=== PATIENT | male | born 1935 | race Caucasian/White ===

== ENCOUNTER 2016-07-14 23:55 | Inpatient (IN) | payer OTHER ==
[2016-07-15 00:14] VITALS: BMI 32.6
[2016-07-15] MEDS ORDERED: ALBUTEROL SO4 2.5/IPRATROPIUM 0.5 INH SOL 3 ML VIAL.NEB. NEB STA ×2 (00:47→00:48)
[2016-07-15] MEDS ORDERED: MAGNESIUM SULF 50% (8.12 MEQ/2 ML-1 GM VIAL) IVPB ONE (00:49)
--- NOTE | 2016-07-15 00:49 | PDOC ---
History of Present Illness - General History Source: Patient Exam Limitations: No Limitations - History of Present Illness Initial Comments: 07/15/16 00:57 The patient is a 80 year old male with significant past medical history of A- fib (on coumadin), hypertension, hyperlipidemia, and pneumonia (couple months ago) who presents to the ED with 2 days of productive cough and wheezing. Patient reports he developed a productive cough with occasional yellow sputum and wheezing 2 days ago. He follows up with Dr. Romano and was recently started on an inhaler, Breo, for the wheezing he has had periodically since he was diagnosed with pneumonia. He states no improvement with the inhaler. Patient also has complaints of slightly dyspnea on exertion. The patient denies fever, chills, diaphoresis, chest pain, and palpitations. The patient denies abdominal pain, nausea, vomiting, and diarrhea. Allergies: NKDA Social History: No alcohol, tobacco, or drug use reported. 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 Zuhair Romano <Jennifer Alba - Last Filed: 07/15/16 01:44> - General History Source: Patient <RachidJonah stewart - Last Filed: 07/15/16 02:02> - General Chief Complaint: Respiratory Stated Complaint: COUGH Time Seen by Provider: 07/15/16 00:47 Past History <Jennifer Alba - Last Filed: 07/15/16 01:44> - Past Medical History Anemia: No Asthma: No Cancer: No Cardiac Disorders: Yes (A FIB) CVA: No COPD: No CHF: No Dementia: No Diabetes: No GI Disorders: Yes (GASTRIC ULCER) Disorders: Yes (ENLARGED PROSTATE) HTN: Yes Hypercholesterolemia: Yes Liver Disease: No Seizures: No Thyroid Disease: No - Surgical History Appendectomy: No Cardiac Surgery: Yes ("NEW VALVE" STENTS) Cholecystectomy: No Orthopedic Surgery: No - Immunization History Immunization Up to Date: Yes - Psycho/Social/Smoking Cessation Hx Anxiety: No Suicidal Ideation: No Smoking History: Never smoked Have you smoked in the past 12 months: No Information on smoking cessation initiated: No Hx Alcohol Use: No Drug/Substance Use Hx: No Substance Use Type: None Hx Substance Use Treatment: No <Jonah Mcgregor - Last Filed: 07/15/16 02:02> - Past Medical History Allergies/Adverse Reactions: Allergies Allergy/AdvReac Type Severity Reaction Status Date / Time No Known Allergies Allergy Verified 07/15/16 00:14 Home Medications: Ambulatory Orders Allopurinol [Zyloprim -] 300 mg PO DAILY 08/22/14 Aspirin [Aspirin EC] 81 mg PO DAILY 08/22/14 Atorvastatin Ca [Lipitor] 40 mg PO HS 08/22/14 Cholecalciferol (Vitamin D3) [Vitamin D3] 2,000 unit PO DAILY 08/22/14 Losartan Potassium 100 mg PO DAILY 08/22/14 Metoprolol Tartrate [Lopressor] 100 mg PO BID 08/22/14 [place]-3 Acid Ethyl Esters [Lovaza -] 4 mg PO DAILY 08/22/14 Ranitidine [Zantac -] 150 mg PO BID 08/22/14 Warfarin Sodium [Coumadin] 1 mg PO DAILY 08/22/14 Warfarin Sodium [Coumadin] 2 mg PO DAILY 08/22/14 Amlodipine Besylate [Norvasc -] 5 mg PO DAILY 09/07/14 Ranolazine [Ranexa -] 500 mg PO BID 09/18/15 Furosemide [Lasix -] 20 mg PO DAILY 07/15/16 Tamsulosin HCl [Flomax] 0.4 mg PO HS 07/15/16 Review of Systems - Review of Systems Able to Perform ROS?: Yes Comments:: 07/15/16 00:58 CONSTITUTIONAL: Absent: fever, chills, diaphoresis, generalized weakness, malaise, loss of appetite HEENT: Absent: rhinorrhea, nasal congestion, throat pain, throat swelling, difficulty swallowing, mouth swelling, ear pain, eye pain, visual Changes CARDIOVASCULAR: Absent: chest pain, syncope, palpitations, irregular heart rate, lightheadedness , peripheral edema RESPIRATORY: +cough, shortness of breath, dyspnea with exertion Absent: orthopnea, wheezing, stridor, hemoptysis GASTROINTESTINAL: Absent: abdominal pain, abdominal distension, nausea, vomiting, diarrhea, constipation, melena, hematochezia GENITOURINARY: Absent: dysuria, frequency, urgency, hesitancy, hematuria, flank pain, genital pain MUSCULOSKELETAL: Absent: myalgia, arthralgia, joint swelling SKIN: Absent: rash, itching, pallor NEUROLOGIC: Absent: headache, focal weakness or paresthesias, dizziness, unsteady gait, seizure, mental status changes, bladder or bowel incontinence PSYCHIATRIC: Absent: anxiety, depression, suicidal or homicidal ideation, hallucinations. <Jennifer Alba - Last Filed: 07/15/16 01:44> *Physical Exam - Vital Signs Last Vital Signs Temp Pulse Resp BP Pulse Ox 98.3 F 56 L 18 113/76 98 07/15/16 00:40 07/15/16 00:12 07/15/16 00:12 07/15/16 00:12 07/15/16 00:12 - Physical Exam Comments: 07/15/16 00:58 GENERAL: Well developed, well nourished. Awake and alert. No acute distress. HEENT: Normocephalic, atraumatic. PERRLA, EOMI. No conjunctival pallor. Sclera are non- icteric. Moist mucous membranes. Oropharynx is clear. NECK: Supple. Full ROM. No JVD. Carotid pulses 2+ and symmetric, without bruits. No thyromegaly. No lymphadenopathy. CARDIOVASCULAR: Regular rate and rhythm. No murmurs, rubs, or gallops. Distal pulses are 2+ and symmetric. PULMONARY: No evidence of respiratory distress. Diffuse wheezing bilaterally. ABDOMINAL: Soft. Non-tender. Non-distended. No rebound or guarding. No organomegaly. Normoactive bowel sounds. MUSCULOSKELETAL Normal range of motion at all joints. No bony deformities or tenderness. No CVA tenderness. EXTREMITIES: No cyanosis. No clubbing. No edema. No calf tenderness. SKIN: Warm and dry. Normal capillary refill. No rashes. No jaundice. NEUROLOGICAL: Alert, awake, appropriate. Cranial nerves 2-12 intact. Moving all extremities. No focal neurological deficits. PSYCHIATRIC: Cooperative. Good eye contact. Appropriate mood and affect. <Jennifer Alba - Last Filed: 07/15/16 01:44> - Vital Signs Last Vital Signs Temp Pulse Resp BP Pulse Ox 98.3 F 56 L 18 113/76 98 07/15/16 00:40 07/15/16 00:12 07/15/16 00:12 07/15/16 00:12 07/15/16 00:12 <Jonah Mcgregor - Last Filed: 07/15/16 02:02> ED Treatment Course - LABORATORY CBC & Chemistry Diagram: 07/15/16 01:05 07/15/16 01:05 - RADIOLOGY Radiograph Interpretation: 07/15/16 01:44 EXAM: X-ray chest Reviewed by Imaging occupational medicine physician: FINDINGS: Mild cardiomegaly status post sternotomy and aortic valve replacement. Hyperinflation of the lung parenchyma. Mild basilar atelectasis. There are no pleural effusions. There is no pneumothorax. IMPRESSION: Mild cardiomegaly status post sternotomy and aortic valve replacement. Hyperinflation of the lung parenchyma. Mild basilar atelectasis. <Jennifer Alba - Last Filed: 07/15/16 01:44> - LABORATORY CBC & Chemistry Diagram: 07/15/16 01:05 07/15/16 01:05 <Jonah Mcgregor - Last Filed: 07/15/16 02:02> Medical Decision Making - Medical Decision Making 07/15/16 02:01 Dr. Mcgregor: The scribe's documentation has been prepared under my direction and personally reviewed by me in its entirery. I confirm that the note above accurately reflects all work, treatment, procedures, and medical decision making performed by me. patient still actively wheezing, dyspneic on exertion, Positive influenza a by culture. Will admit. <Jonah Mcgregor - Last Filed: 07/15/16 02:02> *DC/Admit/Observation/Transfer - Attestations Scribe Attestion: 07/15/16 00:58 Documentation prepared by Jennifer Alba, acting as family practice medical doctor for Jonah Mcgregor MD <Jennifer Alba - Last Filed: 07/15/16 01:44> - Discharge Dispostion Admit: Yes <Jonah Mcgregor - Last Filed: 07/15/16 02:02> Diagnosis at time of Disposition: Bronchospasm, Influenza A - Referrals Referrals: Zuhair Romano MD [Primary Care Provider] -
[2016-07-15] MEDS ORDERED: MAGNESIUM SULF 50% (8.12 MEQ/2 ML-1 GM VIAL) ONE (01:01)
[2016-07-15] MEDS ORDERED: ALBUTEROL SO4 2.5/IPRATROPIUM 0.5 INH SOL 3 ML VIAL.NEB. NEB ONE ×2 (01:06→01:22)
[2016-07-15 01:32] LABS: EOSINOPHIL 4.5 % (0-4.5); MCH 29.7 pg (25.7-33.7); MCHC 32.6 g/dl (32.0-35.9); MEAN PLT VOLUME 8.2 fl (7.5-11.1); NEUTROPHILS 64.9 % (42.8-82.8); PLATELET COUNT 182 K/MM3 (134-434); RDW 14.7 % (11.9-15.9); WHITE BLOOD COUNT 6.1 K/mm3 (4.0-10.0)
[2016-07-15 01:58] LABS: ALBUMIN 3.5 g/dl (3.4-5.0); CALCIUM 8.9 mg/dL (8.5-10.1); CREATININE 1.7 mg/dL (0.7-1.3)
[2016-07-15 01:59] LABS: BILIRUBIN,TOTAL 0.4 mg/dL (0.2-1.0); TOT PROT 6.6 g/dl (6.4-8.2)
[2016-07-15] MEDS ORDERED: OSELTAMIVIR PHOSPHATE 75 MG CAPSULE PO ONE (02:00)
[2016-07-15] MEDS ORDERED: OSELTAMIVIR PHOSPHATE 75 MG CAPSULE ONE (02:07)
--- NOTE | 2016-07-15 02:11 | PN ---
<Quinn Gonzales - Last Filed: 07/15/16 02:11> Teaching Attending Note Name of Resident: Cary Ramirez ATTENDING PHYSICIAN STATEMENT I saw and evaluated the patient. I reviewed the resident's note and discussed the case with the resident. I agree with the resident's findings and plan as documented. SUBJECTIVE: OBJECTIVE: ASSESSMENT AND PLAN: <DebbiJonah sierra - Last Filed: 07/15/16 02:56> Teaching Attending Note Name of Resident: Cary Ramirez ATTENDING PHYSICIAN STATEMENT I saw and evaluated the patient. I reviewed the resident's note and discussed the case with the resident. I agree with the resident's findings and plan as documented. SUBJECTIVE: 80 year old male, past medical history significant for AFIB on coumadin, HTN, HLD and pneumonia, who presented with productive cough, yellow sputum and wheezing. He notes that he received the flu shot this year. OBJECTIVE: GENERAL: Awake, alert, and fully oriented, in no acute distress HEENT: Atraumatic. PERRLA, EOMI. Moist mucosa. No JVD LUNGS: +Diffused expiratory wheezing. No distress, speaks full sentences. HEART: Regular rate and rhythm, normal S1 and S2, no murmurs, rubs or gallops, peripheral pulses normal and equal bilaterally. ABDOMEN: Soft, nontender, normoactive bowel sounds. No guarding, no rebound. No masses EXTREMITIES: Normal inspection, Normal range of motion, no edema. No clubbing or cyanosis. NEUROLOGICAL: Cranial nerves II through XII grossly intact. Normal speech, no focal sensorimotor deficits SKIN: Warm, Dry, normal turgor, no rashes or lesions noted. CBCD WBC 6.1 K/mm3 (4.0-10.0) 07/15/16 01:05 RBC 3.64 M/mm3 (4.00-5.60) L 07/15/16 01:05 Hgb 10.8 GM/dL (11.7-16.9) L D 07/15/16 01:05 Hct 33.2 % (35.4-49) L 07/15/16 01:05 MCV 91.0 fl (80-96) 07/15/16 01:05 MCHC 32.6 g/dl (32.0-35.9) 07/15/16 01:05 RDW 14.7 % (11.9-15.9) 07/15/16 01:05 Plt Count 182 K/MM3 (134-434) 07/15/16 01:05 MPV 8.2 fl (7.5-11.1) D 07/15/16 01:05 CMP Sodium 143 mmol/L (136-145) 07/15/16 01:05 Potassium 4.3 mmol/L (3.5-5.1) 07/15/16 01:05 Chloride 105 mmol/L (98-107) 07/15/16 01:05 Carbon Dioxide 29 mmol/L (21-32) 07/15/16 01:05 Anion Gap 9 (8-16) 07/15/16 01:05 BUN 32 mg/dL (7-18) H 07/15/16 01:05 Creatinine 1.7 mg/dL (0.7-1.3) H D 07/15/16 01:05 Creat Clearance w eGFR 38.78 (>60) 07/15/16 01:05 Calcium 8.9 mg/dL (8.5-10.1) 07/15/16 01:05 Total Bilirubin 0.4 mg/dL (0.2-1.0) D 07/15/16 01:05 AST 13 U/L (15-37) L D 07/15/16 01:05 ALT 12 U/L (12-78) D 07/15/16 01:05 Alkaline Phosphatase 67 U/L (45-117) 07/15/16 01:05 Total Protein 6.6 g/dl (6.4-8.2) 07/15/16 01:05 Albumin 3.5 g/dl (3.4-5.0) 07/15/16 01:05 ASSESSMENT AND PLAN: 80 year old male, with past medical history of who presents with cough and wheezing, found to be positive for the flu 1. Influenza, -Continue with tamiflu -Sputum culture -Nebulizer PRN, wheezing 2. Acute renal failure -Gentle IVF 3. Interstitial anemia - Monitor studies, outpatient 4. DVT prophylaxes - Heparin 5000 Q8, moderate risk Admit to med surg Documentation prepared by Jonah Sultana, acting as medical manager for Quinn Gonzales D.O.
--- NOTE | 2016-07-15 02:16 | HP ---
CHIEF COMPLAINT: " i have wheezing" PCP: Dr Romano HISTORY OF PRESENT ILLNESS: This is a very pleasant 80 yo M with PMH of a recent hospitalization for PNA, a- fib on coum, HTN, HLD, BPH and past Gastric ulcer, who presents due to increased wheezing and cough productive of yellow sputum for 2 days. He also reports associated rhinorrhea and throat "tickle". 2 mo ago, while on vacation in [facility], he developed sob and wheezing. He was hospitalized for 3 days with PNA and treated with steroids and abx. His wheezing since improved but did not completely disappear. His PCP started him on Breo nebs, which have not been helping. Patient felt almost back to baseline until 2 days ago, when current symptoms started. he denies sob, h/a, f/c, chest pain, orthopnea, palpitations, abd pain, diarrhea or constipation. He denies personal or family history of asthma or copd, smoking or smoke exposure. He has had a flu shot but not PNA shot. ER course was notable for: (1)cxr (2)labs (3)tamiflu, albuterol nebs Recent Travel: [facility] 2 mo ago PAST MEDICAL HISTORY: as above PAST SURGICAL HISTORY: heart valve replacement 2 yrs ago Social History: lives at home Smoking: denies Alcohol: 2 drinks/mo Drugs: denies Family History: none Allergies No Known Allergies Allergy (Verified 07/15/16 00:14) HOME MEDICATIONS: Medication Instructions Recorded Allopurinol [Zyloprim -] 300 mg PO DAILY 08/22/14 Aspirin [Aspirin EC] 81 mg PO DAILY 08/22/14 Atorvastatin Ca [Lipitor] 40 mg PO HS 08/22/14 Cholecalciferol (Vitamin D3) 2,000 unit PO DAILY 08/22/14 [Vitamin D3] Losartan Potassium 100 mg PO DAILY 08/22/14 Metoprolol Tartrate [Lopressor] 100 mg PO BID 08/22/14 [place]-3 Acid Ethyl Esters [Lovaza 4 mg PO DAILY 08/22/14 -] Ranitidine [Zantac -] 150 mg PO BID 08/22/14 Warfarin Sodium [Coumadin] 1 mg PO DAILY 08/22/14 Warfarin Sodium [Coumadin] 2 mg PO DAILY 08/22/14 Amlodipine Besylate [Norvasc -] 5 mg PO DAILY 09/07/14 Ranolazine [Ranexa -] 500 mg PO BID 09/18/15 Furosemide [Lasix -] 20 mg PO DAILY 07/15/16 Tamsulosin HCl [Flomax] 0.4 mg PO HS 07/15/16 REVIEW OF SYSTEMS CONSTITUTIONAL: Absent: fever, chills, malaise, loss of appetite HEENT: Absent: throat pain, difficulty swallowing, ear pain CARDIOVASCULAR: Absent: chest pain, syncope, palpitations, lightheadedness, peripheral edema RESPIRATORY: Absent: shortness of breath, orthopnea, hemoptysis GASTROINTESTINAL: Absent: abdominal pain, abdominal distension, nausea, vomiting, diarrhea, constipation, melena, hematochezia GENITOURINARY: Absent: dysuria MUSCULOSKELETAL: Absent: myalgia, arthralgia SKIN: Absent: rash HEMATOLOGIC/IMMUNOLOGIC: Absent: frequent infections ENDOCRINE: Absent: uheat intolerance, cold intolerance NEUROLOGIC: Absent: headache, focal weakness or paresthesias, seizure PSYCHIATRIC: Absent: anxiety, depression PHYSICAL EXAMINATION Vital Signs - 24 hr 07/15/16 07/15/16 00:12 00:40 Temperature 98.3 F Pulse Rate 56 L Respiratory 18 Rate Blood Pressure 113/76 O2 Sat by Pulse 98 Oximetry (%) GENERAL: Awake, alert, and fully oriented, in no acute distress. HEAD: Normal with no signs of trauma. EYES: Pupils equal, round and reactive to light, extraocular movements intact, sclera anicteric, conjunctiva clear. EARS, NOSE, THROAT: Moist mucous membranes. NECK: supple without JVD LUNGS: diffuse expiratory wheezes HEART: Regular rate and rhythm, normal S1 and S2 ABDOMEN: Soft, nontender, not distended, normoactive bowel sounds MUSCULOSKELETAL: No CVA tenderness. UPPER EXTREMITIES: 2+ pulses, warm, well-perfused. No cyanosis.No peripheral edema. LOWER EXTREMITIES: 2+ pulses, warm, well-perfused. No calf tenderness. No peripheral edema. NEUROLOGICAL: Cranial nerves II-XII grossly intact. Normal speech. PSYCHIATRIC: Cooperative. Good eye contact SKIN: Warm, dry Laboratory Results - last 24 hr 07/15/16 01:05 WBC 6.1 RBC 3.64 L Hgb 10.8 L D Hct 33.2 L MCV 91.0 MCHC 32.6 RDW 14.7 Plt Count 182 MPV 8.2 D Neutrophils % 64.9 Lymphocytes % 16.7 Monocytes % 12.9 H Eosinophils % 4.5 Basophils % 1.0 Laboratory Tests 07/15/16 01:05 Sodium 143 Potassium 4.3 Chloride 105 Carbon Dioxide 29 Anion Gap 9 BUN 32 H Creatinine 1.7 H D Creat Clearance w eGFR 38.78 Random Glucose 79 D Calcium 8.9 Total Bilirubin 0.4 D AST 13 L D ALT 12 D Alkaline Phosphatase 67 Total Protein 6.6 Albumin 3.5 ASSESSMENT/PLAN: This is a very pleasant 80 yo M with PMH of a recent hospitalization for PNA, a- fib on coum, HTN, HLD, BPH and past Gastric ulcer, who presents due to increased wheezing and cough productive of yellow sputum for 2 days. He also reports associated rhinorrhea and throat "tickle". @ mo ago, while on vacation in [facility], he developed sob and wheezing. He was hospitalized for 3 days with PNA and treated with steroids and abx. His wheezing since improved but did not completely disappear. His PCP started him on Breo nebs, whihc have not been helping. Patient felt almost back to baseline until 2 days ago, when current symptoms started. he denies sob, h/a, f/c, chest pain, orthopnea, palpitations, abd pain, diarrhea or constipation. He deneis personal or family history of asthma or copd, smoking or smoke exposure. He has had a flu shot but not PNA shot. 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 + -wheezing possible rxn airway inflamation/asthma in setting of recent PNA, aggravated by influenza -continue tamiflu -IV hydration -sputum culture -albuterol nebs -incentive spirometry [place] -BUN/creat 32/1.7 -possiblu due to dehydration -IV hydration -trend creat A fib -hold coum until INR result HTN -continuemetoprolol, amlodipine, asa 81 HLD -continue atorvastatin BPH -continue flomax HX GI ulcer -continue zantac FEN NS@75 lytes stable DVT GI PPX: SCD, diet NA controlled diet Dispo: admit to med lisa Problem List - Problem (1) Bronchospasm Code(s): J98.01 - ACUTE BRONCHOSPASM (2) Influenza A Code(s): J10.1 - FLU DUE TO OTH IDENT INFLUENZA VIRUS W OTH RESP MANIFEST (3) HTN (hypertension) Code(s): I10 - ESSENTIAL (PRIMARY) HYPERTENSION (4) HLD (hyperlipidemia) Code(s): E78.5 - HYPERLIPIDEMIA, UNSPECIFIED (5) A-fib Code(s): I48.91 - UNSPECIFIED ATRIAL FIBRILLATION (6) BPH (benign prostatic hyperplasia) Code(s): N40.0 - BENIGN PROSTATIC HYPERPLASIA WITHOUT LOWER URINRY TRACT SYMP Visit type - Emergency Visit Emergency Visit: Yes Care time: The patient presented to the Emergency Department on the above date and was hospitalized for further evaluation of their emergent condition. - New Patient This patient is new to me today: Yes Date on this admission: 07/15/16 - Critical Care Critical Care patient: No
[2016-07-15] MEDS ORDERED: SODIUM CHLORIDE 1,000 ML IV SCH ×2 (03:00→16:46)
[2016-07-15 03:39] LABS: INR 5.27 (0.82-1.09)
[2016-07-15 06:20] LABS: MCH 29.5 pg (25.7-33.7); MCHC 32.5 g/dl (32.0-35.9); MEAN CELL VOLUME 90.8 fl (80-96); MEAN PLT VOLUME 7.6 fl (7.5-11.1); PLATELET COUNT 170 K/MM3 (134-434); RDW 14.6 % (11.9-15.9); WHITE BLOOD COUNT 6.5 K/mm3 (4.0-10.0)
[2016-07-15 07:11] LABS: CALCIUM 8.6 mg/dL (8.5-10.1); CREATININE 1.6 mg/dL (0.7-1.3); MAGNESIUM 1.8 mg/dL (1.8-2.4); PHOSPHOROUS 2.9 mg/dL (2.5-4.9)
[2016-07-15] MEDS: ALBUTEROL SO4 0.083% IH SOL 2.5 MG/3 ML VIAL.NEB. NEB PRN ×4 (08:30→23:47)
[2016-07-15] MEDS ORDERED: ALBUTEROL SO4 0.083% IH SOL 2.5 MG/3 ML VIAL.NEB. NEB ONE ×2 (08:30→08:32)
[2016-07-15] MEDS ORDERED: OMEGA-3 ACID ETHYL ESTERS (FATTY-ACIDS) 1 GM CAPSULE (FP) PO SCH (10:00)
[2016-07-15] MEDS ORDERED: ASPIRIN COATED 81 MG TABLET.EC PO SCH (10:00)
[2016-07-15] MEDS ORDERED: PT OWN MED DRAWER 7, Y5N ONE ×3 (10:23→20:56)
[2016-07-15] MEDS: ALLOPURINOL 100 MG TABLET (FP) PO SCH (10:37)
[2016-07-15] MEDS: METOPROLOL TARTRATE 50 MG TABLET (FP) PO SCH ×2 (10:37→21:01)
[2016-07-15] MEDS: RANITIDINE HCL 150 MG TABLET (FP) PO SCH ×2 (10:37→21:01)
[2016-07-15] MEDS: RANOLAZINE E.R. 500 MG TABLET (FP) PO SCH ×2 (10:37→21:01)
[2016-07-15] MEDS: CHOLECALCIFEROL (VITAMIN D3) 1,000 UNIT TABLET (FP) PO SCH (10:37)
[2016-07-15] MEDS: amLODIPine BESYLATE 5 MG TABLET (FP) PO SCH (10:38)
--- NOTE | 2016-07-15 10:50 | EKG ---
Test Reason : Blood Pressure : / mmHG Vent. Rate : 064 BPM Atrial Rate : 064 BPM P-R Int : 190 ms QRS Dur : 104 ms QT Int : 422 ms P-R-T Axes : 064 002 046 degrees QTc Int : 435 ms NORMAL SINUS RHYTHM WITH SINUS ARRHYTHMIA LOW VOLTAGE QRS CANNOT RULE OUT ANTERIOR INFARCT , AGE UNDETERMINED ABNORMAL ECG WHEN COMPARED WITH ECG OF 21-JAN-2016 13:04, NO SIGNIFICANT CHANGE WAS FOUND Confirmed by TONYA RODRIGES MD ([id number]) on 07/15/2016 10:50:50 AM Referred By: Confirmed By:TONYA RODRIGES MD
[2016-07-15] MEDS ORDERED: OSELTAMIVIR PHOSPHATE 75 MG CAPSULE PO SCH (11:30)
--- NOTE | 2016-07-15 11:34 | PN ---
Progress Note (short form) - Note Progress Note: PULMONARY CONSULTATION DICTATED 07/15/16 IMP ASTHMATIC BRONCHITIS INFLUENZA A RECENT PNEUMONIA ACUTE KIDNEY INJURY S/P AVR SUPRA-THERAPEUTIC INR HTN HLD PLAN INHALED BRONCHODILATORS IV STEROIDS NASAL O2 TAMIFLU CHEST CT MONITOR INR COUMADIN PER INR MONITOR RENAL FUNCTION MONITOR PEAK FLOW DR ALLEN Problem List - Problems (1) Bronchospasm Code(s): J98.01 - ACUTE BRONCHOSPASM (2) HLD (hyperlipidemia) Code(s): E78.5 - HYPERLIPIDEMIA, UNSPECIFIED (3) HTN (hypertension) Code(s): I10 - ESSENTIAL (PRIMARY) HYPERTENSION (4) Influenza A Code(s): J10.1 - FLU DUE TO OTH IDENT INFLUENZA VIRUS W OTH RESP MANIFEST (5) Supratherapeutic INR Code(s): R79.1 - ABNORMAL COAGULATION PROFILE (6) Asthmatic bronchitis Code(s): J45.909 - UNSPECIFIED ASTHMA, UNCOMPLICATED (7) Aortic valve replaced Code(s): Z95.2 - PRESENCE OF PROSTHETIC HEART VALVE (8) Acute kidney injury Code(s): N17.9 - ACUTE KIDNEY FAILURE, UNSPECIFIED
--- NOTE | 2016-07-15 11:48 | CONSULT ---
Consult Consult Specialty:: Cardiology Referred by:: Zuhair Romano MD Reason for Consultation:: s/p valve replacement - History of Present Illness Chief Complaint: Wheezing History of Present Illness: This is a very pleasant 80 yo M with h/o CAD s/p multivessel PCI (stent), diastolic dysfunction, s/p bioAVR, PAF->SR post cryMaze pn coumadin per INR, HTN/HCVD, hyperlipidemia, CKD recent hospitalization for PNA, BPH and past Gastric ulcer, last saw Dr. Jones 07/01/2016, presented for increased wheezing and cough productive of yellow sputum, associated rhinorrhea with post- nasal drip. 2 mo ago, while on vacation in [facility], he developed sob and wheezing. He was hospitalized for 3 days with PNA and treated with steroids and abx. His wheezing since improved but did not completely resolve His PCP started him on Breo nebs, which have not been helping. Patient felt almost back to baseline until 2 days ago, when current symptoms started. He denies sob, chest pain, orthopnea, palpitations, near or true syncope, fevers or chills. Influenza A positive. - History Source History Provided By: Patient Limitations to Obtaining History: No Limitations - Past Medical History Cardio/Vascular: Yes: AFIB, Aortic Stenosis, CHF, HTN, Hyperlipdemia - Past Surgical History Past Surgical History: Yes: Valve Replacement - Alcohol/Substance Use Hx Alcohol Use: No - Smoking History Smoking history: Never smoked Have you smoked in the past 12 months: No Home Medications - Allergies Allergies/Adverse Reactions: Allergies Allergy/AdvReac Type Severity Reaction Status Date / Time No Known Allergies Allergy Verified 07/15/16 00:14 - Home Medications Home Medications: Ambulatory Orders Allopurinol [Zyloprim -] 300 mg PO DAILY 08/22/14 Aspirin [Aspirin EC] 81 mg PO DAILY 08/22/14 Atorvastatin Ca [Lipitor] 40 mg PO HS 08/22/14 Cholecalciferol (Vitamin D3) [Vitamin D3] 2,000 unit PO DAILY 08/22/14 Losartan Potassium 100 mg PO DAILY 08/22/14 Metoprolol Tartrate [Lopressor] 100 mg PO BID 08/22/14 [place]-3 Acid Ethyl Esters [Lovaza -] 4 mg PO DAILY 08/22/14 Ranitidine [Zantac -] 150 mg PO BID 08/22/14 Warfarin Sodium [Coumadin] 1 mg PO DAILY 08/22/14 Warfarin Sodium [Coumadin] 2 mg PO DAILY 08/22/14 Amlodipine Besylate [Norvasc -] 5 mg PO DAILY 09/07/14 Ranolazine [Ranexa -] 500 mg PO BID 09/18/15 Furosemide [Lasix -] 20 mg PO DAILY 07/15/16 Tamsulosin HCl [Flomax] 0.4 mg PO HS 07/15/16 Review of Systems - Review of Systems Respiratory: reports: Wheezing Vital Signs: Vital Signs Temperature 97.9 F 07/15/16 10:00 Pulse Rate 70 07/15/16 10:00 Respiratory Rate 18 07/15/16 10:00 Blood Pressure 122/66 07/15/16 10:00 O2 Sat by Pulse Oximetry (%) 97 07/15/16 10:00 Constitutional: Yes: No Distress, Calm Neck: Yes: Supple Respiratory: Yes: Regular, Diminished, On Nasal O2, Wheezes Gastrointestinal: Yes: Normal Bowel Sounds, Soft, Abdomen, Obese Cardiovascular: Yes: Regular Rate and Rhythm JVD: No Carotid Bruit: No Heart Sounds: Yes: S1, S2 Murmur: Yes: Systolic Murmur, Grade 1 Edema: No - Other Data Labs, Other Data: CBC, BMP 07/15/16 06:04 07/15/16 06:04 INR, PTT INR 5.27 (0.82-1.09) H* D 07/15/16 03:10 NSR @ 64 PRWP Imaging - Results Chest X-ray: Report Reviewed (NAD) Problem List - Problems (1) A-fib Code(s): I48.91 - UNSPECIFIED ATRIAL FIBRILLATION Qualifiers: Atrial fibrillation type: paroxysmal Qualified Code(s): I48.0 - Paroxysmal atrial fibrillation (2) Acute kidney injury Code(s): N17.9 - ACUTE KIDNEY FAILURE, UNSPECIFIED (3) Aortic valve replaced Code(s): Z95.2 - PRESENCE OF PROSTHETIC HEART VALVE (4) Asthmatic bronchitis Code(s): J45.909 - UNSPECIFIED ASTHMA, UNCOMPLICATED Qualifiers: Asthma severity: moderate persistent (5) Bronchospasm Code(s): J98.01 - ACUTE BRONCHOSPASM (6) HLD (hyperlipidemia) Code(s): E78.5 - HYPERLIPIDEMIA, UNSPECIFIED Qualifiers: Hyperlipidemia type: pure hypercholesterolemia Qualified Code(s): E78.0 - Pure hypercholesterolemia (7) HTN (hypertension) Code(s): I10 - ESSENTIAL (PRIMARY) HYPERTENSION Qualifiers: Hypertension type: essential hypertension Qualified Code(s): I10 - Essential (primary) hypertension (8) Influenza A Code(s): J10.1 - FLU DUE TO OTH IDENT INFLUENZA VIRUS W OTH RESP MANIFEST (9) Supratherapeutic INR Code(s): R79.1 - ABNORMAL COAGULATION PROFILE (10) Diastolic dysfunction without heart failure Code(s): I51.9 - HEART DISEASE, UNSPECIFIED Assessment/Plan 05/03/2016 Echo: cLVH with normal LV size and fxn, LAE 4.6 cm, bioprosthetic AVR , mild MR, TR, RVSP 55-60 mmHg 06/24/2016 [place] MPI: No ischemia, LVEF 73% 1. Asthmatic bronchitis, recent PNA 2. CAD s/p multivessel PCI (stent), angina pectoris 3. Aortic stenosis s/p AVR (bioprosthesis) 4. PAF in sinus rhythm [id number] with supratherapeutic INR 5. HTN/HCVD 6. Hyperlipidemia 7. Acute on CKD PLAN: 1. Continue present CV medications including Lopressor 100 bid, Norvasc 5 qd, Lipitor 40 qhs, Ranexa 500 bid, Lovaza 2 gm bid, hold Coumadin per INR, d/c ASA as CAD is stable on coumadin, holding Lasix and losartan awaiting renal fxn stabilization 2. BD, IV steroids, O2 as needed, Tamiflu, f/u chest CT, bedside spirometry 3. GI prophylaxis 4. Thank you for consultative opportunity
--- NOTE | 2016-07-15 11:53 | CONS ---
DATE OF CONSULTATION: 07/15/2016 PULMONARY CONSULTATION REFERRING PHYSICIAN: HISTORY OF PRESENT ILLNESS: The patient is an 80-year-old white male with a past medical history of atrial fibrillation on Coumadin status post aortic valve replacement, hypertension, hyperlipidemia, history of pneumonia a few months ago while in [facility], was hospitalized for [address] [facility] and complained of 2-day history of productive cough, wheezing. Today reports patient was recently hospitalized while in [facility] while he was on vacation for 3 days; at the time, he was told he had pneumonia. He returned home, and recently he was diagnosed with increasing shortness of breath, cough, and wheezing. He was recently started on Breo, Ellipta for the wheezing, which did not offer significant improvement. Over the past couple of days, he started noticing increasing shortness of breath and wheezing, at which time he was sent to the emergency room. In the ER, he was noted to have positive influenza A. He was admitted to the floor, he was started on inhaled bronchodilators. He is a nonsmoker. There is no history of occupational exposure to chemicals or fumes. Born in [place], moved to the [place] many years ago. Denies hemoptysis. Denies any chest pains or palpitations. PAST MEDICAL HISTORY: Again, includes atrial fibrillation status post AVR, hypertension, hyperlipidemia, history of pneumonia. REVIEW OF SYSTEMS: Positive cough. Positive shortness of breath. Positive wheezing. No chest pain. No palpitations. No diarrhea. MEDICATION: Prior to admission include Zyloprim, aspirin, Lipitor, vitamin D3, losartan, Lopressor, Lovaza, Coumadin, Norvasc, Ranexa, Lasix, and Flomax. PHYSICAL EXAMINATION: General: The patient is a well-developed, well-nourished male awake, alert, in no acute distress. Vital signs: He is currently afebrile. Blood pressure is 122/66, respiratory rate 18, O2 saturation 97% on room air. HEENT: Head is normocephalic, atraumatic. Neck: Supple. Heart: Irregular. Normal S1, S2. Chest: Diffuse bilateral expiratory and inspiratory wheezes. Abdomen: Soft. Bowel sounds positive. Extremities: No cyanosis, edema. LABORATORY: WBC 6.5, hemoglobin 10.6, hematocrit 32.5, platelet count 170,000. INR is 5.27. BUN 30, creatinine 1.6. Chest x-ray shows no acute infiltrates and/or effusions. EKG normal sinus rhythm. IMPRESSION: 1. Cough, bronchospasm, most likely secondary to acute asthmatic bronchitis. 2. Acute influenza A. 3. Recent pneumonia. 4. Status post aortic valve replacement . 5. Coagulopathy. 6. Hypertension. 7. Hyperlipidemia. PLAN: IV steroids, inhaled bronchodilators, Tamiflu, supplemental O2 p.r.n., sputum for C&S, obtain CT scan of the chest, also cardiology evaluation. Monitor Coumadin as per INR, will hold at this time, monitor INR and restart Coumadin once INR therapeutic corrected. Monitor peak flow BANDAR ALLEN M.D. [id number]
[2016-07-15] MEDS: methylPREDNISolone NA SUCC 40 MG/1 ML VIAL IVPB SCH ×3 (12:11→21:02)
[2016-07-15] MEDS: TIOTROPIUM BROMIDE 18 MCG/INH (DEVICE W/ 30 CAPSULES) IH SCH (12:34)
[2016-07-15] MEDS: OSELTAMIVIR PHOSPHATE 30 MG CAPSULE PO SCH ×2 (12:34→21:01)
[2016-07-15 13:39] LABS: URINE CREATININE 80.2 mg/dL
--- NOTE | 2016-07-15 16:28 | HOSP ---
Physical Examination Vital Signs: Vital Signs Temperature 97.6 F 07/15/16 15:12 Pulse Rate 76 07/15/16 15:12 Respiratory Rate 18 07/15/16 10:00 Blood Pressure 122/66 07/15/16 10:00 O2 Sat by Pulse Oximetry (%) 97 07/15/16 10:00 Labs: CBC, BMP 07/15/16 06:04 07/15/16 06:04 Hospitalist Encounter Assessment: Subjective: PT seen and examined. He denies chest pain, orthopnea. He does have a cough and says he will be fine Objective: Current Medications Generic Name Dose Route Start Last Admin Trade Name Freq PRN Reason Stop Dose Admin Albuterol Sulfate 1 amp 07/15/16 03:00 07/15/16 13:09 Ventolin 0.083% Nebulizer Soln - NEB 1 amp Q4H PRN Administration Allopurinol 200 mg 07/15/16 10:00 07/15/16 10:37 Zyloprim - PO 200 mg DAILY DONALD Administration Amlodipine Besylate 5 mg 07/15/16 10:00 07/15/16 10:38 Norvasc - PO 5 mg DAILY DONALD Administration Atorvastatin Calcium 40 mg 07/15/16 22:00 Lipitor - PO HS DONALD Budesonide/Formoterol Fumarate 2 puff 07/15/16 12:00 Symbicort 160/4.5mcg - IH BID DONALD Cholecalciferol 2,000 unit 07/15/16 10:00 07/15/16 10:37 Vitamin D3 - PO 2,000 unit DAILY DONALD Administration Sodium Chloride 1,000 mls @ 75 mls/hr 07/15/16 03:00 07/15/16 03:36 Normal Saline - IV 75 mls/hr ASDIR DONALD Administration Methylprednisolone Sodium Succinate 40 mg 07/15/16 11:30 07/15/16 15:22 Solu-Medrol - IVPB 40 mg Q6H-IV DONALD Administration Metoprolol Tartrate 100 mg 07/15/16 10:00 07/15/16 10:37 Lopressor - PO 100 mg BID DONALD Administration [id number] Ethyl Esters 2 gm 07/15/16 22:00 Lovaza - PO BID DONALD Oseltamivir Phosphate 30 mg 07/15/16 12:00 07/15/16 12:34 Tamiflu - PO 30 mg BID DONALD Administration Ranitidine HCl 150 mg 07/15/16 10:00 07/15/16 10:37 Zantac - PO 150 mg BID DONALD Administration Ranolazine 500 mg 07/15/16 10:00 07/15/16 10:37 Ranexa - PO 500 mg BID DONALD Administration Tamsulosin HCl 0.4 mg 07/15/16 22:00 Flomax - PO HS DONALD Tiotropium [place] 1 puff 07/15/16 12:00 07/15/16 12:34 Spiriva - IH 1 puff DAILY DONALD Administration PE Neuro: alert, awake, cn 2-12intact Pulm: diffuse wheezing throughout lung hickman, + cough CV: s1 s2 rrr soft murmur Abd: protubrent abd, LLQ appreciable mass- soft, +bs, non tender Ext: no edema, warm Assessment: 80 year old male with pmhx of CAD s/p multivessel PCI (stent), diastolic dysfunction, s/p bioAVR, PAF->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 Plan: 1. Influenza A - Tamiflu 30mg BID (renally dosed, Cr cl 49) 2. Asthma bronchitis/Wheezing - CT chest shows mild mediastinal lymphadenopathy, R thyroidmegaly - Will obtain thyroid US - TSH level - Medrol 40mg q6hr - Cont Symbicort/ Spirivia - Pulm following 3. ARF, ? CKD - Unclear most recent baseline - FENa: 1.35% - Cr not improving with fluids - Renal US shows unremarkable kidneys, however b/l cysts noted - Renal consult 4. Retroperitoneal lymphadenopathy as seen on CT - CTAP w/ contrast recommended, however pt w/ elevated cr - Elevated monocytes, however pt + influenza - Will d/w Renal 5. CAD s/p stents - s/p AV repair w/ bioprosthetic valve - Cont Ranexa - Hold Coumadin - Monitor INR, supra therapeutic at this time - Cards following 6. HTN/Diastolic dysfunction - Cont Norvasc 5mg daily - Cont Metoprolol 100 BID 7. Diastolic dysfunction - As above 8. BPH - Cont flomax 9. Gout - Cont Allopurinol, if cr worsens will stop
[2016-07-15] MEDS: BUDESONIDE/FORMETEROL FUMARATE 160/4.5 mcg INHALER IH SCH ×2 (16:37→21:02)
--- NOTE | 2016-07-15 18:47 | CONSULT ---
Consult Consult Specialty:: Nephrology Reason for Consultation:: CHINO - History of Present Illness Chief Complaint: cough and wheezing History of Present Illness: Pt is an 80 year old male with history of HTN, a-fib, CAD, CKD, hyperlipidemia and a-fib who presents to the ER with cough and wheezing. He says that the cough is productive of yellow phlegm. He also complains of wheezing. He was recently treated for PNA. He was found to have elevated creatinine and I was called to evaluate him. He says that he was told that he had mild renal disease when he was in the hospital last time. He denies dysuria or hematuria. He denies nsaid use. He was also diagnosed with the flu and is on tamiflu. - History Source History Provided By: Patient, Medical Record - Past Medical History Cardio/Vascular: Yes: AFIB, Aortic Stenosis, CHF, HTN, Hyperlipdemia Renal/: Yes: Renal Inusuff - Past Surgical History Past Surgical History: Yes: Valve Replacement - Alcohol/Substance Use Hx Alcohol Use: No - Smoking History Smoking history: Never smoked Have you smoked in the past 12 months: No Home Medications - Allergies Allergies/Adverse Reactions: Allergies Allergy/AdvReac Type Severity Reaction Status Date / Time No Known Allergies Allergy Verified 07/15/16 00:14 - Home Medications Home Medications: Ambulatory Orders Allopurinol [Zyloprim -] 300 mg PO DAILY 08/22/14 Aspirin [Aspirin EC] 81 mg PO DAILY 08/22/14 Atorvastatin Ca [Lipitor] 40 mg PO HS 08/22/14 Cholecalciferol (Vitamin D3) [Vitamin D3] 2,000 unit PO DAILY 08/22/14 Losartan Potassium 100 mg PO DAILY 08/22/14 Metoprolol Tartrate [Lopressor] 100 mg PO BID 08/22/14 [place]-3 Acid Ethyl Esters [Lovaza -] 4 mg PO DAILY 08/22/14 Ranitidine [Zantac -] 150 mg PO BID 08/22/14 Warfarin Sodium [Coumadin] 1 mg PO DAILY 08/22/14 Warfarin Sodium [Coumadin] 2 mg PO DAILY 08/22/14 Amlodipine Besylate [Norvasc -] 5 mg PO DAILY 09/07/14 Ranolazine [Ranexa -] 500 mg PO BID 09/18/15 Furosemide [Lasix -] 20 mg PO DAILY 07/15/16 Tamsulosin HCl [Flomax] 0.4 mg PO HS 07/15/16 Family Disease History - Family Disease History Family History: Denies Review of Systems - Review of Systems Constitutional: reports: Chills, Malaise Eyes: reports: No Symptoms HENT: reports: No Symptoms Neck: reports: No Symptoms Cardiovascular: reports: Shortness of Breath Respiratory: reports: Cough, SOB on Exertion, Wheezing Gastrointestinal: reports: No Symptoms Genitourinary: reports: No Symptoms Musculoskeletal: reports: No Symptoms Integumentary: reports: No Symptoms Neurological: reports: No Symptoms Endocrine: reports: No Symptoms Hematology/Lymphatic: reports: No Symptoms Physical Exam Vital Signs: Vital Signs Temperature 97.6 F 07/15/16 15:12 Pulse Rate 76 07/15/16 15:12 Respiratory Rate 18 07/15/16 10:00 Blood Pressure 122/66 07/15/16 10:00 O2 Sat by Pulse Oximetry (%) 96 07/15/16 16:14 Constitutional: Yes: Calm Eyes: Yes: Conjunctiva Clear HENT: Yes: Atraumatic Neck: Yes: Supple Cardiovascular: Yes: S1, S2 Respiratory: Yes: Wheezes Gastrointestinal: Yes: Soft Renal/: Yes: WNL Musculoskeletal: Yes: WNL Edema: No Neurological: Yes: Oriented Psychiatric: Yes: Oriented Labs: CBC, BMP 07/15/16 06:04 07/15/16 06:04 Laboratory Tests 11/09/13 08/22/14 02/07/15 12:20 15:23 10:15 WBC Hgb INR Sodium Potassium Chloride Carbon Dioxide Anion Gap BUN Creatinine 1.2 1.2 1.3 07/15/16 07/15/16 07/15/16 01:05 01:05 03:10 WBC Hgb 10.8 L D INR 5.27 H* D Sodium Potassium Chloride Carbon Dioxide Anion Gap BUN 32 H Creatinine 1.7 H D 07/15/16 07/15/16 06:04 06:04 WBC 6.5 Hgb 10.6 L INR Sodium 142 Potassium 4.1 Chloride 105 Carbon Dioxide 28 Anion Gap 9 BUN 30 H Creatinine 1.6 H Imaging - Results Cat Scan: Report Reviewed Ultrasound: Report Reviewed Problem List - Problems (1) A-fib Code(s): I48.91 - UNSPECIFIED ATRIAL FIBRILLATION Qualifiers: Atrial fibrillation type: paroxysmal Qualified Code(s): I48.0 - Paroxysmal atrial fibrillation (2) Asthmatic bronchitis Code(s): J45.909 - UNSPECIFIED ASTHMA, UNCOMPLICATED Qualifiers: Asthma severity: moderate persistent (3) BPH (benign prostatic hyperplasia) Code(s): N40.0 - BENIGN PROSTATIC HYPERPLASIA WITHOUT LOWER URINRY TRACT SYMP (4) HLD (hyperlipidemia) Code(s): E78.5 - HYPERLIPIDEMIA, UNSPECIFIED Qualifiers: Hyperlipidemia type: pure hypercholesterolemia Qualified Code(s): E78.0 - Pure hypercholesterolemia (5) HTN (hypertension) Code(s): I10 - ESSENTIAL (PRIMARY) HYPERTENSION Qualifiers: Hypertension type: essential hypertension Qualified Code(s): I10 - Essential (primary) hypertension (6) Influenza A Code(s): J10.1 - FLU DUE TO OTH IDENT INFLUENZA VIRUS W OTH RESP MANIFEST (7) Supratherapeutic INR Code(s): R79.1 - ABNORMAL COAGULATION PROFILE (8) CKD (chronic kidney disease) Code(s): N18.9 - CHRONIC KIDNEY DISEASE, UNSPECIFIED Assessment/Plan Current Medications Generic Name Dose Route Start Last Admin Trade Name Freq PRN Reason Stop Dose Admin Albuterol Sulfate 1 amp 07/15/16 03:00 07/15/16 18:11 Ventolin 0.083% Nebulizer Soln - NEB 1 amp Q4H PRN Administration Allopurinol 200 mg 07/15/16 10:00 07/15/16 10:37 Zyloprim - PO 200 mg DAILY DONALD Administration Amlodipine Besylate 5 mg 07/15/16 10:00 07/15/16 10:38 Norvasc - PO 5 mg DAILY DONALD Administration Atorvastatin Calcium 40 mg 07/15/16 22:00 Lipitor - PO HS [facility] Budesonide/Formoterol Fumarate 2 puff 07/15/16 12:00 07/15/16 16:37 Symbicort 160/4.5mcg - IH Not Given BID [facility] Cholecalciferol 2,000 unit 07/15/16 10:00 07/15/16 10:37 Vitamin D3 - PO 2,000 unit DAILY DONALD Administration Sodium Chloride 1,000 mls @ 62 mls/hr 07/15/16 16:46 Normal Saline - IV ASDIR [facility] Methylprednisolone Sodium Succinate 40 mg 07/15/16 11:30 07/15/16 15:22 Solu-Medrol - IVPB 40 mg Q6H-IV DONALD Administration Metoprolol Tartrate 100 mg 07/15/16 10:00 07/15/16 10:37 Lopressor - PO 100 mg BID DONALD Administration [id number]-[id number] Ethyl Esters 2 gm 07/15/16 22:00 Lovaza - PO BID DONALD Oseltamivir Phosphate 30 mg 07/15/16 12:00 07/15/16 12:34 Tamiflu - PO 30 mg BID DONALD Administration Ranitidine HCl 150 mg 07/15/16 10:00 07/15/16 10:37 Zantac - PO 150 mg BID DONALD Administration Ranolazine 500 mg 07/15/16 10:00 07/15/16 10:37 Ranexa - PO 500 mg BID DONALD Administration Tamsulosin HCl 0.4 mg 07/15/16 22:00 Flomax - PO HS DONALD Tiotropium [place] 1 puff 07/15/16 12:00 07/15/16 12:34 Spiriva - IH 1 puff DAILY DONALD Administration Impression 1. CKD vs CHINO in pt with elevated creatinine 2. Influenza 3. CAD 4. hyperlipidemia 5. copd 6. lymphadenopathy 7. HTN 8. Gout 9. elevated INR Plan - check ua - renal ultrasound reviewed - likely CKD with an acute component - FENa is 1.35 which speaks against prerenal disease - elevated INR can contribute to elevated creatinine - gentle hydration until his PO intake is stable - cont oxygen and nebs - will comment more on kidney disease after I review the UA - would recommend waiting until renal function stabilizes before repeating ct scan with contrast as there is no urgency to do it today - will follow pt Thank you for this consultation Dr Calixto
[2016-07-15] MEDS: SODIUM CHLORIDE 0.45% 1,000 ML IV SCH (19:51)
[2016-07-15] MEDS: TAMSULOSIN HCL 0.4 MG CAP.ER.24H (FP) PO SCH (21:01)
[2016-07-15] MEDS: ATORVASTATIN CA 40 MG TABLET (FP) PO SCH (21:01)
[2016-07-15] MEDS: OMEGA-3 ACID ETHYL ESTERS (FATTY-ACIDS) 1 GM CAPSULE (FP) PO SCH (21:02)
[2016-07-15 21:33] LABS: URINE APPEARANCE CLEAR; URINE BILIRUBIN NEGATIVE (NEGATIVE); URINE BLOOD NEGATIVE (NEGATIVE); URINE COLOR YELLOW; URINE GLUCOSE (UA) 1+ (NEGATIVE); URINE KETONE NEGATIVE (NEGATIVE); URINE LEUK ESTERASE NEGATIVE (NEGATIVE); URINE NITRITE NEGATIVE (NEGATIVE); URINE PROTEIN NEGATIVE (NEGATIVE); URINE UROBILINOGEN NEGATIVE E.U./dl (0.2-1.0)
[2016-07-15] MEDS ORDERED: OSELTAMIVIR PHOSPHATE 30 MG CAPSULE PO SCH (22:00)
[2016-07-16] MEDS: methylPREDNISolone NA SUCC 40 MG/1 ML VIAL IVPB SCH ×4 (02:40→21:14)
[2016-07-16] MEDS: ALBUTEROL SO4 0.083% IH SOL 2.5 MG/3 ML VIAL.NEB. NEB PRN ×2 (07:16→20:07)
[2016-07-16 07:48] LABS: BASOPHIL 0.1 % (0-2.0); MCH 30.6 pg (25.7-33.7); MCHC 33.7 g/dl (32.0-35.9); MEAN CELL VOLUME 90.9 fl (80-96); MEAN PLT VOLUME 8.1 fl (7.5-11.1); NEUTROPHILS 84.6 % (42.8-82.8); PLATELET COUNT 172 K/MM3 (134-434); RDW 14.9 % (11.9-15.9); WHITE BLOOD COUNT 6.5 K/mm3 (4.0-10.0)
[2016-07-16 08:01] LABS: PROTHROMBIN TIME (PATIENT) 47.5 SEC (9.98-11.88)
[2016-07-16 08:19] LABS: INR 4.19 (0.82-1.09)
[2016-07-16 08:41] LABS: ALBUMIN 3.5 g/dl (3.4-5.0); BILIRUBIN,TOTAL 0.4 mg/dL (0.2-1.0); CALCIUM 8.5 mg/dL (8.5-10.1); CREATININE 1.5 mg/dL (0.7-1.3); TOT PROT 6.9 g/dl (6.4-8.2)
[2016-07-16 08:50] LABS: THYROID STIMULATING HORMONE 1.09 uIU/ml (0.358-3.74)
[2016-07-16] MEDS ORDERED: PT OWN MED DRAWER 7, Y5N ONE ×2 (09:39→21:04)
[2016-07-16] MEDS: BUDESONIDE/FORMETEROL FUMARATE 160/4.5 mcg INHALER IH SCH ×2 (09:44→21:13)
[2016-07-16] MEDS: TIOTROPIUM BROMIDE 18 MCG/INH (DEVICE W/ 30 CAPSULES) IH SCH (09:44)
[2016-07-16] MEDS: OSELTAMIVIR PHOSPHATE 30 MG CAPSULE PO SCH ×2 (09:45→21:13)
[2016-07-16] MEDS: CHOLECALCIFEROL (VITAMIN D3) 1,000 UNIT TABLET (FP) PO SCH (09:45)
[2016-07-16] MEDS: RANOLAZINE E.R. 500 MG TABLET (FP) PO SCH ×2 (09:45→21:14)
[2016-07-16] MEDS: METOPROLOL TARTRATE 50 MG TABLET (FP) PO SCH ×2 (09:45→21:14)
[2016-07-16] MEDS: OMEGA-3 ACID ETHYL ESTERS (FATTY-ACIDS) 1 GM CAPSULE (FP) PO SCH ×2 (09:45→21:13)
[2016-07-16] MEDS: amLODIPine BESYLATE 5 MG TABLET (FP) PO SCH (09:45)
[2016-07-16] MEDS: RANITIDINE HCL 150 MG TABLET (FP) PO SCH ×2 (09:46→21:14)
[2016-07-16] MEDS: ALLOPURINOL 100 MG TABLET (FP) PO SCH (09:46)
--- NOTE | 2016-07-16 11:22 | PN ---
Progress Note (short form) - Note Progress Note: Feels a little better today. Still with a congested cough. No CP. Intake & Output 07/13/16 07/14/16 07/15/16 07/16/16 23:59 23:59 23:59 23:59 Intake Total 2449 1000 Output Total 400 Balance 2049 1000 Weight 215 lb Last Vital Signs Temp Pulse Resp BP Pulse Ox 97.8 F 79 20 130/76 96 07/16/16 08:00 07/16/16 08:00 07/16/16 08:00 07/16/16 08:00 07/16/16 08:00 Active Medications Albuterol Sulfate (Ventolin 0.083% Nebulizer Soln -) 1 amp NEB Q4H PRN Last Admin: 07/16/16 07:16 Dose: 1 amp Allopurinol (Zyloprim -) 200 mg PO DAILY [facility] Last Admin: 07/16/16 09:46 Dose: 200 mg Amlodipine Besylate (Norvasc -) 5 mg PO DAILY [facility] Last Admin: 07/16/16 09:45 Dose: 5 mg Atorvastatin Calcium (Lipitor -) 40 mg PO HS [facility] Last Admin: 07/15/16 21:01 Dose: 40 mg Budesonide/Formoterol Fumarate (Symbicort 160/4.5mcg -) 2 puff IH BID [facility] Last Admin: 07/16/16 09:44 Dose: 2 puff Cholecalciferol (Vitamin D3 -) 2,000 unit PO DAILY [facility] Last Admin: 07/16/16 09:45 Dose: 2,000 unit Sodium Chloride (1/2 Normal Saline) 1,000 mls @ 42 mls/hr IV ASDIR [facility] Last Admin: 07/15/16 19:51 Dose: 42 mls/hr Methylprednisolone Sodium Succinate (Solu-Medrol -) 40 mg IVPB Q6H-IV [facility] Last Admin: 07/16/16 09:44 Dose: 40 mg Metoprolol Tartrate (Lopressor -) 100 mg PO BID [facility] Last Admin: 07/16/16 09:45 Dose: 100 mg Sllck-9-Esuj Ethyl Esters (Lovaza -) 2 gm PO BID [facility] Last Admin: 07/16/16 09:45 Dose: 2 gm Oseltamivir Phosphate (Tamiflu -) 30 mg PO BID [facility] Last Admin: 07/16/16 09:45 Dose: 30 mg Ranitidine HCl (Zantac -) 150 mg PO BID [facility] Last Admin: 07/16/16 09:46 Dose: 150 mg Ranolazine (Ranexa -) 500 mg PO BID [facility] Last Admin: 07/16/16 09:45 Dose: 500 mg Tamsulosin HCl (Flomax -) 0.4 mg PO HS [facility] Last Admin: 07/15/16 21:01 Dose: 0.4 mg Tiotropium [place] (Spiriva -) 1 puff IH DAILY [facility] Last Admin: 07/16/16 09:44 Dose: 1 puff Constitutional: Yes: NAD Eyes: Yes: Conjunctiva Clear HENT: Yes: Atraumatic Neck: Yes: Supple Cardiovascular: Yes: S1, S2 Respiratory: Yes: Scattered expiratory wheezes Gastrointestinal: Yes: Soft Renal/: Yes: WNL Musculoskeletal: Yes: WNL Edema: No Neurological: Yes: Oriented Psychiatric: Yes: Oriented Labs: Laboratory Results - last 24 hr 07/15/16 07/15/16 07/15/16 12:40 12:40 20:45 WBC RBC Hgb Hct MCV MCHC RDW Plt Count MPV Neutrophils % Lymphocytes % Monocytes % Eosinophils % Basophils % INR Sodium Potassium Chloride Carbon Dioxide Anion Gap BUN Creatinine Creat Clearance w eGFR Random Glucose Calcium Total Bilirubin AST ALT Alkaline Phosphatase Total Protein Albumin TSH Urine Color Yellow Urine Appearance Clear Urine pH 5.0 Ur Specific [place] 1.015 Urine Protein Negative Urine Glucose (UA) 1+ H Urine Ketones Negative Urine Blood Negative Urine Nitrite Negative Urine Bilirubin Negative Urine Urobilinogen Negative Ur Leukocyte Esterase Negative U Random Total Protein Ur Random Sodium 96 Ur Random Potassium 18.8 Ur Random Chloride 96 Urine Creatinine Cancelled 80.2 Protein/Creatinin Ratio 07/15/16 07/16/16 07/16/16 20:45 06:35 06:35 WBC RBC Hgb Hct MCV MCHC RDW Plt Count MPV Neutrophils % Lymphocytes % Monocytes % Eosinophils % Basophils % INR 4.19 H* Sodium 138 Potassium 4.2 Chloride 106 Carbon Dioxide 22 D Anion Gap 10 BUN 34 H Creatinine 1.5 H Creat Clearance w eGFR 44.81 Random Glucose 152 H D Calcium 8.5 Total Bilirubin 0.4 AST 13 L ALT 16 D Alkaline Phosphatase 72 Total Protein 6.9 Albumin 3.5 TSH 1.09 Urine Color Urine Appearance Urine pH Ur Specific [place] Urine Protein Urine Glucose (UA) Urine Ketones Urine Blood Urine Nitrite Urine Bilirubin Urine Urobilinogen Ur Leukocyte Esterase U Random Total Protein 19 H Ur Random Sodium Ur Random Potassium Ur Random Chloride Urine Creatinine 105.0 Protein/Creatinin Ratio 5.53 07/16/16 06:35 WBC 6.5 RBC 3.55 L Hgb 10.9 L Hct 32.3 L MCV 90.9 MCHC 33.7 RDW 14.9 Plt Count 172 MPV 8.1 Neutrophils % 84.6 H D Lymphocytes % 13.3 D Monocytes % 2.0 L D Eosinophils % 0.0 D Basophils % 0.1 INR Sodium Potassium Chloride Carbon Dioxide Anion Gap BUN Creatinine Creat Clearance w eGFR Random Glucose Calcium Total Bilirubin AST ALT Alkaline Phosphatase Total Protein Albumin TSH Urine Color Urine Appearance Urine pH Ur Specific [place] Urine Protein Urine Glucose (UA) Urine Ketones Urine Blood Urine Nitrite Urine Bilirubin Urine Urobilinogen Ur Leukocyte Esterase U Random Total Protein Ur Random Sodium Ur Random Potassium Ur Random Chloride Urine Creatinine Protein/Creatinin Ratio Problem List - Problems (1) A-fib Code(s): I48.91 - UNSPECIFIED ATRIAL FIBRILLATION Qualifiers: Atrial fibrillation type: paroxysmal Qualified Code(s): I48.0 - Paroxysmal atrial fibrillation (2) Asthmatic bronchitis Code(s): J45.909 - UNSPECIFIED ASTHMA, UNCOMPLICATED Qualifiers: Asthma severity: moderate persistent (3) BPH (benign prostatic hyperplasia) Code(s): N40.0 - BENIGN PROSTATIC HYPERPLASIA WITHOUT LOWER URINRY TRACT SYMP (4) HLD (hyperlipidemia) Code(s): E78.5 - HYPERLIPIDEMIA, UNSPECIFIED Qualifiers: Hyperlipidemia type: pure hypercholesterolemia Qualified Code(s): E78.0 - Pure hypercholesterolemia (5) HTN (hypertension) Code(s): I10 - ESSENTIAL (PRIMARY) HYPERTENSION Qualifiers: Hypertension type: essential hypertension Qualified Code(s): I10 - Essential (primary) hypertension (6) Influenza A Code(s): J10.1 - FLU DUE TO OTH IDENT INFLUENZA VIRUS W OTH RESP MANIFEST (7) Supratherapeutic INR Code(s): R79.1 - ABNORMAL COAGULATION PROFILE (8) CKD (chronic kidney disease) Code(s): N18.9 - CHRONIC KIDNEY DISEASE, UNSPECIFIED Assessment/Plan CHINO on CKD Retroperitoneal lymphadenopathy -> etiology to be determined Non-specific mediastinal lymphadenopathy PLAN: Will need repeat Abdominal imaging as an outpatient once creatinine stablizes/ improves O2 as needed Medrol Symbicort Spiriva BD [place] Tamiflu Dr Veras
[2016-07-16] MEDS: ALBUTEROL SO4 0.083% IH SOL 2.5 MG/3 ML VIAL.NEB. NEB SCH ×2 (13:15→21:30)
--- NOTE | 2016-07-16 16:23 | PN ---
Progress Note, Physician History of Present Illness: Cough and wheeze improving. - Current Medication List Current Medications: Active Medications Albuterol Sulfate (Ventolin 0.083% Nebulizer Soln -) 1 amp NEB Q4H PRN Last Admin: 07/16/16 07:16 Dose: 1 amp Albuterol Sulfate (Ventolin 0.083% Nebulizer Soln -) 1 amp NEB TID [facility] Last Admin: 07/16/16 13:15 Dose: 1 amp Allopurinol (Zyloprim -) 200 mg PO DAILY [facility] Last Admin: 07/16/16 09:46 Dose: 200 mg Amlodipine Besylate (Norvasc -) 5 mg PO DAILY [facility] Last Admin: 07/16/16 09:45 Dose: 5 mg Atorvastatin Calcium (Lipitor -) 40 mg PO HS [facility] Last Admin: 07/15/16 21:01 Dose: 40 mg Budesonide/Formoterol Fumarate (Symbicort 160/4.5mcg -) 2 puff IH BID [facility] Last Admin: 07/16/16 09:44 Dose: 2 puff Cholecalciferol (Vitamin D3 -) 2,000 unit PO DAILY [facility] Last Admin: 07/16/16 09:45 Dose: 2,000 unit Sodium Chloride (1/2 Normal Saline) 1,000 mls @ 42 mls/hr IV ASDIR [facility] Last Admin: 07/15/16 19:51 Dose: 42 mls/hr Methylprednisolone Sodium Succinate (Solu-Medrol -) 40 mg IVPB Q6H-IV [facility] Last Admin: 07/16/16 16:20 Dose: 40 mg Metoprolol Tartrate (Lopressor -) 100 mg PO BID [facility] Last Admin: 07/16/16 09:45 Dose: 100 mg [id number]-[id number] Ethyl Esters (Lovaza -) 2 gm PO BID [facility] Last Admin: 07/16/16 09:45 Dose: 2 gm Oseltamivir Phosphate (Tamiflu -) 30 mg PO BID [facility] Last Admin: 07/16/16 09:45 Dose: 30 mg Ranitidine HCl (Zantac -) 150 mg PO BID [facility] Last Admin: 07/16/16 09:46 Dose: 150 mg Ranolazine (Ranexa -) 500 mg PO BID [facility] Last Admin: 07/16/16 09:45 Dose: 500 mg Tamsulosin HCl (Flomax -) 0.4 mg PO HS [facility] Last Admin: 07/15/16 21:01 Dose: 0.4 mg Tiotropium [place] (Spiriva -) 1 puff IH DAILY [facility] Last Admin: 07/16/16 09:44 Dose: 1 puff - Objective Vital Signs: Vital Signs Temperature 97.2 F L 07/16/16 13:44 Pulse Rate 67 07/16/16 13:44 Respiratory Rate 20 07/16/16 08:00 Blood Pressure 135/96 07/16/16 13:44 O2 Sat by Pulse Oximetry (%) 96 07/16/16 08:00 Constitutional: Yes: No Distress, Calm Neck: Yes: Supple Cardiovascular: Yes: Regular Rate and Rhythm Respiratory: Yes: Regular, Diminished Gastrointestinal: Yes: Normal Bowel Sounds, Soft Edema: No Labs: CBC, BMP 07/16/16 06:35 07/16/16 06:35 INR, PTT INR 4.19 (0.82-1.09) H* 07/16/16 06:35 Problem List - Problems (1) A-fib Code(s): I48.91 - UNSPECIFIED ATRIAL FIBRILLATION Qualifiers: Atrial fibrillation type: paroxysmal Qualified Code(s): I48.0 - Paroxysmal atrial fibrillation (2) Acute kidney injury Code(s): N17.9 - ACUTE KIDNEY FAILURE, UNSPECIFIED (3) Aortic valve replaced Code(s): Z95.2 - PRESENCE OF PROSTHETIC HEART VALVE (4) Asthmatic bronchitis Code(s): J45.909 - UNSPECIFIED ASTHMA, UNCOMPLICATED Qualifiers: Asthma severity: moderate persistent (5) Bronchospasm Code(s): J98.01 - ACUTE BRONCHOSPASM (6) HLD (hyperlipidemia) Code(s): E78.5 - HYPERLIPIDEMIA, UNSPECIFIED Qualifiers: Hyperlipidemia type: pure hypercholesterolemia Qualified Code(s): E78.0 - Pure hypercholesterolemia (7) HTN (hypertension) Code(s): I10 - ESSENTIAL (PRIMARY) HYPERTENSION Qualifiers: Hypertension type: essential hypertension Qualified Code(s): I10 - Essential (primary) hypertension (8) Influenza A Code(s): J10.1 - FLU DUE TO OTH IDENT INFLUENZA VIRUS W OTH RESP MANIFEST (9) Supratherapeutic INR Code(s): R79.1 - ABNORMAL COAGULATION PROFILE (10) Diastolic dysfunction without heart failure Code(s): I51.9 - HEART DISEASE, UNSPECIFIED Assessment/Plan 05/03/2016 Echo: cLVH with normal LV size and fxn, LAE 4.6 cm, bioprosthetic AVR , mild MR, TR, RVSP 55-60 mmHg 06/24/2016 [place] MPI: No ischemia, LVEF 73% 1. Asthmatic bronchitis, recent PNA 2. CAD s/p multivessel PCI (stent), angina pectoris 3. Aortic stenosis s/p AVR (bioprosthesis) 4. PAF in sinus rhythm [id number]=2 with supratherapeutic INR 5. HTN/HCVD 6. Hyperlipidemia 7. 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 Continue Lopressor 100 bid, Norvasc 5 qd, Lipitor 40 qhs, Ranexa 500 bid, Lovaza 2 gm bid, hold Coumadin per INR, d/c ASA as CAD is stable on coumadin, holding Lasix and losartan awaiting renal fxn stabilization 2. BD, steroid taper, O2 as needed, Tamiflu, bedside spirometry 3. GI prophylaxis, contrast abd& pelvic CT once renal fxn stable, FNA of thyroid mass
--- NOTE | 2016-07-16 17:09 | PN ---
Progress Note, Physician History of Present Illness: Pt seen and examined at bedside. He is awake and alert. He feels better today. - Current Medication List Current Medications: Active Medications Albuterol Sulfate (Ventolin 0.083% Nebulizer Soln -) 1 amp NEB Q4H PRN Last Admin: 07/16/16 07:16 Dose: 1 amp Albuterol Sulfate (Ventolin 0.083% Nebulizer Soln -) 1 amp NEB TID [facility] Last Admin: 07/16/16 13:15 Dose: 1 amp Allopurinol (Zyloprim -) 200 mg PO DAILY [facility] Last Admin: 07/16/16 09:46 Dose: 200 mg Amlodipine Besylate (Norvasc -) 5 mg PO DAILY [facility] Last Admin: 07/16/16 09:45 Dose: 5 mg Atorvastatin Calcium (Lipitor -) 40 mg PO HS [facility] Last Admin: 07/15/16 21:01 Dose: 40 mg Budesonide/Formoterol Fumarate (Symbicort 160/4.5mcg -) 2 puff IH BID [facility] Last Admin: 07/16/16 09:44 Dose: 2 puff Cholecalciferol (Vitamin D3 -) 2,000 unit PO DAILY [facility] Last Admin: 07/16/16 09:45 Dose: 2,000 unit Sodium Chloride (1/2 Normal Saline) 1,000 mls @ 42 mls/hr IV ASDIR [facility] Last Admin: 07/15/16 19:51 Dose: 42 mls/hr Methylprednisolone Sodium Succinate (Solu-Medrol -) 40 mg IVPB Q6H-IV [facility] Last Admin: 07/16/16 16:20 Dose: 40 mg Metoprolol Tartrate (Lopressor -) 100 mg PO BID [facility] Last Admin: 07/16/16 09:45 Dose: 100 mg Wwrda-1-Znbb Ethyl Esters (Lovaza -) 2 gm PO BID [facility] Last Admin: 07/16/16 09:45 Dose: 2 gm Oseltamivir Phosphate (Tamiflu -) 30 mg PO BID [facility] Last Admin: 07/16/16 09:45 Dose: 30 mg Ranitidine HCl (Zantac -) 150 mg PO BID [facility] Last Admin: 07/16/16 09:46 Dose: 150 mg Ranolazine (Ranexa -) 500 mg PO BID [facility] Last Admin: 07/16/16 09:45 Dose: 500 mg Tamsulosin HCl (Flomax -) 0.4 mg PO HS [facility] Last Admin: 07/15/16 21:01 Dose: 0.4 mg Tiotropium [place] (Spiriva -) 1 puff IH DAILY [facility] Last Admin: 07/16/16 09:44 Dose: 1 puff - Objective Vital Signs: Vital Signs Temperature 97.2 F L 07/16/16 13:44 Pulse Rate 67 07/16/16 13:44 Respiratory Rate 20 07/16/16 08:00 Blood Pressure 135/96 07/16/16 13:44 O2 Sat by Pulse Oximetry (%) 96 07/16/16 08:00 Constitutional: Yes: Calm Eyes: Yes: Conjunctiva Clear HENT: Yes: Atraumatic Cardiovascular: Yes: S1, S2 Respiratory: Yes: On Nasal O2 Gastrointestinal: Yes: Soft, Abdomen, Obese Genitourinary: Yes: WNL Musculoskeletal: Yes: WNL Edema: No Neurological: Yes: Oriented Psychiatric: Yes: Oriented Labs: CBC, BMP 07/16/16 06:35 07/16/16 06:35 INR, PTT INR 4.19 (0.82-1.09) H* 07/16/16 06:35 Problem List - Problems (1) A-fib Code(s): I48.91 - UNSPECIFIED ATRIAL FIBRILLATION Qualifiers: Atrial fibrillation type: paroxysmal Qualified Code(s): I48.0 - Paroxysmal atrial fibrillation (2) Asthmatic bronchitis Code(s): J45.909 - UNSPECIFIED ASTHMA, UNCOMPLICATED Qualifiers: Asthma severity: moderate persistent (3) BPH (benign prostatic hyperplasia) Code(s): N40.0 - BENIGN PROSTATIC HYPERPLASIA WITHOUT LOWER URINRY TRACT SYMP (4) HLD (hyperlipidemia) Code(s): E78.5 - HYPERLIPIDEMIA, UNSPECIFIED Qualifiers: Hyperlipidemia type: pure hypercholesterolemia Qualified Code(s): E78.0 - Pure hypercholesterolemia (5) HTN (hypertension) Code(s): I10 - ESSENTIAL (PRIMARY) HYPERTENSION Qualifiers: Hypertension type: essential hypertension Qualified Code(s): I10 - Essential (primary) hypertension (6) Influenza A Code(s): J10.1 - FLU DUE TO OTH IDENT INFLUENZA VIRUS W OTH RESP MANIFEST (7) Supratherapeutic INR Code(s): R79.1 - ABNORMAL COAGULATION PROFILE (8) CKD (chronic kidney disease) Code(s): N18.9 - CHRONIC KIDNEY DISEASE, UNSPECIFIED Assessment/Plan Current Medications Generic Name Dose Route Start Last Admin Trade Name Freq PRN Reason Stop Dose Admin Albuterol Sulfate 1 amp 07/15/16 03:00 07/16/16 07:16 Ventolin 0.083% Nebulizer Soln - NEB 1 amp Q4H PRN Administration Albuterol Sulfate 1 amp 07/16/16 14:00 07/16/16 13:15 Ventolin 0.083% Nebulizer Soln - NEB 1 amp TID DONALD Administration Allopurinol 200 mg 07/15/16 10:00 07/16/16 09:46 Zyloprim - PO 200 mg DAILY [facility] Administration Amlodipine Besylate 5 mg 07/15/16 10:00 07/16/16 09:45 Norvasc - PO 5 mg DAILY [facility] Administration Atorvastatin Calcium 40 mg 07/15/16 22:00 07/15/16 21:01 Lipitor - PO 40 mg HS DONALD Administration Budesonide/Formoterol Fumarate 2 puff 07/15/16 12:00 07/16/16 09:44 Symbicort 160/4.5mcg - IH 2 puff BID DONALD Administration Cholecalciferol 2,000 unit 07/15/16 10:00 07/16/16 09:45 Vitamin D3 - PO 2,000 unit DAILY [facility] Administration Sodium Chloride 1,000 mls @ 42 mls/hr 07/15/16 19:45 07/15/16 19:51 1/2 Normal Saline IV 42 mls/hr ASDIR [facility]ALD Administration Methylprednisolone Sodium Succinate 40 mg 07/15/16 11:30 07/16/16 16:20 Solu-Medrol - IVPB 40 mg Q6H-IV [facility]ALD Administration Metoprolol Tartrate 100 mg 07/15/16 10:00 07/16/16 09:45 Lopressor - PO 100 mg BID DONALD Administration [id number] Ethyl Esters 2 gm 07/15/16 22:00 07/16/16 09:45 Lovaza - PO 2 gm BID DONALD Administration Oseltamivir Phosphate 30 mg 07/15/16 12:00 07/16/16 09:45 Tamiflu - PO 30 mg BID [facility]ALD Administration Ranitidine HCl 150 mg 07/15/16 10:00 07/16/16 09:46 Zantac - PO 150 mg BID [facility]ALD Administration Ranolazine 500 mg 07/15/16 10:00 07/16/16 09:45 Ranexa - PO 500 mg BID [facility] Administration Tamsulosin HCl 0.4 mg 07/15/16 22:00 07/15/16 21:01 Flomax - PO 0.4 mg HS DONALD Administration Tiotropium [place] 1 puff 07/15/16 12:00 07/16/16 09:44 Spiriva - IH 1 puff DAILY [facility] Administration Laboratory Tests 07/15/16 07/15/16 20:45 20:45 Urine Color Yellow Urine Appearance Clear Urine pH 5.0 Ur Specific [place] 1.015 Urine Protein Negative Urine Glucose (UA) 1+ H Urine Ketones Negative Urine Blood Negative Urine Nitrite Negative Urine Bilirubin Negative Urine Urobilinogen Negative Ur Leukocyte Esterase Negative Protein/Creatinin Ratio 5.53 Impression 1. CKD vs CHINO in pt with elevated creatinine 2. Influenza 3. CAD 4. hyperlipidemia 5. copd 6. lymphadenopathy 7. HTN 8. Gout 9. 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 I called and informed Dr Arceo that the pt is in the hospital. - creatinine is improving - will need further workup and pt will follow with Dr Levine office - would recommend waiting until renal function stabilizes before repeating ct scan with contrast as there is no urgency to do it today - will follow pt Thank you for this consultation Dr Calixto
--- NOTE | 2016-07-16 17:51 | PN ---
Physical Exam: SUBJECTIVE: Patient seen and examined. He states he is feeling better, he would like to go home. OBJECTIVE: Vital Signs Period Temp Pulse Resp BP Sys/Kirk Pulse Ox Last 24 Hr 97.2 F-98.1 F 67-85 20-20 116-135/59-96 96-96 PE Neuro: alert, awake, cn 2-12intact HEENT: R thyroid mass non tender Pulm: diffuse wheezing throughout lung hickman- improved CV: s1 s2 rrr +soft murmur Abd: protubrent abd, LLQ appreciable mass- soft, +bs, non tender Ext: no edema, warm Laboratory Results - last 24 hr 07/15/16 07/15/16 07/16/16 20:45 20:45 06:35 WBC RBC Hgb Hct MCV MCHC RDW Plt Count MPV Neutrophils % Lymphocytes % Monocytes % Eosinophils % Basophils % INR 4.19 H* Sodium Potassium Chloride Carbon Dioxide Anion Gap BUN Creatinine Creat Clearance w eGFR Random Glucose Calcium Total Bilirubin AST ALT Alkaline Phosphatase Total Protein Albumin TSH Urine Color Yellow Urine Appearance Clear Urine pH 5.0 Ur Specific [place] 1.015 Urine Protein Negative Urine Glucose (UA) 1+ H Urine Ketones Negative Urine Blood Negative Urine Nitrite Negative Urine Bilirubin Negative Urine Urobilinogen Negative Ur Leukocyte Esterase Negative U Random Total Protein 19 H Urine Creatinine 105.0 Protein/Creatinin Ratio 5.53 07/16/16 07/16/16 06:35 06:35 WBC 6.5 RBC 3.55 L Hgb 10.9 L Hct 32.3 L MCV 90.9 MCHC 33.7 RDW 14.9 Plt Count 172 MPV 8.1 Neutrophils % 84.6 H D Lymphocytes % 13.3 D Monocytes % 2.0 L D Eosinophils % 0.0 D Basophils % 0.1 INR Sodium 138 Potassium 4.2 Chloride 106 Carbon Dioxide 22 D Anion Gap 10 BUN 34 H Creatinine 1.5 H Creat Clearance w eGFR 44.81 Random Glucose 152 H D Calcium 8.5 Total Bilirubin 0.4 AST 13 L ALT 16 D Alkaline Phosphatase 72 Total Protein 6.9 Albumin 3.5 TSH 1.09 Urine Color Urine Appearance Urine pH Ur Specific [place] Urine Protein Urine Glucose (UA) Urine Ketones Urine Blood Urine Nitrite Urine Bilirubin Urine Urobilinogen Ur Leukocyte Esterase U Random Total Protein Urine Creatinine Protein/Creatinin Ratio Active Medications Generic Name Dose Route Start Last Admin Trade Name Freq PRN Reason Stop Dose Admin Albuterol Sulfate 1 amp 07/15/16 03:00 07/16/16 07:16 Ventolin 0.083% Nebulizer Soln - NEB 1 amp Q4H PRN Administration Albuterol Sulfate 1 amp 07/16/16 14:00 07/16/16 13:15 Ventolin 0.083% Nebulizer Soln - NEB 1 amp TID DONALD Administration Allopurinol 200 mg 07/15/16 10:00 07/16/16 09:46 Zyloprim - PO 200 mg DAILY [facility] Administration Amlodipine Besylate 5 mg 07/15/16 10:00 07/16/16 09:45 Norvasc - PO 5 mg DAILY [facility] Administration Atorvastatin Calcium 40 mg 07/15/16 22:00 07/15/16 21:01 Lipitor - PO 40 mg HS [facility]ALD Administration Budesonide/Formoterol Fumarate 2 puff 07/15/16 12:00 07/16/16 09:44 Symbicort 160/4.5mcg - IH 2 puff BID [facility] Administration Cholecalciferol 2,000 unit 07/15/16 10:00 07/16/16 09:45 Vitamin D3 - PO 2,000 unit DAILY [facility] Administration Sodium Chloride 1,000 mls @ 42 mls/hr 07/15/16 19:45 07/15/16 19:51 1/2 Normal Saline IV 42 mls/hr ASDIR [facility] Administration Methylprednisolone Sodium Succinate 40 mg 07/16/16 22:00 Solu-Medrol - IVPB BID DONALD Metoprolol Tartrate 100 mg 07/15/16 10:00 07/16/16 09:45 Lopressor - PO 100 mg BID [facility]AL[facility] Administration Jhopo-3-Krbe Ethyl Esters 2 gm 07/15/16 22:00 07/16/16 09:45 Lovaza - PO 2 gm BID [facility]AL[facility] Administration Oseltamivir Phosphate 30 mg 07/15/16 12:00 07/16/16 09:45 Tamiflu - PO 30 mg BID [facility] Administration Ranitidine HCl 150 mg 07/15/16 10:00 07/16/16 09:46 Zantac - PO 150 mg BID [facility] Administration Ranolazine 500 mg 07/15/16 10:00 07/16/16 09:45 Ranexa - PO 500 mg BID [facility] Administration Tamsulosin HCl 0.4 mg 07/15/16 22:00 07/15/16 21:01 Flomax - PO 0.4 mg HS DONALD Administration Tiotropium [place] 1 puff 07/15/16 12:00 07/16/16 09:44 Spiriva - IH 1 puff DAILY [facility] Administration Imaging: - CT chest shows mild mediastinal lymphadenopathy, R thyroidmegaly Assessment: 80 year old male with pmhx of CAD s/p multivessel PCI (stent), diastolic dysfunction, s/p bioAVR, PAF->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 Plan: 1. Influenza A - Tamiflu 30mg BID (renally dosed, Cr cl 49) 2. Asthma bronchitis/Wheezing - Non specific medialstinal lymphadenopathy per pulm - Will taper medrol to BID - Cont Symbicort/ Spirivia - Pulm following 3. Complet R thyroid mass - FNA recommended - TSH level wnl - Endocrine consulted 3. CKD - Cr is marginally improving - P/C ratio elevated - Spep/upep/kappa lambda chains ordered - Dr. Arceo aware of admission, will f/u w/ pt in office 4. Retroperitoneal lymphadenopathy - CTAP w/ contrast to be done as outpt, await renal recovery - Monocytes w/ significant down trend 5. CAD s/p stents - s/p AV repair w/ bioprosthetic valve - Cont Ranexa - Hold Coumadin - Monitor INR, remains supra therapeutic - Cards following 6. HTN/Diastolic dysfunction - Cont Norvasc 5mg daily - Cont Metoprolol 100 BID 7. Diastolic dysfunction - As above 8. BPH - Cont Flomax 9. Gout - Cont Allopurinol, if cr worsens will stop Visit type - Emergency Visit Emergency Visit: Yes ED Registration Date: 07/15/16 Care time: The patient presented to the Emergency Department on the above date and was hospitalized for further evaluation of their emergent condition. - New Patient This patient is new to me today: Yes Date on this admission: 07/16/16 - Critical Care Critical Care patient: No - Discharge Referral Referred to [facility] Med P.C.: No
[2016-07-16] MEDS: TAMSULOSIN HCL 0.4 MG CAP.ER.24H (FP) PO SCH (21:14)
[2016-07-16] MEDS: SODIUM CHLORIDE 0.45% 1,000 ML IV SCH (21:14)
[2016-07-16] MEDS: ATORVASTATIN CA 40 MG TABLET (FP) PO SCH (21:14)
[2016-07-16 21:36] LABS: CALCIUM 8.6 mg/dL (8.5-10.1); CREATININE 1.7 mg/dL (0.7-1.3)
[2016-07-17] MEDS: ALBUTEROL SO4 0.083% IH SOL 2.5 MG/3 ML VIAL.NEB. NEB SCH ×3 (07:03→21:30)
--- NOTE | 2016-07-17 09:25 | CONSULT ---
Consult Consult Specialty:: Endocrinology Referred by:: Kylie Doe Reason for Consultation:: Thyroid Nodule - History of Present Illness Chief Complaint: Cough, Wheezing History of Present Illness: This is a 80 year old male with significant past medical history of A-fib (on coumadin), hypertension, hyperlipidemia, and pneumonia (couple months ago) who presented to the ED with 2 days of productive cough and wheezing. Pt diagnosed as Asthmatic Bronchitis and Influenza and treated accordinglY CT chest showed Rt thyroid enlargement and mediastinal and retroperotineal lymphadenopathy. Sonogram of thyroid showed Rt thyroid nodule. Pt referred for evaluation of nodule. Pt currently feels good. Denies any complaints and is eager to go home. - History Source History Provided By: Patient, Medical Record - Past Medical History Cardio/Vascular: Yes: AFIB, Aortic Stenosis, CHF, HTN, Hyperlipdemia Renal/: Yes: Renal Inusuff - Past Surgical History Past Surgical History: Yes: Valve Replacement - Alcohol/Substance Use Hx Alcohol Use: No - Smoking History Smoking history: Never smoked Have you smoked in the past 12 months: No Home Medications - Allergies Allergies/Adverse Reactions: Allergies Allergy/AdvReac Type Severity Reaction Status Date / Time No Known Allergies Allergy Verified 07/15/16 00:14 - Home Medications Home Medications: Ambulatory Orders Allopurinol [Zyloprim -] 300 mg PO DAILY 08/22/14 Aspirin [Aspirin EC] 81 mg PO DAILY 08/22/14 Atorvastatin Ca [Lipitor] 40 mg PO HS 08/22/14 Cholecalciferol (Vitamin D3) [Vitamin D3] 2,000 unit PO DAILY 08/22/14 Losartan Potassium 100 mg PO DAILY 08/22/14 Metoprolol Tartrate [Lopressor] 100 mg PO BID 08/22/14 [place]-3 Acid Ethyl Esters [Lovaza -] 4 mg PO DAILY 08/22/14 Ranitidine [Zantac -] 150 mg PO BID 08/22/14 Warfarin Sodium [Coumadin] 1 mg PO DAILY 08/22/14 Warfarin Sodium [Coumadin] 2 mg PO DAILY 08/22/14 Amlodipine Besylate [Norvasc -] 5 mg PO DAILY 09/07/14 Ranolazine [Ranexa -] 500 mg PO BID 09/18/15 Furosemide [Lasix -] 20 mg PO DAILY 07/15/16 Tamsulosin HCl [Flomax] 0.4 mg PO HS 07/15/16 Review of Systems - Review of Systems Constitutional: reports: No Symptoms Eyes: reports: No Symptoms HENT: reports: No Symptoms Neck: reports: No Symptoms Cardiovascular: reports: No Symptoms Respiratory: reports: No Symptoms Gastrointestinal: reports: No Symptoms Genitourinary: reports: No Symptoms Breasts: reports: No Symptoms Reported Musculoskeletal: reports: No Symptoms Neurological: reports: No Symptoms Endocrine: reports: No Symptoms Hematology/Lymphatic: reports: No Symptoms Physical Exam Vital Signs: Vital Signs Temperature 97.3 F L 07/17/16 06:00 Pulse Rate 59 L 07/17/16 06:00 Respiratory Rate 20 07/17/16 06:00 Blood Pressure 112/63 07/17/16 06:00 O2 Sat by Pulse Oximetry (%) 98 07/16/16 21:00 Constitutional: Yes: No Distress, Calm Eyes: Yes: Conjunctiva Clear, EOM Intact HENT: Yes: Atraumatic, Normocephalic Neck: Yes: Supple, Trachea Midline Respiratory: Yes: Regular, CTA Bilaterally Gastrointestinal: Yes: Normal Bowel Sounds, Soft Breast(s): Yes: WNL Edema: No Neurological: Yes: Alert, Oriented Labs: CBC, BMP 07/16/16 06:35 07/16/16 20:30 Imaging - Results Chest X-ray: Report Reviewed Cat Scan: Report Reviewed Ultrasound: Report Reviewed Assessment/Plan AP: Thyroid Nodule: Discussed risk of malignancy 5 to 10 percent. Discussed need for FNA. Pt wants to think about it. Pt to follow up in office in the next few weeks. TSH 1.09 Will need to hold coumadin to do FNA Asthmatic Bronchitis HTN S/P AVR Recent Pneumonia Influenza A
[2016-07-17] MEDS: RANITIDINE HCL 150 MG TABLET (FP) PO SCH ×2 (10:34→23:23)
[2016-07-17] MEDS: ALLOPURINOL 100 MG TABLET (FP) PO SCH (10:34)
[2016-07-17] MEDS: BUDESONIDE/FORMETEROL FUMARATE 160/4.5 mcg INHALER IH SCH ×2 (10:35→23:22)
[2016-07-17] MEDS: OSELTAMIVIR PHOSPHATE 30 MG CAPSULE PO SCH ×2 (10:35→23:23)
[2016-07-17] MEDS: METOPROLOL TARTRATE 50 MG TABLET (FP) PO SCH ×2 (10:35→23:21)
[2016-07-17] MEDS: OMEGA-3 ACID ETHYL ESTERS (FATTY-ACIDS) 1 GM CAPSULE (FP) PO SCH ×2 (10:35→23:20)
[2016-07-17] MEDS: TIOTROPIUM BROMIDE 18 MCG/INH (DEVICE W/ 30 CAPSULES) IH SCH (10:35)
[2016-07-17] MEDS: RANOLAZINE E.R. 500 MG TABLET (FP) PO SCH ×2 (10:36→23:22)
[2016-07-17] MEDS: methylPREDNISolone NA SUCC 40 MG/1 ML VIAL IVPB SCH ×2 (10:36→17:39)
[2016-07-17] MEDS: CHOLECALCIFEROL (VITAMIN D3) 1,000 UNIT TABLET (FP) PO SCH (10:36)
[2016-07-17] MEDS: amLODIPine BESYLATE 5 MG TABLET (FP) PO SCH (10:36)
--- NOTE | 2016-07-17 11:12 | PN ---
Progress Note (short form) - Note Progress Note: Renal Follow up for CKD Pt seen and examined at the bedside No acute complaints feels much better wants to go home Vital Signs Temperature 97.3 F L 07/17/16 06:00 Pulse Rate 59 L 07/17/16 06:00 Respiratory Rate 20 07/17/16 06:00 Blood Pressure 112/63 07/17/16 06:00 O2 Sat by Pulse Oximetry (%) 98 07/16/16 21:00 Intake & Output 07/14/16 07/15/16 07/16/16 07/17/16 23:59 23:59 23:59 23:59 Intake Total 2449 3120 800 Output Total 400 Balance 2049 3120 800 Weight 215 lb 231 lb 2 oz Gen: NAD, awake and alert CVS: RRR, No M/R Lungs: CTA, no rales or wheeze Abd: soft, Obese, NT/ND Ext: Trace edema, clubbing or cyanosis CBC, BMP 07/16/16 06:35 07/16/16 20:30 Current Medications Albuterol Sulfate (Ventolin 0.083% Nebulizer Soln -) 1 amp NEB Q4H PRN Last Admin: 07/16/16 20:07 Dose: 1 amp Albuterol Sulfate (Ventolin 0.083% Nebulizer Soln -) 1 amp NEB TID DONALD Last Admin: 07/17/16 07:03 Dose: 1 amp Allopurinol (Zyloprim -) 200 mg PO DAILY [facility] Last Admin: 07/17/16 10:34 Dose: 200 mg Amlodipine Besylate (Norvasc -) 5 mg PO DAILY [facility]AL[facility] Last Admin: 07/17/16 10:36 Dose: 5 mg Atorvastatin Calcium (Lipitor -) 40 mg PO HS [facility] Last Admin: 07/16/16 21:14 Dose: 40 mg Budesonide/Formoterol Fumarate (Symbicort 160/4.5mcg -) 2 puff IH BID [facility] Last Admin: 07/17/16 10:35 Dose: 2 puff Cholecalciferol (Vitamin D3 -) 2,000 unit PO DAILY [facility] Last Admin: 07/17/16 10:36 Dose: 2,000 unit Sodium Chloride (1/2 Normal Saline) 1,000 mls @ 42 mls/hr IV ASDIR [facility] Last Admin: 07/16/16 21:14 Dose: 42 mls/hr Methylprednisolone Sodium Succinate (Solu-Medrol -) 40 mg IVPB BID [facility] Last Admin: 07/17/16 10:36 Dose: 40 mg Metoprolol Tartrate (Lopressor -) 100 mg PO BID [facility] Last Admin: 07/17/16 10:35 Dose: 100 mg Xbqqn-1-Kuhj Ethyl Esters (Lovaza -) 2 gm PO BID [facility] Last Admin: 07/17/16 10:35 Dose: 2 gm Oseltamivir Phosphate (Tamiflu -) 30 mg PO BID [facility] Last Admin: 07/17/16 10:35 Dose: 30 mg Ranitidine HCl (Zantac -) 150 mg PO BID [facility] Last Admin: 07/17/16 10:34 Dose: 150 mg Ranolazine (Ranexa -) 500 mg PO BID [facility] Last Admin: 07/17/16 10:36 Dose: 500 mg Tamsulosin HCl (Flomax -) 0.4 mg PO HS [facility] Last Admin: 07/16/16 21:14 Dose: 0.4 mg Tiotropium [place] (Spiriva -) 1 puff IH DAILY [facility] Last Admin: 07/17/16 10:35 Dose: 1 puff A/P 80 year old Gentleman with PMhx of Afib on A/C, Hypertension, HLD, CKD Stage 3 ( baseline Cr 1.5) presented with sob and found to Influenza #CKD with ? nephrotic range proteinuria Renal function near baseline and pt is evolemic at the present time Automated Urine Protein to Cr ration was 5 however when manually calculated it was 0.2 SPEP/UPEP sent -> will follow up as outpatient Dose all meds for Cr Cl ~40 avoid NSAIDS, Fleets, IV contrast If pt will need CT -> will need to have IV hydration prior to decrease risk of contrast nephrotpahty Thank you Will follow as outpatient. Hemant Arceo DO
[2016-07-17 11:43] LABS: PROTHROMBIN TIME (PATIENT) 45.5 SEC (9.98-11.88)
[2016-07-17 11:49] LABS: CALCIUM 8.7 mg/dL (8.5-10.1); CREATININE 1.6 mg/dL (0.7-1.3)
[2016-07-17 12:05] LABS: INR 4.02 (0.82-1.09)
--- NOTE | 2016-07-17 14:46 | PN ---
Progress Note, Physician History of Present Illness: PULMONARY ALERT,STILL CONGESTED,+COUGH,+WHEEZING - Current Medication List Current Medications: Active Medications Albuterol Sulfate (Ventolin 0.083% Nebulizer Soln -) 1 amp NEB Q4H PRN Last Admin: 07/16/16 20:07 Dose: 1 amp Albuterol Sulfate (Ventolin 0.083% Nebulizer Soln -) 1 amp NEB TID [facility] Last Admin: 07/17/16 07:03 Dose: 1 amp Allopurinol (Zyloprim -) 200 mg PO DAILY [facility] Last Admin: 07/17/16 10:34 Dose: 200 mg Amlodipine Besylate (Norvasc -) 5 mg PO DAILY [facility] Last Admin: 07/17/16 10:36 Dose: 5 mg Atorvastatin Calcium (Lipitor -) 40 mg PO HS [facility] Last Admin: 07/16/16 21:14 Dose: 40 mg Budesonide/Formoterol Fumarate (Symbicort 160/4.5mcg -) 2 puff IH BID [facility] Last Admin: 07/17/16 10:35 Dose: 2 puff Cholecalciferol (Vitamin D3 -) 2,000 unit PO DAILY [facility] Last Admin: 07/17/16 10:36 Dose: 2,000 unit Sodium Chloride (1/2 Normal Saline) 1,000 mls @ 42 mls/hr IV ASDIR [facility] Last Admin: 07/16/16 21:14 Dose: 42 mls/hr Methylprednisolone Sodium Succinate (Solu-Medrol -) 40 mg IVPB BID [facility] Last Admin: 07/17/16 10:36 Dose: 40 mg Metoprolol Tartrate (Lopressor -) 100 mg PO BID [facility] Last Admin: 07/17/16 10:35 Dose: 100 mg Nyelf-2-Wgyq Ethyl Esters (Lovaza -) 2 gm PO BID [facility] Last Admin: 07/17/16 10:35 Dose: 2 gm Oseltamivir Phosphate (Tamiflu -) 30 mg PO BID [facility] Last Admin: 07/17/16 10:35 Dose: 30 mg Ranitidine HCl (Zantac -) 150 mg PO BID [facility] Last Admin: 07/17/16 10:34 Dose: 150 mg Ranolazine (Ranexa -) 500 mg PO BID [facility] Last Admin: 07/17/16 10:36 Dose: 500 mg Tamsulosin HCl (Flomax -) 0.4 mg PO HS [facility] Last Admin: 07/16/16 21:14 Dose: 0.4 mg Tiotropium [place] (Spiriva -) 1 puff IH DAILY [facility] Last Admin: 07/17/16 10:35 Dose: 1 puff - Objective Vital Signs: Vital Signs Temperature 97.3 F L 07/17/16 14:25 Pulse Rate 65 07/17/16 14:25 Respiratory Rate 20 07/17/16 08:00 Blood Pressure 110/57 07/17/16 14:25 O2 Sat by Pulse Oximetry (%) 96 07/17/16 08:00 Constitutional: Yes: Well Nourished, Calm Eyes: Yes: WNL HENT: Yes: WNL Neck: Yes: WNL Cardiovascular: Yes: Regular Rate and Rhythm, S1, S2 Respiratory: Yes: Wheezes (ADITYA WHEEZES) Gastrointestinal: Yes: Normal Bowel Sounds, Soft Extremities: Yes: WNL Edema: Yes Labs: CBC, BMP 07/16/16 06:35 07/17/16 11:10 INR, PTT INR 4.02 (0.82-1.09) H* 07/17/16 11:10 Problem List - Problems (1) Bronchospasm Code(s): J98.01 - ACUTE BRONCHOSPASM (2) HLD (hyperlipidemia) Code(s): E78.5 - HYPERLIPIDEMIA, UNSPECIFIED Qualifiers: Hyperlipidemia type: pure hypercholesterolemia Qualified Code(s): E78.0 - Pure hypercholesterolemia (3) HTN (hypertension) Code(s): I10 - ESSENTIAL (PRIMARY) HYPERTENSION Qualifiers: Hypertension type: essential hypertension Qualified Code(s): I10 - Essential (primary) hypertension (4) Influenza A Code(s): J10.1 - FLU DUE TO OTH IDENT INFLUENZA VIRUS W OTH RESP MANIFEST (5) Supratherapeutic INR Code(s): R79.1 - ABNORMAL COAGULATION PROFILE (6) Asthmatic bronchitis Code(s): J45.909 - UNSPECIFIED ASTHMA, UNCOMPLICATED Qualifiers: Asthma severity: moderate persistent (7) Aortic valve replaced Code(s): Z95.2 - PRESENCE OF PROSTHETIC HEART VALVE (8) Acute kidney injury Code(s): N17.9 - ACUTE KIDNEY FAILURE, UNSPECIFIED Assessment/Plan IMP ASTHMATIC BRONCHITIS INFLUENZA A RECENT PNEUMONIA R THYROID MASS MEDIASTINAL AND RETROPERITONEAL ADENOPATHY ACUTE KIDNEY INJURY S/P AVR SUPRA-THERAPEUTIC INR HTN HLD PLAN INHALED BRONCHODILATORS CONTINUE IV STEROIDS NASAL O2 TAMIFLU ADB AND PELVIC CT FNA THYROID MASS OUT PATIENT MONITOR INR COUMADIN PER INR MONITOR RENAL FUNCTION MONITOR PEAK FLOW DR ALLEN Problem List - Problems (1) Bronchospasm Code(s): J98.01 - ACUTE BRONCHOSPASM (2) HLD (hyperlipidemia) Code(s): E78.5 - HYPERLIPIDEMIA, UNSPECIFIED (3) HTN (hypertension) Code(s): I10 - ESSENTIAL (PRIMARY) HYPERTENSION (4) Influenza A Code(s): J10.1 - FLU DUE TO OTH IDENT INFLUENZA VIRUS W OTH RESP MANIFEST (5) Supratherapeutic INR Code(s): R79.1 - ABNORMAL COAGULATION PROFILE (6) Asthmatic bronchitis Code(s): J45.909 - UNSPECIFIED ASTHMA, UNCOMPLICATED (7) Aortic valve replaced Code(s): Z95.2 - PRESENCE OF PROSTHETIC HEART VALVE (8) Acute kidney injury Code(s): N17.9 - ACUTE KIDNEY FAILURE, UNSPECIFIED
--- NOTE | 2016-07-17 17:31 | PN ---
Physical Exam: SUBJECTIVE: Patient seen and examined. He still feels chest tightness he can hear his wheezing. He c/o lower ext swelling. OBJECTIVE: Vital Signs Period Temp Pulse Resp BP Sys/Kirk Pulse Ox Last 24 Hr 97.2 F-98.1 F 59-92 20-20 110-152/57-85 96-98 PE Neuro: alert, awake, cn 2-12intact HEENT: R thyroid mass non tender Pulm: wheezing improved- + cough CV: s1 s2 rrr Abd: s nt nd + bs Ext: +1 b/l le edema, warm Laboratory Results - last 24 hr 07/16/16 07/16/16 07/17/16 20:30 20:30 11:10 INR 4.02 H* Sodium 136 Potassium 4.5 Chloride 102 Carbon Dioxide 24 Anion Gap 10 BUN 52 H D Creatinine 1.7 H Random Glucose 267 H D Hemoglobin A1c % 5.6 D Calcium 8.6 07/17/16 11:10 INR Sodium 132 L Potassium 4.3 Chloride 102 Carbon Dioxide 26 Anion Gap 4 L BUN 53 H Creatinine 1.6 H Random Glucose 156 H D Hemoglobin A1c % Calcium 8.7 Active Medications Generic Name Dose Route Start Last Admin Trade Name Freq PRN Reason Stop Dose Admin Albuterol Sulfate 1 amp 07/15/16 03:00 07/16/16 20:07 Ventolin 0.083% Nebulizer Soln - NEB 1 amp Q4H PRN Administration Albuterol Sulfate 1 amp 07/16/16 14:00 07/17/16 14:00 Ventolin 0.083% Nebulizer Soln - NEB 1 amp TID DONALD Administration Allopurinol 200 mg 07/15/16 10:00 07/17/16 10:34 Zyloprim - PO 200 mg DAILY [facility]AL[facility] Administration Amlodipine Besylate 5 mg 07/15/16 10:00 07/17/16 10:36 Norvasc - PO 5 mg DAILY [facility] Administration Atorvastatin Calcium 40 mg 07/15/16 22:00 07/16/16 21:14 Lipitor - PO 40 mg HS DONALD Administration Budesonide/Formoterol Fumarate 2 puff 07/15/16 12:00 07/17/16 10:35 Symbicort 160/4.5mcg - IH 2 puff BID DONALD Administration Cholecalciferol 2,000 unit 07/15/16 10:00 07/17/16 10:36 Vitamin D3 - PO 2,000 unit DAILY [facility] Administration Guaifenesin/Codeine Phosphate 5 ml 07/17/16 14:54 Robitussin Ac - PO TID PRN COUGH Sodium Chloride 1,000 mls @ 42 mls/hr 07/15/16 19:45 07/16/16 21:14 1/2 Normal Saline IV 42 mls/hr ASDIR DONALD Administration Methylprednisolone Sodium Succinate 40 mg 07/17/16 18:00 Solu-Medrol - IVPB Q8H-IV [facility]ALD Metoprolol Tartrate 100 mg 07/15/16 10:00 07/17/16 10:35 Lopressor - PO 100 mg BID [facility]AL[facility] Administration Konkk-8-Kntd Ethyl Esters 2 gm 07/15/16 22:00 07/17/16 10:35 Lovaza - PO 2 gm BID [facility] Administration Oseltamivir Phosphate 30 mg 07/15/16 12:00 07/17/16 10:35 Tamiflu - PO 30 mg BID [facility] Administration Ranitidine HCl 150 mg 07/15/16 10:00 07/17/16 10:34 Zantac - PO 150 mg BID [facility] Administration Ranolazine 500 mg 07/15/16 10:00 07/17/16 10:36 Ranexa - PO 500 mg BID [facility]AL[facility] Administration Tamsulosin HCl 0.4 mg 07/15/16 22:00 07/16/16 21:14 Flomax - PO 0.4 mg HS DONALD Administration Tiotropium [place] 1 puff 07/15/16 12:00 07/17/16 10:35 Spiriva - IH 1 puff DAILY [facility]ALD Administration Imaging: - CT chest shows mild mediastinal lymphadenopathy, R thyroidmegaly Assessment: 80 year old male with pmhx of CAD s/p multivessel PCI (stent), diastolic dysfunction, s/p bioAVR, PAF->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 Plan: 1. Influenza A - Tamiflu 30mg BID (renally dose, day 3) 2. Asthma bronchitis/Wheezing - Non specific medialstinal lymphadenopathy per pulm - Increase medrol 40mg q8 - Cont Symbicort/ Spirivia - Pulm following 3. Retroperitoneal lymphadenopathy, ? myeloma - CTAP without contrast ordered 4. 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 CKD - Cr near baseline - Spep/upep/kappa lambda chains pending - Pt to follow up in office, d/w renal 6. CAD s/p stents - s/p AV repair w/ bioprosthetic valve - Cont Ranexa - Hold Coumadin - Monitor INR, remains supra therapeutic - Cards following 7. HTN/Diastolic dysfunction - Cont Norvasc 5mg daily - Cont Metoprolol 100 BID 8. Diastolic dysfunction - As above 9. BPH - Cont Flomax 10. Gout - Cont Allopurinol Visit type - Emergency Visit Emergency Visit: Yes ED Registration Date: 07/15/16 Care time: The patient presented to the Emergency Department on the above date and was hospitalized for further evaluation of their emergent condition. - New Patient This patient is new to me today: No - Critical Care Critical Care patient: No
--- NOTE | 2016-07-17 17:52 | PN ---
Progress Note (short form) - Note Progress Note: Consult dictated Patient seen at request of Dr. Zhang to evaluate extensive retroperitoneal lympadenopathy. Has mildly increased mediastinal lymphadenopathy , but recently with pneumonia and asthmatic bronchitis. On Chest CT evaluation, extensive retroperitoneal lymphadenopathy. No obvious peripheral nodes to assess. Elevated creatinine such that contrast unable to be administered. Abnormal right lobe of thyroid , which will need biopsy Will need tissue diagnosis of RPN. . Ideally if creatinine corrects, contrast will be possible to facilitate. Will need to stop a/c prior to procedure and likely bridge with lovenox.
[2016-07-17] MEDS: guaiFENesin/CODEINE 5 ML UNIT-DOSE CUPS PO PRN ×2 (18:14→23:27)
[2016-07-17] MEDS: TAMSULOSIN HCL 0.4 MG CAP.ER.24H (FP) PO SCH (23:22)
[2016-07-17] MEDS: ATORVASTATIN CA 40 MG TABLET (FP) PO SCH (23:22)
[2016-07-18] MEDS: SODIUM CHLORIDE 0.45% 1,000 ML IV SCH
[2016-07-18] MEDS: methylPREDNISolone NA SUCC 40 MG/1 ML VIAL IVPB SCH ×3 (02:18→21:19)
[2016-07-18] MEDS: ALBUTEROL SO4 0.083% IH SOL 2.5 MG/3 ML VIAL.NEB. NEB PRN (03:06)
[2016-07-18] MEDS: guaiFENesin/CODEINE 5 ML UNIT-DOSE CUPS PO PRN ×2 (06:02→21:19)
[2016-07-18] MEDS: ALBUTEROL SO4 0.083% IH SOL 2.5 MG/3 ML VIAL.NEB. NEB SCH ×3 (07:05→22:30)
[2016-07-18 09:28] LABS: INR 3.43 (0.82-1.09); PROTHROMBIN TIME (PATIENT) 38.7 SEC (9.98-11.88)
[2016-07-18] MEDS ORDERED: PT OWN MED DRAWER 7, Y5N ONE (09:29)
[2016-07-18] MEDS: METOPROLOL TARTRATE 50 MG TABLET (FP) PO SCH ×2 (09:32→21:16)
[2016-07-18] MEDS: ALLOPURINOL 100 MG TABLET (FP) PO SCH (09:33)
[2016-07-18] MEDS: RANITIDINE HCL 150 MG TABLET (FP) PO SCH ×2 (09:33→21:16)
[2016-07-18] MEDS: amLODIPine BESYLATE 5 MG TABLET (FP) PO SCH (09:33)
[2016-07-18] MEDS: OMEGA-3 ACID ETHYL ESTERS (FATTY-ACIDS) 1 GM CAPSULE (FP) PO SCH ×2 (09:33→21:18)
[2016-07-18] MEDS: RANOLAZINE E.R. 500 MG TABLET (FP) PO SCH ×2 (09:33→21:18)
[2016-07-18] MEDS: CHOLECALCIFEROL (VITAMIN D3) 1,000 UNIT TABLET (FP) PO SCH (09:33)
[2016-07-18] MEDS: BUDESONIDE/FORMETEROL FUMARATE 160/4.5 mcg INHALER IH SCH ×2 (09:34→21:19)
[2016-07-18] MEDS: OSELTAMIVIR PHOSPHATE 30 MG CAPSULE PO SCH ×2 (09:34→21:15)
[2016-07-18] MEDS: TIOTROPIUM BROMIDE 18 MCG/INH (DEVICE W/ 30 CAPSULES) IH SCH (09:34)
[2016-07-18 09:35] LABS: CALCIUM 8.4 mg/dL (8.5-10.1); CREATININE 1.3 mg/dL (0.7-1.3)
--- NOTE | 2016-07-18 11:00 | PN ---
Physical Exam: SUBJECTIVE: Patient seen and examined. Pt has no acute complaints, informed him of CTAP results, he understands he has no questions. OBJECTIVE: Vital Signs Period Temp Pulse Resp BP Sys/Kirk Pulse Ox Last 24 Hr 97.3 F-98.1 F 65-92 20-21 110-152/57-91 PE Neuro: alert, awake, cn 2-12intact HEENT: R thyroid mass non tender Pulm: clear to auscultation, scattered wheezing CV: s1 s2 rrr Abd: s nt nd + bs Ext: +2 edema L>R, warm Laboratory Results - last 24 hr 07/17/16 07/17/16 07/18/16 11:10 11:10 08:30 INR 4.02 H* 3.43 H Sodium 132 L Potassium 4.3 Chloride 102 Carbon Dioxide 26 Anion Gap 4 L BUN 53 H Creatinine 1.6 H Random Glucose 156 H D Calcium 8.7 07/18/16 08:30 INR Sodium 137 Potassium 4.9 Chloride 103 Carbon Dioxide 25 Anion Gap 9 BUN 48 H Creatinine 1.3 Random Glucose 230 H D Calcium 8.4 L Active Medications Generic Name Dose Route Start Last Admin Trade Name Freq PRN Reason Stop Dose Admin Albuterol Sulfate 1 amp 07/15/16 03:00 07/18/16 03:06 Ventolin 0.083% Nebulizer Soln - NEB 1 amp Q4H PRN Administration Albuterol Sulfate 1 amp 07/16/16 14:00 07/18/16 07:05 Ventolin 0.083% Nebulizer Soln - NEB 1 amp TID DONALD Administration Allopurinol 200 mg 07/15/16 10:00 07/18/16 09:33 Zyloprim - PO 200 mg DAILY DONALD Administration Amlodipine Besylate 5 mg 07/15/16 10:00 07/18/16 09:33 Norvasc - PO 5 mg DAILY DONALD Administration Atorvastatin Calcium 40 mg 07/15/16 22:00 07/17/16 23:22 Lipitor - PO 40 mg HS DONALD Administration Budesonide/Formoterol Fumarate 2 puff 07/15/16 12:00 07/18/16 09:34 Symbicort 160/4.5mcg - IH 2 puff BID DONALD Administration Cholecalciferol 2,000 unit 07/15/16 10:00 07/18/16 09:33 Vitamin D3 - PO 2,000 unit DAILY [facility]ALD Administration Guaifenesin/Codeine Phosphate 5 ml 07/17/16 14:54 07/18/16 06:02 Robitussin Ac - PO 5 ml TID PRN Administration COUGH Sodium Chloride 1,000 mls @ 42 mls/hr 07/15/16 19:45 07/18/16 00:00 1/2 Normal Saline IV 42 mls/hr ASDIR DONALD Administration Insulin Aspart 1 vial 07/18/16 11:00 Novolog Vial Sliding Scale - SQ ACHS DONALD Protocol Methylprednisolone Sodium Succinate 40 mg 07/17/16 18:00 07/18/16 09:35 Solu-Medrol - IVPB 40 mg Q8H-IV [facility]ALD Administration Metoprolol Tartrate 100 mg 07/15/16 10:00 07/18/16 09:32 Lopressor - PO 100 mg BID [facility] Administration Bczel-0-Wnax Ethyl Esters 2 gm 07/15/16 22:00 07/18/16 09:33 Lovaza - PO 2 gm BID [facility] Administration Oseltamivir Phosphate 30 mg 07/15/16 12:00 07/18/16 09:34 Tamiflu - PO 30 mg BID [facility] Administration Ranitidine HCl 150 mg 07/15/16 10:00 07/18/16 09:33 Zantac - PO 150 mg BID DONALD Administration Ranolazine 500 mg 07/15/16 10:00 07/18/16 09:33 Ranexa - PO 500 mg BID DONALD Administration Tamsulosin HCl 0.4 mg 07/15/16 22:00 07/17/16 23:22 Flomax - PO 0.4 mg HS DONALD Administration Tiotropium [place] 1 puff 07/15/16 12:00 07/18/16 09:34 Spiriva - IH 1 puff DAILY [facility]ALD Administration Imaging: - CT chest shows mild mediastinal lymphadenopathy, R thyroidmegaly Assessment: 80 year old male with pmhx of CAD s/p multivessel PCI (stent), AFIB , diastolic dysfunction, s/p bioAVR, PAF->SR post cryoMaze, HTN, HLD, CKD, BPH, gastric ulcer, admitted with increased wheezing and SOB. Plan: 1. Influenza A - Tamiflu 30mg BID (day 4) 2. Asthma bronchitis/Wheezing - Taper Medrol 40mg BID with ISS - Cont Symbicort/Spirivia - Pulm following 3. Retroperitoneal lymphadenopathy, - CTAP non contrast 07/17: pelvis extensive retroperitoneal adenopathy, stranding of mesentery - For biopsy next week per INR - D/w Dr. Whipple 4. CAD s/p stents/ - s/p AV repair w/ bioprosthetic valve - Cont Ranexa 5. AFIB, rate controlled - Once INR therapeutic, will not restart coumadin, start heparin gtt in anticipation for biopsy - Monitor INR, remains supratherapeutic 5. Complete R thyroid mass - Will go for thyroid biopsy next week with RP in IR 6. CKD - Cr near baseline - Spep/upep/kappa lambda chains pending 7. HTN/Diastolic dysfunction - Cont Norvasc 5mg daily - Cont Metoprolol 100 BID 8. Diastolic dysfunction - As above 9. BPH - Cont Flomax 10. Gout - Cont Allopurinol Visit type - Emergency Visit Emergency Visit: Yes ED Registration Date: 07/15/16 Care time: The patient presented to the Emergency Department on the above date and was hospitalized for further evaluation of their emergent condition. - New Patient This patient is new to me today: No - Critical Care Critical Care patient: No
[2016-07-18] MEDS: INSULIN SLIDING SCALE (NOVOLOG) 1 VIAL SQ SCH ×3 (11:36→21:06)
--- NOTE | 2016-07-18 12:35 | PN ---
Progress Note, Physician History of Present Illness: pulmonary alert,feeling better ,less dyspnea improving,less wheezes. ct scan adb + pelvis extensive retroperitoneal adenopathy,strandind of mesentery - Current Medication List Current Medications: Active Medications Albuterol Sulfate (Ventolin 0.083% Nebulizer Soln -) 1 amp NEB Q4H PRN Last Admin: 07/18/16 03:06 Dose: 1 amp Albuterol Sulfate (Ventolin 0.083% Nebulizer Soln -) 1 amp NEB TID [facility] Last Admin: 07/18/16 07:05 Dose: 1 amp Allopurinol (Zyloprim -) 200 mg PO DAILY [facility] Last Admin: 07/18/16 09:33 Dose: 200 mg Amlodipine Besylate (Norvasc -) 5 mg PO DAILY [facility] Last Admin: 07/18/16 09:33 Dose: 5 mg Atorvastatin Calcium (Lipitor -) 40 mg PO HS [facility] Last Admin: 07/17/16 23:22 Dose: 40 mg Budesonide/Formoterol Fumarate (Symbicort 160/4.5mcg -) 2 puff IH BID [facility] Last Admin: 07/18/16 09:34 Dose: 2 puff Cholecalciferol (Vitamin D3 -) 2,000 unit PO DAILY [facility] Last Admin: 07/18/16 09:33 Dose: 2,000 unit Guaifenesin/Codeine Phosphate (Robitussin Ac -) 5 ml PO TID PRN PRN Reason: COUGH Last Admin: 07/18/16 06:02 Dose: 5 ml Sodium Chloride (1/2 Normal Saline) 1,000 mls @ 42 mls/hr IV ASDIR [facility] Last Admin: 07/18/16 00:00 Dose: 42 mls/hr Insulin Aspart (Novolog Vial Sliding Scale -) 1 vial SQ ACHS DONALD PRN Reason: Protocol Last Admin: 07/18/16 11:36 Dose: Not Given Methylprednisolone Sodium Succinate (Solu-Medrol -) 40 mg IVPB Q8H-IV [facility] Last Admin: 07/18/16 09:35 Dose: 40 mg Metoprolol Tartrate (Lopressor -) 100 mg PO BID [facility] Last Admin: 07/18/16 09:32 Dose: 100 mg Yjwvm-1-Wdda Ethyl Esters (Lovaza -) 2 gm PO BID [facility] Last Admin: 07/18/16 09:33 Dose: 2 gm Oseltamivir Phosphate (Tamiflu -) 30 mg PO BID [facility] Last Admin: 07/18/16 09:34 Dose: 30 mg Ranitidine HCl (Zantac -) 150 mg PO BID [facility] Last Admin: 07/18/16 09:33 Dose: 150 mg Ranolazine (Ranexa -) 500 mg PO BID [facility] Last Admin: 07/18/16 09:33 Dose: 500 mg Tamsulosin HCl (Flomax -) 0.4 mg PO HS [facility] Last Admin: 07/17/16 23:22 Dose: 0.4 mg Tiotropium [place] (Spiriva -) 1 puff IH DAILY [facility] Last Admin: 07/18/16 09:34 Dose: 1 puff - Objective Vital Signs: Vital Signs Temperature 97.5 F L 07/18/16 09:00 Pulse Rate 69 07/18/16 12:15 Respiratory Rate 20 07/18/16 09:00 Blood Pressure 120/75 07/18/16 09:00 O2 Sat by Pulse Oximetry (%) 95 07/18/16 12:15 Constitutional: Yes: Well Nourished, Calm Eyes: Yes: WNL HENT: Yes: WNL Neck: Yes: Supple Cardiovascular: Yes: Regular Rate and Rhythm, S1, S2 Respiratory: Yes: Wheezes (less wheezes konstantin) Gastrointestinal: Yes: Normal Bowel Sounds, Soft Extremities: Yes: WNL Edema: No Labs: CBC, BMP 07/16/16 06:35 07/18/16 08:30 INR, PTT INR 3.43 (0.82-1.09) H 07/18/16 08:30 - ....Imaging Cat Scan: Report Reviewed Problem List - Problems (1) Bronchospasm Code(s): J98.01 - ACUTE BRONCHOSPASM (2) HLD (hyperlipidemia) Code(s): E78.5 - HYPERLIPIDEMIA, UNSPECIFIED Qualifiers: Qualified Code(s): E78.0 - Pure hypercholesterolemia (3) HTN (hypertension) Code(s): I10 - ESSENTIAL (PRIMARY) HYPERTENSION Qualifiers: Qualified Code(s): I10 - Essential (primary) hypertension (4) Influenza A Code(s): J10.1 - FLU DUE TO OTH IDENT INFLUENZA VIRUS W OTH RESP MANIFEST (5) Supratherapeutic INR Code(s): R79.1 - ABNORMAL COAGULATION PROFILE (6) Asthmatic bronchitis Code(s): J45.909 - UNSPECIFIED ASTHMA, UNCOMPLICATED (7) Aortic valve replaced Code(s): Z95.2 - PRESENCE OF PROSTHETIC HEART VALVE (8) Acute kidney injury Code(s): N17.9 - ACUTE KIDNEY FAILURE, UNSPECIFIED Assessment/Plan IMP ASTHMATIC BRONCHITIS INFLUENZA A RECENT PNEUMONIA R THYROID MASS MEDIASTINAL AND RETROPERITONEAL ADENOPATHY ACUTE KIDNEY INJURY S/P AVR SUPRA-THERAPEUTIC INR HTN HLD PLAN INHALED BRONCHODILATORS STEROIDS TAPER NASAL O2 TAMIFLU ADB AND PELVIC CT FNA THYROID MASS RETROPERITONEAL NODE BX AND FNB THYROID MASS WHEN INR NORMAL HOLD COUMADIN BRIDGE HEPARIN MONITOR RENAL FUNCTION MONITOR PEAK FLOW DR ALLEN Problem List - Problems (1) Bronchospasm Code(s): J98.01 - ACUTE BRONCHOSPASM (2) HLD (hyperlipidemia) Code(s): E78.5 - HYPERLIPIDEMIA, UNSPECIFIED (3) HTN (hypertension) Code(s): I10 - ESSENTIAL (PRIMARY) HYPERTENSION (4) Influenza A Code(s): J10.1 - FLU DUE TO OTH IDENT INFLUENZA VIRUS W OTH RESP MANIFEST (5) Supratherapeutic INR Code(s): R79.1 - ABNORMAL COAGULATION PROFILE (6) Asthmatic bronchitis Code(s): J45.909 - UNSPECIFIED ASTHMA, UNCOMPLICATED (7) Aortic valve replaced Code(s): Z95.2 - PRESENCE OF PROSTHETIC HEART VALVE (8) Acute kidney injury Code(s): N17.9 - ACUTE KIDNEY FAILURE, UNSPECIFIED
--- NOTE | 2016-07-18 13:49 | PN ---
Progress Note, Physician Chief Complaint: Patient well known to me: With h/o CKD, Coronary artery disease, Congestive Heart failure, Valvular Heart disease, Bioprosthetic Aortic valve, DJD. Admitted with Acute Respiratory Infection and shortness of breaths. Renal functions were acutely worsened, which has improved since admission. In the interim, the finding of retroperitoneal lymphadenopathy and a thyroid nodule needs further w/u. PT/INR still supratherapeutic. - Current Medication List Current Medications: Active Medications Albuterol Sulfate (Ventolin 0.083% Nebulizer Soln -) 1 amp NEB Q4H PRN Last Admin: 07/18/16 03:06 Dose: 1 amp Albuterol Sulfate (Ventolin 0.083% Nebulizer Soln -) 1 amp NEB TID [facility] Last Admin: 07/18/16 07:05 Dose: 1 amp Allopurinol (Zyloprim -) 200 mg PO DAILY [facility] Last Admin: 07/18/16 09:33 Dose: 200 mg Amlodipine Besylate (Norvasc -) 5 mg PO DAILY [facility] Last Admin: 07/18/16 09:33 Dose: 5 mg Atorvastatin Calcium (Lipitor -) 40 mg PO HS [facility] Last Admin: 07/17/16 23:22 Dose: 40 mg Budesonide/Formoterol Fumarate (Symbicort 160/4.5mcg -) 2 puff IH BID [facility] Last Admin: 07/18/16 09:34 Dose: 2 puff Cholecalciferol (Vitamin D3 -) 2,000 unit PO DAILY [facility] Last Admin: 07/18/16 09:33 Dose: 2,000 unit Guaifenesin/Codeine Phosphate (Robitussin Ac -) 5 ml PO TID PRN PRN Reason: COUGH Last Admin: 07/18/16 06:02 Dose: 5 ml Sodium Chloride (1/2 Normal Saline) 1,000 mls @ 42 mls/hr IV ASDIR [facility] Last Admin: 07/18/16 00:00 Dose: 42 mls/hr Insulin Aspart (Novolog Vial Sliding Scale -) 1 vial SQ ACHS DONALD PRN Reason: Protocol Last Admin: 07/18/16 11:36 Dose: Not Given Methylprednisolone Sodium Succinate (Solu-Medrol -) 40 mg IVPB BID [facility] Metoprolol Tartrate (Lopressor -) 100 mg PO BID [facility] Last Admin: 07/18/16 09:32 Dose: 100 mg Gsegi-9-Xfgr Ethyl Esters (Lovaza -) 2 gm PO BID [facility] Last Admin: 07/18/16 09:33 Dose: 2 gm Oseltamivir Phosphate (Tamiflu -) 30 mg PO BID [facility] Last Admin: 07/18/16 09:34 Dose: 30 mg Ranitidine HCl (Zantac -) 150 mg PO BID [facility] Last Admin: 07/18/16 09:33 Dose: 150 mg Ranolazine (Ranexa -) 500 mg PO BID [facility] Last Admin: 07/18/16 09:33 Dose: 500 mg Tamsulosin HCl (Flomax -) 0.4 mg PO HS [facility] Last Admin: 07/17/16 23:22 Dose: 0.4 mg Tiotropium [place] (Spiriva -) 1 puff IH DAILY [facility] Last Admin: 07/18/16 09:34 Dose: 1 puff - Objective Vital Signs: Vital Signs Temperature 97.5 F L 07/18/16 09:00 Pulse Rate 69 07/18/16 12:15 Respiratory Rate 20 07/18/16 09:00 Blood Pressure 120/75 07/18/16 09:00 O2 Sat by Pulse Oximetry (%) 95 07/18/16 12:15 Constitutional: Yes: Well Nourished, Anxious, Mild Distress Eyes: Yes: Conjunctiva Clear HENT: Yes: WNL, Atraumatic, Normocephalic Neck: Yes: WNL, Supple, Trachea Midline Cardiovascular: Yes: Pulse Irregular, S1, S2 Respiratory: Yes: Regular, Cough, Poor Air Entry, Rhonchi, Wheezes Gastrointestinal: Yes: WNL, Normal Bowel Sounds Genitourinary: Yes: WNL Musculoskeletal: Yes: Joint Stiffness, Muscle Pain Edema: Yes Edema: LLE: 2+, RLE: 2+ Neurological: Yes: Alert, Oriented ...Motor Strength: WNL Labs: CBC, BMP 07/16/16 06:35 07/18/16 08:30 INR, PTT INR 3.43 (0.82-1.09) H 07/18/16 08:30 Problem List - Problems (1) A-fib Code(s): I48.91 - UNSPECIFIED ATRIAL FIBRILLATION Qualifiers: Atrial fibrillation type: paroxysmal Qualified Code(s): I48.0 - Paroxysmal atrial fibrillation (2) Acute kidney injury Code(s): N17.9 - ACUTE KIDNEY FAILURE, UNSPECIFIED (3) Aortic valve replaced Code(s): Z95.2 - PRESENCE OF PROSTHETIC HEART VALVE (4) Asthmatic bronchitis Code(s): J45.909 - UNSPECIFIED ASTHMA, UNCOMPLICATED Qualifiers: Asthma severity: moderate persistent (5) BPH (benign prostatic hyperplasia) Code(s): N40.0 - BENIGN PROSTATIC HYPERPLASIA WITHOUT LOWER URINRY TRACT SYMP (6) CKD (chronic kidney disease) Code(s): N18.9 - CHRONIC KIDNEY DISEASE, UNSPECIFIED (7) HTN (hypertension) Code(s): I10 - ESSENTIAL (PRIMARY) HYPERTENSION Qualifiers: Hypertension type: essential hypertension Qualified Code(s): I10 - Essential (primary) hypertension (8) Supratherapeutic INR Code(s): R79.1 - ABNORMAL COAGULATION PROFILE Assessment/Plan The patient's renal functions are stable. almost near his baseline. will monitor with you. The PT/INR remains elevated, though decreasing. For Neck and retroperitoneal biopsy after normalozation of the coagulation factors. Labs as ordered. Gracie Montalvo MD
--- NOTE | 2016-07-18 14:32 | PN ---
Progress Note (short form) - Note Progress Note: Patient seen and examined No chest pains or SOB Last Vital Signs Temp Pulse Resp BP Pulse Ox 97.5 F L 69 20 120/75 95 07/18/16 09:00 07/18/16 12:15 07/18/16 09:00 07/18/16 09:00 07/18/16 12:15 HEENT: DEMAR, EOM Intact Oropharynx: No thrush, No mucositis Nodes: Without adenopathy Cor: RSR, No murmurs, No gallops,sternotomy scar Lungs: Clear to P&A Abd: Soft, Normal bowel sounds, No organomegaly Ext:1+ LE edema Skin: No rashes, Integument intact CBC, BMP 07/16/16 06:35 07/18/16 08:30 Current Medications Generic Name Dose Route Start Last Admin Trade Name Freq PRN Reason Stop Dose Admin Albuterol Sulfate 1 amp 07/15/16 03:00 07/18/16 03:06 Ventolin 0.083% Nebulizer Soln - NEB 1 amp Q4H PRN Administration Albuterol Sulfate 1 amp 07/16/16 14:00 07/18/16 07:05 Ventolin 0.083% Nebulizer Soln - NEB 1 amp TID DONALD Administration Allopurinol 200 mg 07/15/16 10:00 07/18/16 09:33 Zyloprim - PO 200 mg DAILY DONALD Administration Amlodipine Besylate 5 mg 07/15/16 10:00 07/18/16 09:33 Norvasc - PO 5 mg DAILY DONALD Administration Atorvastatin Calcium 40 mg 07/15/16 22:00 07/17/16 23:22 Lipitor - PO 40 mg HS DONALD Administration Budesonide/Formoterol Fumarate 2 puff 07/15/16 12:00 07/18/16 09:34 Symbicort 160/4.5mcg - IH 2 puff BID DONALD Administration Cholecalciferol 2,000 unit 07/15/16 10:00 07/18/16 09:33 Vitamin D3 - PO 2,000 unit DAILY DONALD Administration Guaifenesin/Codeine Phosphate 5 ml 07/17/16 14:54 07/18/16 06:02 Robitussin Ac - PO 5 ml TID PRN Administration COUGH Insulin Aspart 1 vial 07/18/16 11:00 07/18/16 11:36 Novolog Vial Sliding Scale - SQ Not Given ACHS [facility] Protocol Methylprednisolone Sodium Succinate 40 mg 07/18/16 22:00 Solu-Medrol - IVPB BID [facility] Metoprolol Tartrate 100 mg 07/15/16 10:00 07/18/16 09:32 Lopressor - PO 100 mg BID DONALD Administration [id number]-9-[id number] Ethyl Esters 2 gm 07/15/16 22:00 07/18/16 09:33 Lovaza - PO 2 gm BID DONALD Administration Oseltamivir Phosphate 30 mg 07/15/16 12:00 07/18/16 09:34 Tamiflu - PO 30 mg BID DONALD Administration Ranitidine HCl 150 mg 07/15/16 10:00 07/18/16 09:33 Zantac - PO 150 mg BID DONALD Administration Ranolazine 500 mg 07/15/16 10:00 07/18/16 09:33 Ranexa - PO 500 mg BID DONALD Administration Tamsulosin HCl 0.4 mg 07/15/16 22:00 07/17/16 23:22 Flomax - PO 0.4 mg HS DONALD Administration Tiotropium [place] 1 puff 07/15/16 12:00 07/18/16 09:34 Spiriva - IH 1 puff DAILY DONALD Administration Impression: Bronchitis PAF Anemia Thyroid Nodule RPN adenopathy a/c Supratherapeutic INR Plan: For thyroid and RPN biopsy when a/c allows When INR <2 bridge with heparin.
--- NOTE | 2016-07-18 15:12 | PN ---
Progress Note (short form) - Note Progress Note: Chief Complaint: Events noted, notes reviewed, denies any chest pain or dyspnea , denies any wheezing History of Present Illness: Seen and examined on . Events noted, notes reviewed, denies any chest pain or dyspnea, denies any wheezing Echocardiography dated 05/03/2016 revealed concentric LVH with normal LV size and function, LA dilatation at 4.6 cm, Bio-prosthetic AVR, mild MR and TR with RVSP 55-60 mmHg Lexiscan MPI study dated 06/24/2016 revealed no ischemia with normal function and LV-EF 73% - Current Medication List Current Medications Albuterol Sulfate (Ventolin 0.083% Nebulizer Soln -) 1 amp NEB Q4H PRN Last Admin: 07/18/16 03:06 Dose: 1 amp Albuterol Sulfate (Ventolin 0.083% Nebulizer Soln -) 1 amp NEB TID [facility] Last Admin: 07/18/16 07:05 Dose: 1 amp Allopurinol (Zyloprim -) 200 mg PO DAILY [facility] Last Admin: 07/18/16 09:33 Dose: 200 mg Amlodipine Besylate (Norvasc -) 5 mg PO DAILY [facility] Last Admin: 07/18/16 09:33 Dose: 5 mg Atorvastatin Calcium (Lipitor -) 40 mg PO HS [facility] Last Admin: 07/17/16 23:22 Dose: 40 mg Budesonide/Formoterol Fumarate (Symbicort 160/4.5mcg -) 2 puff IH BID [facility] Last Admin: 07/18/16 09:34 Dose: 2 puff Cholecalciferol (Vitamin D3 -) 2,000 unit PO DAILY [facility] Last Admin: 07/18/16 09:33 Dose: 2,000 unit Furosemide (Lasix -) 40 mg PO DAILY [facility] Guaifenesin/Codeine Phosphate (Robitussin Ac -) 5 ml PO TID PRN PRN Reason: COUGH Last Admin: 07/18/16 06:02 Dose: 5 ml Insulin Aspart (Novolog Vial Sliding Scale -) 1 vial SQ ACHS [facility] PRN Reason: Protocol Last Admin: 07/18/16 11:36 Dose: Not Given Methylprednisolone Sodium Succinate (Solu-Medrol -) 40 mg IVPB BID [facility] Metoprolol Tartrate (Lopressor -) 100 mg PO BID [facility] Last Admin: 07/18/16 09:32 Dose: 100 mg Gzfoe-7-Bity Ethyl Esters (Lovaza -) 2 gm PO BID [facility] Last Admin: 07/18/16 09:33 Dose: 2 gm Oseltamivir Phosphate (Tamiflu -) 30 mg PO BID [facility] Last Admin: 07/18/16 09:34 Dose: 30 mg Ranitidine HCl (Zantac -) 150 mg PO BID [facility] Last Admin: 07/18/16 09:33 Dose: 150 mg Ranolazine (Ranexa -) 500 mg PO BID [facility] Last Admin: 07/18/16 09:33 Dose: 500 mg Tamsulosin HCl (Flomax -) 0.4 mg PO HS [facility] Last Admin: 07/17/16 23:22 Dose: 0.4 mg Tiotropium [place] (Spiriva -) 1 puff IH DAILY [facility] Last Admin: 07/18/16 09:34 Dose: 1 puff - Objective Vital Signs: Last Vital Signs Temp Pulse Resp BP Pulse Ox 97.5 F L 69 20 120/75 95 07/18/16 09:00 07/18/16 12:15 07/18/16 09:00 07/18/16 09:00 07/18/16 12:15 Constitutional: No Distress, Calm Neck: Supple Negative JVD No Bruit Cardiovascular: S1 S2 Regular Rate and Rhythm Grade 2/6 GUIDO Respiratory: Clear to A&P Bilaterally Gastrointestinal: Soft Benign Normal Bowel Sounds Ext: Trace to 1+ Edema Labs: CBC, BMP 07/16/16 06:35 07/18/16 08:30 INR, PTT INR 3.43 (0.82-1.09) H 07/18/16 08:30 Assessment/Plan ASSESSMENT: 1. Asthmatic bronchitis, resolving 2. CAD post multi-vessel PCI (stent), angina pectoris 3. Diastolic LV dysfunction with chronic class I NYHA classification LV failure , compensated 4. Aortic stenosis post AVR (Bio-prosthesis) 5. PAF currently sinus rhythm [id number] score of 4 with supra-therapeutic INR 6. HTN/HCVD 7. Hyperlipidemia 8. Acute on CKD 9. Right thyroid gland mass, for biopsy 10. Retro-peritoneal lymph adenopathy, for biopsy PLAN: 1. Continue Lopressor and if wheezing/asthmatic bronchitis exacerbation recurs may switch to Bystolic 2. Continue Norvasc 3. Continue Ranexa 4. Continue Lipitor and Lovaza 5. Hold Coumadin and to initiate Heparin as a bridge once INR is equal or < 2.0 pending biopsies for the above noted pathologies 6. Continue Lasix with caution 7. Continue to hold Losartan pending further renal function recovery 8. Bronchodilators and steroids as per the primary team 9. There are no absolute contraindications in proceeding with planned biopsies considering that there is no evidence of ACS and/or decompensated LV failure and /or malignant sustained arrhythmias Savi Jones
[2016-07-18] MEDS: FUROSEMIDE 40 MG TABLET (FP) PO SCH (15:32)
[2016-07-18 16:01] LABS: MCH 29.4 pg (25.7-33.7); MEAN PLT VOLUME 8.8 fl (7.5-11.1); NEUTROPHILS 89.9 % (42.8-82.8); PLATELET COUNT 183 K/MM3 (134-434); RDW 14.7 % (11.9-15.9); WHITE BLOOD COUNT 12.2 K/mm3 (4.0-10.0)
[2016-07-18] MEDS: ATORVASTATIN CA 40 MG TABLET (FP) PO SCH (21:18)
[2016-07-18] MEDS: TAMSULOSIN HCL 0.4 MG CAP.ER.24H (FP) PO SCH (21:18)
[2016-07-19] MEDS: INSULIN SLIDING SCALE (NOVOLOG) 1 VIAL SQ SCH ×4 (06:02→21:22)
[2016-07-19] MEDS: guaiFENesin/CODEINE 5 ML UNIT-DOSE CUPS PO PRN ×2 (06:03→21:19)
[2016-07-19] MEDS: ALBUTEROL SO4 0.083% IH SOL 2.5 MG/3 ML VIAL.NEB. NEB SCH ×3 (06:30→21:47)
[2016-07-19 08:28] LABS: INR 3.02 (0.82-1.09)
[2016-07-19 08:29] LABS: ALBUMIN 3.5 g/dl (3.4-5.0); BILIRUBIN,TOTAL 0.5 mg/dL (0.2-1.0); CALCIUM 8.9 mg/dL (8.5-10.1); CREATININE 1.4 mg/dL (0.7-1.3); TOT PROT 6.7 g/dl (6.4-8.2)
[2016-07-19] MEDS: FUROSEMIDE 40 MG TABLET (FP) PO SCH (09:05)
[2016-07-19] MEDS: CHOLECALCIFEROL (VITAMIN D3) 1,000 UNIT TABLET (FP) PO SCH (09:05)
[2016-07-19] MEDS: RANOLAZINE E.R. 500 MG TABLET (FP) PO SCH ×2 (09:05→21:11)
[2016-07-19] MEDS: methylPREDNISolone NA SUCC 40 MG/1 ML VIAL IVPB SCH ×2 (09:05→21:12)
[2016-07-19] MEDS: ALLOPURINOL 100 MG TABLET (FP) PO SCH (09:06)
[2016-07-19] MEDS: amLODIPine BESYLATE 5 MG TABLET (FP) PO SCH (09:06)
[2016-07-19] MEDS: METOPROLOL TARTRATE 50 MG TABLET (FP) PO SCH ×2 (09:06→21:11)
[2016-07-19] MEDS: RANITIDINE HCL 150 MG TABLET (FP) PO SCH ×2 (09:06→21:11)
[2016-07-19] MEDS: OMEGA-3 ACID ETHYL ESTERS (FATTY-ACIDS) 1 GM CAPSULE (FP) PO SCH ×2 (09:06→21:11)
[2016-07-19] MEDS: OSELTAMIVIR PHOSPHATE 30 MG CAPSULE PO SCH ×2 (09:19→21:11)
[2016-07-19] MEDS: BUDESONIDE/FORMETEROL FUMARATE 160/4.5 mcg INHALER IH SCH ×2 (09:25→21:12)
[2016-07-19] MEDS: TIOTROPIUM BROMIDE 18 MCG/INH (DEVICE W/ 30 CAPSULES) IH SCH (09:25)
[2016-07-19] MEDS ORDERED: PT OWN MED DRAWER 7, Y5N ONE ×2 (10:41→20:59)
--- NOTE | 2016-07-19 11:20 | PN ---
Progress Note (short form) - Note Progress Note: Chief Complaint: Events noted, notes reviewed, denies any chest pain or dyspnea , denies any further wheezing, reports improvement in peripheral edema History of Present Illness: Seen and examined on . Events noted, notes reviewed, denies any chest pain or dyspnea, denies any further wheezing, reports improvement in peripheral edema Plan to proceed with Right thyroid gland mass and retro-peritoneal lymph adenopathy biopsies once INR is appropriate for the procedure Echocardiography dated 05/03/2016 revealed concentric LVH with normal LV size and function, LA dilatation at 4.6 cm, Bio-prosthetic AVR, mild MR and TR with RVSP 55-60 mmHg Lexiscan MPI study dated 06/24/2016 revealed no ischemia with normal function and LV-EF 73% - Current Medication List Current Medications Albuterol Sulfate (Ventolin 0.083% Nebulizer Soln -) 1 amp NEB Q4H PRN Last Admin: 07/18/16 03:06 Dose: 1 amp Albuterol Sulfate (Ventolin 0.083% Nebulizer Soln -) 1 amp NEB TID DONALD Last Admin: 07/19/16 06:30 Dose: 1 amp Allopurinol (Zyloprim -) 200 mg PO DAILY DONALD Last Admin: 07/19/16 09:06 Dose: 200 mg Amlodipine Besylate (Norvasc -) 5 mg PO DAILY [facility] Last Admin: 07/19/16 09:06 Dose: 5 mg Atorvastatin Calcium (Lipitor -) 40 mg PO HS DONALD Last Admin: 07/18/16 21:18 Dose: 40 mg Budesonide/Formoterol Fumarate (Symbicort 160/4.5mcg -) 2 puff IH BID DONALD Last Admin: 07/19/16 09:25 Dose: 2 puff Cholecalciferol (Vitamin D3 -) 2,000 unit PO DAILY DONALD Last Admin: 07/19/16 09:05 Dose: 2,000 unit Furosemide (Lasix -) 40 mg PO DAILY DONALD Last Admin: 07/19/16 09:05 Dose: 40 mg Guaifenesin/Codeine Phosphate (Robitussin Ac -) 5 ml PO TID PRN PRN Reason: COUGH Last Admin: 07/19/16 06:03 Dose: 5 ml Insulin Aspart (Novolog Vial Sliding Scale -) 1 vial SQ ACHS DONALD PRN Reason: Protocol Last Admin: 07/19/16 06:02 Dose: Not Given Methylprednisolone Sodium Succinate (Solu-Medrol -) 40 mg IVPB BID [facility] Last Admin: 07/19/16 09:05 Dose: 40 mg Metoprolol Tartrate (Lopressor -) 100 mg PO BID [facility] Last Admin: 07/19/16 09:06 Dose: 100 mg Ctixb-8-[id number] Ethyl Esters (Lovaza -) 2 gm PO BID [facility] Last Admin: 07/19/16 09:06 Dose: 2 gm Oseltamivir Phosphate (Tamiflu -) 30 mg PO BID [facility] Last Admin: 07/19/16 09:19 Dose: 30 mg Ranitidine HCl (Zantac -) 150 mg PO BID [facility] Last Admin: 07/19/16 09:06 Dose: 150 mg Ranolazine (Ranexa -) 500 mg PO BID [facility] Last Admin: 07/19/16 09:05 Dose: 500 mg Tamsulosin HCl (Flomax -) 0.4 mg PO HS [facility] Last Admin: 07/18/16 21:18 Dose: 0.4 mg Tiotropium [place] (Spiriva -) 1 puff IH DAILY [facility] Last Admin: 07/19/16 09:25 Dose: 1 puff - Objective Vital Signs: Last Vital Signs Temp Pulse Resp BP Pulse Ox 98 F 70 20 120/62 97 07/19/16 05:22 07/19/16 05:22 07/19/16 05:22 07/19/16 05:22 07/18/16 21:00 Constitutional: No Distress, Calm Neck: Supple Negative JVD No Bruit Cardiovascular: S1 S2 Regular Rate and Rhythm Grade 2/6 GUIDO Respiratory: Clear to A&P Bilaterally Gastrointestinal: Soft Benign Normal Bowel Sounds Ext: Trace Edema Labs: CBC, BMP 07/18/16 15:00 07/19/16 07:00 INR, PTT INR 3.02 (0.82-1.09) H 07/19/16 07:00 Assessment/Plan ASSESSMENT: 1. Asthmatic bronchitis, resolving 2. CAD post multi-vessel PCI (stent), angina pectoris 3. Diastolic LV dysfunction with chronic class I NYHA classification LV failure , compensated 4. Aortic stenosis post AVR (Bio-prosthesis) 5. PAF currently sinus rhythm [id number] score of 4 with supra-therapeutic INR 6. HTN/HCVD 7. Hyperlipidemia 8. Acute on CKD 9. Right thyroid gland mass, for biopsy 10. Retro-peritoneal lymph adenopathy, for biopsy PLAN: 1. Continue Lopressor and if wheezing/asthmatic bronchitis exacerbation recurs may switch to Bystolic 2. Continue Norvasc 3. Continue Ranexa 4. Continue Lipitor and Lovaza 5. Hold Coumadin and to initiate Heparin as a bridge once INR is equal or < 2.0 pending biopsies for the above noted pathologies 6. Continue Lasix with caution 7. Continue to hold Losartan pending further renal function recovery 8. Bronchodilators and steroids as per the primary team 9. As outlined in yesterdays note there are no absolute contraindications in proceeding with planned biopsies considering that there is no evidence of ACS and/or decompensated LV failure and/or malignant sustained arrhythmias Savi Jones
--- NOTE | 2016-07-19 13:21 | PN ---
[id number]. OBJECTIVE: Vital Signs Period Temp Pulse Resp BP Sys/Kirk Pulse Ox Last 24 Hr 97.6 F-98 F 58-73 20-20 120-132/62-74 97-98 PE Neuro: alert, awake, cn 2-12 intact HEENT: R thyroid mass non tender Pulm: CTAB, CV: s1 s2 rrr Abd: s nt nd + bs Ext: +2 RLE edema, LLE +1 CBCD WBC 12.2 K/mm3 (4.0-10.0) H D 07/18/16 15:00 RBC 3.74 M/mm3 (4.00-5.60) L 07/18/16 15:00 Hgb 11.0 GM/dL (11.7-16.9) L 07/18/16 15:00 Hct 34.4 % (35.4-49) L 07/18/16 15:00 MCV 92.0 fl (80-96) 07/18/16 15:00 MCHC 32.0 g/dl (32.0-35.9) 07/18/16 15:00 RDW 14.7 % (11.9-15.9) 07/18/16 15:00 Plt Count 183 K/MM3 (134-434) 07/18/16 15:00 MPV 8.8 fl (7.5-11.1) 07/18/16 15:00 CMP Sodium 139 mmol/L (136-145) 07/19/16 07:00 Potassium 4.4 mmol/L (3.5-5.1) 07/19/16 07:00 Chloride 104 mmol/L (98-107) 07/19/16 07:00 Carbon Dioxide 25 mmol/L (21-32) 07/19/16 07:00 Anion Gap 10 (8-16) 07/19/16 07:00 BUN 54 mg/dL (7-18) H 07/19/16 07:00 Creatinine 1.4 mg/dL (0.7-1.3) H 07/19/16 07:00 Creat Clearance w eGFR 48.52 (>60) 07/19/16 07:00 Calcium 8.9 mg/dL (8.5-10.1) 07/19/16 07:00 Total Bilirubin 0.5 mg/dL (0.2-1.0) D 07/19/16 07:00 AST 10 U/L (15-37) L D 07/19/16 07:00 ALT 18 U/L (12-78) 07/19/16 07:00 Alkaline Phosphatase 59 U/L (45-117) 07/19/16 07:00 Total Protein 6.7 g/dl (6.4-8.2) 07/19/16 07:00 Albumin 3.5 g/dl (3.4-5.0) 07/19/16 07:00 07/16/16 07/19/16 20:30 09:32 IgG Pending IgA Pending IgM Pending EVY M-Pawel Pending Free [place] LC, Quant 21.41 H Free Lambda LC, Quant 8.27 Free [place]/Lambda Ratio 2.59 H Active Medications Generic Name Dose Route Start Last Admin Trade Name Freq PRN Reason Stop Dose Admin Albuterol Sulfate 1 amp 07/15/16 03:00 07/18/16 03:06 Ventolin 0.083% Nebulizer Soln - NEB 1 amp Q4H PRN Administration Albuterol Sulfate 1 amp 07/16/16 14:00 07/19/16 06:30 Ventolin 0.083% Nebulizer Soln - NEB 1 amp TID DONALD Administration Allopurinol 200 mg 07/15/16 10:00 07/19/16 09:06 Zyloprim - PO 200 mg DAILY DONALD Administration Amlodipine Besylate 5 mg 07/15/16 10:00 07/19/16 09:06 Norvasc - PO 5 mg DAILY DONALD Administration Atorvastatin Calcium 40 mg 07/15/16 22:00 07/18/16 21:18 Lipitor - PO 40 mg HS DONALD Administration Budesonide/Formoterol Fumarate 2 puff 07/15/16 12:00 07/19/16 09:25 Symbicort 160/4.5mcg - IH 2 puff BID DONALD Administration Cholecalciferol 2,000 unit 07/15/16 10:00 07/19/16 09:05 Vitamin D3 - PO 2,000 unit DAILY DONALD Administration Furosemide 40 mg 07/18/16 14:45 07/19/16 09:05 Lasix - PO 40 mg DAILY DONALD Administration Guaifenesin/Codeine Phosphate 5 ml 07/17/16 14:54 07/19/16 06:03 Robitussin Ac - PO 5 ml TID PRN Administration COUGH Insulin Aspart 1 vial 07/18/16 11:00 07/19/16 11:17 Novolog Vial Sliding Scale - SQ Not Given ACHS [facility] Protocol Methylprednisolone Sodium Succinate 40 mg 07/18/16 22:00 07/19/16 09:05 Solu-Medrol - IVPB 40 mg BID DONALD Administration Metoprolol Tartrate 100 mg 07/15/16 10:00 07/19/16 09:06 Lopressor - PO 100 mg BID DONALD Administration Zgzql-1-Beos Ethyl Esters 2 gm 07/15/16 22:00 07/19/16 09:06 Lovaza - PO 2 gm BID DONALD Administration Oseltamivir Phosphate 30 mg 07/15/16 12:00 07/19/16 09:19 Tamiflu - PO 30 mg BID DONALD Administration Ranitidine HCl 150 mg 07/15/16 10:00 07/19/16 09:06 Zantac - PO 150 mg BID DONALD Administration Ranolazine 500 mg 07/15/16 10:00 07/19/16 09:05 Ranexa - PO 500 mg BID DONALD Administration Tamsulosin HCl 0.4 mg 07/15/16 22:00 07/18/16 21:18 Flomax - PO 0.4 mg HS DONALD Administration Tiotropium [place] 1 puff 07/15/16 12:00 07/19/16 09:25 Spiriva - IH 1 puff DAILY DONALD Administration Imaging: - CT chest shows mild mediastinal lymphadenopathy, R thyroidmegaly - CTAP non contrast 07/17: pelvis extensive retroperitoneal adenopathy, stranding of mesenter Assessment: 80 year old male with pmhx of CAD s/p multivessel PCI (stent), AFIB , diastolic dysfunction, s/p bioAVR, PAF->SR post cryoMaze, HTN, HLD, CKD, BPH, gastric ulcer, admitted with increased wheezing and SOB. Plan: 1. Retroperitoneal lymphadenopathy, possible lymphoma vs CLL - Plan for thyroid and RPN biopsy next week when INR 1.5 - [place] elevated, kappa lambda ration elevated, M spike pending - Will obtain quantitative immunoglobulins - Oncology assistance appreciated 2. AFIB, rate controlled - Hold Coumadin - When INR <2 start on heparin gtt - Resume coumadin bridge per cardiology following above bx - Daily INR 3. Asthma bronchitis/Wheezing - Taper Medrol 40mg BID with ISS - Cont Symbicort/Spirivia - If persistent wheezing, cardiology to switch to bystolic 4. Complete R thyroid mass - Biopsy to follow, see above 5. CKD - Resume diuretics - Hold ARB - Cr at baseline 6. Influenza A - Final dose tamiflu tonight; completed total 5 days 7. CAD s/p stents - s/p AV repair w/ bioprosthetic valve - Ranexa 500mg BID 8. HTN/Diastolic dysfunction - Restart lasix 40mg daily, - Cont Norvasc 5mg daily - Cont Metoprolol 100 BID 9. Diastolic dysfunction - As above 10. BPH - Cont Flomax 11. Gout - Cont Allopurinol Visit type - Emergency Visit Emergency Visit: Yes ED Registration Date: 07/15/16 Care time: The patient presented to the Emergency Department on the above date and was hospitalized for further evaluation of their emergent condition. - New Patient This patient is new to me today: No - Critical Care Critical Care patient: No
--- NOTE | 2016-07-19 14:01 | PN ---
Progress Note, Physician History of Present Illness: pulmonary alert,feeling better,less congested - Current Medication List Current Medications: Active Medications Albuterol Sulfate (Ventolin 0.083% Nebulizer Soln -) 1 amp NEB Q4H PRN Last Admin: 07/18/16 03:06 Dose: 1 amp Albuterol Sulfate (Ventolin 0.083% Nebulizer Soln -) 1 amp NEB TID [facility] Last Admin: 07/19/16 06:30 Dose: 1 amp Allopurinol (Zyloprim -) 200 mg PO DAILY [facility] Last Admin: 07/19/16 09:06 Dose: 200 mg Amlodipine Besylate (Norvasc -) 5 mg PO DAILY [facility] Last Admin: 07/19/16 09:06 Dose: 5 mg Atorvastatin Calcium (Lipitor -) 40 mg PO HS [facility] Last Admin: 07/18/16 21:18 Dose: 40 mg Budesonide/Formoterol Fumarate (Symbicort 160/4.5mcg -) 2 puff IH BID [facility] Last Admin: 07/19/16 09:25 Dose: 2 puff Cholecalciferol (Vitamin D3 -) 2,000 unit PO DAILY [facility] Last Admin: 07/19/16 09:05 Dose: 2,000 unit Furosemide (Lasix -) 40 mg PO DAILY [facility] Last Admin: 07/19/16 09:05 Dose: 40 mg Guaifenesin/Codeine Phosphate (Robitussin Ac -) 5 ml PO TID PRN PRN Reason: COUGH Last Admin: 07/19/16 06:03 Dose: 5 ml Insulin Aspart (Novolog Vial Sliding Scale -) 1 vial SQ ACHS [facility] PRN Reason: Protocol Last Admin: 07/19/16 11:17 Dose: Not Given Methylprednisolone Sodium Succinate (Solu-Medrol -) 40 mg IVPB BID [facility] Last Admin: 07/19/16 09:05 Dose: 40 mg Metoprolol Tartrate (Lopressor -) 100 mg PO BID [facility] Last Admin: 07/19/16 09:06 Dose: 100 mg Jmxls-6-Iqkc Ethyl Esters (Lovaza -) 2 gm PO BID [facility] Last Admin: 07/19/16 09:06 Dose: 2 gm Oseltamivir Phosphate (Tamiflu -) 30 mg PO BID [facility] Stop: 07/19/16 23:59 Last Admin: 07/19/16 09:19 Dose: 30 mg Ranitidine HCl (Zantac -) 150 mg PO BID [facility] Last Admin: 07/19/16 09:06 Dose: 150 mg Ranolazine (Ranexa -) 500 mg PO BID [facility] Last Admin: 07/19/16 09:05 Dose: 500 mg Tamsulosin HCl (Flomax -) 0.4 mg PO HS [facility] Last Admin: 07/18/16 21:18 Dose: 0.4 mg Tiotropium [place] (Spiriva -) 1 puff IH DAILY [facility] Last Admin: 07/19/16 09:25 Dose: 1 puff - Objective Vital Signs: Vital Signs Temperature 97.7 F 07/19/16 09:00 Pulse Rate 73 07/19/16 09:00 Respiratory Rate 20 07/19/16 09:00 Blood Pressure 121/69 07/19/16 09:00 O2 Sat by Pulse Oximetry (%) 98 07/19/16 09:00 Constitutional: Yes: Well Nourished, Calm Eyes: Yes: WNL HENT: Yes: WNL Neck: Yes: WNL Cardiovascular: Yes: Pulse Irregular, S1, S2 Respiratory: Yes: Wheezes (less wheezes konstantin) Gastrointestinal: Yes: Normal Bowel Sounds, Soft Extremities: Yes: WNL Edema: Yes Labs: CBC, BMP 07/18/16 15:00 07/19/16 07:00 INR, PTT INR 3.02 (0.82-1.09) H 07/19/16 07:00 Problem List - Problems (1) Bronchospasm Code(s): J98.01 - ACUTE BRONCHOSPASM (2) HLD (hyperlipidemia) Code(s): E78.5 - HYPERLIPIDEMIA, UNSPECIFIED Qualifiers: Hyperlipidemia type: pure hypercholesterolemia Qualified Code(s): E78.0 - Pure hypercholesterolemia (3) HTN (hypertension) Code(s): I10 - ESSENTIAL (PRIMARY) HYPERTENSION Qualifiers: Hypertension type: essential hypertension Qualified Code(s): I10 - Essential (primary) hypertension (4) Influenza A Code(s): J10.1 - FLU DUE TO OTH IDENT INFLUENZA VIRUS W OTH RESP MANIFEST (5) Supratherapeutic INR Code(s): R79.1 - ABNORMAL COAGULATION PROFILE (6) Asthmatic bronchitis Code(s): J45.909 - UNSPECIFIED ASTHMA, UNCOMPLICATED Qualifiers: Asthma severity: moderate persistent (7) Aortic valve replaced Code(s): Z95.2 - PRESENCE OF PROSTHETIC HEART VALVE (8) Acute kidney injury Code(s): N17.9 - ACUTE KIDNEY FAILURE, UNSPECIFIED Assessment/Plan IMP ASTHMATIC BRONCHITIS INFLUENZA A RECENT PNEUMONIA R THYROID MASS MEDIASTINAL AND RETROPERITONEAL ADENOPATHY ACUTE KIDNEY INJURY S/P AVR SUPRA-THERAPEUTIC INR HTN HLD PLAN INHALED BRONCHODILATORS STEROID TAPER NASAL O2 TAMIFLU ADB AND PELVIC CT FNA THYROID MASS RETROPERITONEAL NODE BX AND FNB THYROID MASS WHEN INR NORMAL HOLD COUMADIN BRIDGE HEPARIN MONITOR RENAL FUNCTION MONITOR PEAK FLOW DR ALLEN Problem List - Problems (1) Bronchospasm Code(s): J98.01 - ACUTE BRONCHOSPASM (2) HLD (hyperlipidemia) Code(s): E78.5 - HYPERLIPIDEMIA, UNSPECIFIED (3) HTN (hypertension) Code(s): I10 - ESSENTIAL (PRIMARY) HYPERTENSION (4) Influenza A Code(s): J10.1 - FLU DUE TO OTH IDENT INFLUENZA VIRUS W OTH RESP MANIFEST (5) Supratherapeutic INR Code(s): R79.1 - ABNORMAL COAGULATION PROFILE (6) Asthmatic bronchitis Code(s): J45.909 - UNSPECIFIED ASTHMA, UNCOMPLICATED (7) Aortic valve replaced Code(s): Z95.2 - PRESENCE OF PROSTHETIC HEART VALVE (8) Acute kidney injury Code(s): N17.9 - ACUTE KIDNEY FAILURE, UNSPECIFIED
--- NOTE | 2016-07-19 14:11 | PN ---
Progress Note, Physician Chief Complaint: Patient well known to me: With h/o CKD, Coronary artery disease, Congestive Heart failure, Valvular Heart disease, Bioprosthetic Aortic valve, DJD. Admitted with Acute Respiratory Infection and shortness of breaths. Renal functions were acutely worsened, which has improved since admission. In the interim, the finding of retroperitoneal lymphadenopathy and a thyroid nodule needs further w/u. PT/INR still supratherapeutic. - Current Medication List Current Medications: Active Medications Albuterol Sulfate (Ventolin 0.083% Nebulizer Soln -) 1 amp NEB Q4H PRN Last Admin: 07/18/16 03:06 Dose: 1 amp Albuterol Sulfate (Ventolin 0.083% Nebulizer Soln -) 1 amp NEB TID [facility] Last Admin: 07/19/16 06:30 Dose: 1 amp Allopurinol (Zyloprim -) 200 mg PO DAILY [facility] Last Admin: 07/19/16 09:06 Dose: 200 mg Amlodipine Besylate (Norvasc -) 5 mg PO DAILY [facility] Last Admin: 07/19/16 09:06 Dose: 5 mg Atorvastatin Calcium (Lipitor -) 40 mg PO HS [facility] Last Admin: 07/18/16 21:18 Dose: 40 mg Budesonide/Formoterol Fumarate (Symbicort 160/4.5mcg -) 2 puff IH BID [facility] Last Admin: 07/19/16 09:25 Dose: 2 puff Cholecalciferol (Vitamin D3 -) 2,000 unit PO DAILY [facility] Last Admin: 07/19/16 09:05 Dose: 2,000 unit Furosemide (Lasix -) 40 mg PO DAILY [facility] Last Admin: 07/19/16 09:05 Dose: 40 mg Guaifenesin/Codeine Phosphate (Robitussin Ac -) 5 ml PO TID PRN PRN Reason: COUGH Last Admin: 07/19/16 06:03 Dose: 5 ml Insulin Aspart (Novolog Vial Sliding Scale -) 1 vial SQ ACHS [facility] PRN Reason: Protocol Last Admin: 07/19/16 11:17 Dose: Not Given Methylprednisolone Sodium Succinate (Solu-Medrol -) 40 mg IVPB BID [facility] Last Admin: 07/19/16 09:05 Dose: 40 mg Metoprolol Tartrate (Lopressor -) 100 mg PO BID [facility] Last Admin: 07/19/16 09:06 Dose: 100 mg Jeccn-5-Ajqe Ethyl Esters (Lovaza -) 2 gm PO BID [facility] Last Admin: 07/19/16 09:06 Dose: 2 gm Oseltamivir Phosphate (Tamiflu -) 30 mg PO BID [facility] Stop: 07/19/16 23:59 Last Admin: 07/19/16 09:19 Dose: 30 mg Ranitidine HCl (Zantac -) 150 mg PO BID [facility] Last Admin: 07/19/16 09:06 Dose: 150 mg Ranolazine (Ranexa -) 500 mg PO BID [facility] Last Admin: 07/19/16 09:05 Dose: 500 mg Tamsulosin HCl (Flomax -) 0.4 mg PO HS [facility] Last Admin: 07/18/16 21:18 Dose: 0.4 mg Tiotropium [place] (Spiriva -) 1 puff IH DAILY [facility] Last Admin: 07/19/16 09:25 Dose: 1 puff - Objective Vital Signs: Vital Signs Temperature 97.7 F 07/19/16 09:00 Pulse Rate 73 07/19/16 09:00 Respiratory Rate 20 07/19/16 09:00 Blood Pressure 121/69 07/19/16 09:00 O2 Sat by Pulse Oximetry (%) 98 07/19/16 09:00 Constitutional: Yes: Well Nourished, No Distress, Calm Eyes: Yes: WNL, Conjunctiva Clear HENT: Yes: WNL, Atraumatic, Normocephalic Neck: Yes: WNL, Supple, Trachea Midline Cardiovascular: Yes: WNL, S1, S2 Respiratory: Yes: WNL, CTA Bilaterally Gastrointestinal: Yes: Normal Bowel Sounds, Abdomen, Obese Edema: No Neurological: Yes: WNL, Alert, Oriented Labs: CBC, BMP 07/18/16 15:00 07/19/16 07:00 INR, PTT INR 3.02 (0.82-1.09) H 07/19/16 07:00 Problem List - Problems (1) A-fib Code(s): I48.91 - UNSPECIFIED ATRIAL FIBRILLATION Qualifiers: Atrial fibrillation type: paroxysmal Qualified Code(s): I48.0 - Paroxysmal atrial fibrillation (2) Acute kidney injury Code(s): N17.9 - ACUTE KIDNEY FAILURE, UNSPECIFIED (3) Aortic valve replaced Code(s): Z95.2 - PRESENCE OF PROSTHETIC HEART VALVE (4) Asthmatic bronchitis Code(s): J45.909 - UNSPECIFIED ASTHMA, UNCOMPLICATED Qualifiers: Asthma severity: moderate persistent (5) BPH (benign prostatic hyperplasia) Code(s): N40.0 - BENIGN PROSTATIC HYPERPLASIA WITHOUT LOWER URINRY TRACT SYMP (6) CKD (chronic kidney disease) Code(s): N18.9 - CHRONIC KIDNEY DISEASE, UNSPECIFIED (7) HTN (hypertension) Code(s): I10 - ESSENTIAL (PRIMARY) HYPERTENSION Qualifiers: Hypertension type: essential hypertension Qualified Code(s): I10 - Essential (primary) hypertension (8) Supratherapeutic INR Code(s): R79.1 - ABNORMAL COAGULATION PROFILE Assessment/Plan The patient's renal functions are stable. almost near his baseline. will monitor with you. The PT/INR remains elevated, though decreasing. For Neck and retroperitoneal biopsy after normalozation of the coagulation factors. Labs as ordered. Gracie Montalvo MD
[2016-07-19] MEDS: TAMSULOSIN HCL 0.4 MG CAP.ER.24H (FP) PO SCH (21:12)
[2016-07-19] MEDS: ATORVASTATIN CA 40 MG TABLET (FP) PO SCH (21:12)
[2016-07-20] MEDS: ALBUTEROL SO4 0.083% IH SOL 2.5 MG/3 ML VIAL.NEB. NEB SCH ×3 (06:25→22:50)
[2016-07-20] MEDS: INSULIN SLIDING SCALE (NOVOLOG) 1 VIAL SQ SCH ×4 (06:31→21:55)
[2016-07-20 08:02] LABS: MCH 30.8 pg (25.7-33.7); MCHC 33.9 g/dl (32.0-35.9); MEAN CELL VOLUME 90.9 fl (80-96); MEAN PLT VOLUME 7.8 fl (7.5-11.1); NEUTROPHILS 87.3 % (42.8-82.8); PLATELET COUNT 184 K/MM3 (134-434); RDW 14.7 % (11.9-15.9); WHITE BLOOD COUNT 9.6 K/mm3 (4.0-10.0)
[2016-07-20 08:20] LABS: CREATININE 1.4 mg/dL (0.7-1.3)
[2016-07-20 08:37] LABS: INR 2.38 (0.82-1.09); PROTHROMBIN TIME (PATIENT) 26.7 SEC (9.98-11.88)
[2016-07-20] MEDS: CHOLECALCIFEROL (VITAMIN D3) 1,000 UNIT TABLET (FP) PO SCH (09:36)
[2016-07-20] MEDS: RANITIDINE HCL 150 MG TABLET (FP) PO SCH ×2 (09:36→21:55)
[2016-07-20] MEDS: amLODIPine BESYLATE 5 MG TABLET (FP) PO SCH (09:36)
[2016-07-20] MEDS: RANOLAZINE E.R. 500 MG TABLET (FP) PO SCH ×2 (09:36→21:55)
[2016-07-20] MEDS: methylPREDNISolone NA SUCC 40 MG/1 ML VIAL IVPB SCH ×2 (09:36→21:55)
[2016-07-20] MEDS: METOPROLOL TARTRATE 50 MG TABLET (FP) PO SCH ×2 (09:36→21:54)
[2016-07-20] MEDS: FUROSEMIDE 40 MG TABLET (FP) PO SCH (09:36)
[2016-07-20] MEDS: BUDESONIDE/FORMETEROL FUMARATE 160/4.5 mcg INHALER IH SCH ×2 (09:37→21:56)
[2016-07-20] MEDS: OMEGA-3 ACID ETHYL ESTERS (FATTY-ACIDS) 1 GM CAPSULE (FP) PO SCH ×2 (09:37→21:55)
[2016-07-20] MEDS: ALLOPURINOL 100 MG TABLET (FP) PO SCH (09:37)
[2016-07-20] MEDS: TIOTROPIUM BROMIDE 18 MCG/INH (DEVICE W/ 30 CAPSULES) IH SCH (09:38)
[2016-07-20] MEDS ORDERED: INSULIN (NOVOLOG) ASPART 100 UNITS/ML 10ML VIAL ONE ×2 (11:39→16:45)
--- NOTE | 2016-07-20 12:36 | PN ---
Progress Note, Physician History of Present Illness: Cough and wheeze resolved. Not dyspneic. - Current Medication List Current Medications: Active Medications Albuterol Sulfate (Ventolin 0.083% Nebulizer Soln -) 1 amp NEB TID [facility] Last Admin: 07/20/16 06:25 Dose: 1 amp Allopurinol (Zyloprim -) 200 mg PO DAILY [facility] Last Admin: 07/20/16 09:37 Dose: 200 mg Amlodipine Besylate (Norvasc -) 5 mg PO DAILY [facility] Last Admin: 07/20/16 09:36 Dose: 5 mg Atorvastatin Calcium (Lipitor -) 40 mg PO HS [facility] Last Admin: 07/19/16 21:12 Dose: 40 mg Budesonide/Formoterol Fumarate (Symbicort 160/4.5mcg -) 2 puff IH BID [facility] Last Admin: 07/20/16 09:37 Dose: 2 puff Cholecalciferol (Vitamin D3 -) 2,000 unit PO DAILY [facility] Last Admin: 07/20/16 09:36 Dose: 2,000 unit Furosemide (Lasix -) 40 mg PO DAILY [facility] Last Admin: 07/20/16 09:36 Dose: 40 mg Guaifenesin/Codeine Phosphate (Robitussin Ac -) 5 ml PO TID PRN PRN Reason: COUGH Last Admin: 07/19/16 21:19 Dose: 5 ml Insulin Aspart (Novolog Vial Sliding Scale -) 1 vial SQ ACHS [facility] PRN Reason: Protocol Last Admin: 07/20/16 11:45 Dose: 4 units Methylprednisolone Sodium Succinate (Solu-Medrol -) 40 mg IVPB BID [facility] Last Admin: 07/20/16 09:36 Dose: 40 mg Metoprolol Tartrate (Lopressor -) 100 mg PO BID [facility] Last Admin: 07/20/16 09:36 Dose: 100 mg Ajvhe-4-Oukx Ethyl Esters (Lovaza -) 2 gm PO BID [facility] Last Admin: 07/20/16 09:37 Dose: 2 gm Ranitidine HCl (Zantac -) 150 mg PO BID [facility] Last Admin: 07/20/16 09:36 Dose: 150 mg Ranolazine (Ranexa -) 500 mg PO BID [facility] Last Admin: 07/20/16 09:36 Dose: 500 mg Tamsulosin HCl (Flomax -) 0.4 mg PO HS [facility] Last Admin: 07/19/16 21:12 Dose: 0.4 mg Tiotropium [place] (Spiriva -) 1 puff IH DAILY [facility] Last Admin: 07/20/16 09:38 Dose: 1 puff - Objective Vital Signs: Vital Signs Temperature 98.2 F 07/20/16 09:00 Pulse Rate 72 07/20/16 09:00 Respiratory Rate 20 07/20/16 09:00 Blood Pressure 134/74 07/20/16 09:00 O2 Sat by Pulse Oximetry (%) 98 07/19/16 19:56 Constitutional: Yes: No Distress, Calm Neck: Yes: Supple Cardiovascular: Yes: Regular Rate and Rhythm Respiratory: Yes: Regular, CTA Bilaterally Gastrointestinal: Yes: Normal Bowel Sounds, Soft, Abdomen, Obese Edema: Yes Edema: LLE: Trace, RLE: Trace Labs: CBC, BMP 07/20/16 06:00 07/20/16 06:00 INR, PTT INR 2.38 (0.82-1.09) H 07/20/16 06:00 Problem List - Problems (1) A-fib Code(s): I48.91 - UNSPECIFIED ATRIAL FIBRILLATION Qualifiers: Atrial fibrillation type: paroxysmal Qualified Code(s): I48.0 - Paroxysmal atrial fibrillation (2) Acute kidney injury Code(s): N17.9 - ACUTE KIDNEY FAILURE, UNSPECIFIED (3) Aortic valve replaced Code(s): Z95.2 - PRESENCE OF PROSTHETIC HEART VALVE (4) Asthmatic bronchitis Code(s): J45.909 - UNSPECIFIED ASTHMA, UNCOMPLICATED Qualifiers: Asthma severity: moderate persistent (5) Bronchospasm Code(s): J98.01 - ACUTE BRONCHOSPASM (6) HLD (hyperlipidemia) Code(s): E78.5 - HYPERLIPIDEMIA, UNSPECIFIED Qualifiers: Hyperlipidemia type: pure hypercholesterolemia Qualified Code(s): E78.0 - Pure hypercholesterolemia (7) HTN (hypertension) Code(s): I10 - ESSENTIAL (PRIMARY) HYPERTENSION Qualifiers: Hypertension type: essential hypertension Qualified Code(s): I10 - Essential (primary) hypertension (8) Influenza A Code(s): J10.1 - FLU DUE TO OTH IDENT INFLUENZA VIRUS W OTH RESP MANIFEST (9) Diastolic dysfunction without heart failure Code(s): I51.9 - HEART DISEASE, UNSPECIFIED (10) Retroperitoneal lymphadenopathy Code(s): R59.0 - LOCALIZED ENLARGED LYMPH NODES (11) Thyroid mass Code(s): E07.9 - DISORDER OF THYROID, UNSPECIFIED Assessment/Plan 1. Asthmatic bronchitis, resolving 2. CAD post multi-vessel PCI (stent), angina pectoris 3. Diastolic LV dysfunction with chronic class I NYHA classification LV failure , compensated 4. Aortic stenosis post AVR (Bio-prosthesis) 5. PAF currently sinus rhythm [id number] score of 4 with therapeutic INR 6. HTN/HCVD 7. Hyperlipidemia 8. Acute on CKD resolving 9. Right thyroid gland mass, for biopsy 10. Retro-peritoneal lymph adenopathy, for biopsy PLAN: 1. Continue Lopressor 100 bid and if wheezing/asthmatic bronchitis exacerbation recurs may switch to Bystolic 2. Continue Norvasc 5 qd 3. Continue Ranexa 500 bid 4. Continue Lipitor 40 qhs and Lovaza 2 bid 5. Hold Coumadin and to initiate Heparin as a bridge once INR is equal or < 2.0 pending biopsies for the above noted pathologies 6. Continue Lasix 40 qd with caution 7. Continue to hold Losartan pending further renal function recovery 8. Bronchodilators and IV steroids as per the primary team 9. There are no absolute contraindications in proceeding with planned biopsies considering that there is no evidence of ACS and/or decompensated LV failure and /or malignant sustained arrhythmias
[2016-07-20 14:11] LABS: IGG IMMUNOGLOBULIN 960 mg/dL (700-1600); IGM IMMUNOGLOBULIN 50 mg/dL (15-143)
--- NOTE | 2016-07-20 14:15 | PN ---
Physical Exam: SUBJECTIVE: Patient seen and examined. Patient was sitting in the chair in no acute distress and tolerating room air. He denies any chest pain or discomfort. He states he feels better. Denies any pain. OBJECTIVE: Vital Signs Period Temp Pulse Resp BP Sys/Kirk Pulse Ox Last 24 Hr 97.6 F-98.2 F 57-88 17-20 119-142/45-74 98 GENERAL: The patient is awake, alert, and fully oriented, in no acute distress. HEAD: Normal with no signs of trauma. EYES: sclera anicteric, conjunctiva clear. No ptosis. ENT: Ears normal, nares patent, oropharynx clear without exudates, moist mucous membranes. NECK: Trachea midline, full range of motion, supple. LUNGS: no wheezing, lungs diminished but clear, tolerating room air HEART: Regular rate and rhythm ABDOMEN: Soft, nontender, nondistended, normoactive bowel sounds, no guarding EXTREMITIES: bilateral lower extremities with non pitting edema NEUROLOGICAL: Normal speech, gait not observed. PSYCH: Normal mood, normal affect. SKIN: Warm, dry, normal turgor, no rashes or lesions noted Laboratory Results - last 24 hr 07/18/16 07/18/16 07/18/16 18:14 18:15 20:57 WBC RBC Hgb Hct MCV MCHC RDW Plt Count MPV Neutrophils % Lymphocytes % Monocytes % Eosinophils % Basophils % INR Sodium Potassium Chloride Carbon Dioxide Anion Gap BUN Creatinine POC Glucometer 204 185 247 Random Glucose Calcium IgG IgA IgM 07/18/16 07/19/16 07/19/16 21:00 09:32 21:22 WBC RBC Hgb Hct MCV MCHC RDW Plt Count MPV Neutrophils % Lymphocytes % Monocytes % Eosinophils % Basophils % INR Sodium Potassium Chloride Carbon Dioxide Anion Gap BUN Creatinine POC Glucometer 247 219 Random Glucose Calcium IgG 960 IgA 42 L IgM 50 07/20/16 07/20/16 07/20/16 06:00 06:00 06:00 WBC 9.6 RBC 3.86 L Hgb 11.9 Hct 35.1 L MCV 90.9 MCHC 33.9 RDW 14.7 Plt Count 184 MPV 7.8 D Neutrophils % 87.3 H Lymphocytes % 9.2 D Monocytes % 3.5 L Eosinophils % 0.0 Basophils % 0.0 INR 2.38 H Sodium 139 Potassium 4.2 Chloride 102 Carbon Dioxide 28 Anion Gap 9 BUN 58 H Creatinine 1.4 H POC Glucometer Random Glucose 148 H Calcium 9.0 IgG IgA IgM 07/20/16 07/20/16 06:30 11:33 WBC RBC Hgb Hct MCV MCHC RDW Plt Count MPV Neutrophils % Lymphocytes % Monocytes % Eosinophils % Basophils % INR Sodium Potassium Chloride Carbon Dioxide Anion Gap BUN Creatinine POC Glucometer 163 204 Random Glucose Calcium IgG IgA IgM Active Medications Generic Name Dose Route Start Last Admin Trade Name Freq PRN Reason Stop Dose Admin Albuterol Sulfate 1 amp 07/16/16 14:00 07/20/16 06:25 Ventolin 0.083% Nebulizer Soln - NEB 1 amp TID [facility] Administration Allopurinol 200 mg 07/15/16 10:00 07/20/16 09:37 Zyloprim - PO 200 mg DAILY [facility] Administration Amlodipine Besylate 5 mg 07/15/16 10:00 07/20/16 09:36 Norvasc - PO 5 mg DAILY [facility] Administration Atorvastatin Calcium 40 mg 07/15/16 22:00 07/19/16 21:12 Lipitor - PO 40 mg HS [facility] Administration Budesonide/Formoterol Fumarate 2 puff 07/15/16 12:00 07/20/16 09:37 Symbicort 160/4.5mcg - IH 2 puff BID [facility] Administration Cholecalciferol 2,000 unit 07/15/16 10:00 07/20/16 09:36 Vitamin D3 - PO 2,000 unit DAILY [facility] Administration Furosemide 40 mg 07/18/16 14:45 07/20/16 09:36 Lasix - PO 40 mg DAILY [facility] Administration Guaifenesin/Codeine Phosphate 5 ml 07/17/16 14:54 07/19/16 21:19 Robitussin Ac - PO 5 ml TID PRN Administration COUGH Insulin Aspart 1 vial 07/18/16 11:00 07/20/16 11:45 Novolog Vial Sliding Scale - SQ 4 units ACHS [facility] Administration Protocol Methylprednisolone Sodium Succinate 40 mg 07/18/16 22:00 07/20/16 09:36 Solu-Medrol - IVPB 40 mg BID [facility] Administration Metoprolol Tartrate 100 mg 07/15/16 10:00 07/20/16 09:36 Lopressor - PO 100 mg BID [facility] Administration Sluvj-0-Pfve Ethyl Esters 2 gm 07/15/16 22:00 07/20/16 09:37 Lovaza - PO 2 gm BID [facility] Administration Ranitidine HCl 150 mg 07/15/16 10:00 07/20/16 09:36 Zantac - PO 150 mg BID [facility] Administration Ranolazine 500 mg 07/15/16 10:00 07/20/16 09:36 Ranexa - PO 500 mg BID [facility] Administration Tamsulosin HCl 0.4 mg 07/15/16 22:00 07/19/16 21:12 Flomax - PO 0.4 mg HS [facility] Administration Tiotropium [place] 1 puff 07/15/16 12:00 07/20/16 09:38 Spiriva - IH 1 puff DAILY [facility] Administration ASSESSMENT/PLAN: Mr. Morrison is an 80 year old male with a significant past medial history of Pneumonia, atrial fibrillation (on Coumadin), hypertension, hyperlipidemia, BPH and gastric ulcer disease. He presented to the ED on 07/15/2016 with increased wheezing and a productive cough with yellow sputum. He denies smoking. Today he denies any shortness of breath, headaches, chest pain, abdominal discomfort or pain, diarrhea or constipation. Cardiology: Atrial Fibrillation - chronic Assessment/Plan: Atrial fibrillation controlled on Lopressor 100mg BID. Anticoagulated on Coumadin 4.5mg daily which is currently on hold secondary to supratherapeutic INRs. Continue to hold coumadin and bridge to heparin once INR is equal to or <2.0 Monitor INRs daily CAD - chronic Assessment/Plan: AV repair with bioprosthetic valves, on Ranexa 500mg PO BID On Lovaza BID Hypertension - chronic Assessment/Plan: Hypertension controlled on Lopressor 100mg BID, Norvasc 5mg daily Continue to monitor BPs Diastolic Dysfunction - chronic On Lasix 40mg daily Continue to monitor BUN/Creatinine Pulmonary: Asthma - acute exacerbation on a chronic condition Assessment/Plan: On Medrol 40mg BID, will taper as tolerated Also on Symbicort and Spirivia, Allbuterol TID scheduled Monitor respiratory status Influenza - resolved Assessment/Plan: Off precautions, finished full course of Tamiflu Off precautions Hematology/Oncology: Mild Mediastinal Lymphadenopathy with Right Thyroidmegaly seen on CT - acute Assessment/Plan: Plan for further workup with biopsy of the thyroid when INR is 1.5 Oncology following, awaiting hematological workup that is currently pending : Chronic Kidney disease Assessment/Plan: Elevated BUN/Creatinine Monitor trend F.E.N. Fluids: Tolerating PO intake Electrolytes: within normal limits, monitor Nutrition: Diabetic diet Encouraged pt to ambulate more Prophylaxis: GI: Zantac BID DVT: Hold Coumadin, SCDs (bilateral legs) when in bed Disposition: Requires inpatient hospitalization. Full Code. Visit type - Emergency Visit Emergency Visit: Yes ED Registration Date: 07/15/16 Care time: The patient presented to the Emergency Department on the above date and was hospitalized for further evaluation of their emergent condition. - New Patient This patient is new to me today: Yes Date on this admission: 07/21/16 - Critical Care Critical Care patient: No - Discharge Referral Referred to [facility] Med [facility] No
--- NOTE | 2016-07-20 15:13 | PN ---
Progress Note, Physician History of Present Illness: pulmonary alert,less cough,less congestion - Current Medication List Current Medications: Active Medications Albuterol Sulfate (Ventolin 0.083% Nebulizer Soln -) 1 amp NEB TID [facility] Last Admin: 07/20/16 06:25 Dose: 1 amp Allopurinol (Zyloprim -) 200 mg PO DAILY [facility] Last Admin: 07/20/16 09:37 Dose: 200 mg Amlodipine Besylate (Norvasc -) 5 mg PO DAILY [facility] Last Admin: 07/20/16 09:36 Dose: 5 mg Atorvastatin Calcium (Lipitor -) 40 mg PO HS [facility] Last Admin: 07/19/16 21:12 Dose: 40 mg Budesonide/Formoterol Fumarate (Symbicort 160/4.5mcg -) 2 puff IH BID [facility] Last Admin: 07/20/16 09:37 Dose: 2 puff Cholecalciferol (Vitamin D3 -) 2,000 unit PO DAILY [facility] Last Admin: 07/20/16 09:36 Dose: 2,000 unit Furosemide (Lasix -) 40 mg PO DAILY [facility] Last Admin: 07/20/16 09:36 Dose: 40 mg Insulin Aspart (Novolog Vial Sliding Scale -) 1 vial SQ ACHS [facility] PRN Reason: Protocol Last Admin: 07/20/16 11:45 Dose: 4 units Methylprednisolone Sodium Succinate (Solu-Medrol -) 40 mg IVPB BID [facility] Last Admin: 07/20/16 09:36 Dose: 40 mg Metoprolol Tartrate (Lopressor -) 100 mg PO BID [facility] Last Admin: 07/20/16 09:36 Dose: 100 mg Cpzcy-9-Odic Ethyl Esters (Lovaza -) 2 gm PO BID [facility] Last Admin: 07/20/16 09:37 Dose: 2 gm Ranitidine HCl (Zantac -) 150 mg PO BID [facility] Last Admin: 07/20/16 09:36 Dose: 150 mg Ranolazine (Ranexa -) 500 mg PO BID [facility] Last Admin: 07/20/16 09:36 Dose: 500 mg Tamsulosin HCl (Flomax -) 0.4 mg PO HS [facility] Last Admin: 07/19/16 21:12 Dose: 0.4 mg Tiotropium [place] (Spiriva -) 1 puff IH DAILY [facility] Last Admin: 07/20/16 09:38 Dose: 1 puff - Objective Vital Signs: Vital Signs Temperature 98.0 F 07/20/16 13:40 Pulse Rate 57 L 07/20/16 13:40 Respiratory Rate 17 07/20/16 13:40 Blood Pressure 132/45 07/20/16 13:40 O2 Sat by Pulse Oximetry (%) 98 07/19/16 19:56 Constitutional: Yes: Well Nourished, Calm Eyes: Yes: WNL HENT: Yes: WNL Neck: Yes: WNL Cardiovascular: Yes: Pulse Irregular, S1, S2 Respiratory: Yes: Wheezes (few scattered konstantin wheezes) Gastrointestinal: Yes: Normal Bowel Sounds, Soft Extremities: Yes: WNL Edema: Yes (ankle edema) Labs: CBC, BMP 07/20/16 06:00 07/20/16 06:00 INR, PTT INR 2.38 (0.82-1.09) H 07/20/16 06:00 Problem List - Problems (1) Bronchospasm Code(s): J98.01 - ACUTE BRONCHOSPASM (2) HLD (hyperlipidemia) Code(s): E78.5 - HYPERLIPIDEMIA, UNSPECIFIED Qualifiers: Hyperlipidemia type: pure hypercholesterolemia Qualified Code(s): E78.0 - Pure hypercholesterolemia (3) HTN (hypertension) Code(s): I10 - ESSENTIAL (PRIMARY) HYPERTENSION Qualifiers: Hypertension type: essential hypertension Qualified Code(s): I10 - Essential (primary) hypertension (4) Influenza A Code(s): J10.1 - FLU DUE TO OTH IDENT INFLUENZA VIRUS W OTH RESP MANIFEST (5) Supratherapeutic INR Code(s): R79.1 - ABNORMAL COAGULATION PROFILE (6) Asthmatic bronchitis Code(s): J45.909 - UNSPECIFIED ASTHMA, UNCOMPLICATED Qualifiers: Asthma severity: moderate persistent (7) Aortic valve replaced Code(s): Z95.2 - PRESENCE OF PROSTHETIC HEART VALVE (8) Acute kidney injury Code(s): N17.9 - ACUTE KIDNEY FAILURE, UNSPECIFIED Assessment/Plan IMP ASTHMATIC BRONCHITIS INFLUENZA A RECENT PNEUMONIA R THYROID MASS MEDIASTINAL AND RETROPERITONEAL ADENOPATHY ACUTE KIDNEY INJURY S/P AVR SUPRA-THERAPEUTIC INR HTN HLD PLAN INHALED BRONCHODILATORS CONTINUE STEROID TAPER NASAL O2 FNA THYROID MASS RETROPERITONEAL NODE BX AND FNB THYROID MASS WHEN INR NORMAL HOLD COUMADIN BRIDGE HEPARIN MONITOR RENAL FUNCTION MONITOR PEAK FLOW DR ALLEN Problem List - Problems (1) Bronchospasm Code(s): J98.01 - ACUTE BRONCHOSPASM (2) HLD (hyperlipidemia) Code(s): E78.5 - HYPERLIPIDEMIA, UNSPECIFIED (3) HTN (hypertension) Code(s): I10 - ESSENTIAL (PRIMARY) HYPERTENSION (4) Influenza A Code(s): J10.1 - FLU DUE TO OTH IDENT INFLUENZA VIRUS W OTH RESP MANIFEST (5) Supratherapeutic INR Code(s): R79.1 - ABNORMAL COAGULATION PROFILE (6) Asthmatic bronchitis Code(s): J45.909 - UNSPECIFIED ASTHMA, UNCOMPLICATED (7) Aortic valve replaced Code(s): Z95.2 - PRESENCE OF PROSTHETIC HEART VALVE (8) Acute kidney injury Code(s): N17.9 - ACUTE KIDNEY FAILURE, UNSPECIFIED
--- NOTE | 2016-07-20 16:20 | PN ---
Progress Note (short form) - Note Progress Note: Patient seen and examined No chest pains or SOB Last Vital Signs Temp Pulse Resp BP Pulse Ox 98.0 F 57 L 17 132/45 98 07/20/16 13:40 07/20/16 13:40 07/20/16 13:40 07/20/16 13:40 07/19/16 19:56 Oropharynx: No thrush, No mucositis Nodes: Without adenopathy Cor: RSR, No murmurs, No gallops,sternotomy scar Lungs: Clear to P&A Abd: Soft, Normal bowel sounds, No organomegaly Ext:1+ LE edema Skin: No rashes, Integument intact Abnormal Lab Results 07/19/16 07/20/16 07/20/16 09:32 06:00 06:00 RBC 3.86 L Hct 35.1 L Neutrophils % 87.3 H Monocytes % 3.5 L INR BUN 58 H Creatinine 1.4 H Random Glucose 148 H IgA 42 L 07/20/16 06:00 RBC Hct Neutrophils % Monocytes % INR 2.38 H BUN Creatinine Random Glucose IgA Current Medications Albuterol Sulfate (Ventolin 0.083% Nebulizer Soln -) 1 amp NEB TID [facility] Last Admin: 07/20/16 14:30 Dose: 1 amp Allopurinol (Zyloprim -) 200 mg PO DAILY [facility] Last Admin: 07/20/16 09:37 Dose: 200 mg Amlodipine Besylate (Norvasc -) 5 mg PO DAILY [facility] Last Admin: 07/20/16 09:36 Dose: 5 mg Atorvastatin Calcium (Lipitor -) 40 mg PO HS [facility] Last Admin: 07/19/16 21:12 Dose: 40 mg Budesonide/Formoterol Fumarate (Symbicort 160/4.5mcg -) 2 puff IH BID [facility] Last Admin: 07/20/16 09:37 Dose: 2 puff Cholecalciferol (Vitamin D3 -) 2,000 unit PO DAILY [facility] Last Admin: 07/20/16 09:36 Dose: 2,000 unit Furosemide (Lasix -) 40 mg PO DAILY [facility] Last Admin: 07/20/16 09:36 Dose: 40 mg Insulin Aspart (Novolog Vial Sliding Scale -) 1 vial SQ ACHS [facility] PRN Reason: Protocol Last Admin: 07/20/16 11:45 Dose: 4 units Methylprednisolone Sodium Succinate (Solu-Medrol -) 40 mg IVPB BID [facility] Last Admin: 07/20/16 09:36 Dose: 40 mg Metoprolol Tartrate (Lopressor -) 100 mg PO BID [facility] Last Admin: 07/20/16 09:36 Dose: 100 mg Aywuz-2-Gnfr Ethyl Esters (Lovaza -) 2 gm PO BID [facility] Last Admin: 07/20/16 09:37 Dose: 2 gm Ranitidine HCl (Zantac -) 150 mg PO BID [facility] Last Admin: 07/20/16 09:36 Dose: 150 mg Ranolazine (Ranexa -) 500 mg PO BID [facility] Last Admin: 07/20/16 09:36 Dose: 500 mg Tamsulosin HCl (Flomax -) 0.4 mg PO HS [facility] Last Admin: 07/19/16 21:12 Dose: 0.4 mg Tiotropium [place] (Spiriva -) 1 puff IH DAILY [facility] Last Admin: 07/20/16 09:38 Dose: 1 puff Impression: asthmatic Bronchitis--influenza A PAF CAD s/p AVR--bioparosthesis diastoloic dysfunction Anemia Thyroid Nodule RPN adenopathy--extensive. a/c Supratherapeutic INR Plan: For thyroid and RPN biopsy when a/c allows When INR <2 bridge with heparin. INR 2.38 today check LDH/uric acid/Hep. serologies
--- NOTE | 2016-07-20 17:10 | PN ---
Progress Note (short form) - Note Progress Note: Renal Follow up for CKD Pt seen and examined at the bedside no complaints awaiting biopsy denies any sob, chest pain Vital Signs Temperature 98.0 F 07/20/16 13:40 Pulse Rate 57 L 07/20/16 13:40 Respiratory Rate 17 07/20/16 13:40 Blood Pressure 132/45 07/20/16 13:40 O2 Sat by Pulse Oximetry (%) 98 07/19/16 19:56 Intake & Output 07/17/16 07/18/16 07/19/16 07/20/16 23:59 23:59 23:59 23:59 Intake Total 2820 1250 500 400 Balance 2820 1250 500 400 Weight 231 lb 2 oz 234 lb 6.4 oz 232 lb 229 lb 1 oz Gen: NAD, awake and alert CVS: RRR, No M/R Lungs: CTA, no rales or wheeze Abd: soft, Obese, NT/ND Ext: Trace edema, clubbing or cyanosis CBC, BMP 07/20/16 06:00 07/20/16 06:00 Current Medications Albuterol Sulfate (Ventolin 0.083% Nebulizer Soln -) 1 amp NEB TID [facility] Last Admin: 07/20/16 14:30 Dose: 1 amp Allopurinol (Zyloprim -) 200 mg PO DAILY [facility] Last Admin: 07/20/16 09:37 Dose: 200 mg Amlodipine Besylate (Norvasc -) 5 mg PO DAILY [facility] Last Admin: 07/20/16 09:36 Dose: 5 mg Atorvastatin Calcium (Lipitor -) 40 mg PO HS [facility] Last Admin: 07/19/16 21:12 Dose: 40 mg Budesonide/Formoterol Fumarate (Symbicort 160/4.5mcg -) 2 puff IH BID [facility] Last Admin: 07/20/16 09:37 Dose: 2 puff Cholecalciferol (Vitamin D3 -) 2,000 unit PO DAILY [facility] Last Admin: 07/20/16 09:36 Dose: 2,000 unit Furosemide (Lasix -) 40 mg PO DAILY [facility] Last Admin: 07/20/16 09:36 Dose: 40 mg Insulin Aspart (Novolog Vial Sliding Scale -) 1 vial SQ ACHS [facility] PRN Reason: Protocol Last Admin: 07/20/16 17:01 Dose: Not Given Methylprednisolone Sodium Succinate (Solu-Medrol -) 40 mg IVPB BID [facility] Last Admin: 07/20/16 09:36 Dose: 40 mg Metoprolol Tartrate (Lopressor -) 100 mg PO BID [facility] Last Admin: 07/20/16 09:36 Dose: 100 mg Yotcw-2-Pejk Ethyl Esters (Lovaza -) 2 gm PO BID [facility] Last Admin: 07/20/16 09:37 Dose: 2 gm Ranitidine HCl (Zantac -) 150 mg PO BID [facility] Last Admin: 07/20/16 09:36 Dose: 150 mg Ranolazine (Ranexa -) 500 mg PO BID [facility] Last Admin: 07/20/16 09:36 Dose: 500 mg Tamsulosin HCl (Flomax -) 0.4 mg PO HS [facility] Last Admin: 07/19/16 21:12 Dose: 0.4 mg Tiotropium [place] (Spiriva -) 1 puff IH DAILY [facility] Last Admin: 07/20/16 09:38 Dose: 1 puff A/P 80 year old Gentleman with PMhx of Afib on A/C, Hypertension, HLD, CKD Stage 3 ( baseline Cr 1.5) presented with sob and found to Influenza #CKD with ? nephrotic range proteinuria Renal function stable at baseline SPEP/UPEP pending continue to trend BUN/Cr #RP Lymhadenopathy/Thyroid mass awaiting biopsy when INR < 2 Thank you Will follow as outpatient. Hemant Arceo DO
[2016-07-20] MEDS ORDERED: PT OWN MED DRAWER 7, Y5N ONE (20:50)
[2016-07-20] MEDS: TAMSULOSIN HCL 0.4 MG CAP.ER.24H (FP) PO SCH (21:54)
[2016-07-20] MEDS: ATORVASTATIN CA 40 MG TABLET (FP) PO SCH (21:55)
[2016-07-21 00:14] LABS: A/G RATIO 1.2 (0.7-1.7); ALBUMIN 3.6 g/dL (2.9-4.4); M-SPIKE Comment: g/dL (Not Observed); TOTAL PROTEIN 6.6 g/dL (6.0-8.5)
[2016-07-21] MEDS: INSULIN SLIDING SCALE (NOVOLOG) 1 VIAL SQ SCH ×4 (06:29→21:23)
[2016-07-21] MEDS: ALBUTEROL SO4 0.083% IH SOL 2.5 MG/3 ML VIAL.NEB. NEB SCH ×3 (06:55→22:55)
[2016-07-21 08:22] LABS: MCH 30.7 pg (25.7-33.7); MCHC 33.9 g/dl (32.0-35.9); MEAN CELL VOLUME 90.4 fl (80-96); MEAN PLT VOLUME 8.2 fl (7.5-11.1); NEUTROPHILS 84.2 % (42.8-82.8); PLATELET COUNT 172 K/MM3 (134-434); RDW 14.5 % (11.9-15.9); WHITE BLOOD COUNT 9.4 K/mm3 (4.0-10.0)
[2016-07-21 08:25] LABS: INR 2.01 (0.82-1.09); PROTHROMBIN TIME (PATIENT) 22.4 SEC (9.98-11.88)
[2016-07-21 08:28] LABS: ACTIVATED PTT 25.3 SECONDS (26.9-34.4)
[2016-07-21 08:36] LABS: URIC ACID 4.2 mg/dL (2.6-7.2)
[2016-07-21 08:54] LABS: ALBUMIN 3.2 g/dl (3.4-5.0); BILIRUBIN,TOTAL 0.7 mg/dL (0.2-1.0); CALCIUM 8.7 mg/dL (8.5-10.1); CREATININE 1.4 mg/dL (0.7-1.3); TOT PROT 6.4 g/dl (6.4-8.2)
[2016-07-21] MEDS: methylPREDNISolone NA SUCC 40 MG/1 ML VIAL IVPB SCH (09:10)
[2016-07-21] MEDS: RANOLAZINE E.R. 500 MG TABLET (FP) PO SCH ×2 (09:14→21:22)
[2016-07-21] MEDS: BUDESONIDE/FORMETEROL FUMARATE 160/4.5 mcg INHALER IH SCH ×2 (09:14→21:23)
[2016-07-21] MEDS: TIOTROPIUM BROMIDE 18 MCG/INH (DEVICE W/ 30 CAPSULES) IH SCH (09:14)
[2016-07-21] MEDS: CHOLECALCIFEROL (VITAMIN D3) 1,000 UNIT TABLET (FP) PO SCH (09:14)
[2016-07-21] MEDS: RANITIDINE HCL 150 MG TABLET (FP) PO SCH (09:14)
[2016-07-21] MEDS: amLODIPine BESYLATE 5 MG TABLET (FP) PO SCH (09:14)
[2016-07-21] MEDS ORDERED: HEPARIN NA (PORCINE) 5,000 UNITS/ML 1ML VIAL IVPUSH PRN ×2 (10:00)
[2016-07-21] MEDS ORDERED: methylPREDNISolone NA SUCC 40 MG/1 ML VIAL IVPB SCH (10:05)
[2016-07-21] MEDS: FUROSEMIDE 40 MG TABLET (FP) PO SCH (10:59)
[2016-07-21] MEDS: ALLOPURINOL 100 MG TABLET (FP) PO SCH (10:59)
[2016-07-21] MEDS: OMEGA-3 ACID ETHYL ESTERS (FATTY-ACIDS) 1 GM CAPSULE (FP) PO SCH ×2 (10:59→21:22)
[2016-07-21] MEDS: METOPROLOL TARTRATE 50 MG TABLET (FP) PO SCH ×2 (10:59→21:22)
[2016-07-21] MEDS ORDERED: INSULIN (NOVOLOG) ASPART 100 UNITS/ML 10ML VIAL ONE ×2 (11:28→17:00)
--- NOTE | 2016-07-21 11:29 | PN ---
Progress Note (short form) - Note Progress Note: Renal Follow up for CKD Pt seen and examined at the bedside no acute complaints denies sob or chest pain awaiting biopsy Vital Signs Temperature 98.0 F 07/21/16 06:00 Pulse Rate 60 07/21/16 06:00 Respiratory Rate 20 07/21/16 06:00 Blood Pressure 126/61 07/21/16 06:00 O2 Sat by Pulse Oximetry (%) 98 07/20/16 21:00 Intake & Output 07/18/16 07/19/16 07/20/16 07/21/16 23:59 23:59 23:59 23:59 Intake Total 1250 500 900 250 Balance 1250 500 900 250 Weight 234 lb 6.4 oz 232 lb 229 lb 1 oz 226 lb 8 oz Gen: NAD, awake and alert CVS: RRR, No M/R Lungs: CTA, no rales or wheeze Abd: soft, Obese, NT/ND Ext: Trace edema, clubbing or cyanosis CBC, BMP 07/21/16 06:30 07/21/16 06:30 Current Medications Albuterol Sulfate (Ventolin 0.083% Nebulizer Soln -) 1 amp NEB TID [facility] Last Admin: 07/21/16 06:55 Dose: 1 amp Allopurinol (Zyloprim -) 200 mg PO DAILY [facility] Last Admin: 07/21/16 10:59 Dose: 200 mg Amlodipine Besylate (Norvasc -) 5 mg PO DAILY [facility] Last Admin: 07/21/16 09:14 Dose: 5 mg Atorvastatin Calcium (Lipitor -) 40 mg PO HS [facility] Last Admin: 07/20/16 21:55 Dose: 40 mg Budesonide/Formoterol Fumarate (Symbicort 160/4.5mcg -) 2 puff IH BID [facility] Last Admin: 07/21/16 09:14 Dose: 2 puff Cholecalciferol (Vitamin D3 -) 2,000 unit PO DAILY [facility] Last Admin: 07/21/16 09:14 Dose: 2,000 unit Furosemide (Lasix -) 40 mg PO DAILY [facility] Last Admin: 07/21/16 10:59 Dose: 40 mg Heparin Sodium (Porcine) (Heparin -) 1,000 unit IVPUSH PRN PRN PRN Reason: Heparin Heparin Sodium (Porcine) (Heparin -) 5,000 unit IVPUSH PRN PRN PRN Reason: Heparin Heparin Sodium (Porcine) 25, (000 unit/ Sodium Chloride) 500 mls @ 20 mls/hr IV TITR [facility]; 1,000 UNIT/HR PRN Reason: Protocol Insulin Aspart (Novolog Vial Sliding Scale -) 1 vial SQ ACHS [facility] PRN Reason: Protocol Last Admin: 07/21/16 10:59 Dose: 2 units Methylprednisolone Sodium Succinate (Solu-Medrol -) 20 mg IVPB BID [facility] Metoprolol Tartrate (Lopressor -) 100 mg PO BID [facility] Last Admin: 07/21/16 10:59 Dose: 100 mg Ifwxh-2-Mqly Ethyl Esters (Lovaza -) 2 gm PO BID [facility] Last Admin: 07/21/16 10:59 Dose: 2 gm Ranitidine HCl (Zantac -) 150 mg PO BID [facility] Last Admin: 07/21/16 09:14 Dose: 150 mg Ranolazine (Ranexa -) 500 mg PO BID [facility] Last Admin: 07/21/16 09:14 Dose: 500 mg Tamsulosin HCl (Flomax -) 0.4 mg PO HS [facility] Last Admin: 07/20/16 21:54 Dose: 0.4 mg Tiotropium [place] (Spiriva -) 1 puff IH DAILY [facility] Last Admin: 07/21/16 09:14 Dose: 1 puff A/P 80 year old Gentleman with PMhx of Afib on A/C, Hypertension, HLD, CKD Stage 3 ( baseline Cr 1.5) presented with sob and found to Influenza #CKD with ? nephrotic range proteinuria Renal function stable SPEP showed monoclonal gammopathy UPEP pending will discuss with Oncology repeat urine protein to Cr ratio #RP Lymhadenopathy/Thyroid mass awaiting biopsy when INR < 2 Thank you Hemant Arceo DO
--- NOTE | 2016-07-21 11:46 | PN ---
Progress Note (short form) - Note Progress Note: PULMONARY Denies shortness of breath or chest pain. No fevers or chills. Mild nonproductive cough, no wheezing. Last Vital Signs Temp Pulse Resp BP Pulse Ox 98.0 F 60 20 126/61 98 07/21/16 06:00 07/21/16 06:00 07/21/16 06:00 07/21/16 06:00 07/20/16 21:00 Intake & Output 07/18/16 07/19/16 07/20/16 07/21/16 23:59 23:59 23:59 23:59 Intake Total 1250 500 900 250 Balance 1250 500 900 250 Weight 234 lb 6.4 oz 232 lb 229 lb 1 oz 226 lb 8 oz Gen: NAD in chair Heart: irregular Lung: decreased breath sounds at the bases, no wheezes appreciated Abd: soft, nontender Ext: no edema CBC, BMP 07/21/16 06:30 07/21/16 06:30 Active Medications Albuterol Sulfate (Ventolin 0.083% Nebulizer Soln -) 1 amp NEB TID [facility] Last Admin: 07/21/16 06:55 Dose: 1 amp Allopurinol (Zyloprim -) 200 mg PO DAILY [facility] Last Admin: 07/21/16 10:59 Dose: 200 mg Amlodipine Besylate (Norvasc -) 5 mg PO DAILY [facility] Last Admin: 07/21/16 09:14 Dose: 5 mg Atorvastatin Calcium (Lipitor -) 40 mg PO HS [facility] Last Admin: 07/20/16 21:55 Dose: 40 mg Budesonide/Formoterol Fumarate (Symbicort 160/4.5mcg -) 2 puff IH BID [facility] Last Admin: 07/21/16 09:14 Dose: 2 puff Cholecalciferol (Vitamin D3 -) 2,000 unit PO DAILY [facility] Last Admin: 07/21/16 09:14 Dose: 2,000 unit Furosemide (Lasix -) 40 mg PO DAILY [facility] Last Admin: 07/21/16 10:59 Dose: 40 mg Heparin Sodium (Porcine) (Heparin -) 1,000 unit IVPUSH PRN PRN PRN Reason: Heparin Heparin Sodium (Porcine) (Heparin -) 5,000 unit IVPUSH PRN PRN PRN Reason: Heparin Heparin Sodium (Porcine) 25, (000 unit/ Sodium Chloride) 500 mls @ 20 mls/hr IV TITR [facility]; 1,000 UNIT/HR PRN Reason: Protocol Insulin Aspart (Novolog Vial Sliding Scale -) 1 vial SQ ACHS [facility] PRN Reason: Protocol Last Admin: 07/21/16 10:59 Dose: 2 units Methylprednisolone Sodium Succinate (Solu-Medrol -) 20 mg IVPB BID [facility] Metoprolol Tartrate (Lopressor -) 100 mg PO BID [facility] Last Admin: 07/21/16 10:59 Dose: 100 mg Sbrsd-2-Khlm Ethyl Esters (Lovaza -) 2 gm PO BID [facility] Last Admin: 07/21/16 10:59 Dose: 2 gm Ranitidine HCl (Zantac -) 150 mg PO BID [facility] Last Admin: 07/21/16 09:14 Dose: 150 mg Ranolazine (Ranexa -) 500 mg PO BID [facility] Last Admin: 07/21/16 09:14 Dose: 500 mg Tamsulosin HCl (Flomax -) 0.4 mg PO HS [facility] Last Admin: 07/20/16 21:54 Dose: 0.4 mg Tiotropium [place] (Spiriva -) 1 puff IH DAILY [facility] Last Admin: 07/21/16 09:14 Dose: 1 puff A/P Acute Asthmatic Bronchitis Paroxysmal Atrial Fibrillation Retroperitoneal Lymphadenopathy CAD LV Diastolic Dysfunction s/p bio AVR Acute on Chronic Renal Failure resolving HTN Hyperlipidemia Thryroid Mass - agree with medrol taper - inhaled bronchodilators - rate controlled - start heparin gtt vs LMWH when INR <2 - holding coumadin for biopsy - O2 as needed
--- NOTE | 2016-07-21 11:53 | PN ---
Physical Exam: SUBJECTIVE: Patient seen and examined. He denies any chest pain or shortness of breath. He is tolerating room air. He was ambulating in the hallways, steady gait, denies shortness of breath with ambulation. OBJECTIVE: Vital Signs Period Temp Pulse Resp BP Sys/Kirk Pulse Ox Last 24 Hr 98 F-98.0 F 57-71 17-20 126-145/45-79 98 GENERAL: The patient is awake, alert, and fully oriented, in no acute distress. HEAD: Normal with no signs of trauma. EYES: sclera anicteric, conjunctiva clear. No ptosis. ENT: Ears normal, nares patent, oropharynx clear without exudates, moist mucous membranes. NECK: Trachea midline, full range of motion, supple. LUNGS: no wheezing, lungs clear, tolerating room air, no dyspnea HEART: Regular rate and rhythm ABDOMEN: Soft, nontender, nondistended, normoactive bowel sounds, no guarding EXTREMITIES: bilateral lower extremities with +1 pitting edema NEUROLOGICAL: Normal speech, steady gait PSYCH: Normal mood, normal affect. SKIN: Warm, dry, normal turgor, no rashes or lesions noted Laboratory Results - last 24 hr 07/16/16 07/19/16 07/20/16 20:30 09:32 16:37 WBC RBC Hgb Hct MCV MCHC RDW Plt Count MPV Neutrophils % Lymphocytes % Monocytes % Eosinophils % Basophils % INR PTT (Actin FS) Sodium Potassium Chloride Carbon Dioxide Anion Gap BUN Creatinine Creat Clearance w eGFR POC Glucometer 146 Random Glucose Uric Acid Calcium Total Bilirubin AST ALT Alkaline Phosphatase LD Total Prot Electrophoresis Serum Total Protein 6.6 Total Protein Albumin 3.6 Globulin 3.0 Albumin/Globulin Ratio 1.2 Plfsk-5-Eqbzkupxo 0.3 Lbnan-0-Iibdxxrai 0.8 Beta Globulins 0.9 Gamma Globulins 0.9 IgG 960 IgA 42 L IgM 50 EVY M-Pawel Comment: 07/20/16 07/21/16 07/21/16 21:51 06:15 06:30 WBC 9.4 RBC 3.70 L Hgb 11.3 L Hct 33.4 L MCV 90.4 MCHC 33.9 RDW 14.5 Plt Count 172 MPV 8.2 Neutrophils % 84.2 H Lymphocytes % 10.0 Monocytes % 5.8 Eosinophils % 0.0 Basophils % 0.0 INR PTT (Actin FS) Sodium Potassium Chloride Carbon Dioxide Anion Gap BUN Creatinine Creat Clearance w eGFR POC Glucometer 222 158 Random Glucose Uric Acid Calcium Total Bilirubin AST ALT Alkaline Phosphatase LD Total Prot Electrophoresis Serum Total Protein Total Protein Albumin Globulin Albumin/Globulin Ratio Bnpjs-2-Aomiqojvl Xkrlt-5-Uhtwcvhmm Beta Globulins Gamma Globulins IgG IgA IgM EVY M-Pawel 07/21/16 07/21/16 07/21/16 06:30 06:30 06:30 WBC RBC Hgb Hct MCV MCHC RDW Plt Count MPV Neutrophils % Lymphocytes % Monocytes % Eosinophils % Basophils % INR 2.01 H PTT (Actin FS) 25.3 L D Sodium 139 Cancelled Potassium 4.4 Cancelled Chloride 101 Cancelled Carbon Dioxide 29 Cancelled Anion Gap 9 Cancelled BUN 55 H Cancelled Creatinine 1.4 H Cancelled Creat Clearance w eGFR 48.52 Cancelled POC Glucometer Random Glucose 144 H Cancelled Uric Acid 4.2 Calcium 8.7 Cancelled Total Bilirubin 0.7 D Cancelled AST 9 L Cancelled ALT 19 Cancelled Alkaline Phosphatase 51 Cancelled LD Total 210 Prot Electrophoresis Serum Total Protein Total Protein 6.4 Cancelled Albumin 3.2 L Cancelled Globulin Albumin/Globulin Ratio Josfz-9-Gmlcxkygv Itwlw-6-Gotrroydq Beta Globulins Gamma Globulins IgG IgA IgM EVY M-Pawel 07/21/16 10:57 WBC RBC Hgb Hct MCV MCHC RDW Plt Count MPV Neutrophils % Lymphocytes % Monocytes % Eosinophils % Basophils % INR PTT (Actin FS) Sodium Potassium Chloride Carbon Dioxide Anion Gap BUN Creatinine Creat Clearance w eGFR POC Glucometer 165 Random Glucose Uric Acid Calcium Total Bilirubin AST ALT Alkaline Phosphatase LD Total Prot Electrophoresis Serum Total Protein Total Protein Albumin Globulin Albumin/Globulin Ratio Pxosq-8-Huvuqsily Npggl-8-Agyvjkjnr Beta Globulins Gamma Globulins IgG IgA IgM EVY M-Pawel Active Medications Generic Name Dose Route Start Last Admin Trade Name Freq PRN Reason Stop Dose Admin Albuterol Sulfate 1 amp 07/16/16 14:00 07/21/16 06:55 Ventolin 0.083% Nebulizer Soln - NEB 1 amp TID [facility] Administration Allopurinol 200 mg 07/15/16 10:00 07/21/16 10:59 Zyloprim - PO 200 mg DAILY [facility] Administration Amlodipine Besylate 5 mg 07/15/16 10:00 07/21/16 09:14 Norvasc - PO 5 mg DAILY [facility] Administration Atorvastatin Calcium 40 mg 07/15/16 22:00 07/20/16 21:55 Lipitor - PO 40 mg HS [facility] Administration Budesonide/Formoterol Fumarate 2 puff 07/15/16 12:00 07/21/16 09:14 Symbicort 160/4.5mcg - IH 2 puff BID [facility] Administration Cholecalciferol 2,000 unit 07/15/16 10:00 07/21/16 09:14 Vitamin D3 - PO 2,000 unit DAILY [facility] Administration Furosemide 40 mg 07/18/16 14:45 07/21/16 10:59 Lasix - PO 40 mg DAILY [facility] Administration Heparin Sodium (Porcine) 1,000 unit 07/21/16 10:00 Heparin - IVPUSH PRN PRN Heparin Heparin Sodium (Porcine) 5,000 unit 07/21/16 10:00 Heparin - IVPUSH PRN PRN Heparin Heparin Sodium (Porcine) 25, 500 mls @ 20 mls/hr 07/21/16 10:00 000 unit/ Sodium Chloride IV TITR [facility] Protocol 1,000 UNIT/HR Insulin Aspart 1 vial 07/18/16 11:00 07/21/16 10:59 Novolog Vial Sliding Scale - SQ 2 units ACHS [facility] Administration Protocol Methylprednisolone Sodium Succinate 20 mg 07/21/16 10:05 Solu-Medrol - IVPB BID [facility] Metoprolol Tartrate 100 mg 07/15/16 10:00 07/21/16 10:59 Lopressor - PO 100 mg BID [facility] Administration Cpdfb-1-Ulql Ethyl Esters 2 gm 07/15/16 22:00 07/21/16 10:59 Lovaza - PO 2 gm BID [facility] Administration Ranitidine HCl 150 mg 07/15/16 10:00 07/21/16 09:14 Zantac - PO 150 mg BID [facility] Administration Ranolazine 500 mg 07/15/16 10:00 07/21/16 09:14 Ranexa - PO 500 mg BID [facility] Administration Tamsulosin HCl 0.4 mg 07/15/16 22:00 07/20/16 21:54 Flomax - PO 0.4 mg HS [facility] Administration Tiotropium [place] 1 puff 07/15/16 12:00 07/21/16 09:14 Spiriva - IH 1 puff DAILY [facility] Administration ASSESSMENT/PLAN: Mr. Morrison is an 80 year old male with a significant past medial history of pneumonia, atrial fibrillation (on Coumadin), multi-vessel stents, diastolic dysfunction, AV repair with bioprosthetic valves, hypertension, hyperlipidemia, BPH and gastric ulcer disease. He presented to the ED on 07/15/2016 with increased wheezing and a productive cough with yellow sputum. He denies smoking. Today he denies any shortness of breath, headaches, chest pain, abdominal discomfort or pain, diarrhea or constipation. He is tolerating room air, ambulating up and down the pod without any shortness of breath. Cardiology: Atrial Fibrillation - chronic Assessment/Plan: Atrial fibrillation controlled on Lopressor 100mg BID. Anticoagulated with Coumadin 4.5mg daily which is currently on hold secondary to supra-therapeutic INRs. Heparin drip initiated, INR 2.0, monitor Aptt per Heparin infusion protocol Monitor INRs daily CAD - chronic Assessment/Plan: AV repair with bioprosthetic valves, on Ranexa 500mg PO BID On Lovaza BID Hypertension - chronic Assessment/Plan: Hypertension controlled on Lopressor 100mg BID, Norvasc 5mg daily Continue to monitor BPs Diastolic Dysfunction - chronic On Lasix 40mg daily Continue to monitor BUN/Creatinine Pulmonary: Asthma - acute exacerbation on a chronic condition Assessment/Plan: Lungs are clear to auscultation, steroid tapered to Solumedrol 20mg BID, will taper to 10mg tomorrow then d/c Also on Symbicort and Spirivia, Allbuterol TID scheduled Monitor respiratory status Influenza - resolved Assessment/Plan: Off precautions, finished full course of Tamiflu Hematology/Oncology: As per CT scan: Mild Mediastinal Lymphadenopathy with Right Thyroidmegaly seen on CT - acute Assessment/Plan: Plan for further workup with biopsy of the thyroid and Lymph when INR is 1.5 Oncology following, awaiting hematological workup that is currently pending : Chronic Kidney disease Assessment/Plan: Elevated BUN/Creatinine Monitor trend F.E.N. Fluids: Tolerating PO intake Electrolytes: within normal limits, monitor Nutrition: Diabetic diet Encouraged pt to ambulate more Prophylaxis: GI: Protonix 40mg daily DVT: On Heparin drip Disposition: Requires inpatient hospitalization. Full Code. Visit type - Emergency Visit Emergency Visit: Yes ED Registration Date: 07/15/16 Care time: The patient presented to the Emergency Department on the above date and was hospitalized for further evaluation of their emergent condition. - New Patient This patient is new to me today: No - Critical Care Critical Care patient: No - Discharge Referral Referred to [facility] Med P.C.: No
[2016-07-21] MEDS: HEPARIN - 25,000 UNIT in SODIUM CHLORIDE 495 ML IV SCH ×2 (12:11→18:48)
--- NOTE | 2016-07-21 13:06 | PN ---
Progress Note, Physician Chief Complaint: Not in distress History of Present Illness: Patient was seen and examined. Awake and alert. Chart was reviewed Denies chest pain, SOB or palpitation - Current Medication List Current Medications: Active Medications Albuterol Sulfate (Ventolin 0.083% Nebulizer Soln -) 1 amp NEB TID [facility] Last Admin: 07/21/16 06:55 Dose: 1 amp Allopurinol (Zyloprim -) 200 mg PO DAILY [facility] Last Admin: 07/21/16 10:59 Dose: 200 mg Amlodipine Besylate (Norvasc -) 5 mg PO DAILY [facility] Last Admin: 07/21/16 09:14 Dose: 5 mg Atorvastatin Calcium (Lipitor -) 40 mg PO HS [facility] Last Admin: 07/20/16 21:55 Dose: 40 mg Budesonide/Formoterol Fumarate (Symbicort 160/4.5mcg -) 2 puff IH BID [facility] Last Admin: 07/21/16 09:14 Dose: 2 puff Cholecalciferol (Vitamin D3 -) 2,000 unit PO DAILY [facility] Last Admin: 07/21/16 09:14 Dose: 2,000 unit Furosemide (Lasix -) 40 mg PO DAILY [facility] Last Admin: 07/21/16 10:59 Dose: 40 mg Heparin Sodium (Porcine) (Heparin -) 1,000 unit IVPUSH PRN PRN PRN Reason: Heparin Heparin Sodium (Porcine) (Heparin -) 5,000 unit IVPUSH PRN PRN PRN Reason: Heparin Heparin Sodium (Porcine) 25, (000 unit/ Sodium Chloride) 500 mls @ 20 mls/hr IV TITR DONALD; 1,000 UNIT/HR PRN Reason: Protocol Last Admin: 07/21/16 12:11 Dose: 20 mls/hr Insulin Aspart (Novolog Vial Sliding Scale -) 1 vial SQ ACHS [facility] PRN Reason: Protocol Last Admin: 07/21/16 10:59 Dose: 2 units Methylprednisolone Sodium Succinate (Solu-Medrol -) 10 mg IVPB BID [facility] Stop: 07/23/16 09:00 Metoprolol Tartrate (Lopressor -) 100 mg PO BID [facility] Last Admin: 07/21/16 10:59 Dose: 100 mg Lwvxx-3-Jdxt Ethyl Esters (Lovaza -) 2 gm PO BID [facility] Last Admin: 07/21/16 10:59 Dose: 2 gm Pantoprazole Sodium (Protonix -) 40 mg PO DAILY [facility] Ranolazine (Ranexa -) 500 mg PO BID [facility] Last Admin: 07/21/16 09:14 Dose: 500 mg Tamsulosin HCl (Flomax -) 0.4 mg PO HS [facility] Last Admin: 07/20/16 21:54 Dose: 0.4 mg Tiotropium [place] (Spiriva -) 1 puff IH DAILY [facility] Last Admin: 07/21/16 09:14 Dose: 1 puff - Objective Vital Signs: Vital Signs Temperature 97.7 F 07/21/16 12:53 Pulse Rate 53 L 07/21/16 12:53 Respiratory Rate 17 07/21/16 12:53 Blood Pressure 126/61 07/21/16 06:00 O2 Sat by Pulse Oximetry (%) 98 07/20/16 21:00 Neck: Yes: Supple Cardiovascular: Yes: Regular Rate and Rhythm, S1, S2 Respiratory: Yes: CTA Bilaterally Gastrointestinal: Yes: Normal Bowel Sounds, Soft. No: Tenderness Edema: Yes Edema: LLE: Trace, RLE: Trace Additional Findings/Remarks: - Review of Systems Constitutional: denies: Chills, Fever Cardiovascular: denies: Chest Pain, Shortness of Breath. denies: Palpitations Respiratory: denies: SOB, SOB on Exertion. denies: Cough, Hemoptysis, Orthopnea , PND Gastrointestinal: denies: Abdominal Pain, Constipation, Diarrhea, Melena, Nausea , Rectal Bleeding, Vomiting Genitourinary: denies: Dysuria Neurological: denies: Dizziness, Headache, Seizure, Syncope Labs: CBC, BMP 07/21/16 06:30 07/21/16 06:30 INR, PTT INR 2.01 (0.82-1.09) H 07/21/16 06:30 Problem List - Problems (1) A-fib Code(s): I48.91 - UNSPECIFIED ATRIAL FIBRILLATION Qualifiers: Atrial fibrillation type: paroxysmal Qualified Code(s): I48.0 - Paroxysmal atrial fibrillation (2) Aortic valve replaced Code(s): Z95.2 - PRESENCE OF PROSTHETIC HEART VALVE (3) CKD (chronic kidney disease) Code(s): N18.9 - CHRONIC KIDNEY DISEASE, UNSPECIFIED (4) Diastolic dysfunction without heart failure Code(s): I51.9 - HEART DISEASE, UNSPECIFIED (5) HLD (hyperlipidemia) Code(s): E78.5 - HYPERLIPIDEMIA, UNSPECIFIED Qualifiers: Hyperlipidemia type: pure hypercholesterolemia Qualified Code(s): E78.0 - Pure hypercholesterolemia (6) HTN (hypertension) Code(s): I10 - ESSENTIAL (PRIMARY) HYPERTENSION Qualifiers: Hypertension type: essential hypertension Qualified Code(s): I10 - Essential (primary) hypertension (7) Influenza A Code(s): J10.1 - FLU DUE TO OTH IDENT INFLUENZA VIRUS W OTH RESP MANIFEST (8) Retroperitoneal lymphadenopathy Code(s): R59.0 - LOCALIZED ENLARGED LYMPH NODES (9) Thyroid mass Code(s): E07.9 - DISORDER OF THYROID, UNSPECIFIED Assessment/Plan 1. Asthmatic bronchitis 2. CAD post multi-vessel PCI (stent), angina pectoris 3. Diastolic LV dysfunction with chronic class I NYHA classification LV failure , compensated 4. Aortic stenosis post AVR (Bio-prosthesis) 5. PAF currently sinus rhythm [id number] score of 4 6. HTN/HCVD 7. Hyperlipidemia 8. Acute on CKD resolving 9. Right thyroid gland mass 10. Retro-peritoneal lymph adenopathy PLAN: 1. Continue Lopressor 100 mg BID and if wheezing/asthmatic bronchitis exacerbation occurs may switch to Bystolic 2. Continue Norvasc 5 mg QD 3. Continue Ranexa 500 mg BID 4. Continue Lipitor 40 mg QHS and Lovaza 2 g BID 5. Hold Coumadin and to use Heparin as a bridge 6. Continue Lasix 40 mg QD with caution 7. Continue to hold Losartan pending further renal function recovery 8. Bronchodilators and IV steroids 9. There are no absolute contraindications in proceeding with planned biopsies in view absence of ischemic symptoms, decompensated congestive heart failure or malignant arrhythmias. Patient is waiting for INR to be further reduced before proceeding with biopsy Yuniel Lopez MD
--- NOTE | 2016-07-21 15:25 | CONS ---
DATE OF CONSULTATION: 07/18/2016 REQUESTING PHYSICIAN: Regino Zhang MD HISTORY: This 80-year-old is being seen for evaluation of extensive retroperitoneal lymphadenopathy. The patient is retired. 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 Was exposed to some glues in the 1950s. He is a never smoker, rare social drinker. Past medical history includes that of hypertension, atrial fibrillation, chronic kidney disease, hyperlipidemia, coronary artery disease. Patient recently hospitalized in [place] with pneumonia. Patient entered with shortness of breath, coughing, and wheezing. He also has a history of a mechanical aortic valve for which he is on anticoagulation with Coumadin, which has been supratherapeutic. The patient had CAT scans while in the hospital because of his pulmonary issues and was found to have enlarged nodes as well as extensive retroperitoneal lymphadenopathy on chest CT. A formal abdominal and pelvic CT is pending. The patient also has chronic kidney disease and had an elevated creatinine such that contrast could not be administered. PAST MEDICAL HISTORY: As aforementioned includes aortic stenosis with mechanical valve, hypertension, hyperlipidemia, coronary artery disease, CHF, and atrial fibrillation. In addition, there is a history of renal insufficiency. ALLERGIES: The patient has no known allergies. MEDICATIONS: At home include allopurinol 300, aspirin 81, Lipitor 40, vitamin D3 take 2000, losartan 100, omega-3, Zantac 150 b.i.d., Coumadin, amlodipine 5, Ranexa 500 b.i.d., Lasix 20, and Flomax 0.4. FAMILY HISTORY: Includes a mother who had Parkinson, father who had a stroke. There are 2 brothers who had no significant medical illnesses. REVIEW OF SYSTEMS: No bad headaches, diplopia, epistaxis. Some cough, some sputum, shortness of breath. No chest pain. Some left lower quadrant pain but no nausea, vomiting, diarrhea, constipation, melena. Had a colonoscopy 4-5 years ago. Reportedly nonrevealing. No dysuria or hematuria but decreased flow. Nocturia 3-4 times per night. No significant back pain or bone pain. PHYSICAL EXAMINATION: Vital Signs: BP 110/57, pulse 65, irregular, afebrile, respiratory rate 20. HEENT: DEMAR. EOM intact. Oropharynx unremarkable. Lungs: Relatively clear. Cardiac: Irregular rhythm. Abdomen: Soft. No masses, no organomegaly. There is a sternotomy scar. Genitalia: Testes descended. Uncircumcised male. There is a cyst in the left testicle. Extremities: SCDs. LABORATORY: WBC 6.5, hematocrit 32, MCV 91, platelets 172 with 84 polys, 13 lymphocytes. Coagulation studies: INR 4. Chemistries: Sodium 132, K 4.3, chloride 102, CO2 is 26, BUN 53, creatinine 1.6, glucose 156. 5, OT 13, PT 16, alkaline phosphatase 72, albumin 3.5, protein 6.9. Urinalysis: 1+ glucose. CT scan as aforementioned with thyromegaly including a right thyroid nodule, which needs to be biopsied, enlarged right thyroid. Mild mediastinal lymphadenopathy with a 1.5-cm pretracheal nodule and a 2.2-cm subcarinal node and evaluation of the upper abdomen reveals extensive retroperitoneal lymphadenopathy. IMPRESSION: 1. Multiple comorbid problems. 2. Mediastinal lymphadenopathy but recent pulmonary pneumonia and asthmatic bronchitis. May be reactive. 3. Retroperitoneal lymphadenopathy. Needs formal CT of the abdomen, pelvis. Ultimately biopsied. Currently creatinine too elevated to allow contrast. When biopsy performed, will need to discontinue anticoagulation. MICHELLE HYDE M.D. [id number]
--- NOTE | 2016-07-21 19:22 | PN ---
Progress Note (short form) - Note Progress Note: Patient seen and examined No complaints of chest pain or SOB On Heparin bridge Waiting further decrease in INR to facilitate thyroid and retroperitoneal node biopsy Last Vital Signs Temp Pulse Resp BP Pulse Ox 97.8 F 59 L 20 130/69 98 07/21/16 18:46 07/21/16 18:46 07/21/16 18:46 07/21/16 18:46 07/20/16 21:00 Lungs-clear Cor-RSR Ext-1+ LE edema CBC, BMP 07/21/16 06:30 07/21/16 06:30 Current Medications Generic Name Dose Route Start Last Admin Trade Name Freq PRN Reason Stop Dose Admin Albuterol Sulfate 1 amp 07/16/16 14:00 07/21/16 14:45 Ventolin 0.083% Nebulizer Soln - NEB 1 amp TID DONALD Administration Allopurinol 200 mg 07/15/16 10:00 07/21/16 10:59 Zyloprim - PO 200 mg DAILY DONALD Administration Amlodipine Besylate 5 mg 07/15/16 10:00 07/21/16 09:14 Norvasc - PO 5 mg DAILY DONALD Administration Atorvastatin Calcium 40 mg 07/15/16 22:00 07/20/16 21:55 Lipitor - PO 40 mg HS DONALD Administration Budesonide/Formoterol Fumarate 2 puff 07/15/16 12:00 07/21/16 09:14 Symbicort 160/4.5mcg - IH 2 puff BID DONALD Administration Cholecalciferol 2,000 unit 07/15/16 10:00 07/21/16 09:14 Vitamin D3 - PO 2,000 unit DAILY DONALD Administration Furosemide 40 mg 07/18/16 14:45 07/21/16 10:59 Lasix - PO 40 mg DAILY DONALD Administration Heparin Sodium (Porcine) 1,000 unit 07/21/16 10:00 Heparin - IVPUSH PRN PRN Heparin Heparin Sodium (Porcine) 5,000 unit 07/21/16 10:00 07/21/16 18:46 Heparin - IVPUSH 5,000 unit PRN PRN Administration Heparin Heparin Sodium (Porcine) 25, 500 mls @ 20 mls/hr 07/21/16 10:00 07/21/16 18:48 000 unit/ Sodium Chloride IV 23 mls/hr TITR DONALD Administration Protocol 1,000 UNIT/HR Insulin Aspart 1 vial 07/18/16 11:00 07/21/16 17:18 Novolog Vial Sliding Scale - SQ 2 units ACHS DONALD Administration Protocol Methylprednisolone Sodium Succinate 10 mg 07/22/16 10:00 Solu-Medrol - IVPB 07/23/16 09:00 BID DONALD Metoprolol Tartrate 100 mg 07/15/16 10:00 07/21/16 10:59 Lopressor - PO 100 mg BID DONALD Administration [id number] Ethyl Esters 2 gm 07/15/16 22:00 07/21/16 10:59 Lovaza - PO 2 gm BID DONALD Administration Pantoprazole Sodium 40 mg 07/22/16 10:00 Protonix - PO DAILY DONALD Ranolazine 500 mg 07/15/16 10:00 07/21/16 09:14 Ranexa - PO 500 mg BID DONALD Administration Tamsulosin HCl 0.4 mg 07/15/16 22:00 07/20/16 21:54 Flomax - PO 0.4 mg HS DONALD Administration Tiotropium [place] 1 puff 07/15/16 12:00 07/21/16 09:14 Spiriva - IH 1 puff DAILY DONALD Administration Impression: On heparin bridge in anticipation of thyroid and RPN biopsy . Of interest , patient has 2 "M" spikes and elevated free kappa/free son ratio. The abnormal protein would fit well with a diagnosis of lymphoma.
[2016-07-21] MEDS: TAMSULOSIN HCL 0.4 MG CAP.ER.24H (FP) PO SCH (21:22)
[2016-07-21] MEDS: ATORVASTATIN CA 40 MG TABLET (FP) PO SCH (21:23)
[2016-07-22 00:10] LABS: M-SPIKE, % Not Observed % (Not Observed)
[2016-07-22] MEDS: INSULIN SLIDING SCALE (NOVOLOG) 1 VIAL SQ SCH ×4 (06:09→21:22)
[2016-07-22] MEDS: ALBUTEROL SO4 0.083% IH SOL 2.5 MG/3 ML VIAL.NEB. NEB SCH ×3 (07:00→22:35)
[2016-07-22 07:47] LABS: INR 1.79 (0.82-1.09); PROTHROMBIN TIME (PATIENT) 19.9 SEC (9.98-11.88)
[2016-07-22 08:26] LABS: ALBUMIN 3.1 g/dl (3.4-5.0); BILIRUBIN,TOTAL 0.7 mg/dL (0.2-1.0); CALCIUM 8.8 mg/dL (8.5-10.1); CREATININE 1.4 mg/dL (0.7-1.3); TOT PROT 6.1 g/dl (6.4-8.2)
[2016-07-22] MEDS ORDERED: PT OWN MED DRAWER 7, Y5N ONE (09:26)
[2016-07-22] MEDS: METOPROLOL TARTRATE 50 MG TABLET (FP) PO SCH ×2 (09:46→21:14)
[2016-07-22] MEDS: amLODIPine BESYLATE 5 MG TABLET (FP) PO SCH (09:46)
[2016-07-22] MEDS: OMEGA-3 ACID ETHYL ESTERS (FATTY-ACIDS) 1 GM CAPSULE (FP) PO SCH ×2 (09:47→21:14)
[2016-07-22] MEDS: PANTOPRAZOLE 40 MG TABLET (FP) PO SCH (09:47)
[2016-07-22] MEDS: ALLOPURINOL 100 MG TABLET (FP) PO SCH (09:47)
[2016-07-22] MEDS: TIOTROPIUM BROMIDE 18 MCG/INH (DEVICE W/ 30 CAPSULES) IH SCH (09:47)
[2016-07-22] MEDS: CHOLECALCIFEROL (VITAMIN D3) 1,000 UNIT TABLET (FP) PO SCH (09:47)
[2016-07-22] MEDS: RANOLAZINE E.R. 500 MG TABLET (FP) PO SCH ×2 (09:47→21:14)
[2016-07-22] MEDS: FUROSEMIDE 40 MG TABLET (FP) PO SCH (09:48)
[2016-07-22] MEDS: BUDESONIDE/FORMETEROL FUMARATE 160/4.5 mcg INHALER IH SCH ×2 (09:48→21:18)
[2016-07-22] MEDS: methylPREDNISolone NA SUCC 40 MG/1 ML VIAL IVPB SCH ×2 (09:48→21:16)
--- NOTE | 2016-07-22 11:53 | PN ---
Progress Note, Physician History of Present Illness: Cough and wheeze resolved. Not dyspneic. - Current Medication List Current Medications: Active Medications Albuterol Sulfate (Ventolin 0.083% Nebulizer Soln -) 1 amp NEB TID [facility] Last Admin: 07/22/16 07:00 Dose: 1 amp Allopurinol (Zyloprim -) 200 mg PO DAILY [facility] Last Admin: 07/22/16 09:47 Dose: 200 mg Amlodipine Besylate (Norvasc -) 5 mg PO DAILY [facility] Last Admin: 07/22/16 09:46 Dose: 5 mg Atorvastatin Calcium (Lipitor -) 40 mg PO HS [facility] Last Admin: 07/21/16 21:23 Dose: 40 mg Budesonide/Formoterol Fumarate (Symbicort 160/4.5mcg -) 2 puff IH BID [facility] Last Admin: 07/22/16 09:48 Dose: 2 puff Cholecalciferol (Vitamin D3 -) 2,000 unit PO DAILY [facility] Last Admin: 07/22/16 09:47 Dose: 2,000 unit Furosemide (Lasix -) 40 mg PO DAILY [facility] Last Admin: 07/22/16 09:48 Dose: 40 mg Heparin Sodium (Porcine) (Heparin -) 1,000 unit IVPUSH PRN PRN PRN Reason: Heparin Heparin Sodium (Porcine) (Heparin -) 5,000 unit IVPUSH PRN PRN PRN Reason: Heparin Last Admin: 07/21/16 18:46 Dose: 5,000 unit Heparin Sodium (Porcine) 25, (000 unit/ Sodium Chloride) 500 mls @ 20 mls/hr IV TITR DONALD; 1,000 UNIT/HR PRN Reason: Protocol Last Admin: 07/21/16 18:48 Dose: 23 mls/hr Insulin Aspart (Novolog Vial Sliding Scale -) 1 vial SQ ACHS DONALD PRN Reason: Protocol Last Admin: 07/22/16 11:02 Dose: Not Given Methylprednisolone Sodium Succinate (Solu-Medrol -) 10 mg IVPB BID [facility] Stop: 07/23/16 09:00 Last Admin: 07/22/16 09:48 Dose: 10 mg Metoprolol Tartrate (Lopressor -) 100 mg PO BID [facility] Last Admin: 07/22/16 09:46 Dose: 100 mg Avzww-5-[id number] Ethyl Esters (Lovaza -) 2 gm PO BID [facility] Last Admin: 07/22/16 09:47 Dose: 2 gm Pantoprazole Sodium (Protonix -) 40 mg PO DAILY [facility] Last Admin: 07/22/16 09:47 Dose: 40 mg Ranolazine (Ranexa -) 500 mg PO BID [facility] Last Admin: 07/22/16 09:47 Dose: 500 mg Tamsulosin HCl (Flomax -) 0.4 mg PO HS [facility] Last Admin: 07/21/16 21:22 Dose: 0.4 mg Tiotropium [place] (Spiriva -) 1 puff IH DAILY [facility] Last Admin: 07/22/16 09:47 Dose: 1 puff - Objective Vital Signs: Vital Signs Temperature 98.0 F 07/22/16 09:00 Pulse Rate 59 L 07/22/16 09:00 Respiratory Rate 20 07/22/16 09:00 Blood Pressure 114/67 07/22/16 09:00 O2 Sat by Pulse Oximetry (%) 98 07/22/16 09:00 Constitutional: Yes: No Distress, Calm Neck: Yes: Supple Cardiovascular: Yes: Regular Rate and Rhythm Respiratory: Yes: Regular, Diminished Gastrointestinal: Yes: Normal Bowel Sounds, Soft Edema: No Labs: CBC, BMP 07/21/16 06:30 07/22/16 06:55 INR, PTT INR 1.79 (0.82-1.09) H 07/22/16 06:55 Problem List - Problems (1) A-fib Code(s): I48.91 - UNSPECIFIED ATRIAL FIBRILLATION Qualifiers: Atrial fibrillation type: paroxysmal Qualified Code(s): I48.0 - Paroxysmal atrial fibrillation (2) Acute kidney injury Code(s): N17.9 - ACUTE KIDNEY FAILURE, UNSPECIFIED (3) Aortic valve replaced Code(s): Z95.2 - PRESENCE OF PROSTHETIC HEART VALVE (4) Asthmatic bronchitis Code(s): J45.909 - UNSPECIFIED ASTHMA, UNCOMPLICATED Qualifiers: Asthma severity: moderate persistent (5) Bronchospasm Code(s): J98.01 - ACUTE BRONCHOSPASM (6) HLD (hyperlipidemia) Code(s): E78.5 - HYPERLIPIDEMIA, UNSPECIFIED Qualifiers: Hyperlipidemia type: pure hypercholesterolemia Qualified Code(s): E78.0 - Pure hypercholesterolemia (7) HTN (hypertension) Code(s): I10 - ESSENTIAL (PRIMARY) HYPERTENSION Qualifiers: Hypertension type: essential hypertension Qualified Code(s): I10 - Essential (primary) hypertension (8) Influenza A Code(s): J10.1 - FLU DUE TO OTH IDENT INFLUENZA VIRUS W OTH RESP MANIFEST (9) Diastolic dysfunction without heart failure Code(s): I51.9 - HEART DISEASE, UNSPECIFIED (10) Retroperitoneal lymphadenopathy Code(s): R59.0 - LOCALIZED ENLARGED LYMPH NODES (11) Thyroid mass Code(s): E07.9 - DISORDER OF THYROID, UNSPECIFIED Assessment/Plan 1. Asthmatic bronchitis 2. CAD post multi-vessel PCI (stent), angina pectoris 3. Diastolic LV dysfunction with chronic class I NYHA classification LV failure , compensated 4. Aortic stenosis post AVR (Bio-prosthesis) 5. PAF currently sinus rhythm [id number] score of 4 6. HTN/HCVD 7. Hyperlipidemia 8. Acute on CKD resolving 9. Right thyroid gland mass 10. Retro-peritoneal lymph adenopathy PLAN: 1. Continue Lopressor 100 mg BID and if wheezing/asthmatic bronchitis exacerbation occurs may switch to Bystolic 2. Continue Norvasc 5 mg QD 3. Continue Ranexa 500 mg BID 4. Continue Lipitor 40 mg QHS and Lovaza 2 g BID 5. Hold Coumadin and to use Heparin as a bridge 6. Continue Lasix 40 mg QD with caution 7. Continue to hold Losartan pending further renal function recovery 8. Bronchodilators and IV steroids 9. There are no absolute contraindications in proceeding with planned biopsies in view absence of ischemic symptoms, decompensated congestive heart failure or malignant arrhythmias. Patient is waiting for INR to be further reduced before proceeding with biopsy
[2016-07-22] MEDS: HEPARIN - 25,000 UNIT in SODIUM CHLORIDE 495 ML IV SCH ×2 (12:01→22:25)
--- NOTE | 2016-07-22 12:30 | PN ---
Progress Note, Physician History of Present Illness: pulmonary alert,feeling better,-sob,+cough - Current Medication List Current Medications: Active Medications Albuterol Sulfate (Ventolin 0.083% Nebulizer Soln -) 1 amp NEB TID [facility] Last Admin: 07/22/16 07:00 Dose: 1 amp Allopurinol (Zyloprim -) 200 mg PO DAILY [facility] Last Admin: 07/22/16 09:47 Dose: 200 mg Amlodipine Besylate (Norvasc -) 5 mg PO DAILY [facility] Last Admin: 07/22/16 09:46 Dose: 5 mg Atorvastatin Calcium (Lipitor -) 40 mg PO HS [facility] Last Admin: 07/21/16 21:23 Dose: 40 mg Budesonide/Formoterol Fumarate (Symbicort 160/4.5mcg -) 2 puff IH BID [facility] Last Admin: 07/22/16 09:48 Dose: 2 puff Cholecalciferol (Vitamin D3 -) 2,000 unit PO DAILY [facility] Last Admin: 07/22/16 09:47 Dose: 2,000 unit Furosemide (Lasix -) 40 mg PO DAILY [facility] Last Admin: 07/22/16 09:48 Dose: 40 mg Heparin Sodium (Porcine) (Heparin -) 1,000 unit IVPUSH PRN PRN PRN Reason: Heparin Heparin Sodium (Porcine) (Heparin -) 5,000 unit IVPUSH PRN PRN PRN Reason: Heparin Last Admin: 07/21/16 18:46 Dose: 5,000 unit Heparin Sodium (Porcine) 25, (000 unit/ Sodium Chloride) 500 mls @ 20 mls/hr IV TITR DONALD; 1,000 UNIT/HR PRN Reason: Protocol Last Admin: 07/22/16 12:01 Dose: 21 mls/hr Insulin Aspart (Novolog Vial Sliding Scale -) 1 vial SQ ACHS DONALD PRN Reason: Protocol Last Admin: 07/22/16 11:02 Dose: Not Given Methylprednisolone Sodium Succinate (Solu-Medrol -) 10 mg IVPB BID [facility] Stop: 07/23/16 09:00 Last Admin: 07/22/16 09:48 Dose: 10 mg Metoprolol Tartrate (Lopressor -) 100 mg PO BID [facility] Last Admin: 07/22/16 09:46 Dose: 100 mg [id number]-2-[id number] Ethyl Esters (Lovaza -) 2 gm PO BID [facility] Last Admin: 07/22/16 09:47 Dose: 2 gm Pantoprazole Sodium (Protonix -) 40 mg PO DAILY [facility] Last Admin: 07/22/16 09:47 Dose: 40 mg Ranolazine (Ranexa -) 500 mg PO BID [facility] Last Admin: 07/22/16 09:47 Dose: 500 mg Tamsulosin HCl (Flomax -) 0.4 mg PO HS [facility] Last Admin: 07/21/16 21:22 Dose: 0.4 mg Tiotropium [place] (Spiriva -) 1 puff IH DAILY [facility] Last Admin: 07/22/16 09:47 Dose: 1 puff - Objective Vital Signs: Vital Signs Temperature 98.0 F 07/22/16 09:00 Pulse Rate 59 L 07/22/16 09:00 Respiratory Rate 20 07/22/16 09:00 Blood Pressure 114/67 07/22/16 09:00 O2 Sat by Pulse Oximetry (%) 98 07/22/16 09:00 Constitutional: Yes: Well Nourished, Calm Eyes: Yes: WNL HENT: Yes: WNL Neck: Yes: Supple Cardiovascular: Yes: Pulse Irregular, S1, S2 Respiratory: Yes: CTA Bilaterally Gastrointestinal: Yes: Normal Bowel Sounds, Soft Extremities: Yes: WNL Edema: No Labs: CBC, BMP 07/21/16 06:30 07/22/16 06:55 INR, PTT INR 1.79 (0.82-1.09) H 07/22/16 06:55 Problem List - Problems (1) Bronchospasm Code(s): J98.01 - ACUTE BRONCHOSPASM (2) HLD (hyperlipidemia) Code(s): E78.5 - HYPERLIPIDEMIA, UNSPECIFIED Qualifiers: Qualified Code(s): E78.0 - Pure hypercholesterolemia (3) HTN (hypertension) Code(s): I10 - ESSENTIAL (PRIMARY) HYPERTENSION Qualifiers: Qualified Code(s): I10 - Essential (primary) hypertension (4) Influenza A Code(s): J10.1 - FLU DUE TO OTH IDENT INFLUENZA VIRUS W OTH RESP MANIFEST (5) Supratherapeutic INR Code(s): R79.1 - ABNORMAL COAGULATION PROFILE (6) Asthmatic bronchitis Code(s): J45.909 - UNSPECIFIED ASTHMA, UNCOMPLICATED (7) Aortic valve replaced Code(s): Z95.2 - PRESENCE OF PROSTHETIC HEART VALVE (8) Acute kidney injury Code(s): N17.9 - ACUTE KIDNEY FAILURE, UNSPECIFIED Assessment/Plan IMP ASTHMATIC BRONCHITIS INFLUENZA A RECENT PNEUMONIA R THYROID MASS MEDIASTINAL AND RETROPERITONEAL ADENOPATHY ACUTE KIDNEY INJURY S/P AVR SUPRA-THERAPEUTIC INR HTN HLD PLAN INHALED BRONCHODILATORS CONTINUE STEROID TAPER NASAL O2 RETROPERITONEAL NODE BX AND FNAB THYROID MASS WHEN INR NORMAL HOPEFULLY IN AM HOLD COUMADIN BRIDGE HEPARIN MONITOR RENAL FUNCTION MONITOR PEAK FLOW DR ALLEN Problem List - Problems (1) Bronchospasm Code(s): J98.01 - ACUTE BRONCHOSPASM (2) HLD (hyperlipidemia) Code(s): E78.5 - HYPERLIPIDEMIA, UNSPECIFIED (3) HTN (hypertension) Code(s): I10 - ESSENTIAL (PRIMARY) HYPERTENSION (4) Influenza A Code(s): J10.1 - FLU DUE TO OTH IDENT INFLUENZA VIRUS W OTH RESP MANIFEST (5) Supratherapeutic INR Code(s): R79.1 - ABNORMAL COAGULATION PROFILE (6) Asthmatic bronchitis Code(s): J45.909 - UNSPECIFIED ASTHMA, UNCOMPLICATED (7) Aortic valve replaced Code(s): Z95.2 - PRESENCE OF PROSTHETIC HEART VALVE (8) Acute kidney injury Code(s): N17.9 - ACUTE KIDNEY FAILURE, UNSPECIFIED
--- NOTE | 2016-07-22 12:58 | PN ---
Progress Note (short form) - Note Progress Note: SUBJECTIVE: The patient was seen and examined sitting in the chair, he denies any issues at this time. INR 1.79 Current Medications Generic Name Dose Route Start Last Admin Trade Name Anna Marie PRN Reason Stop Dose Admin Albuterol Sulfate 1 amp 07/16/16 14:00 07/22/16 07:00 Ventolin 0.083% Nebulizer Soln - NEB 1 amp TID DONALD Administration Allopurinol 200 mg 07/15/16 10:00 07/22/16 09:47 Zyloprim - PO 200 mg DAILY DONALD Administration Amlodipine Besylate 5 mg 07/15/16 10:00 07/22/16 09:46 Norvasc - PO 5 mg DAILY DONALD Administration Atorvastatin Calcium 40 mg 07/15/16 22:00 07/21/16 21:23 Lipitor - PO 40 mg HS DONALD Administration Budesonide/Formoterol Fumarate 2 puff 07/15/16 12:00 07/22/16 09:48 Symbicort 160/4.5mcg - IH 2 puff BID DONALD Administration Cholecalciferol 2,000 unit 07/15/16 10:00 07/22/16 09:47 Vitamin D3 - PO 2,000 unit DAILY DONALD Administration Furosemide 40 mg 07/18/16 14:45 07/22/16 09:48 Lasix - PO 40 mg DAILY DONALD Administration Heparin Sodium (Porcine) 1,000 unit 07/21/16 10:00 Heparin - IVPUSH PRN PRN Heparin Heparin Sodium (Porcine) 5,000 unit 07/21/16 10:00 07/21/16 18:46 Heparin - IVPUSH 5,000 unit PRN PRN Administration Heparin Heparin Sodium (Porcine) 25, 500 mls @ 20 mls/hr 07/21/16 10:00 07/22/16 12:01 000 unit/ Sodium Chloride IV 21 mls/hr TITR DONALD Administration Protocol 1,000 UNIT/HR Insulin Aspart 1 vial 07/18/16 11:00 07/22/16 11:02 Novolog Vial Sliding Scale - SQ Not Given ACHS DONALD Protocol Methylprednisolone Sodium Succinate 10 mg 07/22/16 10:00 07/22/16 09:48 Solu-Medrol - IVPB 07/23/16 09:00 10 mg BID DONALD Administration Metoprolol Tartrate 100 mg 07/15/16 10:00 07/22/16 09:46 Lopressor - PO 100 mg BID DONALD Administration Xgygy-7-Wunm Ethyl Esters 2 gm 07/15/16 22:00 07/22/16 09:47 Lovaza - PO 2 gm BID DONALD Administration Pantoprazole Sodium 40 mg 07/22/16 10:00 07/22/16 09:47 Protonix - PO 40 mg DAILY DONALD Administration Ranolazine 500 mg 07/15/16 10:00 07/22/16 09:47 Ranexa - PO 500 mg BID DONALD Administration Tamsulosin HCl 0.4 mg 07/15/16 22:00 07/21/16 21:22 Flomax - PO 0.4 mg HS DONALD Administration Tiotropium [place] 1 puff 07/15/16 12:00 07/22/16 09:47 Spiriva - IH 1 puff DAILY DONALD Administration OBJECTIVE: Vital Signs Period Temp Pulse Resp BP Sys/Kirk Pulse Ox Last 24 Hr 97.7 F-98.0 F 53-63 17-20 111-132/66-73 98-99 Physical Exam: General: NAD, A&Ox3 HEENT: Right thyroid mass, non-tender Lungs: CTA bilaterally Heart: RRR, S1S2 Abd: Soft, non-tender, non-distended. Normoactive bowel sounds Ext: Warm, well-perfused. B/l lower extremity edema Neuro: CN 2-12 intact CBCD WBC 9.4 K/mm3 (4.0-10.0) 07/21/16 06:30 RBC 3.70 M/mm3 (4.00-5.60) L 07/21/16 06:30 Hgb 11.3 GM/dL (11.7-16.9) L 07/21/16 06:30 Hct 33.4 % (35.4-49) L 07/21/16 06:30 MCV 90.4 fl (80-96) 07/21/16 06:30 MCHC 33.9 g/dl (32.0-35.9) 07/21/16 06:30 RDW 14.5 % (11.9-15.9) 07/21/16 06:30 Plt Count 172 K/MM3 (134-434) 07/21/16 06:30 MPV 8.2 fl (7.5-11.1) 07/21/16 06:30 CMP Sodium 138 mmol/L (136-145) 07/22/16 06:55 Potassium 4.1 mmol/L (3.5-5.1) 07/22/16 06:55 Chloride 101 mmol/L (98-107) 07/22/16 06:55 Carbon Dioxide 32 mmol/L (21-32) 07/22/16 06:55 Anion Gap 5 (8-16) L 07/22/16 06:55 BUN 53 mg/dL (7-18) H 07/22/16 06:55 Creatinine 1.4 mg/dL (0.7-1.3) H 07/22/16 06:55 Creat Clearance w eGFR 48.52 (>60) 07/22/16 06:55 Random Glucose 92 mg/dL (74-106) D 07/22/16 06:55 Calcium 8.8 mg/dL (8.5-10.1) 07/22/16 06:55 Total Bilirubin 0.7 mg/dL (0.2-1.0) 07/22/16 06:55 AST 15 U/L (15-37) D 07/22/16 06:55 ALT 24 U/L (12-78) D 07/22/16 06:55 Alkaline Phosphatase 48 U/L (45-117) 07/22/16 06:55 Total Protein 6.1 g/dl (6.4-8.2) L 07/22/16 06:55 Albumin 3.1 g/dl (3.4-5.0) L 07/22/16 06:55 07/16/16 07/19/16 20:30 09:32 IgG Pending IgA Pending IgM Pending Free [place] LC, Quant 21.41 H Free Lambda LC, Quant 8.27 Free [place]/Lambda Ratio 2.59 H Imaging: - CT chest shows mild mediastinal lymphadenopathy, R thyroidmegaly - CTAP non contrast 07/17: pelvis extensive retroperitoneal adenopathy, stranding of mesenter Assessment: This is an 80 year old male with PMHx of CAD s/p multivessel PCI ( stenting), A.fib, diastolic disfunction, s/p bioAVR, PAF->SR post cryoMaze, HTN, HLD, CKD, BPH, gastric ulcer, admitted with increased wheezing and SOB. Plan: 1) Heme/Onc: retroperitoneal lymphadenopathy. Right enlarged thyroid - Possible lymphoma - Awaiting INR <1.5 for biopsy of thyroid and lymph nodes - [place] light chain elevated, kappa/lambda ratio elevated, M spike not observed - Appreciate oncology consult 2) Cardiology: Paroxysmal a.fib - [id number] score of 4 - Continue Heparin gtt - INR 1.79 - Bridge from Heparin gtt to Coumadin after biopsy - Appreciate cardiology consult CAD s/p multi-vessel PCI - Continue Ranexa - Continue Lopressor - Conintue Lipitor Chronic diastolic heart failure - Continue Lasix - Hold ARB given CHINO on CKD 3) : CHINO on CKD - Cr continues to improve - Continue to monitor BPH - Continue Flomax 4) Pulmonary: Asthma bronchitis, wheezing - Resolved - Continue Solu-medrol taper - Continue Spiriva - Continue Symbicort - Albuterol nebs prn 5) F/E/N: - Monitor electrolytes - Sodium controlled diet 6) Prophylaxis: - On Heparin gtt - OOB ambulating 7) Dispo: - Requires continued inpatient care CODE STATUS: FULL CODE Visit type - Emergency Visit Emergency Visit: Yes ED Registration Date: 07/15/16 Care time: The patient presented to the Emergency Department on the above date and was hospitalized for further evaluation of their emergent condition. - New Patient This patient is new to me today: Yes Date on this admission: 07/22/16 - Critical Care Critical Care patient: No
--- NOTE | 2016-07-22 13:27 | PN ---
Progress Note (short form) - Note Progress Note: Renal Follow up for CKD Pt seen and examined at the bedside no acute complaints Vital Signs Temperature 98.0 F 07/22/16 09:00 Pulse Rate 59 L 07/22/16 09:00 Respiratory Rate 20 07/22/16 09:00 Blood Pressure 114/67 07/22/16 09:00 O2 Sat by Pulse Oximetry (%) 98 07/22/16 09:00 Intake & Output 07/19/16 07/20/16 07/21/16 07/22/16 23:59 23:59 23:59 23:59 Intake Total 229 689 4185 464 Balance 377 522 0360 464 Weight 232 lb 229 lb 1 oz 226 lb 8 oz 224 lb 2 oz Gen: NAD, awake and alert CVS: RRR, No M/R Lungs: CTA, no rales or wheeze Abd: soft, Obese, NT/ND Ext: Trace edema, clubbing or cyanosis CBC, BMP 07/21/16 06:30 07/22/16 06:55 Current Medications Albuterol Sulfate (Ventolin 0.083% Nebulizer Soln -) 1 amp NEB TID [facility] Last Admin: 07/22/16 07:00 Dose: 1 amp Allopurinol (Zyloprim -) 200 mg PO DAILY [facility] Last Admin: 07/22/16 09:47 Dose: 200 mg Amlodipine Besylate (Norvasc -) 5 mg PO DAILY [facility] Last Admin: 07/22/16 09:46 Dose: 5 mg Atorvastatin Calcium (Lipitor -) 40 mg PO HS [facility] Last Admin: 07/21/16 21:23 Dose: 40 mg Budesonide/Formoterol Fumarate (Symbicort 160/4.5mcg -) 2 puff IH BID [facility] Last Admin: 07/22/16 09:48 Dose: 2 puff Cholecalciferol (Vitamin D3 -) 2,000 unit PO DAILY [facility] Last Admin: 07/22/16 09:47 Dose: 2,000 unit Furosemide (Lasix -) 40 mg PO DAILY [facility] Last Admin: 07/22/16 09:48 Dose: 40 mg Heparin Sodium (Porcine) (Heparin -) 1,000 unit IVPUSH PRN PRN PRN Reason: Heparin Heparin Sodium (Porcine) (Heparin -) 5,000 unit IVPUSH PRN PRN PRN Reason: Heparin Last Admin: 07/21/16 18:46 Dose: 5,000 unit Heparin Sodium (Porcine) 25, (000 unit/ Sodium Chloride) 500 mls @ 20 mls/hr IV TITR DONALD; 1,000 UNIT/HR PRN Reason: Protocol Last Admin: 07/22/16 12:01 Dose: 21 mls/hr Insulin Aspart (Novolog Vial Sliding Scale -) 1 vial SQ ACHS [facility] PRN Reason: Protocol Last Admin: 07/22/16 11:02 Dose: Not Given Methylprednisolone Sodium Succinate (Solu-Medrol -) 10 mg IVPB BID [facility] Stop: 07/23/16 09:00 Last Admin: 07/22/16 09:48 Dose: 10 mg Metoprolol Tartrate (Lopressor -) 100 mg PO BID [facility] Last Admin: 07/22/16 09:46 Dose: 100 mg Wxzxm-5-Gybj Ethyl Esters (Lovaza -) 2 gm PO BID [facility] Last Admin: 07/22/16 09:47 Dose: 2 gm Pantoprazole Sodium (Protonix -) 40 mg PO DAILY [facility] Last Admin: 07/22/16 09:47 Dose: 40 mg Ranolazine (Ranexa -) 500 mg PO BID [facility] Last Admin: 07/22/16 09:47 Dose: 500 mg Tamsulosin HCl (Flomax -) 0.4 mg PO HS [facility] Last Admin: 07/21/16 21:22 Dose: 0.4 mg Tiotropium [place] (Spiriva -) 1 puff IH DAILY [facility] Last Admin: 07/22/16 09:47 Dose: 1 puff A/P 80 year old Gentleman with PMhx of Afib on A/C, Hypertension, HLD, CKD Stage 3 ( baseline Cr 1.5) presented with sob and found to Influenza #CKD with ? nephrotic range proteinuria Renal function stable SPEP showed 2 m-spikes and [place]da ratio is elevated - suspicious for lymphoma as per oncology #RP Lymhadenopathy/Thyroid mass awaiting biopsy when INR < 2 Hemant Arceo DO
[2016-07-22] MEDS: ATORVASTATIN CA 40 MG TABLET (FP) PO SCH (21:14)
[2016-07-22] MEDS: TAMSULOSIN HCL 0.4 MG CAP.ER.24H (FP) PO SCH (21:14)
[2016-07-23 00:06] LABS: HEP B SURFACE AB Non Reactive (.)
[2016-07-23] MEDS: INSULIN SLIDING SCALE (NOVOLOG) 1 VIAL SQ SCH ×4 (06:33→21:10)
[2016-07-23] MEDS: ALBUTEROL SO4 0.083% IH SOL 2.5 MG/3 ML VIAL.NEB. NEB SCH ×3 (07:31→21:34)
[2016-07-23 08:13] LABS: MCH 30.5 pg (25.7-33.7); MCHC 33.4 g/dl (32.0-35.9); MEAN CELL VOLUME 91.2 fl (80-96); PLATELET COUNT 196 K/MM3 (134-434); RDW 14.7 % (11.9-15.9)
[2016-07-23 08:35] LABS: INR 1.45 (0.82-1.09); PROTHROMBIN TIME (PATIENT) 16.1 SEC (9.98-11.88)
[2016-07-23 09:58] LABS: CALCIUM 9.3 mg/dL (8.5-10.1); CREATININE 1.5 mg/dL (0.7-1.3)
--- NOTE | 2016-07-23 11:57 | PN ---
Progress Note, Physician Chief Complaint: Patient well known to me: With h/o CKD, Coronary artery disease, Congestive Heart failure, Valvular Heart disease, Bioprosthetic Aortic valve, DJD. Admitted with Acute Respiratory Infection and shortness of breaths. Renal functions were acutely worsened, which has improved since admission. In the interim, the finding of retroperitoneal lymphadenopathy and a thyroid nodule needs further w/u. Also with a monoclonal spike on SPEP Scheduled for Biopsy today. Coagulation parameters in acceptable range. - Current Medication List Current Medications: Active Medications Albuterol Sulfate (Ventolin 0.083% Nebulizer Soln -) 1 amp NEB TID [facility] Last Admin: 07/23/16 07:31 Dose: 1 amp Allopurinol (Zyloprim -) 200 mg PO DAILY [facility] Last Admin: 07/22/16 09:47 Dose: 200 mg Amlodipine Besylate (Norvasc -) 5 mg PO DAILY [facility] Last Admin: 07/22/16 09:46 Dose: 5 mg Atorvastatin Calcium (Lipitor -) 40 mg PO HS [facility] Last Admin: 07/22/16 21:14 Dose: 40 mg Budesonide/Formoterol Fumarate (Symbicort 160/4.5mcg -) 2 puff IH BID [facility] Last Admin: 07/22/16 21:18 Dose: 2 puff Cholecalciferol (Vitamin D3 -) 2,000 unit PO DAILY [facility] Last Admin: 07/22/16 09:47 Dose: 2,000 unit Furosemide (Lasix -) 40 mg PO DAILY [facility] Last Admin: 07/22/16 09:48 Dose: 40 mg Heparin Sodium (Porcine) (Heparin -) 1,000 unit IVPUSH PRN PRN PRN Reason: Heparin Heparin Sodium (Porcine) (Heparin -) 5,000 unit IVPUSH PRN PRN PRN Reason: Heparin Last Admin: 07/21/16 18:46 Dose: 5,000 unit Heparin Sodium (Porcine) 25, (000 unit/ Sodium Chloride) 500 mls @ 20 mls/hr IV TITR DONALD; 1,000 UNIT/HR PRN Reason: Protocol Last Admin: 07/22/16 22:25 Dose: 21 mls/hr Insulin Aspart (Novolog Vial Sliding Scale -) 1 vial SQ ACHS [facility] PRN Reason: Protocol Last Admin: 07/23/16 06:33 Dose: Not Given Metoprolol Tartrate (Lopressor -) 100 mg PO BID [facility] Last Admin: 07/22/16 21:14 Dose: 100 mg Typmw-5-Nkdi Ethyl Esters (Lovaza -) 2 gm PO BID [facility] Last Admin: 07/22/16 21:14 Dose: 2 gm Pantoprazole Sodium (Protonix -) 40 mg PO DAILY [facility] Last Admin: 07/22/16 09:47 Dose: 40 mg Ranolazine (Ranexa -) 500 mg PO BID [facility] Last Admin: 07/22/16 21:14 Dose: 500 mg Tamsulosin HCl (Flomax -) 0.4 mg PO HS [facility] Last Admin: 07/22/16 21:14 Dose: 0.4 mg Tiotropium [place] (Spiriva -) 1 puff IH DAILY [facility] Last Admin: 07/22/16 09:47 Dose: 1 puff - Objective Vital Signs: Vital Signs Temperature 97.7 F 07/23/16 09:00 Pulse Rate 59 L 07/23/16 09:00 Respiratory Rate 18 07/23/16 09:00 Blood Pressure 125/69 07/23/16 09:00 O2 Sat by Pulse Oximetry (%) 96 07/23/16 09:00 Eyes: Yes: WNL, Conjunctiva Clear HENT: Yes: WNL, Atraumatic, Normocephalic Neck: Yes: WNL, Supple, Trachea Midline Cardiovascular: Yes: WNL, Regular Rate and Rhythm Respiratory: Yes: WNL, Regular, CTA Bilaterally Gastrointestinal: Yes: WNL, Normal Bowel Sounds Musculoskeletal: Yes: WNL Extremities: Yes: WNL Edema: No Integumentary: Yes: WNL Neurological: Yes: WNL, Alert, Oriented ...Motor Strength: WNL Psychiatric: Yes: WNL Labs: CBC, BMP 07/23/16 06:30 07/23/16 06:30 INR, PTT INR 1.45 (0.82-1.09) H 07/23/16 06:30 Problem List - Problems (1) A-fib Code(s): I48.91 - UNSPECIFIED ATRIAL FIBRILLATION Qualifiers: Atrial fibrillation type: paroxysmal Qualified Code(s): I48.0 - Paroxysmal atrial fibrillation (2) Acute kidney injury Code(s): N17.9 - ACUTE KIDNEY FAILURE, UNSPECIFIED (3) Aortic valve replaced Code(s): Z95.2 - PRESENCE OF PROSTHETIC HEART VALVE (4) Asthmatic bronchitis Code(s): J45.909 - UNSPECIFIED ASTHMA, UNCOMPLICATED Qualifiers: Asthma severity: moderate persistent (5) BPH (benign prostatic hyperplasia) Code(s): N40.0 - BENIGN PROSTATIC HYPERPLASIA WITHOUT LOWER URINRY TRACT SYMP (6) CKD (chronic kidney disease) Code(s): N18.9 - CHRONIC KIDNEY DISEASE, UNSPECIFIED (7) HTN (hypertension) Code(s): I10 - ESSENTIAL (PRIMARY) HYPERTENSION Qualifiers: Hypertension type: essential hypertension Qualified Code(s): I10 - Essential (primary) hypertension (8) Supratherapeutic INR Code(s): R79.1 - ABNORMAL COAGULATION PROFILE Assessment/Plan The patient's renal functions are stable. almost near his baseline. will monitor with you. Patient is scheduled for the Biopsy this morning. PT/ INR acceptable. Will monitor the renal functions with you. Labs as ordered. Gracie Montalvo MD
--- NOTE | 2016-07-23 12:19 | PN ---
Progress Note (short form) - Note Progress Note: PULMONARY s/p biopsy. Denies shortness of breath or chest pain. No fevers or chills. Mild nonproductive cough, no wheezing. Last Vital Signs Temp Pulse Resp BP Pulse Ox 97.7 F 59 L 18 125/69 96 07/23/16 09:00 07/23/16 09:00 07/23/16 09:00 07/23/16 09:00 07/23/16 09:00 Gen: NAD at rest Heart: irregular Lung: decreased breath sounds at the bases, no wheezes appreciated Abd: soft, nontender Ext: no edema CBC, BMP 07/23/16 06:30 07/23/16 06:30 Active Medications Albuterol Sulfate (Ventolin 0.083% Nebulizer Soln -) 1 amp NEB TID [facility] Last Admin: 07/23/16 07:31 Dose: 1 amp Allopurinol (Zyloprim -) 200 mg PO DAILY [facility] Last Admin: 07/22/16 09:47 Dose: 200 mg Amlodipine Besylate (Norvasc -) 5 mg PO DAILY [facility] Last Admin: 07/22/16 09:46 Dose: 5 mg Atorvastatin Calcium (Lipitor -) 40 mg PO HS [facility] Last Admin: 07/22/16 21:14 Dose: 40 mg Budesonide/Formoterol Fumarate (Symbicort 160/4.5mcg -) 2 puff IH BID [facility] Last Admin: 07/22/16 21:18 Dose: 2 puff Cholecalciferol (Vitamin D3 -) 2,000 unit PO DAILY [facility] Last Admin: 07/22/16 09:47 Dose: 2,000 unit Furosemide (Lasix -) 40 mg PO DAILY [facility] Last Admin: 07/22/16 09:48 Dose: 40 mg Heparin Sodium (Porcine) (Heparin -) 1,000 unit IVPUSH PRN PRN PRN Reason: Heparin Heparin Sodium (Porcine) (Heparin -) 5,000 unit IVPUSH PRN PRN PRN Reason: Heparin Last Admin: 07/21/16 18:46 Dose: 5,000 unit Heparin Sodium (Porcine) 25, (000 unit/ Sodium Chloride) 500 mls @ 20 mls/hr IV TITR DONALD; 1,000 UNIT/HR PRN Reason: Protocol Last Admin: 07/22/16 22:25 Dose: 21 mls/hr Insulin Aspart (Novolog Vial Sliding Scale -) 1 vial SQ ACHS [facility] PRN Reason: Protocol Last Admin: 07/23/16 06:33 Dose: Not Given Metoprolol Tartrate (Lopressor -) 100 mg PO BID [facility] Last Admin: 07/22/16 21:14 Dose: 100 mg Hkkej-2-Zabi Ethyl Esters (Lovaza -) 2 gm PO BID [facility] Last Admin: 07/22/16 21:14 Dose: 2 gm Pantoprazole Sodium (Protonix -) 40 mg PO DAILY [facility] Last Admin: 07/22/16 09:47 Dose: 40 mg Ranolazine (Ranexa -) 500 mg PO BID [facility] Last Admin: 07/22/16 21:14 Dose: 500 mg Tamsulosin HCl (Flomax -) 0.4 mg PO HS [facility] Last Admin: 07/22/16 21:14 Dose: 0.4 mg Tiotropium [place] (Spiriva -) 1 puff IH DAILY [facility] Last Admin: 07/22/16 09:47 Dose: 1 puff A/P Acute Asthmatic Bronchitis Paroxysmal Atrial Fibrillation Retroperitoneal Lymphadenopathy CAD LV Diastolic Dysfunction s/p bio AVR Acute on Chronic Renal Failure resolving HTN Hyperlipidemia Thryroid Mass - inhaled bronchodilators - rate controlled - resume anticoagulation - O2 as needed - f/u biopsy results
[2016-07-23] MEDS ORDERED: PT OWN MED DRAWER 7, Y5N ONE (12:37)
[2016-07-23] MEDS: amLODIPine BESYLATE 5 MG TABLET (FP) PO SCH (13:13)
[2016-07-23] MEDS: OMEGA-3 ACID ETHYL ESTERS (FATTY-ACIDS) 1 GM CAPSULE (FP) PO SCH ×2 (13:13→21:06)
[2016-07-23] MEDS: CHOLECALCIFEROL (VITAMIN D3) 1,000 UNIT TABLET (FP) PO SCH (13:13)
[2016-07-23] MEDS: METOPROLOL TARTRATE 50 MG TABLET (FP) PO SCH ×2 (13:13→21:06)
[2016-07-23] MEDS: FUROSEMIDE 40 MG TABLET (FP) PO SCH (13:13)
[2016-07-23] MEDS: BUDESONIDE/FORMETEROL FUMARATE 160/4.5 mcg INHALER IH SCH ×2 (13:14→21:10)
[2016-07-23] MEDS: RANOLAZINE E.R. 500 MG TABLET (FP) PO SCH ×2 (13:14→21:06)
[2016-07-23] MEDS: PANTOPRAZOLE 40 MG TABLET (FP) PO SCH (13:14)
[2016-07-23] MEDS: TIOTROPIUM BROMIDE 18 MCG/INH (DEVICE W/ 30 CAPSULES) IH SCH (13:14)
[2016-07-23] MEDS: ALLOPURINOL 100 MG TABLET (FP) PO SCH (13:15)
--- NOTE | 2016-07-23 16:27 | PN ---
Progress Note, Physician History of Present Illness: Cough and wheeze resolved. Not dyspneic. Post biopsy. - Current Medication List Current Medications: Active Medications Albuterol Sulfate (Ventolin 0.083% Nebulizer Soln -) 1 amp NEB TID [facility] Last Admin: 07/23/16 13:52 Dose: 1 amp Allopurinol (Zyloprim -) 200 mg PO DAILY [facility] Last Admin: 07/23/16 13:15 Dose: 200 mg Amlodipine Besylate (Norvasc -) 5 mg PO DAILY [facility] Last Admin: 07/23/16 13:13 Dose: 5 mg Atorvastatin Calcium (Lipitor -) 40 mg PO HS [facility] Last Admin: 07/22/16 21:14 Dose: 40 mg Budesonide/Formoterol Fumarate (Symbicort 160/4.5mcg -) 2 puff IH BID [facility] Last Admin: 07/23/16 13:14 Dose: 2 puff Cholecalciferol (Vitamin D3 -) 2,000 unit PO DAILY [facility] Last Admin: 07/23/16 13:13 Dose: 2,000 unit Furosemide (Lasix -) 40 mg PO DAILY [facility] Last Admin: 07/23/16 13:13 Dose: 40 mg Heparin Sodium (Porcine) (Heparin -) 1,000 unit IVPUSH PRN PRN PRN Reason: Heparin Heparin Sodium (Porcine) (Heparin -) 5,000 unit IVPUSH PRN PRN PRN Reason: Heparin Last Admin: 07/21/16 18:46 Dose: 5,000 unit Heparin Sodium (Porcine) 25, (000 unit/ Sodium Chloride) 500 mls @ 20 mls/hr IV TITR DONALD; 1,000 UNIT/HR PRN Reason: Protocol Last Admin: 07/22/16 22:25 Dose: 21 mls/hr Insulin Aspart (Novolog Vial Sliding Scale -) 1 vial SQ ACHS [facility] PRN Reason: Protocol Last Admin: 07/23/16 13:15 Dose: Not Given Metoprolol Tartrate (Lopressor -) 100 mg PO BID [facility] Last Admin: 07/23/16 13:13 Dose: 100 mg Zniau-8-Meuz Ethyl Esters (Lovaza -) 2 gm PO BID [facility] Last Admin: 07/23/16 13:13 Dose: 2 gm Pantoprazole Sodium (Protonix -) 40 mg PO DAILY [facility] Last Admin: 07/23/16 13:14 Dose: 40 mg Ranolazine (Ranexa -) 500 mg PO BID [facility] Last Admin: 07/23/16 13:14 Dose: 500 mg Tamsulosin HCl (Flomax -) 0.4 mg PO HS [facility] Last Admin: 07/22/16 21:14 Dose: 0.4 mg Tiotropium [place] (Spiriva -) 1 puff IH DAILY [facility] Last Admin: 07/23/16 13:14 Dose: 1 puff Warfarin Sodium (Coumadin -) 2 mg PO DAILY@1800 [facility] - Objective Vital Signs: Vital Signs Temperature 98.1 F 07/23/16 13:15 Pulse Rate 63 07/23/16 15:58 Respiratory Rate 15 07/23/16 15:58 Blood Pressure 135/80 07/23/16 15:58 O2 Sat by Pulse Oximetry (%) 97 07/23/16 15:58 Constitutional: Yes: No Distress, Calm Neck: Yes: Supple Cardiovascular: Yes: Regular Rate and Rhythm Respiratory: Yes: Regular, CTA Bilaterally Gastrointestinal: Yes: Normal Bowel Sounds, Soft Edema: No Labs: CBC, BMP 07/23/16 06:30 07/23/16 06:30 INR, PTT INR 1.45 (0.82-1.09) H 07/23/16 06:30 Problem List - Problems (1) A-fib Code(s): I48.91 - UNSPECIFIED ATRIAL FIBRILLATION Qualifiers: Atrial fibrillation type: paroxysmal Qualified Code(s): I48.0 - Paroxysmal atrial fibrillation (2) Acute kidney injury Code(s): N17.9 - ACUTE KIDNEY FAILURE, UNSPECIFIED (3) Aortic valve replaced Code(s): Z95.2 - PRESENCE OF PROSTHETIC HEART VALVE (4) Asthmatic bronchitis Code(s): J45.909 - UNSPECIFIED ASTHMA, UNCOMPLICATED Qualifiers: Asthma severity: moderate persistent (5) Bronchospasm Code(s): J98.01 - ACUTE BRONCHOSPASM (6) HLD (hyperlipidemia) Code(s): E78.5 - HYPERLIPIDEMIA, UNSPECIFIED Qualifiers: Hyperlipidemia type: pure hypercholesterolemia Qualified Code(s): E78.0 - Pure hypercholesterolemia (7) HTN (hypertension) Code(s): I10 - ESSENTIAL (PRIMARY) HYPERTENSION Qualifiers: Hypertension type: essential hypertension Qualified Code(s): I10 - Essential (primary) hypertension (8) Influenza A Code(s): J10.1 - FLU DUE TO OTH IDENT INFLUENZA VIRUS W OTH RESP MANIFEST (9) Diastolic dysfunction without heart failure Code(s): I51.9 - HEART DISEASE, UNSPECIFIED (10) Retroperitoneal lymphadenopathy Code(s): R59.0 - LOCALIZED ENLARGED LYMPH NODES (11) Thyroid mass Code(s): E07.9 - DISORDER OF THYROID, UNSPECIFIED Assessment/Plan 1. Asthmatic bronchitis 2. CAD post multi-vessel PCI (stent), angina pectoris 3. Diastolic LV dysfunction with chronic class I NYHA classification LV failure , compensated 4. Aortic stenosis post AVR (Bio-prosthesis) 5. PAF currently sinus rhythm [id number] score of 4 with subtherapeutic INR 6. HTN/HCVD 7. Hyperlipidemia 8. Acute on CKD resolving 9. Right thyroid gland mass post FNA 10. Retro-peritoneal lymph adenopathy post biopsy PLAN: 1. Continue Lopressor 100 mg BID 2. Continue Norvasc 5 mg QD 3. Continue Ranexa 500 mg BID 4. Continue Lipitor 40 mg QHS and Lovaza 2 g BID 5. Resume a/c per INR tonight 6. Continue Lasix 40 mg QD with caution 7. Continue to hold Losartan pending further renal function recovery 8. Bronchodilators and IV steroids 9. F/u biopsy results
[2016-07-23] MEDS: HEPARIN - 25,000 UNIT in SODIUM CHLORIDE 495 ML IV SCH (16:37)
[2016-07-23] MEDS ORDERED: WARFARIN NA 2 MG TABLET (UD) PO SCH (18:00)
--- NOTE | 2016-07-23 18:42 | PN ---
Physical Exam: SUBJECTIVE: Patient seen and examined s/p biopsy. Well tolerated. Denies wheezing, he is feeling good. OBJECTIVE: Vital Signs Period Temp Pulse Resp BP Sys/Kirk Pulse Ox Last 24 Hr 97 F-98.1 F 56-67 15-20 115-140/60-80 95-97 PE Neuro: alert, awake, cn 2-12 intact HEENT: R thyroid mass dressing cdi Pulm: CTAB, no wheezing CV: s1 s2 rrr Abd: s nt nd + bs Ext: RLE +1 pitting edema, no issues with gait Laboratory Results - last 24 hr 07/21/16 07/22/16 07/23/16 06:30 21:20 06:30 WBC 12.0 H RBC 4.11 Hgb 12.5 D Hct 37.5 MCV 91.2 MCHC 33.4 RDW 14.7 Plt Count 196 MPV 8.0 INR PTT (Actin FS) Sodium Potassium Chloride Carbon Dioxide Anion Gap BUN Creatinine POC Glucometer 158 Random Glucose Calcium Hepatitis A IgM Ab Negative Hepatitis A Ab Total Positive H Hep Bs Antigen Negative Hep Bs Antibody Non reactive Hep B Core Total Ab Negative 07/23/16 07/23/16 07/23/16 06:30 06:30 06:30 WBC RBC Hgb Hct MCV MCHC RDW Plt Count MPV INR 1.45 H PTT (Actin FS) 106.4 H D Sodium 138 Potassium 4.6 Chloride 99 Carbon Dioxide 30 Anion Gap 9 BUN 55 H Creatinine 1.5 H POC Glucometer Random Glucose 133 H D Calcium 9.3 Hepatitis A IgM Ab Hepatitis A Ab Total Hep Bs Antigen Hep Bs Antibody Hep B Core Total Ab Active Medications Generic Name Dose Route Start Last Admin Trade Name Austinq PRN Reason Stop Dose Admin Albuterol Sulfate 1 amp 07/16/16 14:00 07/23/16 13:52 Ventolin 0.083% Nebulizer Soln - NEB 1 amp TID DONALD Administration Allopurinol 200 mg 07/15/16 10:00 07/23/16 13:15 Zyloprim - PO 200 mg DAILY DONALD Administration Amlodipine Besylate 5 mg 07/15/16 10:00 07/23/16 13:13 Norvasc - PO 5 mg DAILY DONALD Administration Atorvastatin Calcium 40 mg 07/15/16 22:00 07/22/16 21:14 Lipitor - PO 40 mg HS DONALD Administration Budesonide/Formoterol Fumarate 2 puff 07/15/16 12:00 07/23/16 13:14 Symbicort 160/4.5mcg - IH 2 puff BID DONALD Administration Cholecalciferol 2,000 unit 07/15/16 10:00 07/23/16 13:13 Vitamin D3 - PO 2,000 unit DAILY [facility]ALD Administration Furosemide 40 mg 07/18/16 14:45 07/23/16 13:13 Lasix - PO 40 mg DAILY [facility] Administration Heparin Sodium (Porcine) 1,000 unit 07/21/16 10:00 Heparin - IVPUSH PRN PRN Heparin Heparin Sodium (Porcine) 5,000 unit 07/21/16 10:00 07/21/16 18:46 Heparin - IVPUSH 5,000 unit PRN PRN Administration Heparin Heparin Sodium (Porcine) 25, 500 mls @ 20 mls/hr 07/21/16 10:00 07/23/16 16:37 000 unit/ Sodium Chloride IV Not Given TITR [facility] Protocol 1,000 UNIT/HR Insulin Aspart 1 vial 07/18/16 11:00 07/23/16 16:41 Novolog Vial Sliding Scale - SQ Not Given ACHS [facility] Protocol Metoprolol Tartrate 100 mg 07/15/16 10:00 07/23/16 13:13 Lopressor - PO 100 mg BID DONALD Administration Tdmtw-5-Euom Ethyl Esters 2 gm 07/15/16 22:00 07/23/16 13:13 Lovaza - PO 2 gm BID DONALD Administration Pantoprazole Sodium 40 mg 07/22/16 10:00 07/23/16 13:14 Protonix - PO 40 mg DAILY [facility] Administration Ranolazine 500 mg 07/15/16 10:00 07/23/16 13:14 Ranexa - PO 500 mg BID DONALD Administration Tamsulosin HCl 0.4 mg 07/15/16 22:00 07/22/16 21:14 Flomax - PO 0.4 mg HS DONALD Administration Tiotropium [place] 1 puff 07/15/16 12:00 07/23/16 13:14 Spiriva - IH 1 puff DAILY DONALD Administration Warfarin Sodium 2 mg 07/23/16 18:00 07/23/16 18:08 Coumadin - PO 2 mg DAILY@1800 DONALD Administration Imaging: - CT chest shows mild mediastinal lymphadenopathy, R thyroidmegaly - CTAP non contrast 07/17: pelvis extensive retroperitoneal adenopathy, stranding of mesenter Assessment: This is an 80 year old male with PMHx of CAD s/p multivessel PCI ( stenting), A.fib, diastolic disfunction, s/p bioAVR, PAF->SR post cryoMaze, HTN, HLD, CKD, BPH, gastric ulcer, admitted with increased wheezing and SOB. Plan: 1. Retroperitoneal lymphadenopathy - s/p biopsy today - r/o possible lymphoma - Immunology shows 2 beat M spikes, ?monoclonal protein with elevated free kappa /free son ratio - Monitor for bleeding 2. Right enlarged thyroid - s/p biopsy today 3. Paroxysmal A.fib, [id number] score of 4 - Resume Coumadin 2mg HS - Hold heparin bridge until tomorrow - Cardiology following - Daily INR 4. CAD s/p multi-vessel PCI - Continue Ranexa - Continue Lopressor - Continue Lipitor 5. Chronic diastolic heart failure - Continue Lasix - Hold ARB given CHINO on CKD 6. CHINO on CKD - Stabilizing - Continue to monitor 7. BPH - Continue Flomax 8. Asthma bronchitis, wheezing - Resolved - Continue Solu-medrol taper - Continue Spiriva - Continue Symbicort - Albuterol nebs prn Visit type - Emergency Visit Emergency Visit: Yes ED Registration Date: 07/15/16 Care time: The patient presented to the Emergency Department on the above date and was hospitalized for further evaluation of their emergent condition. - New Patient This patient is new to me today: No - Critical Care Critical Care patient: No
[2016-07-23] MEDS ORDERED: ACETAMINOPHEN 325 MG TABLET (FP) PO PRN (20:51)
[2016-07-23] MEDS: TAMSULOSIN HCL 0.4 MG CAP.ER.24H (FP) PO SCH (21:06)
[2016-07-23] MEDS: ATORVASTATIN CA 40 MG TABLET (FP) PO SCH (21:07)
[2016-07-24] MEDS: INSULIN SLIDING SCALE (NOVOLOG) 1 VIAL SQ SCH ×4 (06:37→21:00)
[2016-07-24] MEDS: ALBUTEROL SO4 0.083% IH SOL 2.5 MG/3 ML VIAL.NEB. NEB SCH ×2 (06:45→14:00)
[2016-07-24 07:11] LABS: ALBUMIN 3.2 g/dl (3.4-5.0); BILIRUBIN,TOTAL 0.7 mg/dL (0.2-1.0); CALCIUM 8.8 mg/dL (8.5-10.1); CREATININE 1.6 mg/dL (0.7-1.3); TOT PROT 5.9 g/dl (6.4-8.2)
--- NOTE | 2016-07-24 09:00 | PN ---
Progress Note (short form) - Note Progress Note: Feels good S/P Throid and retroperitoneal LN biopsy Vital Signs Period Temp Pulse Resp BP Sys/Kirk Pulse Ox Last 24 Hr 97 F-98.1 F 57-67 15-20 112-138/60-80 95-97 PE: AOx3 Neck: Supple, No JVD, TM HEENT: PERRL, EOMI Lungs: CTA CVS: S1S2 Abd: Benign Ext: Rt leg edema Neuro: No focal deficit CMP Sodium 137 mmol/L (136-145) 07/24/16 05:45 Potassium 4.3 mmol/L (3.5-5.1) 07/24/16 05:45 Chloride 98 mmol/L (98-107) 07/24/16 05:45 Carbon Dioxide 34 mmol/L (21-32) H 07/24/16 05:45 Anion Gap 5 (8-16) L 07/24/16 05:45 BUN 61 mg/dL (7-18) H 07/24/16 05:45 Creatinine 1.6 mg/dL (0.7-1.3) H 07/24/16 05:45 Creat Clearance w eGFR 41.59 (>60) 07/24/16 05:45 POC Glucometer 92 UNITS (()) 07/24/16 06:37 Random Glucose 96 mg/dL (74-106) D 07/24/16 05:45 Hemoglobin A1c % 5.6 % (4.8-6.0) D 07/16/16 20:30 Uric Acid 4.2 mg/dL (2.6-7.2) 07/21/16 06:30 Calcium 8.8 mg/dL (8.5-10.1) 07/24/16 05:45 Phosphorus 2.9 mg/dL (2.5-4.9) 07/15/16 06:04 Magnesium 1.8 mg/dL (1.8-2.4) 07/15/16 06:04 Total Bilirubin 0.7 mg/dL (0.2-1.0) 07/24/16 05:45 AST 9 U/L (15-37) L D 07/24/16 05:45 ALT 23 U/L (12-78) 07/24/16 05:45 Alkaline Phosphatase 52 U/L (45-117) 07/24/16 05:45 LD Total 210 U/L (87-241) 07/21/16 06:30 Prot Electrophoresis (.) 07/16/16 20:30 Serum Total Protein 6.6 g/dL (6.0-8.5) 07/16/16 20:30 Total Protein 5.9 g/dl (6.4-8.2) L 07/24/16 05:45 Albumin 3.2 g/dl (3.4-5.0) L 07/24/16 05:45 Globulin 3.0 g/dL (2.2-3.9) 07/16/16 20:30 Albumin/Globulin Ratio 1.2 (0.7-1.7) 07/16/16 20:30 Xhhqz-8-Bmmruynve 0.3 gm/dL (0.0-0.4) 07/16/16 20:30 Mhttv-5-Rpvamgsak (%) 0.0 % (.) 07/16/16 20:30 Ssmne-3-Aclzojhut 0.8 gm/dL (0.4-1.0) 07/16/16 20:30 Avqub-5-Oyxusgkbo (%) 0.0 % (.) 07/16/16 20:30 Beta Globulins 0.9 gm/dL (0.7-1.3) 07/16/16 20:30 Beta Globulins (%) 0.0 % (.) 07/16/16 20:30 Gamma Globulins 0.9 gm/dL (0.4-1.8) 07/16/16 20:30 Gamma Globulins (%) 0.0 % (.) 07/16/16 20:30 M-Pawel % Not observed % (Not Observed) 07/16/16 20:30 TSH 1.09 uIU/ml (0.358-3.74) 07/16/16 06:35 Current Medications Generic Name Dose Route Start Last Admin Trade Name Freq PRN Reason Stop Dose Admin Acetaminophen 650 mg 07/23/16 20:51 07/23/16 21:06 Tylenol - PO 650 mg Q6H PRN Administration FEVER OR PAIN Albuterol Sulfate 1 amp 07/16/16 14:00 07/24/16 06:45 Ventolin 0.083% Nebulizer Soln - NEB 1 amp TID DONALD Administration Allopurinol 200 mg 07/15/16 10:00 07/23/16 13:15 Zyloprim - PO 200 mg DAILY [facility] Administration Amlodipine Besylate 5 mg 07/15/16 10:00 07/23/16 13:13 Norvasc - PO 5 mg DAILY [facility] Administration Atorvastatin Calcium 40 mg 07/15/16 22:00 07/23/16 21:07 Lipitor - PO 40 mg HS DONALD Administration Budesonide/Formoterol Fumarate 2 puff 07/15/16 12:00 07/23/16 21:10 Symbicort 160/4.5mcg - IH 2 puff BID DONALD Administration Cholecalciferol 2,000 unit 07/15/16 10:00 07/23/16 13:13 Vitamin D3 - PO 2,000 unit DAILY [facility] Administration Furosemide 40 mg 07/18/16 14:45 07/23/16 13:13 Lasix - PO 40 mg DAILY [facility] Administration Heparin Sodium (Porcine) 25, 500 mls @ 20 mls/hr 07/21/16 10:00 07/23/16 16:37 000 unit/ Sodium Chloride IV Not Given TITR DONALD Protocol 1,000 UNIT/HR Insulin Aspart 1 vial 07/18/16 11:00 07/24/16 06:37 Novolog Vial Sliding Scale - SQ Not Given ACHS [facility] Protocol Metoprolol Tartrate 100 mg 07/15/16 10:00 07/23/16 21:06 Lopressor - PO 100 mg BID DONALD Administration Srkbr-9-Zvxz Ethyl Esters 2 gm 07/15/16 22:00 07/23/16 21:06 Lovaza - PO 2 gm BID DONALD Administration Pantoprazole Sodium 40 mg 07/22/16 10:00 07/23/16 13:14 Protonix - PO 40 mg DAILY [facility] Administration Ranolazine 500 mg 07/15/16 10:00 07/23/16 21:06 Ranexa - PO 500 mg BID DONALD Administration Tamsulosin HCl 0.4 mg 07/15/16 22:00 07/23/16 21:06 Flomax - PO 0.4 mg HS DONALD Administration Tiotropium [place] 1 puff 07/15/16 12:00 07/23/16 13:14 Spiriva - IH 1 puff DAILY DONAL[facility] Administration Warfarin Sodium 2 mg 07/23/16 18:00 01/12/17 18:08 Coumadin - PO 2 mg DAILY@1800 [facility] Administration A/P: Thyroid Nodule: S/P FNA, pathology report pending. Risk of missing malignancy in a FNA 0 to 3 %. Higher with larger nodules. Will need to follow up with sonogram periodically even if FNA is benign. Pt to follow up in office for f/u of result. Hyperglycemia: A1C 5.6 Asthmatic Bronchitis HTN S/P AVR Recent Pneumonia Influenza A
[2016-07-24] MEDS: ALLOPURINOL 100 MG TABLET (FP) PO SCH (09:35)
[2016-07-24] MEDS: OMEGA-3 ACID ETHYL ESTERS (FATTY-ACIDS) 1 GM CAPSULE (FP) PO SCH ×2 (09:35→20:59)
[2016-07-24] MEDS: CHOLECALCIFEROL (VITAMIN D3) 1,000 UNIT TABLET (FP) PO SCH (09:36)
[2016-07-24] MEDS: RANOLAZINE E.R. 500 MG TABLET (FP) PO SCH ×2 (09:36→21:00)
[2016-07-24] MEDS: PANTOPRAZOLE 40 MG TABLET (FP) PO SCH (09:36)
[2016-07-24] MEDS: FUROSEMIDE 40 MG TABLET (FP) PO SCH (09:37)
[2016-07-24] MEDS: METOPROLOL TARTRATE 50 MG TABLET (FP) PO SCH ×2 (09:37→21:00)
[2016-07-24] MEDS: TIOTROPIUM BROMIDE 18 MCG/INH (DEVICE W/ 30 CAPSULES) IH SCH (09:37)
[2016-07-24] MEDS: BUDESONIDE/FORMETEROL FUMARATE 160/4.5 mcg INHALER IH SCH ×2 (09:37→20:59)
[2016-07-24] MEDS: amLODIPine BESYLATE 5 MG TABLET (FP) PO SCH (09:37)
[2016-07-24 12:09] LABS: MCH 30.3 pg (25.7-33.7); MCHC 33.1 g/dl (32.0-35.9); MEAN CELL VOLUME 91.3 fl (80-96); MEAN PLT VOLUME 7.6 fl (7.5-11.1); PLATELET COUNT 169 K/MM3 (134-434); RDW 14.8 % (11.9-15.9); WHITE BLOOD COUNT 8.8 K/mm3 (4.0-10.0)
[2016-07-24 12:41] LABS: INR 1.29 (0.82-1.09); PROTHROMBIN TIME (PATIENT) 14.3 SEC (9.98-11.88)
--- NOTE | 2016-07-24 14:58 | PN ---
Progress Note (short form) - Note Progress Note: Renal Follow up for CKD Pt seen and examined at the bedside no complaints awaiting INR to be therapeutic Vital Signs Temperature 97.4 F L 07/24/16 09:00 Pulse Rate 60 07/24/16 09:35 Respiratory Rate 18 07/24/16 09:00 Blood Pressure 130/64 07/24/16 09:00 O2 Sat by Pulse Oximetry (%) 95 07/24/16 09:35 Intake & Output 07/21/16 07/22/16 07/23/16 07/24/16 23:59 23:59 23:59 23:59 Intake Total 1080 1266 531 Balance 1080 1266 531 Weight 226 lb 8 oz 224 lb 2 oz 219 lb 1 oz 217 lb 4 oz Gen: NAD, awake and alert CVS: RRR, No M/R Lungs: CTA, no rales or wheeze Abd: soft, Obese, NT/ND Ext: Trace edema, clubbing or cyanosis CBC, BMP 07/24/16 11:30 07/24/16 05:45 Current Medications Acetaminophen (Tylenol -) 650 mg PO Q6H PRN PRN Reason: FEVER OR PAIN Last Admin: 07/23/16 21:06 Dose: 650 mg Albuterol Sulfate (Ventolin 0.083% Nebulizer Soln -) 1 amp NEB TID [facility] Last Admin: 07/24/16 14:00 Dose: 1 amp Allopurinol (Zyloprim -) 200 mg PO DAILY [facility] Last Admin: 07/24/16 09:35 Dose: 200 mg Amlodipine Besylate (Norvasc -) 5 mg PO DAILY [facility] Last Admin: 07/24/16 09:37 Dose: 5 mg Atorvastatin Calcium (Lipitor -) 40 mg PO HS [facility] Last Admin: 07/23/16 21:07 Dose: 40 mg Budesonide/Formoterol Fumarate (Symbicort 160/4.5mcg -) 2 puff IH BID [facility] Last Admin: 07/24/16 09:37 Dose: 2 puff Cholecalciferol (Vitamin D3 -) 2,000 unit PO DAILY [facility] Last Admin: 07/24/16 09:36 Dose: 2,000 unit Furosemide (Lasix -) 40 mg PO DAILY [facility] Last Admin: 07/24/16 09:37 Dose: 40 mg Heparin Sodium (Porcine) 25, (000 unit/ Sodium Chloride) 500 mls @ 20 mls/hr IV TITR DONALD; 1,000 UNIT/HR PRN Reason: Protocol Last Admin: 07/23/16 16:37 Dose: Not Given Insulin Aspart (Novolog Vial Sliding Scale -) 1 vial SQ ACHS DONALD PRN Reason: Protocol Last Admin: 07/24/16 11:16 Dose: Not Given Metoprolol Tartrate (Lopressor -) 100 mg PO BID [facility] Last Admin: 07/24/16 09:37 Dose: 100 mg Awafv-5-Heef Ethyl Esters (Lovaza -) 2 gm PO BID [facility] Last Admin: 07/24/16 09:35 Dose: 2 gm Pantoprazole Sodium (Protonix -) 40 mg PO DAILY [facility] Last Admin: 07/24/16 09:36 Dose: 40 mg Ranolazine (Ranexa -) 500 mg PO BID [facility] Last Admin: 07/24/16 09:36 Dose: 500 mg Tamsulosin HCl (Flomax -) 0.4 mg PO HS [facility] Last Admin: 07/23/16 21:06 Dose: 0.4 mg Tiotropium [place] (Spiriva -) 1 puff IH DAILY [facility] Last Admin: 07/24/16 09:37 Dose: 1 puff Warfarin Sodium (Coumadin -) 2 mg PO DAILY@1800 [facility] Last Admin: 07/23/16 18:08 Dose: 2 mg A/P 80 year old Gentleman with PMhx of Afib on A/C, Hypertension, HLD, CKD Stage 3 ( baseline Cr 1.5) presented with sob and found to Influenza #CKD Renal function stable SPEP showed 2 m-spikes and [place]/Lamda ratio is elevated - suspicious for lymphoma as per oncology awaiting LN biopsy results #RP Lymhadenopathy/Thyroid mass s/p Biospy awaiting results #Afib Restarted on Coumadin INR subtheraputic Hemant Arceo DO
[2016-07-24 15:20] LABS: METAMYELOCYTE 1 % (0-2)
--- NOTE | 2016-07-24 15:23 | PN ---
Physical Exam: SUBJECTIVE: Patient seen and examined. He has no complaints, no pain, no fever, no sob. Removed thyroid dressing OBJECTIVE: Vital Signs Period Temp Pulse Resp BP Sys/Kirk Pulse Ox Last 24 Hr 97.4 F-98.1 F 57-67 15-20 112-138/58-80 95-97 PE Neuro: alert, awake, cn 2-12 intact HEENT: R thyroid incision, cdi, Pulm: CTAB, no wheezing CV: s1 s2 rrr Abd: s nt nd + bs Ext: RLE +1 pitting edema, no issues with gait CBCD WBC 8.8 K/mm3 (4.0-10.0) 07/24/16 11:30 RBC 4.08 M/mm3 (4.00-5.60) 07/24/16 11:30 Hgb 12.3 GM/dL (11.7-16.9) 07/24/16 11:30 Hct 37.2 % (35.4-49) 07/24/16 11:30 MCV 91.3 fl (80-96) 07/24/16 11:30 MCHC 33.1 g/dl (32.0-35.9) 07/24/16 11:30 RDW 14.8 % (11.9-15.9) 07/24/16 11:30 Plt Count 169 K/MM3 (134-434) 07/24/16 11:30 MPV 7.6 fl (7.5-11.1) 07/24/16 11:30 CMP Sodium 137 mmol/L (136-145) 07/24/16 05:45 Potassium 4.3 mmol/L (3.5-5.1) 07/24/16 05:45 Chloride 98 mmol/L (98-107) 07/24/16 05:45 Carbon Dioxide 34 mmol/L (21-32) H 07/24/16 05:45 Anion Gap 5 (8-16) L 07/24/16 05:45 BUN 61 mg/dL (7-18) H 07/24/16 05:45 Creatinine 1.6 mg/dL (0.7-1.3) H 07/24/16 05:45 Creat Clearance w eGFR 41.59 (>60) 07/24/16 05:45 Calcium 8.8 mg/dL (8.5-10.1) 07/24/16 05:45 Total Bilirubin 0.7 mg/dL (0.2-1.0) 07/24/16 05:45 AST 9 U/L (15-37) L D 07/24/16 05:45 ALT 23 U/L (12-78) 07/24/16 05:45 Alkaline Phosphatase 52 U/L (45-117) 07/24/16 05:45 Total Protein 5.9 g/dl (6.4-8.2) L 07/24/16 05:45 Albumin 3.2 g/dl (3.4-5.0) L 07/24/16 05:45 07/16/16 07/24/16 20:30 11:30 INR 1.29 H Urine Total Protein 8.3 Urine PEP Interpret 100.0 Active Medications Generic Name Dose Route Start Last Admin Trade Name Freq PRN Reason Stop Dose Admin Acetaminophen 650 mg 07/23/16 20:51 07/23/16 21:06 Tylenol - PO 650 mg Q6H PRN Administration FEVER OR PAIN Albuterol Sulfate 1 amp 07/16/16 14:00 07/24/16 14:00 Ventolin 0.083% Nebulizer Soln - NEB 1 amp TID DONALD Administration Allopurinol 200 mg 07/15/16 10:00 07/24/16 09:35 Zyloprim - PO 200 mg DAILY DONALD Administration Amlodipine Besylate 5 mg 07/15/16 10:00 07/24/16 09:37 Norvasc - PO 5 mg DAILY DONALD Administration Atorvastatin Calcium 40 mg 07/15/16 22:00 07/23/16 21:07 Lipitor - PO 40 mg HS DONALD Administration Budesonide/Formoterol Fumarate 2 puff 07/15/16 12:00 07/24/16 09:37 Symbicort 160/4.5mcg - IH 2 puff BID DONALD Administration Cholecalciferol 2,000 unit 07/15/16 10:00 07/24/16 09:36 Vitamin D3 - PO 2,000 unit DAILY [facility]AL[facility] Administration Furosemide 40 mg 07/18/16 14:45 07/24/16 09:37 Lasix - PO 40 mg DAILY DONALD Administration Insulin Aspart 1 vial 07/18/16 11:00 07/24/16 11:16 Novolog Vial Sliding Scale - SQ Not Given [facility] Protocol Metoprolol Tartrate 100 mg 07/15/16 10:00 07/24/16 09:37 Lopressor - PO 100 mg BID DONALD Administration Llyjs-8-Dxmy Ethyl Esters 2 gm 07/15/16 22:00 07/24/16 09:35 Lovaza - PO 2 gm BID DONALD Administration Pantoprazole Sodium 40 mg 07/22/16 10:00 07/24/16 09:36 Protonix - PO 40 mg DAILY DONALD Administration Ranolazine 500 mg 07/15/16 10:00 07/24/16 09:36 Ranexa - PO 500 mg BID DONALD Administration Tamsulosin HCl 0.4 mg 07/15/16 22:00 07/23/16 21:06 Flomax - PO 0.4 mg HS DONALD Administration Tiotropium [place] 1 puff 07/15/16 12:00 07/24/16 09:37 Spiriva - IH 1 puff DAILY DONALD Administration Warfarin Sodium 5 mg 07/24/16 18:00 Coumadin - PO DAILY@1800 [facility] Imaging: - CT Chest: mild mediastinal lymphadenopathy, R thyroidmegaly - CTAP non contrast 07/17: pelvis extensive retroperitoneal adenopathy, stranding of mesenter Assessment: This is an 80 year old male with PMHx of CAD s/p multivessel PCI ( stenting), A.fib, diastolic disfunction, s/p bioAVR, PAF->SR post cryoMaze, HTN, HLD, CKD, BPH, gastric ulcer, admitted with increased wheezing and SOB. Plan: 1. Retroperitoneal lymphadenopathy - s/p RPN bx 07/23 - r/o possible lymphoma - Immunology shows 2 beat M spikes, ?monoclonal protein with elevated free kappa /free son ratio - No signs of bleeding 2. Right enlarged thyroid - FNA 07/23: r/o malignancy, will need office f/u with endocrine for periodic US 3. Paroxysmal A.fib, [id number] score of 4 - Increase coumadin 5mg tonight - Hold heparin 48hr, can restart tomorrow - Daily INR 4. CAD s/p multi-vessel PCI - Continue Ranexa - Continue Lopressor - Continue Lipitor 5. Chronic diastolic heart failure - Continue Lasix - Hold ARB given CHINO on CKD 6. CHINO on CKD - Stable, appears at baseline 7. BPH - Continue Flomax 8. Asthma bronchitis, wheezing - Resolved - Continue Spiriva - Continue Symbicort Dispo: - Awaiting therapeutic INR, will need heparin bridge Visit type - Emergency Visit Emergency Visit: Yes ED Registration Date: 07/15/16 Care time: The patient presented to the Emergency Department on the above date and was hospitalized for further evaluation of their emergent condition. - New Patient This patient is new to me today: No - Critical Care Critical Care patient: No
--- NOTE | 2016-07-24 15:46 | PATH ---
Cytology Non-Gynecological Report Patient Name: NITZA CHOW [facility]. Rec. #: [id number] /Age/Gender: 1935 (Age: 80) / M Account: [id number] Location: [address] [place] [address] Taken: 07/23/2016 Received: 07/23/2016 Reported: 07/24/2016 Physicians: Emilee Hernandes M.D. Alysha Koorji, ACNP Specimen(s) Received RIGHT THYROID FNA Clinical History Right thyroid nodule, 4.33 x 2.26 x 2.82 cm, r/o thyroid lymphoma Final Diagnosis THYROID GLAND, RIGHT LOBE, US GUIDED FINE NEEDLE ASPIRATION BIOPSY: SATISFACTORY FOR EVALUATION. NO MALIGNANT CELLS IDENTIFIED. CONSISTENT WITH NODULAR GOITER WITH CYSTIC CHANGE (BENIGN FOLLICULAR NODULE, BETHESDA CATEGORY II, BENIGN), SEE COMMENT. Comment: The smears and the cell block show clusters of bland appearing follicular epithelial cells in mixed macro- and microfollicles and flat sheets. Macrophages are present indicative of cystic change. The findings are consistent with nodular goiter with cystic change. There is no evidence of lymphoma in the examined material. Electronically Signed Rigoberto Brar M.D. Gross Description Received are four air dried smears, four smears in 95% alcohol, and 20 cc of bloody fluid in formalin. Four diff-quik stained slides, four Pap stained slides and one cell block are made.
--- NOTE | 2016-07-24 15:46 | PN ---
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
--- NOTE | 2016-07-24 16:49 | PN ---
Progress Note, Physician History of Present Illness: Cough and wheeze resolved. Not dyspneic. Post biopsy, await pathology and confirmatory stains. - Current Medication List Current Medications: Active Medications Acetaminophen (Tylenol -) 650 mg PO Q6H PRN PRN Reason: FEVER OR PAIN Last Admin: 07/23/16 21:06 Dose: 650 mg Allopurinol (Zyloprim -) 200 mg PO DAILY [facility] Last Admin: 07/24/16 09:35 Dose: 200 mg Amlodipine Besylate (Norvasc -) 5 mg PO DAILY [facility] Last Admin: 07/24/16 09:37 Dose: 5 mg Atorvastatin Calcium (Lipitor -) 40 mg PO HS [facility] Last Admin: 07/23/16 21:07 Dose: 40 mg Budesonide/Formoterol Fumarate (Symbicort 160/4.5mcg -) 2 puff IH BID [facility] Last Admin: 07/24/16 09:37 Dose: 2 puff Cholecalciferol (Vitamin D3 -) 2,000 unit PO DAILY [facility] Last Admin: 07/24/16 09:36 Dose: 2,000 unit Furosemide (Lasix -) 40 mg PO DAILY [facility] Last Admin: 07/24/16 09:37 Dose: 40 mg Insulin Aspart (Novolog Vial Sliding Scale -) 1 vial SQ ACHS [facility] PRN Reason: Protocol Last Admin: 07/24/16 11:16 Dose: Not Given Metoprolol Tartrate (Lopressor -) 100 mg PO BID [facility] Last Admin: 07/24/16 09:37 Dose: 100 mg Kjxoj-5-Npnp Ethyl Esters (Lovaza -) 2 gm PO BID [facility] Last Admin: 07/24/16 09:35 Dose: 2 gm Pantoprazole Sodium (Protonix -) 40 mg PO DAILY [facility] Last Admin: 07/24/16 09:36 Dose: 40 mg Ranolazine (Ranexa -) 500 mg PO BID [facility] Last Admin: 07/24/16 09:36 Dose: 500 mg Tamsulosin HCl (Flomax -) 0.4 mg PO HS [facility] Last Admin: 07/23/16 21:06 Dose: 0.4 mg Tiotropium [place] (Spiriva -) 1 puff IH DAILY [facility] Last Admin: 07/24/16 09:37 Dose: 1 puff Warfarin Sodium (Coumadin -) 5 mg PO DAILY@1800 [facility] - Objective Vital Signs: Vital Signs Temperature 97.8 F 07/24/16 14:00 Pulse Rate 57 L 07/24/16 14:00 Respiratory Rate 20 07/24/16 14:00 Blood Pressure 116/58 07/24/16 14:00 O2 Sat by Pulse Oximetry (%) 95 07/24/16 09:35 Constitutional: Yes: No Distress, Calm Neck: Yes: Supple Cardiovascular: Yes: Regular Rate and Rhythm Respiratory: Yes: Regular, CTA Bilaterally Gastrointestinal: Yes: Normal Bowel Sounds, Soft Edema: No Labs: CBC, BMP 07/24/16 11:30 07/24/16 05:45 INR, PTT INR 1.29 (0.82-1.09) H 07/24/16 11:30 Problem List - Problems (1) A-fib Code(s): I48.91 - UNSPECIFIED ATRIAL FIBRILLATION Qualifiers: Atrial fibrillation type: paroxysmal Qualified Code(s): I48.0 - Paroxysmal atrial fibrillation (2) Acute kidney injury Code(s): N17.9 - ACUTE KIDNEY FAILURE, UNSPECIFIED (3) Aortic valve replaced Code(s): Z95.2 - PRESENCE OF PROSTHETIC HEART VALVE (4) Asthmatic bronchitis Code(s): J45.909 - UNSPECIFIED ASTHMA, UNCOMPLICATED Qualifiers: Asthma severity: moderate persistent (5) HLD (hyperlipidemia) Code(s): E78.5 - HYPERLIPIDEMIA, UNSPECIFIED Qualifiers: Hyperlipidemia type: pure hypercholesterolemia Qualified Code(s): E78.0 - Pure hypercholesterolemia (6) HTN (hypertension) Code(s): I10 - ESSENTIAL (PRIMARY) HYPERTENSION Qualifiers: Hypertension type: essential hypertension Qualified Code(s): I10 - Essential (primary) hypertension (7) Influenza A Code(s): J10.1 - FLU DUE TO OTH IDENT INFLUENZA VIRUS W OTH RESP MANIFEST (8) Diastolic dysfunction without heart failure Code(s): I51.9 - HEART DISEASE, UNSPECIFIED (9) Retroperitoneal lymphadenopathy Code(s): R59.0 - LOCALIZED ENLARGED LYMPH NODES (10) Nodular goiter Code(s): E04.9 - NONTOXIC GOITER, UNSPECIFIED Assessment/Plan 1. Asthmatic bronchitis resolved 2. CAD post multi-vessel PCI (stent), angina pectoris 3. Diastolic LV dysfunction with chronic class I NYHA classification LV failure , compensated 4. Aortic stenosis post AVR (Bio-prosthesis) 5. PAF currently sinus rhythm [id number] score of 4 with subtherapeutic INR 6. HTN/HCVD 7. Hyperlipidemia 8. Acute on CKD resolving 9. Right nodular goiter post negative FNA 10. 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 Continue Lopressor 100 mg BID 2. Continue Norvasc 5 mg QD 3. Continue Ranexa 500 mg BID 4. Continue Lipitor 40 mg QHS and Lovaza 2 g BID 5. Continue a/c per INR 6. Continue Lasix 40 mg QD with caution 7. Continue to hold Losartan pending further renal function recovery 8. Bronchodilators and IV steroids 9. F/u biopsy results
--- NOTE | 2016-07-24 17:40 | PN ---
Progress Note (short form) - Note Progress Note: Patient seen and examined S/P thyroid and RPN biopsy Pathology awaitied Last Vital Signs Temp Pulse Resp BP Pulse Ox 97.8 F 57 L 20 116/58 95 07/24/16 14:00 07/24/16 14:00 07/24/16 14:00 07/24/16 14:00 07/24/16 09:35 HEENT: DEMAR, EOM Intact Oropharynx: No thrush, No mucositis Cor: RSR, No murmurs, No gallops Lungs: Clear to P&A Abd: Soft, Normal bowel sounds, No organomegaly Ext:No significant edema Skin: No rashes, Integument intact CBC, BMP 07/24/16 11:30 07/24/16 05:45 Current Medications Generic Name Dose Route Start Last Admin Trade Name Freq PRN Reason Stop Dose Admin Acetaminophen 650 mg 07/23/16 20:51 07/23/16 21:06 Tylenol - PO 650 mg Q6H PRN Administration FEVER OR PAIN Allopurinol 200 mg 07/15/16 10:00 07/24/16 09:35 Zyloprim - PO 200 mg DAILY DONALD Administration Amlodipine Besylate 5 mg 07/15/16 10:00 07/24/16 09:37 Norvasc - PO 5 mg DAILY [facility]AL[facility] Administration Atorvastatin Calcium 40 mg 07/15/16 22:00 07/23/16 21:07 Lipitor - PO 40 mg HS DONALD Administration Budesonide/Formoterol Fumarate 2 puff 07/15/16 12:00 07/24/16 09:37 Symbicort 160/4.5mcg - IH 2 puff BID DONALD Administration Cholecalciferol 2,000 unit 07/15/16 10:00 07/24/16 09:36 Vitamin D3 - PO 2,000 unit DAILY [facility] Administration Furosemide 40 mg 07/18/16 14:45 07/24/16 09:37 Lasix - PO 40 mg DAILY [facility] Administration Insulin Aspart 1 vial 07/18/16 11:00 07/24/16 17:18 Novolog Vial Sliding Scale - SQ Not Given ACHS DONAL[facility] Protocol Metoprolol Tartrate 100 mg 07/15/16 10:00 07/24/16 09:37 Lopressor - PO 100 mg BID DONALD Administration Carvu-2-Unno Ethyl Esters 2 gm 07/15/16 22:00 07/24/16 09:35 Lovaza - PO 2 gm BID DONALD Administration Pantoprazole Sodium 40 mg 07/22/16 10:00 07/24/16 09:36 Protonix - PO 40 mg DAILY [facility] Administration Ranolazine 500 mg 07/15/16 10:00 07/24/16 09:36 Ranexa - PO 500 mg BID DONALD Administration Tamsulosin HCl 0.4 mg 07/15/16 22:00 07/23/16 21:06 Flomax - PO 0.4 mg HS DONALD Administration Tiotropium [place] 1 puff 07/15/16 12:00 07/24/16 09:37 Spiriva - IH 1 puff DAILY [facility]AL[facility] Administration Warfarin Sodium 5 mg 07/24/16 18:00 07/24/16 17:18 Coumadin - PO 5 mg DAILY@1800 DONALD Administration Impression: S/P Thyroid and RPN biopsy Await path Hx of PAF Coumadin re-instituted.
[2016-07-24] MEDS ORDERED: WARFARIN NA 5 MG TABLET (UD) PO SCH (18:00)
[2016-07-24] MEDS: ATORVASTATIN CA 40 MG TABLET (FP) PO SCH (21:00)
[2016-07-24] MEDS: TAMSULOSIN HCL 0.4 MG CAP.ER.24H (FP) PO SCH (21:00)
[2016-07-25] MEDS: INSULIN SLIDING SCALE (NOVOLOG) 1 VIAL SQ SCH ×4 (06:22→21:31)
[2016-07-25 08:53] LABS: BASOPHIL 0.1 % (0-2.0); EOSINOPHIL 1.8 % (0-4.5); MCH 30.6 pg (25.7-33.7); MCHC 33.6 g/dl (32.0-35.9); MEAN CELL VOLUME 91.2 fl (80-96); MEAN PLT VOLUME 7.9 fl (7.5-11.1); NEUTROPHILS 73.2 % (42.8-82.8); PLATELET COUNT 158 K/MM3 (134-434); WHITE BLOOD COUNT 9.4 K/mm3 (4.0-10.0)
[2016-07-25 09:04] LABS: INR 1.34 (0.82-1.09); PROTHROMBIN TIME (PATIENT) 14.8 SEC (9.98-11.88)
[2016-07-25] MEDS ORDERED: PT OWN MED DRAWER 7, Y5N ONE (09:41)
[2016-07-25] MEDS: OMEGA-3 ACID ETHYL ESTERS (FATTY-ACIDS) 1 GM CAPSULE (FP) PO SCH ×2 (09:44→21:30)
[2016-07-25] MEDS: CHOLECALCIFEROL (VITAMIN D3) 1,000 UNIT TABLET (FP) PO SCH (09:44)
[2016-07-25] MEDS: PANTOPRAZOLE 40 MG TABLET (FP) PO SCH (09:44)
[2016-07-25] MEDS: amLODIPine BESYLATE 5 MG TABLET (FP) PO SCH (09:44)
[2016-07-25] MEDS: ALLOPURINOL 100 MG TABLET (FP) PO SCH (09:44)
[2016-07-25] MEDS: METOPROLOL TARTRATE 50 MG TABLET (FP) PO SCH ×2 (09:44→21:30)
[2016-07-25] MEDS: FUROSEMIDE 40 MG TABLET (FP) PO SCH (09:44)
[2016-07-25] MEDS: RANOLAZINE E.R. 500 MG TABLET (FP) PO SCH ×2 (09:44→21:30)
[2016-07-25] MEDS: TIOTROPIUM BROMIDE 18 MCG/INH (DEVICE W/ 30 CAPSULES) IH SCH (09:45)
[2016-07-25] MEDS: BUDESONIDE/FORMETEROL FUMARATE 160/4.5 mcg INHALER IH SCH ×2 (09:45→21:30)
--- NOTE | 2016-07-25 10:57 | PN ---
Progress Note (short form) - Note Progress Note: Feels good No complaints S/P Throid and retroperitoneal LN biopsy Vital Signs Period Temp Pulse Resp BP Sys/Kirk Pulse Ox Last 24 Hr 97.7 F-98.2 F 56-62 18-20 107-123/58-69 97-98 PE: AOx3 Neck: Supple, No JVD, TM HEENT: PERRL, EOMI Lungs: CTA CVS: S1S2 Abd: Benign Ext: Rt leg edema Neuro: No focal deficit CMP Sodium 137 mmol/L (136-145) 07/24/16 05:45 Potassium 4.3 mmol/L (3.5-5.1) 07/24/16 05:45 Chloride 98 mmol/L (98-107) 07/24/16 05:45 Carbon Dioxide 34 mmol/L (21-32) H 07/24/16 05:45 Anion Gap 5 (8-16) L 07/24/16 05:45 BUN 61 mg/dL (7-18) H 07/24/16 05:45 Creatinine 1.6 mg/dL (0.7-1.3) H 07/24/16 05:45 Creat Clearance w eGFR 41.59 (>60) 07/24/16 05:45 POC Glucometer 113 UNITS (()) 07/25/16 06:14 Random Glucose 96 mg/dL (74-106) D 07/24/16 05:45 Hemoglobin A1c % 5.6 % (4.8-6.0) D 07/16/16 20:30 Uric Acid 4.2 mg/dL (2.6-7.2) 07/21/16 06:30 Calcium 8.8 mg/dL (8.5-10.1) 07/24/16 05:45 Phosphorus 2.9 mg/dL (2.5-4.9) 07/15/16 06:04 Magnesium 1.8 mg/dL (1.8-2.4) 07/15/16 06:04 Total Bilirubin 0.7 mg/dL (0.2-1.0) 07/24/16 05:45 AST 9 U/L (15-37) L D 07/24/16 05:45 ALT 23 U/L (12-78) 07/24/16 05:45 Alkaline Phosphatase 52 U/L (45-117) 07/24/16 05:45 LD Total 210 U/L (87-241) 07/21/16 06:30 Prot Electrophoresis (.) 07/16/16 20:30 Serum Total Protein 6.6 g/dL (6.0-8.5) 07/16/16 20:30 Total Protein 5.9 g/dl (6.4-8.2) L 07/24/16 05:45 Albumin 3.2 g/dl (3.4-5.0) L 07/24/16 05:45 Globulin 3.0 g/dL (2.2-3.9) 07/16/16 20:30 Albumin/Globulin Ratio 1.2 (0.7-1.7) 07/16/16 20:30 Yaiij-4-Msjdtzoun 0.3 gm/dL (0.0-0.4) 07/16/16 20:30 Avucv-0-Ibycdtqno (%) 0.0 % (.) 07/16/16 20:30 Qxlwi-0-Zjjklddom 0.8 gm/dL (0.4-1.0) 07/16/16 20:30 Egyds-6-Neffrpxdw (%) 0.0 % (.) 07/16/16 20:30 Beta Globulins 0.9 gm/dL (0.7-1.3) 07/16/16 20:30 Beta Globulins (%) 0.0 % (.) 07/16/16 20:30 Gamma Globulins 0.9 gm/dL (0.4-1.8) 07/16/16 20:30 Gamma Globulins (%) 0.0 % (.) 07/16/16 20:30 M-Pawel % Not observed % (Not Observed) 07/16/16 20:30 TSH 1.09 uIU/ml (0.358-3.74) 07/16/16 06:35 Current Medications Generic Name Dose Route Start Last Admin Trade Name Freq PRN Reason Stop Dose Admin Acetaminophen 650 mg 07/23/16 20:51 07/23/16 21:06 Tylenol - PO 650 mg Q6H PRN Administration FEVER OR PAIN Allopurinol 200 mg 07/15/16 10:00 07/25/16 09:44 Zyloprim - PO 200 mg DAILY DONALD Administration Amlodipine Besylate 5 mg 07/15/16 10:00 07/25/16 09:44 Norvasc - PO 5 mg DAILY [facility] Administration Atorvastatin Calcium 40 mg 07/15/16 22:00 07/24/16 21:00 Lipitor - PO 40 mg HS DONALD Administration Budesonide/Formoterol Fumarate 2 puff 07/15/16 12:00 07/25/16 09:45 Symbicort 160/4.5mcg - IH 2 puff BID DONALD Administration Cholecalciferol 2,000 unit 07/15/16 10:00 07/25/16 09:44 Vitamin D3 - PO 2,000 unit DAILY [facility]AL[facility] Administration Furosemide 40 mg 07/18/16 14:45 07/25/16 09:44 Lasix - PO 40 mg DAILY [facility]AL[facility] Administration Insulin Aspart 1 vial 07/18/16 11:00 07/25/16 06:22 Novolog Vial Sliding Scale - SQ Not Given ACHS [facility] Protocol Metoprolol Tartrate 100 mg 07/15/16 10:00 07/25/16 09:44 Lopressor - PO 100 mg BID DONALD Administration Ngfjj-8-Xuak Ethyl Esters 2 gm 07/15/16 22:00 07/25/16 09:44 Lovaza - PO 2 gm BID DONAL[facility] Administration Pantoprazole Sodium 40 mg 07/22/16 10:00 07/25/16 09:44 Protonix - PO 40 mg DAILY [facility]AL[facility] Administration Ranolazine 500 mg 07/15/16 10:00 07/25/16 09:44 Ranexa - PO 500 mg BID DONALD Administration Tamsulosin HCl 0.4 mg 07/15/16 22:00 07/24/16 21:00 Flomax - PO 0.4 mg HS DONALD Administration Tiotropium [place] 1 puff 07/15/16 12:00 07/25/16 09:45 Spiriva - IH 1 puff DAILY [facility]AL[facility] Administration Warfarin Sodium 5 mg 07/24/16 18:00 07/24/16 17:18 Coumadin - PO 5 mg DAILY@1800 [facility] Administration A/P: Thyroid Nodule: S/P FNA, pathology reported as Benign. Risk of missing malignancy in a FNA 0 to 3 %. Higher with larger nodules. Will need to follow up with sonogram periodically. Repeat Sonogram in 9 to 12 months and earlier if any change clinically. Pt to follow up in office in 3 months Hyperglycemia: A1C 5.6 Asthmatic Bronchitis HTN S/P AVR Recent Pneumonia Influenza A
--- NOTE | 2016-07-25 12:22 | PN ---
Progress Note (short form) - Note Progress Note: Renal Follow up for CKD Pt seen and examined at the bedside no complaints awaiting INR to be therapeutic Vital Signs Temperature 98.2 F 07/25/16 09:00 Pulse Rate 60 07/25/16 09:00 Respiratory Rate 18 07/25/16 09:00 Blood Pressure 113/62 07/25/16 09:00 O2 Sat by Pulse Oximetry (%) 98 07/25/16 09:00 Intake & Output 07/22/16 07/23/16 07/24/16 07/25/16 23:59 23:59 23:59 23:59 Intake Total 1266 531 400 200 Balance 1266 531 400 200 Weight 224 lb 2 oz 219 lb 1 oz 217 lb 4 oz 214 lb 2 oz Gen: NAD, awake and alert CVS: RRR, No M/R Lungs: CTA, no rales or wheeze Abd: soft, Obese, NT/ND Ext: Trace edema, clubbing or cyanosis CBC, BMP 07/25/16 07:25 07/24/16 05:45 Current Medications Acetaminophen (Tylenol -) 650 mg PO Q6H PRN PRN Reason: FEVER OR PAIN Last Admin: 07/23/16 21:06 Dose: 650 mg Allopurinol (Zyloprim -) 200 mg PO DAILY [facility] Last Admin: 07/25/16 09:44 Dose: 200 mg Amlodipine Besylate (Norvasc -) 5 mg PO DAILY [facility] Last Admin: 07/25/16 09:44 Dose: 5 mg Atorvastatin Calcium (Lipitor -) 40 mg PO HS [facility] Last Admin: 07/24/16 21:00 Dose: 40 mg Budesonide/Formoterol Fumarate (Symbicort 160/4.5mcg -) 2 puff IH BID [facility] Last Admin: 07/25/16 09:45 Dose: 2 puff Cholecalciferol (Vitamin D3 -) 2,000 unit PO DAILY [facility] Last Admin: 07/25/16 09:44 Dose: 2,000 unit Furosemide (Lasix -) 40 mg PO DAILY [facility] Last Admin: 07/25/16 09:44 Dose: 40 mg Insulin Aspart (Novolog Vial Sliding Scale -) 1 vial SQ ACHS [facility] PRN Reason: Protocol Last Admin: 07/25/16 11:13 Dose: Not Given Metoprolol Tartrate (Lopressor -) 100 mg PO BID [facility] Last Admin: 07/25/16 09:44 Dose: 100 mg Sknnv-9-Abbr Ethyl Esters (Lovaza -) 2 gm PO BID [facility] Last Admin: 07/25/16 09:44 Dose: 2 gm Pantoprazole Sodium (Protonix -) 40 mg PO DAILY [facility] Last Admin: 07/25/16 09:44 Dose: 40 mg Ranolazine (Ranexa -) 500 mg PO BID [facility] Last Admin: 07/25/16 09:44 Dose: 500 mg Tamsulosin HCl (Flomax -) 0.4 mg PO HS [facility] Last Admin: 07/24/16 21:00 Dose: 0.4 mg Tiotropium [place] (Spiriva -) 1 puff IH DAILY [facility] Last Admin: 07/25/16 09:45 Dose: 1 puff Warfarin Sodium (Coumadin -) 5 mg PO DAILY@1800 [facility] Last Admin: 07/24/16 17:18 Dose: 5 mg A/P 80 year old Gentleman with PMhx of Afib on A/C, Hypertension, HLD, CKD Stage 3 ( baseline Cr 1.5) presented with sob and found to Influenza #CKD Renal function stable with abnormal SPEP LN Biopsy pending #RP Lymhadenopathy/Thyroid mass s/p Biospy awaiting results #Afib Restarted on Coumadin INR subtheraputic Hemant Arceo DO
--- NOTE | 2016-07-25 13:08 | PN ---
Progress Note, Physician History of Present Illness: Await pathology and confirmatory stains, no complaints. - Current Medication List Current Medications: Active Medications Acetaminophen (Tylenol -) 650 mg PO Q6H PRN PRN Reason: FEVER OR PAIN Last Admin: 07/23/16 21:06 Dose: 650 mg Allopurinol (Zyloprim -) 200 mg PO DAILY [facility] Last Admin: 07/25/16 09:44 Dose: 200 mg Amlodipine Besylate (Norvasc -) 5 mg PO DAILY [facility] Last Admin: 07/25/16 09:44 Dose: 5 mg Atorvastatin Calcium (Lipitor -) 40 mg PO HS [facility] Last Admin: 07/24/16 21:00 Dose: 40 mg Budesonide/Formoterol Fumarate (Symbicort 160/4.5mcg -) 2 puff IH BID [facility] Last Admin: 07/25/16 09:45 Dose: 2 puff Cholecalciferol (Vitamin D3 -) 2,000 unit PO DAILY [facility] Last Admin: 07/25/16 09:44 Dose: 2,000 unit Furosemide (Lasix -) 40 mg PO DAILY [facility] Last Admin: 07/25/16 09:44 Dose: 40 mg Insulin Aspart (Novolog Vial Sliding Scale -) 1 vial SQ ACHS [facility] PRN Reason: Protocol Last Admin: 07/25/16 11:13 Dose: Not Given Metoprolol Tartrate (Lopressor -) 100 mg PO BID [facility] Last Admin: 07/25/16 09:44 Dose: 100 mg Ixzlf-8-Aemn Ethyl Esters (Lovaza -) 2 gm PO BID [facility] Last Admin: 07/25/16 09:44 Dose: 2 gm Pantoprazole Sodium (Protonix -) 40 mg PO DAILY [facility] Last Admin: 07/25/16 09:44 Dose: 40 mg Ranolazine (Ranexa -) 500 mg PO BID [facility] Last Admin: 07/25/16 09:44 Dose: 500 mg Tamsulosin HCl (Flomax -) 0.4 mg PO HS [facility] Last Admin: 07/24/16 21:00 Dose: 0.4 mg Tiotropium [place] (Spiriva -) 1 puff IH DAILY [facility] Last Admin: 07/25/16 09:45 Dose: 1 puff Warfarin Sodium (Coumadin -) 5 mg PO DAILY@1800 [facility] Last Admin: 07/24/16 17:18 Dose: 5 mg - Objective Vital Signs: Vital Signs Temperature 98.2 F 07/25/16 09:00 Pulse Rate 60 07/25/16 09:00 Respiratory Rate 18 07/25/16 09:00 Blood Pressure 113/62 07/25/16 09:00 O2 Sat by Pulse Oximetry (%) 98 07/25/16 09:00 Constitutional: Yes: No Distress, Calm Neck: Yes: Supple Cardiovascular: Yes: Regular Rate and Rhythm Respiratory: Yes: Regular, CTA Bilaterally Gastrointestinal: Yes: Normal Bowel Sounds, Soft Edema: No Labs: CBC, BMP 07/25/16 07:25 07/24/16 05:45 INR, PTT INR 1.34 (0.82-1.09) H 07/25/16 07:25 Problem List - Problems (1) A-fib Code(s): I48.91 - UNSPECIFIED ATRIAL FIBRILLATION Qualifiers: Atrial fibrillation type: paroxysmal Qualified Code(s): I48.0 - Paroxysmal atrial fibrillation (2) Acute kidney injury Code(s): N17.9 - ACUTE KIDNEY FAILURE, UNSPECIFIED (3) Aortic valve replaced Code(s): Z95.2 - PRESENCE OF PROSTHETIC HEART VALVE (4) Asthmatic bronchitis Code(s): J45.909 - UNSPECIFIED ASTHMA, UNCOMPLICATED Qualifiers: Asthma severity: moderate persistent (5) HLD (hyperlipidemia) Code(s): E78.5 - HYPERLIPIDEMIA, UNSPECIFIED Qualifiers: Hyperlipidemia type: pure hypercholesterolemia Qualified Code(s): E78.0 - Pure hypercholesterolemia (6) HTN (hypertension) Code(s): I10 - ESSENTIAL (PRIMARY) HYPERTENSION Qualifiers: Hypertension type: essential hypertension Qualified Code(s): I10 - Essential (primary) hypertension (7) Influenza A Code(s): J10.1 - FLU DUE TO OTH IDENT INFLUENZA VIRUS W OTH RESP MANIFEST (8) Diastolic dysfunction without heart failure Code(s): I51.9 - HEART DISEASE, UNSPECIFIED (9) Retroperitoneal lymphadenopathy Code(s): R59.0 - LOCALIZED ENLARGED LYMPH NODES (10) Nodular goiter Code(s): E04.9 - NONTOXIC GOITER, UNSPECIFIED Assessment/Plan 1. Asthmatic bronchitis resolved 2. CAD post multi-vessel PCI (stent), angina pectoris 3. Diastolic LV dysfunction with chronic class I NYHA classification LV failure , compensated 4. Aortic stenosis post AVR (Bio-prosthesis) 5. PAF currently sinus rhythm [id number] score of 4 with subtherapeutic INR 6. HTN/HCVD 7. Hyperlipidemia 8. Acute on CKD resolving 9. Right nodular goiter post negative FNA 10. 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 Continue Lopressor 100 mg BID 2. Continue Norvasc 5 mg QD 3. Continue Ranexa 500 mg BID 4. Continue Lipitor 40 mg QHS and Lovaza 2 g BID 5. Continue a/c per INR 6. Continue Lasix 40 mg QD with caution 7. Continue to hold Losartan pending further renal function recovery 8. Bronchodilators and IV steroids 9. F/u biopsy results, surveillance thyroid U/S
[2016-07-25] MEDS ORDERED: HEPARIN NA (PORCINE) 5,000 UNITS/ML 1ML VIAL IVPUSH PRN ×2 (14:36)
--- NOTE | 2016-07-25 14:36 | PN ---
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
--- NOTE | 2016-07-25 14:44 | PN ---
Physical Exam: SUBJECTIVE: Patient seen and examined. No acute issues. OBJECTIVE: Vital Signs Period Temp Pulse Resp BP Sys/Kirk Pulse Ox Last 24 Hr 97.6 F-98.2 F 56-62 17-20 107-123/62-69 97-98 PE Neuro: alert, awake, cn 2-12 intact HEENT: R thyroid incision, cdi Pulm: CTAB CV: s1 s2 rrr Abd: s nt nd + bs Ext: RLE +1 pitting edema, le warm CBCD WBC 9.4 K/mm3 (4.0-10.0) 07/25/16 07:25 RBC 4.08 M/mm3 (4.00-5.60) 07/25/16 07:25 Hgb 12.5 GM/dL (11.7-16.9) 07/25/16 07:25 Hct 37.2 % (35.4-49) 07/25/16 07:25 MCV 91.2 fl (80-96) 07/25/16 07:25 MCHC 33.6 g/dl (32.0-35.9) 07/25/16 07:25 RDW 15.0 % (11.9-15.9) 07/25/16 07:25 Plt Count 158 K/MM3 (134-434) 07/25/16 07:25 MPV 7.9 fl (7.5-11.1) 07/25/16 07:25 CMP Sodium 137 mmol/L (136-145) 07/24/16 05:45 Potassium 4.3 mmol/L (3.5-5.1) 07/24/16 05:45 Chloride 98 mmol/L (98-107) 07/24/16 05:45 Carbon Dioxide 34 mmol/L (21-32) H 07/24/16 05:45 Anion Gap 5 (8-16) L 07/24/16 05:45 BUN 61 mg/dL (7-18) H 07/24/16 05:45 Creatinine 1.6 mg/dL (0.7-1.3) H 07/24/16 05:45 Creat Clearance w eGFR 41.59 (>60) 07/24/16 05:45 Calcium 8.8 mg/dL (8.5-10.1) 07/24/16 05:45 Total Bilirubin 0.7 mg/dL (0.2-1.0) 07/24/16 05:45 AST 9 U/L (15-37) L D 07/24/16 05:45 ALT 23 U/L (12-78) 07/24/16 05:45 Alkaline Phosphatase 52 U/L (45-117) 07/24/16 05:45 Total Protein 5.9 g/dl (6.4-8.2) L 07/24/16 05:45 Albumin 3.2 g/dl (3.4-5.0) L 07/24/16 05:45 07/25/16 07:25 INR 1.34 H Active Medications Generic Name Dose Route Start Last Admin Trade Name Freq PRN Reason Stop Dose Admin Acetaminophen 650 mg 07/23/16 20:51 07/23/16 21:06 Tylenol - PO 650 mg Q6H PRN Administration FEVER OR PAIN Allopurinol 200 mg 07/15/16 10:00 07/25/16 09:44 Zyloprim - PO 200 mg DAILY [facility]AL[facility] Administration Amlodipine Besylate 5 mg 07/15/16 10:00 07/25/16 09:44 Norvasc - PO 5 mg DAILY [facility] Administration Atorvastatin Calcium 40 mg 07/15/16 22:00 07/24/16 21:00 Lipitor - PO 40 mg HS DONALD Administration Budesonide/Formoterol Fumarate 2 puff 07/15/16 12:00 07/25/16 09:45 Symbicort 160/4.5mcg - IH 2 puff BID [facility]AL[facility] Administration Cholecalciferol 2,000 unit 07/15/16 10:00 07/25/16 09:44 Vitamin D3 - PO 2,000 unit DAILY [facility] Administration Furosemide 40 mg 07/18/16 14:45 07/25/16 09:44 Lasix - PO 40 mg DAILY [facility] Administration Heparin Sodium (Porcine) 1,000 unit 07/25/16 14:36 Heparin - IVPUSH PRN PRN Heparin Heparin Sodium (Porcine) 5,000 unit 07/25/16 14:36 Heparin - IVPUSH PRN PRN Heparin Heparin Sodium (Porcine) 25, 500 mls @ 20 mls/hr 07/25/16 15:00 000 unit/ Sodium Chloride IV TITR [facility] Protocol 1,000 UNIT/HR Insulin Aspart 1 vial 07/18/16 11:00 07/25/16 11:13 Novolog Vial Sliding Scale - SQ Not Given ACHS [facility] Protocol Metoprolol Tartrate 100 mg 07/15/16 10:00 07/25/16 09:44 Lopressor - PO 100 mg BID DONALD Administration Vraoi-7-Ucsf Ethyl Esters 2 gm 07/15/16 22:00 07/25/16 09:44 Lovaza - PO 2 gm BID [facility]AL[facility] Administration Pantoprazole Sodium 40 mg 07/22/16 10:00 07/25/16 09:44 Protonix - PO 40 mg DAILY [facility] Administration Ranolazine 500 mg 07/15/16 10:00 07/25/16 09:44 Ranexa - PO 500 mg BID [facility] Administration Tamsulosin HCl 0.4 mg 07/15/16 22:00 07/24/16 21:00 Flomax - PO 0.4 mg HS [facility] Administration Tiotropium [place] 1 puff 07/15/16 12:00 07/25/16 09:45 Spiriva - IH 1 puff DAILY [facility] Administration Warfarin Sodium 7.5 mg 07/25/16 18:00 Coumadin - PO DAILY@1800 [facility] Imaging: - CT Chest: mild mediastinal lymphadenopathy, R thyroidmegaly - CTAP non contrast 07/17: pelvis extensive retroperitoneal adenopathy, stranding of mesentery Assessment: This is an 80 year old male with PMHx of CAD s/p multivessel PCI ( stenting), A.fib, diastolic disfunction, s/p bioAVR, PAF->SR post cryoMaze, HTN, HLD, CKD, BPH, gastric ulcer, admitted with increased wheezing and SOB. Plan: 1. Retroperitoneal lymphadenopathy s/p RPN 07/13 - Await pathology - r/o possible lymphoma, follicular lymphoma, will need outpt PET - Immunology shows 2 beat M spikes, ?monoclonal protein with elevated free kappa /free son ratio 2. Right enlarged thyroid - FNA 07/23: r/o malignancy, will need office f/u with endocrine for periodic US 3. Paroxysmal A.fib, [id number] score of 4 - Increase coumadin 7.55mg tonight - Restart heparin gtt, w/o bolus - Daily INR 4. CAD s/p multi-vessel PCI - Continue Ranexa - Continue Lopressor - Continue Lipitor 5. Chronic diastolic heart failure - Continue Lasix - Hold ARB given CHINO on CKD 6. CHINO on CKD - Stable, appears at baseline 7. BPH - Continue Flomax 8. Asthma bronchitis, wheezing - Resolved - Continue Spiriva - Continue Symbicort 9. Influena A - s/p tamiflu Dispo: - Awaiting therapeutic INR, will need heparin bridge Visit type - Emergency Visit Emergency Visit: Yes ED Registration Date: 07/15/16 Care time: The patient presented to the Emergency Department on the above date and was hospitalized for further evaluation of their emergent condition. - New Patient This patient is new to me today: No - Critical Care Critical Care patient: No
[2016-07-25] MEDS: HEPARIN - 25,000 UNIT in SODIUM CHLORIDE 495 ML IV SCH ×2 (16:02→23:01)
[2016-07-25] MEDS ORDERED: WARFARIN NA 7.5 MG TABLET (FP) PO SCH (18:00)
[2016-07-25] MEDS: ATORVASTATIN CA 40 MG TABLET (FP) PO SCH (21:30)
[2016-07-25] MEDS: TAMSULOSIN HCL 0.4 MG CAP.ER.24H (FP) PO SCH (21:30)
[2016-07-26] MEDS: INSULIN SLIDING SCALE (NOVOLOG) 1 VIAL SQ SCH (06:23)
[2016-07-26 08:19] LABS: INR 2.09 (0.82-1.09); PROTHROMBIN TIME (PATIENT) 23.3 SEC (9.98-11.88)
[2016-07-26] MEDS: OMEGA-3 ACID ETHYL ESTERS (FATTY-ACIDS) 1 GM CAPSULE (FP) PO SCH (09:18)
[2016-07-26] MEDS: BUDESONIDE/FORMETEROL FUMARATE 160/4.5 mcg INHALER IH SCH (09:19)
[2016-07-26] MEDS: FUROSEMIDE 40 MG TABLET (FP) PO SCH (09:19)
[2016-07-26] MEDS: PANTOPRAZOLE 40 MG TABLET (FP) PO SCH (09:19)
[2016-07-26] MEDS: ALLOPURINOL 100 MG TABLET (FP) PO SCH (09:19)
[2016-07-26] MEDS: CHOLECALCIFEROL (VITAMIN D3) 1,000 UNIT TABLET (FP) PO SCH (09:19)
[2016-07-26] MEDS: METOPROLOL TARTRATE 50 MG TABLET (FP) PO SCH (09:19)
[2016-07-26] MEDS: amLODIPine BESYLATE 5 MG TABLET (FP) PO SCH (09:19)
[2016-07-26] MEDS: RANOLAZINE E.R. 500 MG TABLET (FP) PO SCH (09:19)
[2016-07-26] MEDS: TIOTROPIUM BROMIDE 18 MCG/INH (DEVICE W/ 30 CAPSULES) IH SCH (09:19)
--- NOTE | 2016-07-26 10:35 | DS ---
Physical Exam: SUBJECTIVE: Patient seen and examined. He has no complaints, he is grateful to be going home OBJECTIVE: Vital Signs Period Temp Pulse Resp BP Sys/Kirk Pulse Ox Last 24 Hr 97.6 F-97.9 F 58-61 17-20 113-122/59-60 98 PE Neuro: alert, awake, cn 2-12 intact HEENT: R thyroid incision, cdi Pulm: CTAB CV: s1 s2 rrr Abd: s nt nd + bs Ext: RLE +1 pitting edema, le warm Laboratory Results - last 24 hr 07/25/16 07/25/16 07/25/16 11:12 17:08 21:29 INR PTT (Actin FS) POC Glucometer 99 124 125 07/25/16 07/26/16 07/26/16 21:45 06:22 06:35 INR 2.09 H D PTT (Actin FS) 57.3 H D POC Glucometer 118 07/26/16 09:49 INR PTT (Actin FS) 115.7 H D POC Glucometer HOSPITAL COURSE: Date of Admission:07/15/16 Date of Discharge: 07/26/16 Minutes to complete discharge: 35 Discharge Summary Reason For Visit: BRONCHOSPASM INFLUENZA A Current Active Problems A-fib (Acute) Acute kidney injury (Acute) Aortic valve replaced (Acute) Asthmatic bronchitis (Acute) BPH (benign prostatic hyperplasia) (Acute) Bronchospasm (Acute) CKD (chronic kidney disease) (Acute) Diastolic dysfunction without heart failure (Acute) HLD (hyperlipidemia) (Acute) HTN (hypertension) (Acute) Influenza A (Acute) Nodular goiter (Acute) Retroperitoneal lymphadenopathy (Acute) Thyroid mass (Acute) Hospital Course: Initial Hospital Course: Briefly, this 80 year old male with PMH of a recent hospitalization for PNA, a- fib on coum, HTN, HLD, BPH and past Gastric ulcer, who presented with increased wheezing and cough productive of yellow sputum for 2 days. He also reported associated rhinorrhea and throat "tickle". Two months ago, while on vacation in [facility], he developed sob and wheezing. He was hospitalized for 3 days with PNA and treated with steroids and abx. His wheezing since improved but did not completely disappear. His PCP started him on Breo nebs, which did not help. Patient felt almost back to baseline until 2 days prior to admission, when current symptoms started. Imaging: - CT Chest: mild mediastinal lymphadenopathy, R thyroidmegaly - CTAP non contrast 07/17: pelvis extensive retroperitoneal adenopathy, stranding of mesentery Subsequent Hospital Course/Progress Note/Discharge Summary by a/p: Assessment: 80 year old male with PMHx of CAD s/p multivessel PCI (stenting), A.fib, diastolic disfunction, s/p bioAVR, PAF->SR post cryoMaze, HTN, HLD, CKD, BPH, gastric ulcer, admitted with increased wheezing and SOB, he was found to have retroperitoneal adenopathy on Ct chest. Plan: 1. Retroperitoneal lymphadenopathy s/p RPN 07/13 - Pre barron pathology shows follicular lymphoma based on cytology - PET as outpt - Immunology shows 2 beat M spikes, ?monoclonal protein with elevated free kappa /free son ratio 2. Right enlarged thyroid - FNA 07/23: negative biopsy will need office f/u with endocrine for periodic US - Endocrine follow up 3. Paroxysmal A.fib, [id number] score of 4 - INR therapeutic - Resume home dose of coumadin regimen 4. CAD s/p multi-vessel PCI - Continue Ranexa - Continue Lopressor - Continue Lipitor 5. Chronic diastolic heart failure - Resume home dose Lasix 20mg - Resume home dose cozaar 6. CHINO on CKD - Stable, appears at baseline 7. BPH - Continue Flomax 8. Asthma bronchitis, wheezing - Resolved - Continue Spiriva - Continue Symbicort 9. Influena A - s/p tamiflu Dispo: - Home with above meds, pcp and oncology follow up - D/w pcp and pt all are aware and agree to above plan Condition: Stable - Instructions Diet, Activity, Other Instructions: Please return to the ED for any new, persistent, or worsening symptoms. Follow up with Dr. Romano in 2 weeks on 08/03/2016. Call office to make an appt. He is expecting you Resume home medication as directed and regularly Monitor your INR every 4-5 days Follow up with Dr. Fox in office in 2 weeks Referrals: Zuhair Romano MD [Primary Care Provider] - 2 Weeks (Call office and make appt for WednesdayAugust 03 ) Gracie Montalvo MD [Staff Physician] - Savi Jones MD [Staff Physician] - Sabi Hernández MD [Staff Physician] - Romeo Whipple MD [Staff Physician] - Disposition: HOME - Home Medications Comprehensive Discharge Medication List: Ambulatory Orders Allopurinol [Zyloprim -] 300 mg PO DAILY 08/22/14 Aspirin [Aspirin EC] 81 mg PO DAILY 08/22/14 Atorvastatin Ca [Lipitor] 40 mg PO HS 08/22/14 Cholecalciferol (Vitamin D3) [Vitamin D3] 2,000 unit PO DAILY 08/22/14 Losartan Potassium 100 mg PO DAILY 08/22/14 Metoprolol Tartrate [Lopressor] 100 mg PO BID 08/22/14 [place]-3 Acid Ethyl Esters [Lovaza -] 4 mg PO DAILY 08/22/14 Ranitidine [Zantac -] 150 mg PO BID 08/22/14 Amlodipine Besylate [Norvasc -] 5 mg PO DAILY 09/07/14 Ranolazine [Ranexa -] 500 mg PO BID 09/18/15 Furosemide [Lasix -] 20 mg PO DAILY 07/15/16 Tamsulosin HCl [Flomax -] 0.4 mg PO HS 07/15/16 Warfarin Sodium [Coumadin] 1 mg PO ASDIR #0 07/26/16 Warfarin Sodium [Coumadin] 2 mg PO ASDIR #0 07/26/16 This patient is new to me today: No Emergency Visit: Yes ED Registration Date: 07/15/16 Care time: The patient presented to the Emergency Department on the above date and was hospitalized for further evaluation of their emergent condition. Critical Care patient: No - Discharge Referral Referred to [facility] Med [facility] No
--- NOTE | 2016-07-26 10:37 | PN ---
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
[2016-07-26 14:44] VITALS: BP 155/84; PULSE 68; TEMP 98
--- NOTE | 2016-07-28 15:24 | PATH ---
Surgical Pathology Report Patient Name: NITZA CHOW [facility]. Rec. #: [id number] /Age/Gender: 1935 (Age: 80) / M Account: [id number] Location: [address] [place] [address] Taken: 07/23/2016 Received: 07/24/2016 Reported: 07/28/2016 Physicians: Emilee Hernandes M.D. Specimen(s) Received BX RETROPERITONEAL LYMPH NODE Clinical History 80-year-old with retroperitoneal mass, rule out lymphoma Final Diagnosis ----- LYMPH NODE, RETROPERITONEAL, CT GUIDED CORE BIOPSY: FOLLICULAR LYMPHOMA, LOW GRADE (SEE COMMENT). Comment: This case was seen in consultation with hematopathology service at [place], [place] ([id number], Dr. Flood). The diagnosis above reflects the consultation opinion. The specimen consists of one needle core shaped fragments of lymphoid and fibroadipose tissue. The lymphocytes are small to medium size; no increase of large cells seen in the current (limited) simple. Immunostains highlight the mixture of B-cells and T-cells. Aberrant CD10, BCL-2, HGAL and BCL-6 co-expression by the B-cells can be appreciated. The Ki67 proliferative rate is low (5%). CD20 and PAX5 immunostains highlight B-cells that co-express CD10, BCL-6, BCL-2 and HGAL. BCL1 is negative. Ae1/Ae3 is negative. Flow cytometry performed and interpreted on the concurrent specimen at [place], [place] ([id number]) showed a clonal (kappa, bright) CD10+ B-cell population, 19% of total events, with moderate CD20 and FMC7 and dim CD19 expression. The case was preliminary discussed with Dr. Romano on 07/24/16. ___ Electronically Signed Rigoberto Brar M.D. Gross Description ----- Received in formalin, labeled "retroperitoneal biopsy" and multiple fragments of curiel-red tissue 0.2-1.2 cm in length and less than 0.1 cm in diameter. Submitted entirely in one cassette. Also received tissue in RPMI that is forwarded to flow cytometry. ___
== END 2016-07-26 14:49 | disposition home or self-care (01) | DRG 988 ==
LOC: JER 23:55 → JERBED 07-15 02:10 → UNDOADMIN 07-15 02:10 → JERBED 07-15 02:58 → J6S 07-15 09:16
PROVIDERS: ADMIT Internal Medicine; ATTEND Nurse Practitioner Acute Care
PROC: 07BD3ZX Excision of Aortic Lymphatic, Percutaneous Approach, Diagnostic (ICD-10-PCS; principal; 2016-07-23)
PROC: 0G9H3ZX Drainage of Right Thyroid Gland Lobe, Percutaneous Approach, Diagnostic (ICD-10-PCS; 2016-07-23)
DX: J11.1 Influenza due to unidentified influenza virus with other respiratory manifestations (principal); C82.93 Follicular lymphoma, unspecified, intra-abdominal lymph nodes; N17.9 Acute kidney failure, unspecified; I13.0 Hypertensive heart and chronic kidney disease with heart failure and stage 1 through stage 4 chronic kidney disease, or unspecified chronic kidney disease; I50.32 Chronic diastolic (congestive) heart failure; J45.901 Unspecified asthma with (acute) exacerbation; Z79.01 Long term (current) use of anticoagulants; E78.5 Hyperlipidemia, unspecified; N40.0 Benign prostatic hyperplasia without lower urinary tract symptoms; E86.0 Dehydration; Z95.2 Presence of prosthetic heart valve; I25.10 Atherosclerotic heart disease of native coronary artery without angina pectoris; Z95.5 Presence of coronary angioplasty implant and graft; I48.0 Paroxysmal atrial fibrillation; K25.9 Gastric ulcer, unspecified as acute or chronic, without hemorrhage or perforation; R59.0 Localized enlarged lymph nodes; M10.9 Gout, unspecified; E07.9 Disorder of thyroid, unspecified; E04.1 Nontoxic single thyroid nodule; N18.3 Chronic kidney disease, stage 3 (moderate); D64.9 Anemia, unspecified; R73.9 Hyperglycemia, unspecified
CPT/HCPCS: 36415; 38505; 71020-TC; 71250-TC; 72192-TC; 74150-TC; 76098-TC; 76536-TC; 76775-TC; 76942; 77012-TC; 80048; 80053; 81003; 82436; 82570; 82784; 83036; 83615; 83735; 83883; 84100; 84133; 84155; 84156; 84165; 84300; 84443; 84550; 85025; 85027; 85610; 85730; 86704; 86706; 86708; 86803; 87040; 87070; 87205; 87340; 87804; 87899; 88305-TC; 93005; 93010; 94010; 94150; 94640; 99284-25; J1644; Q9967

== ENCOUNTER 2016-09-28 07:09 | Day surgery (SDC) | payer OTHER ==
[2016-09-28] MEDS ORDERED: SODIUM BICARBONATE IVPB ONE (08:00)
[2016-09-28] MEDS ORDERED: DEXTROSE 5% IVPB ONE (08:00)
[2016-09-28] MEDS ORDERED: WATER IVPB ONE (08:00)
[2016-09-28 09:30] LABS: MCH 30.4 pg (25.7-33.7); MEAN CELL VOLUME 89.3 fl (80-96); MEAN PLT VOLUME 8.2 fl (7.5-11.1); PLATELET COUNT 160 K/MM3 (134-434); RDW 14.9 % (11.9-15.9); WHITE BLOOD COUNT 7.4 K/mm3 (4.0-10.0)
[2016-09-28] MEDS ORDERED: DEXAMETHASONE INJECTION 10 MG, DIPHENHYDRAMINE 25 MG in SODIUM CHLORIDE 100 ML IVPB ONE (10:00)
[2016-09-28] MEDS ORDERED: ACETAMINOPHEN 325 MG TABLET (FP) PO ONE (10:00)
[2016-09-28] MEDS ORDERED: RITUXIMAB IVPB ONE (10:30)
[2016-09-28] MEDS ORDERED: SODIUM CHLORIDE IVPB ONE (10:30)
[2016-09-28] MEDS ORDERED: POTASSIUM CHLORIDE TABS 20 MEQ TABLET.ER (FP) PO SCH (12:00)
[2016-09-28] MEDS ORDERED: FUROSEMIDE 40 MG TABLET (FP) PO SCH (12:00)
[2016-09-28 13:07] LABS: INR 3.27 (0.82-1.09); PROTHROMBIN TIME (PATIENT) 36.8 SEC (9.98-11.88)
[2016-09-28 13:48] LABS: CALCIUM 8.9 mg/dL (8.5-10.1); CREATININE 1.9 mg/dL (0.7-1.3); URIC ACID 4.8 mg/dL (2.6-7.2)
[2016-09-28] MEDS ORDERED: WATER IV SCH (14:00)
[2016-09-28] MEDS ORDERED: SODIUM BICARBONATE IV SCH (14:00)
[2016-09-28] MEDS ORDERED: DEXTROSE IV SCH (14:00)
[2016-09-28] MEDS ORDERED: DEXTROSE 5%-0.45% SALINE 1,000 ML IV SCH (17:30)
[2016-09-28] MEDS ORDERED: TAMSULOSIN HCL 0.4 MG CAP.ER.24H (FP) PO SCH (22:00)
[2016-09-28] MEDS ORDERED: ATORVASTATIN CA 40 MG TABLET (FP) PO SCH (22:00)
[2016-09-28] MEDS: RANOLAZINE E.R. 500 MG TABLET (FP) PO SCH (22:51)
[2016-09-28] MEDS: RANITIDINE HCL 150 MG TABLET (FP) PO SCH (22:52)
[2016-09-28] MEDS: METOPROLOL TARTRATE 50 MG TABLET (FP) PO SCH (22:54)
[2016-09-29] MEDS ORDERED: PT OWN MED DRAWER 7, Y5N ONE (09:25)
[2016-09-29] MEDS: METOPROLOL TARTRATE 50 MG TABLET (FP) PO SCH (09:34)
[2016-09-29] MEDS: RANOLAZINE E.R. 500 MG TABLET (FP) PO SCH (09:35)
[2016-09-29] MEDS: RANITIDINE HCL 150 MG TABLET (FP) PO SCH (09:35)
[2016-09-29 09:50] LABS: ALBUMIN 3.7 g/dl (3.4-5.0); BILIRUBIN,TOTAL 0.6 mg/dL (0.2-1.0); CALCIUM 8.6 mg/dL (8.5-10.1); CREATININE 1.7 mg/dL (0.7-1.3); TOT PROT 6.8 g/dl (6.4-8.2)
[2016-09-29] MEDS ORDERED: amLODIPine BESYLATE 5 MG TABLET (FP) PO SCH (10:00)
[2016-09-29] MEDS ORDERED: FUROSEMIDE 20 MG TABLET (FP) PO SCH (10:00)
[2016-09-29] MEDS ORDERED: CHOLECALCIFEROL (VITAMIN D3) 1,000 UNIT TABLET (FP) PO SCH (10:00)
[2016-09-29] MEDS ORDERED: ALLOPURINOL 300 MG TABLET (FP) PO SCH (10:00)
[2016-09-29] MEDS ORDERED: LOSARTAN POTASSIUM 50 MG TABLET (FP) PO SCH (10:00)
[2016-09-29] MEDS ORDERED: ASPIRIN 81 MG CHEWABLE TABLETS PO SCH (10:00)
[2016-09-29] MEDS ORDERED: OMEGA-3 ACID ETHYL ESTERS (FATTY-ACIDS) 1 GM CAPSULE (FP) PO SCH (10:00)
[2016-09-29 13:51] VITALS: BP 109/59; PULSE 56; TEMP 97.8
--- NOTE | 2016-09-29 15:37 | PN ---
Progress Note (short form) - Note Progress Note: Patient seen and examined Received overnight hydration with improvement in creatinine to 1.7 / Last Vital Signs Temp Pulse Resp BP Pulse Ox 97.8 F 56 L 20 109/59 98 09/29/16 13:49 09/29/16 13:49 09/29/16 13:49 09/29/16 13:49 09/29/16 09:40 HEENT: DEMAR, EOM Intact Oropharynx: No thrush, No mucositis Cor: atrial fib Lungs: Clear to P&A Abd: Soft, Normal bowel sounds, No organomegaly Ext:1+ RLE edema edema Skin: No rashes, Integument intact CBC, BMP 09/28/16 09:21 09/29/16 08:40 Current Medications Generic Name Dose Route Start Last Admin Trade Name Freq PRN Reason Stop Dose Admin Allopurinol 300 mg 09/29/16 10:00 09/29/16 09:34 Zyloprim - PO 300 mg DAILY DONALD Administration Amlodipine Besylate 5 mg 09/29/16 10:00 09/29/16 09:35 Norvasc - PO 5 mg DAILY DONALD Administration Aspirin 81 mg 09/29/16 10:00 09/29/16 09:34 Asa - PO 81 mg DAILY DONALD Administration Atorvastatin Calcium 40 mg 09/28/16 22:00 09/28/16 22:53 Lipitor - PO 40 mg HS DONALD Administration Cholecalciferol 2,000 unit 09/29/16 10:00 09/29/16 09:35 Vitamin D3 - PO 2,000 unit DAILY DONALD Administration Furosemide 20 mg 09/29/16 10:00 09/29/16 09:35 Lasix - PO 20 mg DAILY DONALD Administration Dextrose/Sodium Chloride 1,000 mls @ 75 mls/hr 09/28/16 17:30 09/28/16 18:57 D5-1/2ns - IV 75 mls/hr ASDIR DONALD Administration Losartan Potassium 100 mg 09/29/16 10:00 09/29/16 09:35 Cozaar - PO 100 mg DAILY DONALD Administration Metoprolol Tartrate 100 mg 09/28/16 22:00 09/29/16 09:34 Lopressor - PO 100 mg BID DONALD Administration Potsp-9-Mgjo Ethyl Esters 4 gm 09/29/16 10:00 09/29/16 09:34 Lovaza - PO 4 gm DAILY DONALD Administration Ranitidine HCl 150 mg 09/28/16 22:00 09/29/16 09:35 Zantac - PO 150 mg BID DONALD Administration Ranolazine 500 mg 09/28/16 22:00 09/29/16 09:35 Ranexa - PO 500 mg BID DONALD Administration Tamsulosin HCl 0.4 mg 09/28/16 22:00 09/28/16 22:51 Flomax - PO 0.4 mg HS DONALD Administration Impression: 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 Lasix 20 mg daily
== END 2016-09-29 16:10 | disposition home or self-care (01) ==
LOC: JONCCHEMO 07:09 → J7W 11:09 → JONCCHEMO 09-29 16:10
PROVIDERS: ATTEND Internal Medicine Hematology & Oncology
PROC: 3E03305 Introduction of Other Antineoplastic into Peripheral Vein, Percutaneous Approach (ICD-10-PCS; principal; 2016-09-28)
PROC: 3E0337Z Introduction of Electrolytic and Water Balance Substance into Peripheral Vein, Percutaneous Approach (ICD-10-PCS; 2016-09-28)
PROC: 3E033GC Introduction of Other Therapeutic Substance into Peripheral Vein, Percutaneous Approach (ICD-10-PCS; 2016-09-28)
DX: Z51.11 Encounter for antineoplastic chemotherapy (principal); C82.88 Other types of follicular lymphoma, lymph nodes of multiple sites; I48.91 Unspecified atrial fibrillation; Z79.01 Long term (current) use of anticoagulants; R79.89 Other specified abnormal findings of blood chemistry; D64.81 Anemia due to antineoplastic chemotherapy
CPT/HCPCS: 96361; 96367; 96413; 96415; J9310; 36415; 80048; 80053; 83615; 83735; 84550; 85025; 85610

== ENCOUNTER 2016-10-05 06:59 | Day surgery (SDC) | payer OTHER ==
[2016-10-05 09:21] LABS: MCH 30.4 pg (25.7-33.7); MCHC 33.7 g/dl (32.0-35.9); MEAN CELL VOLUME 90.1 fl (80-96); MEAN PLT VOLUME 8.6 fl (7.5-11.1); PLATELET COUNT 166 K/MM3 (134-434); RDW 15.1 % (11.9-15.9); WHITE BLOOD COUNT 9.5 K/mm3 (4.0-10.0)
[2016-10-05] MEDS ORDERED: DEXAMETHASONE INJECTION 10 MG, DIPHENHYDRAMINE 25 MG in SODIUM CHLORIDE 100 ML IVPB ONE (09:30)
[2016-10-05] MEDS ORDERED: ACETAMINOPHEN 325 MG TABLET (FP) PO ONE (09:30)
[2016-10-05] MEDS ORDERED: RITUXIMAB IVPB ONE (10:00)
[2016-10-05] MEDS ORDERED: SODIUM CHLORIDE IVPB ONE (10:00)
[2016-10-05] MEDS ORDERED: FUROSEMIDE 40 MG TABLET (FP) PO SCH (10:45)
[2016-10-05] MEDS ORDERED: POTASSIUM CHLORIDE TABS 20 MEQ TABLET.ER (FP) PO SCH (10:45)
[2016-10-05 11:27] LABS: CALCIUM 9.1 mg/dL (8.5-10.1); CREATININE 1.7 mg/dL (0.7-1.3); INR 1.97 (0.82-1.09); URIC ACID 4.3 mg/dL (2.6-7.2)
[2016-10-05 11:31] LABS: ALBUMIN 3.8 g/dl (3.4-5.0); BILIRUBIN,DIRECT 0.2 mg/dL (0.0-0.2); BILIRUBIN,TOTAL 0.8 mg/dL (0.2-1.0); MAGNESIUM 2.1 mg/dL (1.8-2.4); TOT PROT 6.8 g/dl (6.4-8.2)
[2016-10-05] MEDS ORDERED: SODIUM BICARBONATE 8.4% 50 MEQ/50 ML VIAL ONE (11:50)
[2016-10-05] MEDS: DEXTROSE 5% IVPB ONE ×2 (12:02→12:36)
[2016-10-05] MEDS: WATER IVPB ONE ×2 (12:02→12:36)
[2016-10-05] MEDS: SODIUM BICARBONATE IVPB ONE ×2 (12:02→12:36)
[2016-10-05] MEDS ORDERED: SODIUM BICARBONATE IVPB SCH (14:00)
[2016-10-05] MEDS ORDERED: DEXTROSE 5% IVPB SCH (14:00)
[2016-10-05] MEDS ORDERED: WATER IVPB SCH (14:00)
[2016-10-05] MEDS ORDERED: WARFARIN NA 2 MG TABLET (UD) PO SCH (14:15)
[2016-10-05] MEDS: METOPROLOL TARTRATE 50 MG TABLET (FP) PO SCH (21:00)
[2016-10-05] MEDS: RANOLAZINE E.R. 500 MG TABLET (FP) PO SCH (21:00)
[2016-10-05] MEDS: RANITIDINE HCL 150 MG TABLET (FP) PO SCH (21:00)
[2016-10-05] MEDS ORDERED: OMEGA-3 ACID ETHYL ESTERS (FATTY-ACIDS) 1 GM CAPSULE (FP) PO SCH (22:00)
[2016-10-05] MEDS ORDERED: TAMSULOSIN HCL 0.4 MG CAP.ER.24H (FP) PO SCH (22:00)
[2016-10-05] MEDS ORDERED: ATORVASTATIN CA 40 MG TABLET (FP) PO SCH (22:00)
[2016-10-06 07:28] LABS: MCH 30.3 pg (25.7-33.7); MCHC 33.7 g/dl (32.0-35.9); MEAN CELL VOLUME 89.9 fl (80-96); MEAN PLT VOLUME 8.4 fl (7.5-11.1); PLATELET COUNT 158 K/MM3 (134-434); RDW 15.1 % (11.9-15.9); WHITE BLOOD COUNT 7.2 K/mm3 (4.0-10.0)
[2016-10-06] MEDS ORDERED: DEXTROSE 5% IVPB SCH (07:30)
[2016-10-06] MEDS ORDERED: SODIUM BICARBONATE IVPB SCH (07:30)
[2016-10-06] MEDS ORDERED: WATER IVPB SCH (07:30)
[2016-10-06] MEDS ORDERED: SODIUM BICARBONATE 8.4% 50 MEQ/50 ML VIAL ONE (07:32)
[2016-10-06 08:24] LABS: INR 1.95 (0.82-1.09); PROTHROMBIN TIME (PATIENT) 21.7 SEC (9.98-11.88)
[2016-10-06 08:31] LABS: ALBUMIN 3.7 g/dl (3.4-5.0); BILIRUBIN,TOTAL 0.7 mg/dL (0.2-1.0); CALCIUM 8.9 mg/dL (8.5-10.1); CREATININE 1.5 mg/dL (0.7-1.3); TOT PROT 6.5 g/dl (6.4-8.2)
[2016-10-06] MEDS ORDERED: CHOLECALCIFEROL (VITAMIN D3) 1,000 UNIT TABLET (FP) PO SCH (10:00)
[2016-10-06] MEDS ORDERED: ALLOPURINOL 300 MG TABLET (FP) PO SCH (10:00)
[2016-10-06] MEDS ORDERED: OMEGA-3 ACID ETHYL ESTERS (FATTY-ACIDS) 1 GM CAPSULE (FP) PO SCH (10:00)
[2016-10-06] MEDS ORDERED: ASPIRIN 81 MG CHEWABLE TABLETS PO SCH (10:00)
[2016-10-06] MEDS ORDERED: amLODIPine BESYLATE 5 MG TABLET (FP) PO SCH (10:00)
[2016-10-06] MEDS ORDERED: LOSARTAN POTASSIUM 50 MG TABLET (FP) PO SCH (10:00)
[2016-10-06] MEDS ORDERED: PT OWN MED DRAWER 7, Y5N ONE (10:35)
[2016-10-06] MEDS: RANOLAZINE E.R. 500 MG TABLET (FP) PO SCH (10:42)
[2016-10-06] MEDS: RANITIDINE HCL 150 MG TABLET (FP) PO SCH (10:42)
[2016-10-06] MEDS: METOPROLOL TARTRATE 50 MG TABLET (FP) PO SCH (10:45)
[2016-10-06 13:26] LABS: CREATININE 1.5 mg/dL (0.7-1.3)
[2016-10-06 14:26] VITALS: BP 115/66; PULSE 66; TEMP 97.3
--- NOTE | 2016-10-06 15:13 | PN ---
Progress Note (short form) - Note Progress Note: Patient seen and examined Received Cycle 4 of Rituxin therpay. Minimal back pains Received "overnight hydration" and creatinine improved to 1.5 mg. INR- 1.97- for additional 2 mg of coumadin. Last Vital Signs Temp Pulse Resp BP Pulse Ox 97.3 F L 66 18 115/66 100 10/06/16 14:22 10/06/16 14:22 10/06/16 14:22 10/06/16 14:22 10/06/16 09:00 HEENT: DEMAR, EOM Intact Oropharynx: No thrush, No mucositis Cor: atrial fib Lungs: Clear to P&A Abd: Soft, Normal bowel sounds, No organomegaly Ext:edema 2+ RLE, 1+ LLE Skin: No rashes, Integument intact CBC, BMP 10/06/16 06:00 10/06/16 12:20 INR, PTT INR 1.95 (0.82-1.09) H 10/06/16 06:00 Current Medications Generic Name Dose Route Start Last Admin Trade Name Anna Marie PRN Reason Stop Dose Admin Allopurinol 300 mg 10/06/16 10:00 10/06/16 10:41 Zyloprim - PO 300 mg DAILY DONALD Administration Amlodipine Besylate 5 mg 10/06/16 10:00 10/06/16 10:41 Norvasc - PO 5 mg DAILY DONALD Administration Aspirin 81 mg 10/06/16 10:00 10/06/16 10:42 Asa - PO 81 mg DAILY DONALD Administration Atorvastatin Calcium 40 mg 10/05/16 22:00 10/05/16 21:02 Lipitor - PO 40 mg HS DONALD Administration Cholecalciferol 2,000 unit 10/06/16 10:00 10/06/16 10:41 Vitamin D3 - PO 2,000 unit DAILY DONALD Administration Sodium Bicarbonate 88 meq/ 1,000 mls @ 75 mls/hr 10/06/16 07:30 10/06/16 07:30 Dextrose IVPB 75 mls/hr ASDIR DONALD Administration Losartan Potassium 100 mg 10/06/16 10:00 10/06/16 10:42 Cozaar - PO 100 mg DAILY DONALD Administration Metoprolol Tartrate 100 mg 10/05/16 22:00 10/06/16 10:45 Lopressor - PO 100 mg BID DONALD Administration Tmjkd-7-Vfdy Ethyl Esters 4 gm 10/06/16 10:00 10/06/16 10:42 Lovaza - PO 4 gm DAILY DONALD Administration Ranitidine HCl 150 mg 10/05/16 22:00 10/06/16 10:42 Zantac - PO 150 mg BID DONALD Administration Ranolazine 500 mg 10/05/16 22:00 10/06/16 10:42 Ranexa - PO 500 mg BID DONALD Administration Tamsulosin HCl 0.4 mg 10/05/16 22:00 10/05/16 21:02 Flomax - PO 0.4 mg HS DONALD Administration 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
== END 2016-10-06 15:00 | disposition home or self-care (01) ==
LOC: JONCCHEMO 06:59 → J7W 10:07 → JONCCHEMO 10-06 15:00
PROVIDERS: ATTEND Internal Medicine Hematology & Oncology
PROC: 3E03305 Introduction of Other Antineoplastic into Peripheral Vein, Percutaneous Approach (ICD-10-PCS; principal; 2016-10-05)
PROC: 3E033GC Introduction of Other Therapeutic Substance into Peripheral Vein, Percutaneous Approach (ICD-10-PCS; 2016-10-05)
DX: Z51.11 Encounter for antineoplastic chemotherapy (principal); C82.08 Follicular lymphoma grade I, lymph nodes of multiple sites
CPT/HCPCS: 96366; 96367; 96413; 96415; J3490; J9310; 36415; 80048; 80053; 80076; 83615; 83735; 84550; 85025; 85027; 85610

== ENCOUNTER 2016-11-30 07:07 | Day surgery (SDC) | payer OTHER ==
[2016-11-30] MEDS ORDERED: SODIUM CHLORIDE 250 ML IV SCH (08:00)
[2016-11-30] MEDS ORDERED: diphenhydrAMINE HCL 25 MG CAPSULE (FP) PO ONE ×2 (08:00→13:30)
[2016-11-30] MEDS ORDERED: ACETAMINOPHEN 325 MG TABLET (FP) PO ONE ×2 (08:00→13:30)
[2016-11-30] MEDS ORDERED: RITUXIMAB IVPB ONE (08:30)
[2016-11-30] MEDS ORDERED: SODIUM CHLORIDE IVPB ONE (08:30)
[2016-11-30 09:43] LABS: BASOPHIL 1.3 % (0-2.0); MCHC 33.3 g/dl (32.0-35.9); MEAN CELL VOLUME 90.3 fl (80-96); MEAN PLT VOLUME 8.2 fl (7.5-11.1); NEUTROPHILS 59.7 % (42.8-82.8); PLATELET COUNT 161 K/MM3 (134-434); RDW 15.5 % (11.9-15.9); WHITE BLOOD COUNT 6.9 K/mm3 (4.0-10.0)
[2016-11-30 12:15] LABS: PROTHROMBIN TIME (PATIENT) 45.8 SEC (9.98-11.88)
[2016-11-30 12:21] LABS: INR 4.05 (0.82-1.09)
[2016-11-30 12:35] LABS: ALBUMIN 3.9 g/dl (3.4-5.0); BILIRUBIN,DIRECT 0.2 mg/dL (0.0-0.2); BILIRUBIN,TOTAL 0.6 mg/dL (0.2-1.0); TOT PROT 6.6 g/dl (6.4-8.2); URIC ACID 3.9 mg/dL (2.6-7.2)
[2016-11-30 12:36] LABS: C-REACTIVE PROTEIN < 0.3 MG/DL (0.00-0.3); LDH 206 U/L (87-241)
[2016-11-30] MEDS ORDERED: DEXAMETHASONE SOD PHOSPHATE 10 MG/1 ML VIAL IVPB ONE (15:15)
[2016-11-30 19:45] VITALS: BP 123/69; PULSE 55; TEMP 97.9
== END 2016-11-30 20:00 | disposition home or self-care (01) ==
LOC: JONCCHEMO 07:07 → J7W 11:18 → JONCCHEMO 20:00
PROVIDERS: ATTEND Internal Medicine Hematology & Oncology
DX: Z51.11 Encounter for antineoplastic chemotherapy (principal); C82.08 Follicular lymphoma grade I, lymph nodes of multiple sites
CPT/HCPCS: 36415; 80076; 83615; 83735; 84550; 85025; 85610; 85651; 86140; 96413; 96415; J9310

== ENCOUNTER 2017-02-01 07:21 | Day surgery (SDC) | payer OTHER ==
[2017-02-01] MEDS ORDERED: SODIUM CHLORIDE 500 ML IV ONE (08:00)
[2017-02-01] MEDS ORDERED: diphenhydrAMINE HCL 25 MG CAPSULE (FP) PO ONE (08:00)
[2017-02-01] MEDS ORDERED: ACETAMINOPHEN 325 MG TABLET (FP) PO ONE (08:00)
[2017-02-01] MEDS ORDERED: RITUXIMAB IVPB ONE (08:30)
[2017-02-01] MEDS ORDERED: SODIUM CHLORIDE IVPB ONE (08:30)
[2017-02-01 09:32] LABS: BASOPHIL 0.7 % (0-2.0); EOSINOPHIL 3.9 % (0-4.5); MCH 30.7 pg (25.7-33.7); MCHC 33.6 g/dl (32.0-35.9); MEAN CELL VOLUME 91.2 fl (80-96); MEAN PLT VOLUME 8.1 fl (7.5-11.1); NEUTROPHILS 63.5 % (42.8-82.8); PLATELET COUNT 154 K/MM3 (134-434); WHITE BLOOD COUNT 6.7 K/mm3 (4.0-10.0)
[2017-02-01 09:45] LABS: INR 3.63 (0.82-1.09)
[2017-02-01 09:55] LABS: ALBUMIN 3.8 g/dl (3.4-5.0); ANION GAP 6 (8-16); CALCIUM 8.9 mg/dL (8.5-10.1); CO2 28 mmol/L (21-32); GLUCOSE,RANDOM 131 mg/dL (74-106); MAGNESIUM 1.9 mg/dL (1.8-2.4); SGOT/AST 13 U/L (15-37); SGPT/ALT 17 U/L (12-78)
[2017-02-01 09:56] LABS: ALK PHOS 64 U/L (45-117); BILIRUBIN,DIRECT 0.2 mg/dL (0.0-0.2); BILIRUBIN,TOTAL 0.8 mg/dL (0.2-1.0); CREATININE 1.5 mg/dL (0.7-1.3); LDH 187 U/L (87-241); TOT PROT 6.6 g/dl (6.4-8.2)
[2017-02-01 16:54] VITALS: BP 155/92; PULSE 54; TEMP 97.5
== END 2017-02-01 16:56 | disposition home or self-care (01) ==
LOC: JONCCHEMO 07:21 → J7W 10:18 → JONCCHEMO 16:56
PROVIDERS: ATTEND Internal Medicine Hematology & Oncology
DX: Z51.11 Encounter for antineoplastic chemotherapy (principal); C82.08 Follicular lymphoma grade I, lymph nodes of multiple sites
CPT/HCPCS: 36415; 80053; 80076; 83615; 83735; 85025; 85610; 96413; 96415; J9310

== ENCOUNTER 2017-04-05 07:37 | Day surgery (SDC) | payer OTHER ==
[2017-04-05] MEDS ORDERED: ACETAMINOPHEN 325 MG TABLET (FP) PO ONE (08:00)
[2017-04-05] MEDS ORDERED: diphenhydrAMINE HCL 25 MG CAPSULE (FP) PO ONE (08:00)
[2017-04-05] MEDS ORDERED: SODIUM CHLORIDE 500 ML IV ONE (08:00)
[2017-04-05] MEDS ORDERED: RITUXIMAB IVPB ONE (08:30)
[2017-04-05] MEDS ORDERED: SODIUM CHLORIDE IVPB ONE (08:30)
[2017-04-05 10:08] LABS: BASOPHIL 0.9 % (0-2.0); MCH 30.6 pg (25.7-33.7); MEAN CELL VOLUME 92.5 fl (80-96); MEAN PLT VOLUME 8.4 fl (7.5-11.1); NEUTROPHILS 67.8 % (42.8-82.8); PLATELET COUNT 160 K/MM3 (134-434); RDW 15.6 % (11.9-15.9); WHITE BLOOD COUNT 7.4 K/mm3 (4.0-10.0)
[2017-04-05 10:29] LABS: INR 2.59 (0.82-1.09); PROTHROMBIN TIME (PATIENT) 29.1 SEC (9.98-11.88)
[2017-04-05 10:39] LABS: ALBUMIN 3.7 g/dl (3.4-5.0); ALK PHOS 65 U/L (45-117); ANION GAP 8 (8-16); BILIRUBIN,DIRECT 0.1 mg/dL (0.0-0.2); BILIRUBIN,TOTAL 0.5 mg/dL (0.2-1.0); CO2 27 mmol/L (21-32); CREATININE 1.6 mg/dL (0.7-1.3); GLUCOSE,RANDOM 109 mg/dL (74-106); SGOT/AST 8 U/L (15-37); SGPT/ALT 18 U/L (12-78); TOT PROT 6.7 g/dl (6.4-8.2)
[2017-04-05 12:44] LABS: URINE APPEARANCE CLEAR; URINE BILIRUBIN NEGATIVE (NEGATIVE); URINE BLOOD NEGATIVE (NEGATIVE); URINE COLOR LTYELLOW; URINE GLUCOSE (UA) NEGATIVE (NEGATIVE); URINE KETONE NEGATIVE (NEGATIVE); URINE LEUK ESTERASE TRACE (NEGATIVE); URINE NITRITE NEGATIVE (NEGATIVE); URINE PROTEIN NEGATIVE (NEGATIVE); URINE UROBILINOGEN NEGATIVE mg/dL (0.2-1.0)
[2017-04-05 12:48] LABS: URINE WBC 1 /hpf (3-5)
[2017-04-05 15:55] VITALS: BP 116/69; PULSE 47; TEMP 97.4
== END 2017-04-05 15:25 | disposition home or self-care (01) ==
LOC: JONCCHEMO 07:37 → J7W 10:30 → JONCCHEMO 15:25
PROVIDERS: ATTEND Internal Medicine Hematology & Oncology
DX: Z51.11 Encounter for antineoplastic chemotherapy (principal); C82.08 Follicular lymphoma grade I, lymph nodes of multiple sites
CPT/HCPCS: 36415; 72050-TC; 80053; 80076; 81003; 81015; 83735; 84550; 85025; 85610; 87086; 96413; 96415; J9310

== ENCOUNTER 2017-06-07 07:28 | Day surgery (SDC) | payer OTHER ==
[2017-06-07] MEDS ORDERED: SODIUM CHLORIDE 1,000 ML IV ONE (08:00)
[2017-06-07] MEDS ORDERED: diphenhydrAMINE HCL 25 MG CAPSULE (FP) PO ONE (08:00)
[2017-06-07] MEDS ORDERED: ACETAMINOPHEN 325 MG TABLET (FP) PO ONE (08:00)
[2017-06-07] MEDS ORDERED: RITUXIMAB IVPB ONE (08:30)
[2017-06-07] MEDS ORDERED: SODIUM CHLORIDE IVPB ONE (08:30)
[2017-06-07 09:46] LABS: BASOPHIL 0.6 % (0-2.0); EOSINOPHIL 3.4 % (0-4.5); MCH 31.2 pg (25.7-33.7); MCHC 33.1 g/dl (32.0-35.9); MEAN CELL VOLUME 94.4 fl (80-96); MEAN PLT VOLUME 8.1 fl (7.5-11.1); NEUTROPHILS 66.4 % (42.8-82.8); PLATELET COUNT 148 K/MM3 (134-434); RDW 15.3 % (11.9-15.9); WHITE BLOOD COUNT 6.4 K/mm3 (4.0-10.0)
[2017-06-07 09:59] LABS: INR 2.94 (0.82-1.09); PROTHROMBIN TIME (PATIENT) 33.2 SEC (9.98-11.88)
[2017-06-07 10:06] LABS: ALBUMIN 3.6 g/dl (3.4-5.0); ALK PHOS 64 U/L (45-117); ANION GAP 5 (8-16); BILIRUBIN,DIRECT < 0.2 mg/dL (0.0-0.2); BILIRUBIN,TOTAL 0.6 mg/dL (0.2-1.0); CALCIUM 8.4 mg/dL (8.5-10.1); CO2 28 mmol/L (21-32); CREATININE 1.5 mg/dL (0.7-1.3); GLUCOSE,RANDOM 127 mg/dL (74-106); MAGNESIUM 1.8 mg/dL (1.8-2.4); SGOT/AST 10 U/L (15-37); SGPT/ALT 19 U/L (12-78); TOT PROT 6.4 g/dl (6.4-8.2)
[2017-06-07 10:49] VITALS: TEMP 97.7
[2017-06-07 17:59] VITALS: BP 128/74; PULSE 49
== END 2017-06-07 14:45 | disposition home or self-care (01) ==
LOC: JONCCHEMO 07:28 → J7W 10:17 → JONCCHEMO 14:45
PROVIDERS: ATTEND Internal Medicine Hematology & Oncology
DX: Z51.11 Encounter for antineoplastic chemotherapy (principal); C82.08 Follicular lymphoma grade I, lymph nodes of multiple sites
CPT/HCPCS: 36415; 80053; 80076; 83735; 85025; 85610; 96361; 96413; 96415; J9310

== ENCOUNTER 2017-08-02 07:35 | Day surgery (SDC) | payer OTHER ==
[2017-08-02] MEDS ORDERED: diphenhydrAMINE HCL 25 MG CAPSULE (FP) PO ONE (08:00)
[2017-08-02] MEDS ORDERED: SODIUM CHLORIDE 1,000 ML IV ONE (08:00)
[2017-08-02] MEDS ORDERED: ACETAMINOPHEN 325 MG TABLET (FP) PO ONE (08:00)
[2017-08-02] MEDS ORDERED: SODIUM CHLORIDE IVPB ONE (08:30)
[2017-08-02] MEDS ORDERED: RITUXIMAB IVPB ONE (08:30)
[2017-08-02 10:13] LABS: BASO % 0.9 % (0-2.0); EOS % 2.8 % (0-4.5); HEMATOCRIT 41.3 % (35.4-49); HEMOGLOBIN 13.7 GM/dL (11.7-16.9); LYMPH % 24.5 % (8-40); MCH 31.1 pg (25.7-33.7); MCHC 33.2 g/dl (32.0-35.9); MEAN CELL VOLUME 93.7 fl (80-96); MEAN PLT VOLUME 8.4 fl (7.5-11.1); MONO % 9.6 % (3.8-10.2); NEUT % 62.2 % (42.8-82.8); PLATELET COUNT 163 K/MM3 (134-434); RDW 14.8 % (11.9-15.9); WHITE BLOOD COUNT 5.7 K/mm3 (4.0-10.0)
[2017-08-02 10:30] LABS: INR 2.23 (0.82-1.09); PROTHROMBIN TIME (PATIENT) 25.2 SEC (9.98-11.88)
[2017-08-02 10:44] LABS: ALBUMIN 3.9 g/dl (3.4-5.0); ALK PHOS 64 U/L (45-117); ANION GAP 6 (8-16); BILIRUBIN,DIRECT < 0.2 mg/dL (0.0-0.2); BILIRUBIN,TOTAL 0.6 mg/dL (0.2-1.0); BLOOD UREA NITROGEN 42 mg/dL (7-18); CALCIUM 8.8 mg/dL (8.5-10.1); CHLORIDE 107 mmol/L (98-107); CO2 26 mmol/L (21-32); CREATININE 1.6 mg/dL (0.7-1.3); GLUCOSE,RANDOM 104 mg/dL (74-106); MAGNESIUM 1.7 mg/dL (1.8-2.4); POTASSIUM 4.1 mmol/L (3.5-5.1); SGOT/AST 13 U/L (15-37); SGPT/ALT 20 U/L (12-78); SODIUM 139 mmol/L (136-145)
[2017-08-02] MEDS ORDERED: D5-1/2NS+20 MEQ KCL - 20 MEQ/1,000 ML INFUS.BAG IV SCH (15:30)
[2017-08-02 17:08] VITALS: PULSE 48
[2017-08-02 17:10] VITALS: TEMP 97.8
[2017-08-02 18:23] VITALS: BP 108/67
== END 2017-08-02 17:45 | disposition home or self-care (01) ==
LOC: JONCCHEMO 07:35 → J7W 10:30 → JONCCHEMO 17:45
PROVIDERS: ATTEND Internal Medicine Hematology & Oncology
DX: Z51.11 Encounter for antineoplastic chemotherapy (principal); C82.08 Follicular lymphoma grade I, lymph nodes of multiple sites
CPT/HCPCS: 36415; 80053; 80076; 83735; 85025; 85610; 96361; 96413; 96415; J9310

== ENCOUNTER 2017-09-27 07:18 | Day surgery (SDC) | payer OTHER ==
[2017-09-27] MEDS ORDERED: ACETAMINOPHEN 325 MG TABLET (FP) PO ONE (08:00)
[2017-09-27] MEDS ORDERED: diphenhydrAMINE HCL 25 MG CAPSULE (FP) PO ONE (08:00)
[2017-09-27] MEDS ORDERED: SODIUM CHLORIDE 1,000 ML IV ONE (08:00)
[2017-09-27] MEDS ORDERED: RITUXIMAB IVPB ONE (08:30)
[2017-09-27] MEDS ORDERED: SODIUM CHLORIDE IVPB ONE (08:30)
[2017-09-27 10:32] LABS: BASO % 0.8 % (0-2.0); EOS % 3.8 % (0-4.5); HEMATOCRIT 41.7 % (35.4-49); HEMOGLOBIN 14.1 GM/dL (11.7-16.9); LYMPH % 24.6 % (8-40); MCHC 33.8 g/dl (32.0-35.9); MEAN CELL VOLUME 94.6 fl (80-96); MEAN PLT VOLUME 8.8 fl (7.5-11.1); NEUT % 58.8 % (42.8-82.8); PLATELET COUNT 157 K/MM3 (134-434); RDW 14.4 % (11.9-15.9); WHITE BLOOD COUNT 5.3 K/mm3 (4.0-10.0)
[2017-09-27 10:54] LABS: INR 2.6 (0.82-1.09); PROTHROMBIN TIME (PATIENT) 29.4 SEC (9.98-11.88)
[2017-09-27 11:16] LABS: ALK PHOS 61 U/L (45-117); ANION GAP 8 (8-16); BILIRUBIN,DIRECT 0.2 mg/dL (0.0-0.2); BILIRUBIN,TOTAL 0.5 mg/dL (0.2-1.0); BLOOD UREA NITROGEN 49 mg/dL (7-18); CALCIUM 8.7 mg/dL (8.5-10.1); CHLORIDE 104 mmol/L (98-107); CO2 26 mmol/L (21-32); CREATININE 1.6 mg/dL (0.7-1.3); GLUCOSE,RANDOM 130 mg/dL (74-106); MAGNESIUM 1.4 mg/dL (1.8-2.4); POTASSIUM 4.2 mmol/L (3.5-5.1); SGOT/AST 13 U/L (15-37); SGPT/ALT 17 U/L (12-78); SODIUM 138 mmol/L (136-145)
[2017-09-27 11:55] LABS: LDH 206 U/L (87-241)
[2017-09-27] MEDS ORDERED: MAGNESIUM SULFATE IN WATER 2 GM/50 ML IVPB IVPB ONE (14:00)
[2017-09-27] MEDS ORDERED: MAGNESIUM SULF 50% (8.12 MEQ/2 ML-1 GM VIAL) ONE (15:15)
[2017-09-27 18:18] VITALS: BP 98/49; PULSE 49; TEMP 97.9
== END 2017-09-27 17:00 | disposition home or self-care (01) ==
LOC: JONCCHEMO 07:18 → J7W 11:19 → JONCCHEMO 17:00
PROVIDERS: ATTEND Internal Medicine Hematology & Oncology
DX: Z51.11 Encounter for antineoplastic chemotherapy (principal); C82.08 Follicular lymphoma grade I, lymph nodes of multiple sites
CPT/HCPCS: 36415; 80053; 80076; 83615; 83735; 85025; 85610; 85651; 96367; 96413; 96415; 96417; J7030; J9310

== ENCOUNTER 2017-11-22 07:23 | Day surgery (SDC) | payer OTHER ==
[2017-11-22] MEDS ORDERED: ACETAMINOPHEN 325 MG TABLET (FP) PO ONE (08:00)
[2017-11-22] MEDS ORDERED: SODIUM CHLORIDE 500 ML IV ONE (08:00)
[2017-11-22] MEDS ORDERED: diphenhydrAMINE HCL 25 MG CAPSULE (FP) PO ONE (08:00)
[2017-11-22] MEDS ORDERED: SODIUM CHLORIDE IVPB ONE (08:30)
[2017-11-22] MEDS ORDERED: RITUXIMAB IVPB ONE (08:30)
[2017-11-22 09:19] LABS: BASO % 0.9 % (0-2.0); EOS % 4.3 % (0-4.5); HEMOGLOBIN 12.8 GM/dL (11.7-16.9); LYMPH % 28.7 % (8-40); MCH 32.3 pg (25.7-33.7); MCHC 34.7 g/dl (32.0-35.9); MEAN CELL VOLUME 93.1 fl (80-96); MEAN PLT VOLUME 7.7 fl (7.5-11.1); MONO % 9.3 % (3.8-10.2); NEUT % 56.8 % (42.8-82.8); PLATELET COUNT 144 K/MM3 (134-434); RBC 3.98 M/mm3 (4.00-5.60); RDW 14.9 % (11.9-15.9); WHITE BLOOD COUNT 4.9 K/mm3 (4.0-10.0)
[2017-11-22 09:31] LABS: INR 2.57 (0.82-1.09)
[2017-11-22 09:46] LABS: ALBUMIN 3.7 g/dl (3.4-5.0); ANION GAP 6 (8-16); BILIRUBIN,DIRECT < 0.2 mg/dL (0.0-0.2); BILIRUBIN,TOTAL 0.4 mg/dL (0.2-1.0); BLOOD UREA NITROGEN 35 mg/dL (7-18); CALCIUM 8.7 mg/dL (8.5-10.1); CHLORIDE 105 mmol/L (98-107); CO2 28 mmol/L (21-32); CREATININE 1.8 mg/dL (0.7-1.3); GLUCOSE,RANDOM 136 mg/dL (74-106); MAGNESIUM 2.1 mg/dL (1.8-2.4); POTASSIUM 4.3 mmol/L (3.5-5.1); SGOT/AST 15 U/L (15-37); SGPT/ALT 18 U/L (12-78); SODIUM 139 mmol/L (136-145); TOT PROT 6.6 g/dl (6.4-8.2)
[2017-11-22 09:47] LABS: ALK PHOS 67 U/L (45-117)
[2017-11-22 18:49] VITALS: PULSE 59; TEMP 97.5
[2017-11-22 18:54] VITALS: BP 121/70
== END 2017-11-22 15:40 | disposition home or self-care (01) ==
LOC: JONCCHEMO 07:23 → J7W 10:09 → JONCCHEMO 15:40
PROVIDERS: ATTEND Internal Medicine Hematology & Oncology
DX: Z51.11 Encounter for antineoplastic chemotherapy (principal); C82.08 Follicular lymphoma grade I, lymph nodes of multiple sites
CPT/HCPCS: 36415; 80053; 80076; 83735; 85025; 85610; 96413; 96415; J7030; J9310

== ENCOUNTER 2018-04-04 07:35 | Day surgery (SDC) | payer OTHER ==
[2018-04-04] MEDS ORDERED: SODIUM CHLORIDE 1,000 ML IV ONE (08:00)
[2018-04-04] MEDS ORDERED: diphenhydrAMINE HCL 25 MG CAPSULE (FP) PO ONE (08:00)
[2018-04-04] MEDS ORDERED: ACETAMINOPHEN 325 MG TABLET (FP) PO ONE (08:00)
[2018-04-04] MEDS ORDERED: SODIUM CHLORIDE IVPB ONE (08:30)
[2018-04-04] MEDS ORDERED: RITUXIMAB IVPB ONE (08:30)
[2018-04-04 09:21] LABS: BASO % 0.7 % (0-2.0); EOS % 2.5 % (0-4.5); HEMATOCRIT 37.9 % (35.4-49); HEMOGLOBIN 12.9 GM/dL (11.7-16.9); LYMPH % 14.2 % (8-40); MCH 32.2 pg (25.7-33.7); MCHC 33.9 g/dl (32.0-35.9); MEAN PLT VOLUME 8.3 fl (7.5-11.1); MONO % 7.8 % (3.8-10.2); NEUT % 74.8 % (42.8-82.8); PLATELET COUNT 172 K/MM3 (134-434); RBC 3.99 M/mm3 (4.00-5.60); RDW 14.8 % (11.9-15.9); WHITE BLOOD COUNT 8.1 K/mm3 (4.0-10.0)
[2018-04-04 09:53] LABS: ALBUMIN 3.8 g/dl (3.4-5.0); BILIRUBIN,DIRECT 0.2 mg/dL (0.0-0.2); BILIRUBIN,TOTAL 0.6 mg/dL (0.2-1); TOT PROT 6.9 g/dl (6.4-8.2)
[2018-04-04 09:54] LABS: ALBUMIN 3.8 g/dl (3.4-5.0); ALK PHOS 75 U/L (45-117); ANION GAP 4 MMOL/L (8-16); BILIRUBIN,TOTAL 0.7 mg/dL (0.2-1); BLOOD UREA NITROGEN 48 mg/dL (7-18); CALCIUM 8.8 mg/dL (8.5-10.1); CHLORIDE 108 mmol/L (98-107); CO2 28 mmol/L (21-32); CREATININE 1.6 mg/dL (0.55-1.3); GLUCOSE,RANDOM 154 mg/dL (74-106); POTASSIUM 4.5 mmol/L (3.5-5.1); SGOT/AST 13 U/L (15-37); SGPT/ALT 18 U/L (13-61); SODIUM 139 mmol/L (136-145); TOT PROT 6.9 g/dl (6.4-8.2)
[2018-04-04 14:22] LABS: INR 1.73 (0.83-1.09); PROTHROMBIN TIME (PATIENT) 19.5 SEC (9.7-13.0)
[2018-04-04 17:04] VITALS: TEMP 97.9
[2018-04-04 17:05] VITALS: BP 142/55; PULSE 47
[2018-04-05 08:07] LABS: IGA IMMUNOGLOBULIN 33 mg/dL (61-437); IGG IMMUNOGLOBULIN 637 mg/dL (700-1600); IGM IMMUNOGLOBULIN 32 mg/dL (15-143)
== END 2018-04-04 15:55 | disposition home or self-care (01) ==
LOC: JONCCHEMO 07:35 → J7W 10:09 → JONCCHEMO 15:55
PROVIDERS: ATTEND Internal Medicine Hematology & Oncology
DX: Z51.11 Encounter for antineoplastic chemotherapy (principal); C82.08 Follicular lymphoma grade I, lymph nodes of multiple sites
CPT/HCPCS: 36415; 80053; 80076; 82232; 82784; 83615; 83735; 84550; 85025; 85610; 85651; 96413; 96415; J7030; J9310

== ENCOUNTER 2018-05-30 07:23 | Day surgery (SDC) | payer OTHER ==
[2018-05-30 09:50] LABS: BASO % 0.9 % (0-2.0); EOS % 3.6 % (0-4.5); HEMATOCRIT 36.7 % (35.4-49); HEMOGLOBIN 12.1 GM/dL (11.7-16.9); LYMPH % 25.3 % (8-40); MCH 31.2 pg (25.7-33.7); MEAN CELL VOLUME 94.6 fl (80-96); MEAN PLT VOLUME 8.3 fl (7.5-11.1); MONO % 9.1 % (3.8-10.2); NEUT % 61.1 % (42.8-82.8); PLATELET COUNT 151 K/MM3 (134-434); RBC 3.88 M/mm3 (4.00-5.60); RDW 14.3 % (11.9-15.9)
[2018-05-30] MEDS ORDERED: diphenhydrAMINE HCL 25 MG CAPSULE (FP) PO ONE (10:00)
[2018-05-30] MEDS ORDERED: SODIUM CHLORIDE 250 ML IV SCH (10:00)
[2018-05-30] MEDS ORDERED: ACETAMINOPHEN 325 MG TABLET (FP) PO ONE (10:00)
[2018-05-30 10:25] LABS: ALBUMIN 3.7 g/dl (3.4-5.0); ALK PHOS 57 U/L (45-117); ANION GAP 8 MMOL/L (8-16); BILIRUBIN,DIRECT 0.2 mg/dL (0.0-0.2); BILIRUBIN,TOTAL 0.7 mg/dL (0.2-1); BLOOD UREA NITROGEN 43 mg/dL (7-18); CALCIUM 8.8 mg/dL (8.5-10.1); CHLORIDE 104 mmol/L (98-107); CO2 29 mmol/L (21-32); CREATININE 1.9 mg/dL (0.55-1.3); GLUCOSE,RANDOM 139 mg/dL (74-106); MAGNESIUM 2.2 mg/dL (1.8-2.4); POTASSIUM 4.4 mmol/L (3.5-5.1); SGOT/AST 14 U/L (15-37); SGPT/ALT 19 U/L (13-61); SODIUM 141 mmol/L (136-145); TOT PROT 6.5 g/dl (6.4-8.2); URIC ACID 3.7 mg/dL (2.6-7.2)
[2018-05-30] MEDS ORDERED: RITUXIMAB IVPB ONE (10:30)
[2018-05-30] MEDS ORDERED: SODIUM CHLORIDE IVPB ONE (10:30)
[2018-05-30 10:39] LABS: INR 3.46 (0.83-1.09); PROTHROMBIN TIME (PATIENT) 41.3 SEC (9.7-13.0)
[2018-05-30 10:45] LABS: LDH 177 U/L (87-246)
[2018-05-30 14:37] VITALS: TEMP 97.8
[2018-05-30 15:09] VITALS: BP 100/45; PULSE 55
[2018-05-31 06:06] LABS: IGA IMMUNOGLOBULIN 35 mg/dL (61-437); IGG IMMUNOGLOBULIN 633 mg/dL (700-1600); IGM IMMUNOGLOBULIN 39 mg/dL (15-143)
== END 2018-05-30 15:30 | disposition home or self-care (01) ==
LOC: JONCCHEMO 07:23 → J7W 10:45 → JONCCHEMO 15:30
PROVIDERS: ATTEND Internal Medicine Hematology & Oncology
DX: Z51.11 Encounter for antineoplastic chemotherapy (principal); C82.08 Follicular lymphoma grade I, lymph nodes of multiple sites
CPT/HCPCS: 36415; 80053; 80076; 82232; 82784; 82785; 83615; 83735; 84550; 85025; 85610; 85651; 96367; 96375; 96413; 96415; J7030; J9310

== ENCOUNTER 2018-07-25 06:48 | Day surgery (SDC) | payer OTHER ==
[2018-07-25] MEDS ORDERED: diphenhydrAMINE HCL 25 MG CAPSULE (FP) PO ONE ×2 (08:00→11:45)
[2018-07-25] MEDS ORDERED: ACETAMINOPHEN 325 MG TABLET (FP) PO ONE (08:00)
[2018-07-25] MEDS ORDERED: SODIUM CHLORIDE 1,000 ML IV ONE (08:00)
[2018-07-25] MEDS ORDERED: RITUXIMAB IVPB ONE (08:30)
[2018-07-25] MEDS ORDERED: SODIUM CHLORIDE IVPB ONE (08:30)
[2018-07-25 10:51] LABS: BASO % 1.5 % (0-2.0); EOS % 2.7 % (0-4.5); HEMATOCRIT 37.3 % (35.4-49); HEMOGLOBIN 13.2 GM/dL (11.7-16.9); MCHC 35.5 g/dl (32.0-35.9); MEAN PLT VOLUME 8.2 fl (7.5-11.1); MONO % 11.5 % (3.8-10.2); NEUT % 53.3 % (42.8-82.8); PLATELET COUNT 159 K/MM3 (134-434); RBC 4.01 M/mm3 (4.00-5.60); RDW 14.7 % (11.9-15.9); WHITE BLOOD COUNT 5.1 K/mm3 (4.0-10.0)
[2018-07-25 11:03] LABS: INR 2.43 (0.83-1.09); PROTHROMBIN TIME (PATIENT) 28.9 SEC (9.7-13.0)
[2018-07-25] MEDS ORDERED: ACETAMINOPHEN 325 MG TABLET (FP) ONE (11:17)
[2018-07-25 11:18] LABS: ALBUMIN 3.8 g/dl (3.4-5.0); ALK PHOS 70 U/L (45-117); ANION GAP 7 MMOL/L (8-16); BILIRUBIN,DIRECT 0.2 mg/dL (0.0-0.2); BILIRUBIN,TOTAL 0.7 mg/dL (0.2-1); BLOOD UREA NITROGEN 45 mg/dL (7-18); CALCIUM 8.7 mg/dL (8.5-10.1); CHLORIDE 104 mmol/L (98-107); CO2 27 mmol/L (21-32); CREATININE 1.9 mg/dL (0.55-1.3); GLUCOSE,RANDOM 124 mg/dL (74-106); LDH 239 U/L (87-246); POTASSIUM 3.9 mmol/L (3.5-5.1); SGOT/AST 18 U/L (15-37); SGPT/ALT 25 U/L (13-61); SODIUM 138 mmol/L (136-145); TOT PROT 6.9 g/dl (6.4-8.2); URIC ACID 4.6 mg/dL (2.6-7.2)
[2018-07-25] MEDS ORDERED: ALBUTEROL SO4 0.083% IH SOL 2.5 MG/3 ML VIAL.NEB. NEB ONE (11:40)
[2018-07-25] MEDS: ALBUTEROL SO4 0.083% IH SOL 2.5 MG/3 ML VIAL.NEB. NEB PRN ×2 (11:45→15:47)
[2018-07-25] MEDS ORDERED: AMOX TR/POT CLAV 875MG/125MG TABLETS (FP) PO ONE (12:15)
[2018-07-25] MEDS ORDERED: DEXAMETHASONE SOD PHOSPHATE 4 MG/1 ML VIAL IVPB ONE (12:15)
[2018-07-25] MEDS ORDERED: DEXAMETHASONE SOD PHOSPHATE 10 MG/1 ML VIAL IVPB ONE (12:45)
[2018-07-25] MEDS ORDERED: SODIUM CHLORIDE 500 ML IV ONE (12:45)
[2018-07-25 16:26] VITALS: TEMP 98.1
[2018-07-25 16:27] VITALS: BP 109/68; PULSE 99
[2018-07-26 03:16] LABS: HBsAG SCREEN Negative (Negative); HEP B CORE AB, TOT Negative (Negative)
[2018-07-26 04:16] LABS: IGA IMMUNOGLOBULIN 32 mg/dL (61-437); IGG IMMUNOGLOBULIN 639 mg/dL (700-1600); IGM IMMUNOGLOBULIN 30 mg/dL (15-143)
[2018-07-26 15:28] LABS: BETA-2-MICROGLOBULIN 4.7 mg/L (0.6-2.4)
== END 2018-07-25 16:58 | disposition home or self-care (01) ==
LOC: JONCCHEMO 06:48 → J7W 11:01 → JONCCHEMO 16:58
PROVIDERS: ATTEND Internal Medicine Hematology & Oncology
DX: Z51.11 Encounter for antineoplastic chemotherapy (principal); C82.08 Follicular lymphoma grade I, lymph nodes of multiple sites
CPT/HCPCS: 36415; 71046-TC-FY; 80048; 80076; 82232; 82784; 83615; 83735; 84550; 85025; 85610; 86704; 87340; 94640; 96361; 96367; 96375; 96413; 96415; J1100; J7030; J9312

== ENCOUNTER 2018-09-19 06:15 | Day surgery (SDC) | payer OTHER ==
[2018-09-19] MEDS ORDERED: SODIUM CHLORIDE 1,000 ML IV ONE (08:00)
[2018-09-19] MEDS ORDERED: ACETAMINOPHEN 325 MG TABLET (FP) PO ONE (08:00)
[2018-09-19] MEDS ORDERED: diphenhydrAMINE HCL 25 MG CAPSULE (FP) PO ONE (08:00)
[2018-09-19] MEDS ORDERED: RITUXIMAB IVPB ONE (08:30)
[2018-09-19] MEDS ORDERED: SODIUM CHLORIDE IVPB ONE (08:30)
[2018-09-19 10:43] LABS: BASO % 0.5 % (0-2.0); EOS % 3.1 % (0-4.5); HEMOGLOBIN 13.3 GM/dL (11.7-16.9); LYMPH % 29.9 % (8-40); MCH 33.6 pg (25.7-33.7); MCHC 34.9 g/dl (32.0-35.9); MEAN CELL VOLUME 96.4 fl (80-96); MEAN PLT VOLUME 7.7 fl (7.5-11.1); MONO % 11.2 % (3.8-10.2); NEUT % 55.3 % (42.8-82.8); PLATELET COUNT 138 K/MM3 (134-434); RBC 3.95 M/mm3 (4.00-5.60); RDW 14.7 % (11.9-15.9); WHITE BLOOD COUNT 4.8 K/mm3 (4.0-10.0)
[2018-09-19 10:55] LABS: INR 3.64 (0.83-1.09); PROTHROMBIN TIME (PATIENT) 43.5 SEC (9.7-13.0)
[2018-09-19 11:09] LABS: ALBUMIN 3.8 g/dl (3.4-5.0); ALK PHOS 63 U/L (45-117); ANION GAP 5 MMOL/L (8-16); BILIRUBIN,TOTAL 0.8 mg/dL (0.2-1); BLOOD UREA NITROGEN 34 mg/dL (7-18); CALCIUM 8.7 mg/dL (8.5-10.1); CHLORIDE 106 mmol/L (98-107); CO2 28 mmol/L (21-32); CREATININE 1.7 mg/dL (0.55-1.3); GLUCOSE,RANDOM 122 mg/dL (74-106); POTASSIUM 4.1 mmol/L (3.5-5.1); SGOT/AST 17 U/L (15-37); SGPT/ALT 29 U/L (13-61); SODIUM 139 mmol/L (136-145); TOT PROT 6.6 g/dl (6.4-8.2)
[2018-09-19 11:19] LABS: ALBUMIN 3.8 g/dl (3.4-5.0); BILIRUBIN,DIRECT 0.2 mg/dL (0.0-0.2); BILIRUBIN,TOTAL 0.8 mg/dL (0.2-1); MAGNESIUM 1.8 mg/dL (1.8-2.4); TOT PROT 6.7 g/dl (6.4-8.2)
[2018-09-19 17:22] VITALS: BP 138/84; PULSE 96; TEMP 97.5
== END 2018-09-19 15:30 | disposition home or self-care (01) ==
LOC: JONCCHEMO 06:15 → J7W 11:49 → JONCCHEMO 15:30
PROVIDERS: ATTEND Internal Medicine Hematology & Oncology
DX: Z51.11 Encounter for antineoplastic chemotherapy (principal); C82.08 Follicular lymphoma grade I, lymph nodes of multiple sites
CPT/HCPCS: 36415; 80053; 80076; 82150; 82232; 82530; 82533; 82784; 83690; 83735; 84439; 84443; 85025; 85610; 85730; 96413; 96415; J7030; J9312

== ENCOUNTER 2018-11-07 11:06 | Day surgery (SDC) | payer OTHER ==
[2018-11-04 13:45] VITALS: BMI 36.0
[2018-11-07 12:42] VITALS: TEMP 97.9
[2018-11-07 13:40] VITALS: BP 104/64; PULSE 55
--- NOTE | 2018-11-08 14:24 | EKG ---
Test Reason : Blood Pressure : / mmHG Vent. Rate : 098 BPM Atrial Rate : 098 BPM P-R Int : 200 ms QRS Dur : 108 ms QT Int : 374 ms P-R-T Axes : 095 002 053 degrees QTc Int : 477 ms NORMAL SINUS RHYTHM INCOMPLETE RIGHT BUNDLE BRANCH BLOCK POSSIBLE INFERIOR INFARCT (CITED ON OR BEFORE 07-SEP-2014) ABNORMAL ECG Confirmed by MD KHOURY MOYSES ([id number]) on 11/08/2018 2:24:07 PM Referred By: Yuniel Lopez Confirmed By:JULIANNE KHOURY MD
--- NOTE | 2018-11-08 14:24 | EKG ---
Test Reason : Blood Pressure : / mmHG Vent. Rate : 054 BPM Atrial Rate : 054 BPM P-R Int : 224 ms QRS Dur : 108 ms QT Int : 456 ms P-R-T Axes : 075 004 051 degrees QTc Int : 432 ms SINUS BRADYCARDIA WITH 1ST DEGREE A-V BLOCK WITH PREMATURE ATRIAL COMPLEXES INCOMPLETE RIGHT BUNDLE BRANCH BLOCK CANNOT RULE OUT INFERIOR INFARCT (CITED ON OR BEFORE 07-SEP-2014) ABNORMAL ECG Confirmed by MD PENG, JULIANNE ([id number]) on 11/08/2018 2:23:35 PM Referred By: Yuniel Lopez Confirmed By:JULIANNE KHOURY MD
== END 2018-11-07 13:39 | disposition home or self-care (01) ==
LOC: JASU-ENDO 11:06
PROVIDERS: ATTEND Internal Medicine Cardiovascular Disease
PROC: 5A2204Z Restoration of Cardiac Rhythm, Single (ICD-10-PCS; principal; 2018-11-07 11:30)
DX: I48.91 Unspecified atrial fibrillation (principal); I10 Essential (primary) hypertension
CPT/HCPCS: 92960; 93005; 93010

== ENCOUNTER 2019-08-14 10:10 | Day surgery (SDC) | payer OTHER ==
[2019-08-14 11:27] VITALS: BMI 36.3
--- NOTE | 2019-08-14 12:14 | EKG ---
Test Reason : Blood Pressure : / mmHG Vent. Rate : 088 BPM Atrial Rate : 101 BPM P-R Int : 000 ms QRS Dur : 110 ms QT Int : 390 ms P-R-T Axes : 000 -13 026 degrees QTc Int : 471 ms ATRIAL FIBRILLATION INCOMPLETE RIGHT BUNDLE BRANCH BLOCK INFERIOR INFARCT (CITED ON OR BEFORE 07-SEP-2014) ABNORMAL ECG WHEN COMPARED WITH ECG OF 07-NOV-2018 12:38, ATRIAL FIBRILLATION HAS REPLACED SINUS RHYTHM VENT. RATE HAS INCREASED BY 34 BPM Confirmed by Rock Quinones ([id number]) on 08/14/2019 12:13:38 PM Referred By: GÓMEZ JENSEN DR Confirmed By:Rock Quinones
[2019-08-14 12:38] VITALS: TEMP 97.5
--- NOTE | 2019-08-14 13:08 | EKG ---
Test Reason : Blood Pressure : / mmHG Vent. Rate : 049 BPM Atrial Rate : 049 BPM P-R Int : 222 ms QRS Dur : 108 ms QT Int : 476 ms P-R-T Axes : 087 005 050 degrees QTc Int : 429 ms SINUS BRADYCARDIA WITH MARKED SINUS ARRHYTHMIA WITH 1ST DEGREE A-V BLOCK LOW VOLTAGE QRS INCOMPLETE RIGHT BUNDLE BRANCH BLOCK CANNOT RULE OUT INFERIOR INFARCT (CITED ON OR BEFORE 07-SEP-2014) ABNORMAL ECG WHEN COMPARED WITH ECG OF 14-AUG-2019 11:31, SINUS RHYTHM HAS REPLACED ATRIAL FIBRILLATION VENT. RATE HAS DECREASED BY 39 BPM Confirmed by Rock Quinones ([id number]) on 08/14/2019 1:08:17 PM Referred By: Confirmed By:Rock Quinones
[2019-08-14 13:32] VITALS: BP 113/70; PULSE 56
== END 2019-08-14 13:50 | disposition home or self-care (01) ==
LOC: JASU-ENDO 10:10
PROVIDERS: ATTEND Internal Medicine Cardiovascular Disease
PROC: 5A2204Z Restoration of Cardiac Rhythm, Single (ICD-10-PCS; principal; 2019-08-14 11:00)
DX: I48.91 Unspecified atrial fibrillation (principal); I10 Essential (primary) hypertension
CPT/HCPCS: 92960; 93005; 93010

== ENCOUNTER → 2020-04-15 | Day surgery (SDC) | payer OTHER ==
--- OUTSIDE RECORDS SUMMARY | 2020-04-15 10:11 | XMS ---
:1935 Author Organization [facility] Care Team Providers Name Role Phone Rao Martinez MD Unavailable Unavailable Ria Warner MD Unavailable Unavailable Marlene Youssef MD Unavailable Unavailable Jenniffer Koehler Unavailable Unavailable Adams Valentin MD Unavailable Unavailable Re-disclosure Warning The records that you are about to access may contain information from federally- assisted alcohol or drug abuse programs. If such information is present, then the following federally mandated warning applies: This information has been disclosed to you from records protected by federal confidentiality rules (42 CFR part 2). The federal rules prohibit you from making any further disclosure of this information unless further disclosure is expressly permitted by the written consent of the person to whom it pertains or as otherwise permitted by 42 CFR part 2. A general authorization for the release of medical or other information is NOT sufficient for this purpose. The Federal rules restrict any use of the information to criminally investigate or prosecute any alcohol or drug abuse patient.The records that you are about to access may contain highly sensitive health information, the redisclosure of which is protected by Article 27-F of the [facility] Public Health law. If you continue you may haveaccess to information: Regarding HIV / AIDS; Provided by facilities licensed or operated by the [facility] Office of Mental Health; or Provided by the [facility] Office for People With Developmental Disabilities. If such information is present, then the following [facility] mandated warning applies: This information has been disclosed to you from confidential records which are protected by state law. State law prohibits you from making any further disclosure of this information without the specific written consent of the person to whom it pertains, or as otherwise permitted by law. Any unauthorized further disclosure in violation of state law may result in a fine or snf sentence or both. A general authorization for the release of medical or other information is NOT sufficient authorization for further disclosure. 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 Observation Data Description Source(s ) Advance No completed [place] [facility] Advance No completed [place] directive [facility] Advance Y - completed [place] directive [facility] Allergies and Adverse Reactions Type Description Substance Reaction Status Data Source(s ) Drug allergy No Known Drug No Known Drug NO KNOWN ALLERG W rigoberto [employer] Allergies Allergies Hospital Encounters Encounter Providers Location Date Indications Data Source(s ) Inpatient Attender: Marlene 09/14/2019 RULE OUT [facility] Youssef 08:00:00 PM ENDOCARDITIS Hospital MDAttender: SHE Rollins 09/21/2019 Tim[place] 01:29:00 PM MDAttender: EDT Adams Valentin MDAttender: Jenniffer Koehler PAAdmitter: Adams Valentin MDConsultant: Rao Martinez MD RULE OUT ENDOCARDITIS Patient discharged. Functional Status Medications Medication Brand Start Product Dose Route [facility] Indications Reaction Description Data Name Date Form Instructions Instructions Source(s) Famotidine Famoti 09/19/ TABLET 20 mg ORAL active [facility] 20 MG Oral dine 2020 [facility] Tablet 09:55: Hospital 00 PM EDT Metoprolol Metopr 09/19/ TABLET 25 mg ORAL active [facility] Tartrate 25 olol 2020 [employer] MG Oral Tartra 08:55: Hospital Tablet te 00 PM EDT Magnesium Magnes TABLET 400 ORAL active Whit e Oxide 400 ium mg [facility] MG Oral Oxide Hospital Tablet Furosemide Furose TABLET 20 mg ORAL active Wh ite 20 MG Oral mide [facility] Tablet Hospital 12 HR Ranola SUSTAINE 500 ORAL active White ranolazine zine D mg [facility] 500 MG RELEASE Hospital Extended TABLET Release Oral Tablet [Ranexa] Ranolazine Allopurinol Allopu TABLET 300 ORAL active Wh ite 300 MG Oral rinol mg [facility] Tablet Hospital Losartan Losart TABLET 100 ORAL complet Whit e Potassium an mg ed [employer] 50 MG Oral Potass Hospita l Tablet ium [Cozaar] Metoprolol Metopr TABLET 0.5 ORAL complet Wh ite Tartrate olol {Caps ed [employer] 100 MG Oral Tartra ule} Hospit al Tablet te Tamsulosin Tamsul CAPSULE 0.4 ORAL active Wh ite hydrochlori osin mg [facility] [employer] de 0.4 MG Hcl Hospital Oral Capsule [Flomax] Tamsulosin Hcl Cholecalcif TABLET 2000 ORAL active Whit e ariela [facility] (Vitamin Hospital D3) Aspirin 81 Aspiri TABLET, 81 mg ORAL active W rigoberto MG Delayed n CHEWABLE [facility] Release [facility] Oral Tablet [Aspir-Low] atorvastati Atorva TABLET 40 mg ORAL active W rigoberto n 40 MG statin [facility] [employer] Oral Tablet [facility] Hospit al [Lipitor] m Atorvastati n Calcium ezetimibe Ezetim TABLET 10 mg ORAL active Whi te 10 MG Oral arpita [facility] [employer] Tablet Hospital [Zetia] Ezetimibe apixaban Apixab TABLET 2.5 ORAL active White 2.5 MG Oral an mg [facility] Tablet Hospital [Eliquis] Apixaban Loratadine Lorata CAPSULE 10 mg ORAL active W rigoberto 10 MG Oral dine [facility] Capsule Hospital [Claritin] Hydrochloro Hydroc TABLET 25 mg ORAL complet [facility] thiazide 25 hlorot ed [employer] MG Oral hiazid Hospital Tablet e Famotidine Famoti TABLET 20 mg ORAL complet W rigoberto 20 MG Oral dine ed [facility] Tablet Hospital [Pepcid] Insurance Providers Payer name Policy type Policy ID Covered Covered democrat's Policy P sade / Coverage democrat ID relationship to Morse Inf ormation type morse AETNA MEDICARE [id number] SP MEBTL 27C [facility] [id number] SP [id number] SOLUTIONS AETNA MEDICARE [id number] SP MEBTL 27C SELFPAY TIER [address] [facility] [id number] PT [id number] AETNA MEDICARE [id number] SP MEBTL [address] [facility] [facility] [id number] PT [id number] [place] [id number] PT [id number] [facility] [id number] SP [id number] SOLUTIONS [place] [id number] SP [id number] [facility] (MEDICARE) [place] [id number] SP [id number] [facility] (MEDICARE) [facility] [id number] SP [id number] [facility] [id number] SP [id number] [facility] [id number] SP [id number] [employer] (MEDICARE) [employer] [id number] SOLUTIONS Problems, Conditions, and Diagnoses Code Display Name Description Problem Type Effective Dates Data Source(s) 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 i te [employer] disease of [place] 11:03:00 PM EST Ho spital coronary artery without angina pectoris R04.0 Epistaxis R04.0 Diagnosis 09/14/2019 [place] 11:03:00 PM EST Hospital D69.6 Thrombocytopenia, D69.6 Diagnosis 09/14/2019 [place] unspecified 11:03:00 PM EST Hospital N18.9 Chronic kidney N18.9 Diagnosis 09/14/2019 [place] disease, unspecified 11:03:00 PM EST Hospital 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 09/14/2019 Whit e [employer] kidney disease with 11:03:00 PM EST Hospital stage 1 through stage 4 chronic kidney disease, or unspecified chronic kidney disease I27.20 Pulmonary I27.20 Diagnosis 09/14/2019 [place] hypertension, 11:03:00 PM EST Hospit al unspecified N40.0 Benign prostatic N40.0 Diagnosis 09/14/[address] [place] hyperplasia without 11:03:00 PM EST Hospital lower urinary tract symptoms 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 Diagnosis 09/14/2019 [place] use of anticoagulants 11:03:00 PM [facility] Z92.21 Personal history of Z92.21 Diagnosis 09/14/2019 [place] antineoplastic 11:03:00 PM EST Hospi anju chemotherapy 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/14/[address] [place] artificial knee joint 11:03:00 PM [facility] Hospital Z95.5 Presence of coronary Z95.5 Diagnosis 09/14/2019 Whit [facility] [employer] angioplasty implant 11:03:00 PM EST Hospital and graft 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 09/14/2019 ite [employer] heart valve 11:03:00 PM EST Hospital Z68.36 Body mass index (BMI) Z68.36 Diagnosis 09/14/2019 Whi te [employer] 36.0-36.9, adult 11:03:00 PM EST Hos pital E66.9 Obesity, unspecified E66.9 Diagnosis 09/14/2019 Whit e [employer] 11:03:00 PM EST Hospital 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 11:03:00 PM E [facility] I48.92 Unspecified atrial I48.92 Diagnosis 09/14/2019 [place] flutter 11:03:00 PM EST Hospital N17.9 Acute kidney failure, N17.9 Diagnosis 09/14/2019 Whi te [employer] unspecified 11:03:00 PM EST Hospital E87.2 Acidosis E87.2 Diagnosis 09/14/2019 [place] 11:03:00 PM EST Hospital 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 09/20/2019 [place] 12:00:00 AM Hospital EDT Transesophageal 09/20/2019 [place] echocardiography (procedure) 12:00:00 AM Hospital EDT Nebulizer therapy (procedure) 09/18/2019 [place] 12:00:00 AM Hospital EDT Electrocardiographic procedure 09/15/2019 [place] (procedure) 12:00:00 AM Hospital EST Plain chest X-ray (procedure) 09/15/2019 [place] 12:00:00 AM Hospital EST Oxygen therapy (procedure) 09/15/2019 W rigoberto [employer] 12:00:00 AM Hospital EST Echocardiography (procedure) 09/14/2019 [place] 12:00:00 AM Hospital EST Computed tomography of abdomen 09/14/2019 [place] and pelvis without contrast 12:00:00 AM Hospital EST Electrocardiographic procedure 09/14/2019 [place] (procedure) 12:00:00 AM Hospital EST Plain chest X-ray (procedure) 09/14/2019 [place] 12:00:00 AM Hospital EST Computed tomography of head 09/14/2019 [place] without contrast 12:00:00 AM Hospital EST Results ID Date Data Source [id number] 09/21/2019 11:15:00 AM [facility] Verifying Specialist:LAW WALLER Name Value Range Interpretation Description Data Sup porting Code Source(s) Document(s ) Glucose 184 mg/dL [place] [Mass/volume] Hospital in Capillary blood by Glucometer ID Date Data Source [id number] 09/20/2019 09:31:[address] [facility] Value Range Interpretation Description Data Sup porting Code Source(s) Document(s ) Aspartate 21 U/L [place] aminotransferase [employer] [Enzymatic Hospital activity/volume] in Serum or Plasma ID Date Data Source [id number] 09/20/2019 09:31:00 AM [facility] Name Value Range Interpretation Description Data Sup porting Code Source(s) Document(s ) Alanine 33 U/L [place] aminotransferase [employer] [Enzymatic Hospital activity/volume] in Serum or Plasma ID Date Data Source [id number] 09/20/2019 09:31:[address] [facility] Value Range Interpretation Description Data Sup porting Code Source(s) Document(s ) Alkaline 76 U/L [place] phosphatase Hospital [Enzymatic activity/volume ] in Serum or Plasma ID Date Data Source [id number] 09/20/2019 09:31:00 AM [facility] Name Value Range Interpretation Description Data Sup porting Code Source(s) Document(s ) Bilirubin.t 1.3 mg/dL [facility] [Mass/volum e] in Serum or Plasma ID Date Data Source [id number] 09/20/2019 09:31:00 AM EDT [facility] [facility] Name Value Range Interpretation Code Description Data Mary Ann rce(s) Supporting Document(s ) Albumin/Glob 2.3 [place] ulin [Mass Hospital Ratio] in Serum or Plasma ID Date Data Source [id number] 09/20/2019 09:31:00 AM EDT [facility] Name Value Range Interpretation Description Data Sup porting Code Source(s) Document(s ) Albumin 3.4 g/dL [place] [Mass/volume Hospital ] in Serum or Plasma ID Date Data Source [id number] 09/20/2019 09:31:00 AM EDT [facility] Name Value Range Interpretation Description Data Sup porting Code Source(s) Document(s ) Protein 4.9 g/dL [place] [Mass/volume Hospital ] in Serum or Plasma ID Date Data Source [id number] 09/20/2019 09:31:00 AM EDT [facility] Name Value Range Interpretation Description Data Sup porting Code Source(s) Document(s ) Calcium 7.6 mg/dL [place] [Mass/volume Hospital ] in Serum or Plasma ID Date Data Source [id number] 09/20/2019 09:31:00 AM EDT [facility] Name Value Range Interpretation Code Description Data Mary Ann rce(s) Supporting Document(s ) Urea 25.7 [place] nitrogen/Cre Hospital atinine [Mass Ratio] in Serum or Plasma ID Date Data Source [id number] 09/20/2019 09:31:00 AM EDT [facility] Name Value Range Interpretation Description Data Sup porting Code Source(s) Document(s ) Creatinine 1.4 mg/dL [place] [Mass/volume] Hospital in Serum or Plasma ID Date Data Source [id number] 09/20/2019 09:31:00 AM EDT [facility] Name Value Range Interpretation Description Data Sup porting Code Source(s) Document(s ) Urea 36 mg/dL [place] nitrogen Hospital [Mass/volume ] in Serum or Plasma ID Date Data Source [id number] 09/20/2019 09:31:00 AM EDT [facility] Name Value Range Interpretation Code Description Data Mary Ann rce(s) Supporting Document(s ) Anion gap in 12 [place] Serum or [facility] Plasma ID Date Data Source [id number] 09/20/2019 09:31:00 AM EDT [facility] Name Value Range Interpretation Description Data Sup porting Code Source(s) Document(s ) Carbon 25 mmol/L [place] dioxide, Hospital total [Moles/volu me] in Serum or Plasma ID Date Data Source [id number] 09/20/2019 09:31:00 AM EDT [facility] Name Value Range Interpretation Description Data Sup porting Code Source(s) Document(s ) Chloride 104 [place] [Moles/volum mmol/L Hospital e] in Serum or Plasma ID Date Data Source [id number] 09/20/2019 09:31:00 AM EDT [facility] Name Value Range Interpretation Description Data Sup porting Code Source(s) Document(s ) Potassium 4.0 [place] [Moles/volume mmol/L Hospital ] in Serum or Plasma ID Date Data Source [id number] 09/20/2019 09:31:00 AM EDT [facility] Name Value Range Interpretation Description Data Sup porting Code Source(s) Document(s ) Sodium 137 mmol/L [place] [Moles/volu Hospital me] in Serum or Plasma ID Date Data Source [id number] 09/20/2019 09:31:00 AM EDT [facility] Name Value Range Interpretation Description Data Sup porting Code Source(s) Document(s ) Glucose 205 mg/dL [place] [Mass/volume Hospital ] in Serum or Plasma ID Date Data Source [id number] 09/20/2019 [facility] Interpretation Code Description Data Supporting Source(s) Document(s ) NUCLEATED RBCS 0.0 % [place] (AUTO Hospital DIFF%)DIS ID Date Data Source [id number] 09/20/2019 09:31:00 AM EDT [facility] Value Range Interpretation Description Data Sup porting Code Source(s) Document(s ) Differential AUTOMATED [place] cell count [facility] method - Blood ID Date Data Source [id number] 09/20/2019 09:31[facility] Range Interpretation Description Data Sup porting Code Source(s) Document(s ) Immature 0.05 [place] granulocytes 10*3/uL Hospital [#/volume] in Blood by Automated count ID Date Data Source [id number] 09/20/2019 09:[facility] Interpretation Description Data Sup porting Code Source(s) Document(s ) Basophils 0.01 [place] [#/volume] in 10*3/uL Hospital Blood by Automated count ID Date Data Source [id number] 09/20/2019 09:31:00 AM EDT [facility] Value Range Interpretation Description Data Sup porting Code Source(s) Document(s ) Eosinophils 0.13 [place] [#/volume] in 10*3/uL Hospital Blood by Automated count ID Date Data Source [id number] 09/20/2019 [facility] Range Interpretation Description Data Sup porting Code Source(s) Document(s ) Monocytes 0.65 [place] [#/volume] in 10*3/uL Hospital Blood by Automated count ID Date Data Source [id number] 09/20/2019 09:31:00 AM EDT [facility] Value Range Interpretation Description Data Sup porting Code Source(s) Document(s ) Lymphocytes 0.99 [place] [#/volume] in 10*3/uL Hospital Blood by Automated count ID Date Data Source [id number] 09/20/2019 09:31:00 AM EDT [facility] Value Range Interpretation Description Data Sup porting Code Source(s) Document(s ) Neutrophils 5.27 [place] [#/volume] in 10*3/uL [facility] Blood by Automated count ID Date Data Source [id number] 09/20/2019 09:31:00 AM EDT [facility] Value Range Interpretation Description Data Sup porting Code Source(s) Document(s ) Nucleated 0.0 % [place] erythrocytes/10 Hospital 0 leukocytes [Ratio] in Blood by Automated count ID Date Data Source [id number] 09/20/2019 09:31:00 AM EDT [facility] Value Range Interpretation Description Data Sup porting Code Source(s) Document(s ) Immature 0.7 % [place] granulocytes/10 Hospital 0 leukocytes in Blood by Automated count ID Date Data Source [id number] 09/20/2019 09:31:00 AM EDT [facility] Value Range Interpretation Description Data Sup porting Code Source(s) Document(s ) Basophils/100 0.1 % [place] leukocytes in Hospital Blood by Automated count ID Date Data Source [id number] 09/20/2019 09:31[facility] Range Interpretation Description Data Sup porting Code Source(s) Document(s ) Eosinophils/100 1.8 % [place] leukocytes in Hospital Blood by Automated count ID Date Data Source [id number] 09/20/2019 09:31:00 AM EDT [facility] Name Value Range Interpretation Description Data Sup porting Code Source(s) Document(s ) Monocytes/100 9.2 % [place] leukocytes in Hospital Blood by Automated count ID Date Data Source [id number] 09/20/2019 09:31:00 AM EDT [facility] Name Value Range Interpretation Description Data Sup porting Code Source(s) Document(s ) Lymphocytes/10 13.9 % [place] 0 leukocytes Hospital in Blood by Automated count ID Date Data Source [id number] 09/20/2019 09:31:00 AM EDT [facility] Value Range Interpretation Description Data Sup porting Code Source(s) Document(s ) Neutrophils/10 74.3 % [place] 0 leukocytes Hospital in Blood by Automated count ID Date Data Source [id number] 09/20/2019 09:31:00 AM EDT [facility] Name Value Range Interpretation Description Data Sup porting Code Source(s) Document(s ) Platelet mean 12.4 fL [place] volume Hospital [Entitic volume] in Blood by Automated count ID Date Data Source [id number] 09/20/2019 09:31:00 AM EDT [facility] Value Range Interpretation Description Data Sup porting Code Source(s) Document(s ) Platelets 72 [place] [#/volume] in 10*3/uL Hospital Blood by Automated count ID Date Data Source [id number] 09/20/2019 09:31:00 AM EDT [facility] Name Value Range Interpretation Description Data Sup porting Code Source(s) Document(s ) Erythrocyte 14.6 % [place] distribution Hospital width [Ratio] by Automated count ID Date Data Source [id number] 09/20/2019 09:31:00 AM EDT [facility] [facility] Name Value Range Interpretation Description Data Sup porting Code Source(s) Document(s ) Erythrocyte mean 33.8 [place] corpuscular g/dL Hospital hemoglobin concentration [Mass/volume] by Automated count ID Date Data Source [id number] 09/20/2019 09:31:00 AM EDT [facility] Value Range Interpretation Description Data Sup porting Code Source(s) Document(s ) Erythrocyte 31.3 pg [facility] corpuscular hemoglobin [Entitic mass] by Automated count ID Date Data Source [id number] 09/20/2019 09:31:00 AM EDT [facility] Value Range Interpretation Description Data Sup porting Code Source(s) Document(s ) Erythrocyte 92.5 fL [facility] corpuscular volume [Entitic volume] by Automated count ID Date Data Source [id number] 09/20/2019 09:31:00 AM EDT [facility] Value Range Interpretation Description Data Sup porting Code Source(s) Document(s ) Hematocrit 27.2 % [place] [Volume Hospital Fraction] of Blood by Automated count ID Date Data Source [id number] 09/20/2019 09:31[facility] Range Interpretation Description Data Sup porting Code Source(s) Document(s ) Hemoglobin 9.2 g/dL [place] [Mass/volume] Hospital in Blood ID Date Data Source [id number] 09/20/2019 09:31:00 AM EDT [facility] Value Range Interpretation Description Data Sup porting Code Source(s) Document(s ) Erythrocytes 2.94 [place] [#/volume] in 10*6/uL Hospital Blood by Automated count ID Date Data Source [id number] 09/20/2019 09:31:00 AM EDT [facility] [facility] Name Value Range Interpretation Description Data Sup porting Code Source(s) Document(s ) Leukocytes 7.1 [place] [#/volume] in 10*3/uL Hospital Blood by Automated count ID Date Data Source [id number] 09/19/2019 09[facility]26[facility]: NEW REFERENCE RANGE, EFFECTIVE . Name Value Range Interpretation Description Data Sup porting Code Source(s) Document(s ) Vancomycin 13.0 [place] [Mass/volume] ug/mL Hospital in Serum or Plasma --trough ID Date Data Source [id number] 09/19/2019 09:26:00 AM [facility] Name Value Range Interpretation Code Description Data Mary Ann rce(s) Supporting Document(s ) Cells 100 [facility] Total [#] in Blood ID Date Data Source [id number] 09/19/2019 09:26:00 AM [facility] PLT ESTIMATE DECREASED Name Value Range Interpretation Description Data Sup porting Code Source(s) Document(s ) PLATELET PRESENT [facility] Hospital ID Date Data Source [id number] 09/19/2019 09:26:00 AM [facility] Name Value Range Interpretation Code Description Data Mary Ann rce(s) Supporting Document(s ) OVALOCYTES OCC [facility] ID Date Data Source [id number] 09/19/2019 09:26:00 AM [facility] Name Value Range Interpretation Code Description Data Supporting Source(s) Document(s ) POLYCHROMASIA 1+ [facility] ID Date Data Source [id number] 09/19/2019 09:26:00 AM [facility] Name Value Range Interpretation Code Description Data Mary Ann rce(s) Supporting Document(s ) HYPOCHROMIA 1+ [facility] ID Date Data Source [id number] 09/19/2019 09:26:00 AM EDT [facility] Name Value Range Interpretation Description Data Sup porting Code Source(s) Document(s ) POIKILOCYTOSIS OCC [facility] ID Date Data Source [id number] 09/19/2019 09:26:00 AM EDT [facility] Value Range Interpretation Description Data Sup porting Code Source(s) Document(s ) Eosinophils 0.26 [facility] [#/volume] in 10*3/uL Hospital Blood by Manual count ID Date Data Source [id number] 09/19/2019 09:26:00 AM EDT [facility] Value Range Interpretation Description Data Sup porting Code Source(s) Document(s ) Monocytes 0.26 [facility] [#/volume] in 10*3/uL Hospital Blood by Manual count ID Date Data Source [id number] 09/19/2019 09:26:00 AM EDT [facility] Value Range Interpretation Description Data Sup porting Code Source(s) Document(s ) Lymphocytes 0.40 [facility] [#/volume] in 10*3/uL Hospital Blood by Manual count ID Date Data Source [id number] 09/19/2019 09:26:00 AM EDT [facility] Value Range Interpretation Description Data Sup porting Code Source(s) Document(s ) Neutrophils 5.68 [place] [#/volume] in 10*3/uL Hospital Blood by Manual count ID Date Data Source [id number] 09/19/2019 09:26:00 AM EDT [facility] Name Value Range Interpretation Description Data Sup porting Code Source(s) Document(s ) Eosinophils/100 4 % [place] leukocytes in Hospital Blood by Manual count ID Date Data Source [id number] 09/19/2019 09:26:00 AM EDT [facility] Name Value Range Interpretation Description Data Sup porting Code Source(s) Document(s ) Monocytes/100 4 % [place] leukocytes in Hospital Blood by Manual count ID Date Data Source [id number] 09/19/2019 09:26:00 AM EDT [facility] Name Value Range Interpretation Description Data Sup porting Code Source(s) Document(s ) Lymphocytes/100 6 % [place] leukocytes in Hospital Blood by Manual count ID Date Data Source [id number] 09/19/2019 09:26:00 AM EDT [facility] Name Value Range Interpretation Description Data Sup porting Code Source(s) Document(s ) Neutrophils/100 86 % [place] leukocytes in Hospital Blood by Manual count ID Date Data Source [id number] 09/18/2019 08:05:00 AM EDT [facility] 2 IgG KAPPA'S DETECTED. Name Value Range Interpretation Description Data Sup porting Code Source(s) Document(s ) MONOCLONAL SEE NOTE [facility] PROTEIN BAND Hospital ID Date Data Source [id number] 09/18/2019 08:05:00 AM EDT [facility] IgG KAPPA'S DETECTED.REVIEWED BY SALLIE MENDEZ MD Name Value Range Interpretation Description Data Sup porting Code Source(s) Document(s ) NKECHI ESPINOZA MONOCLONAL [facility] INTERPRETATION PROTEIN [facility] ID Date Data Source [id number] [facility] Value Range Interpretation Code Description Data Supporting Source(s) Document(s ) IgM 22 mg/dL [place] [facility] e] in Serum or Plasma ID Date Data Source [id number] 09/18/2019 08:05:00 AM EDT [facility] Name Value Range Interpretation Code Description Data Supporting Source(s) Document(s ) IgA 26 mg/dL [place] [[facility] e] in Serum or Plasma ID Date Data Source [id number] 09/18/2019 08:05:00 AM EDT [facility] Name Value Range Interpretation Description Data Sup porting Code Source(s) Document(s ) IgG 431 mg/dL [place] [[facility] e] in Serum or Plasma ID Date Data Source [id number] 09/18/2019 08:05:00 AM EDT [facility] Name Value Range Interpretation Description Data Sup porting Code Source(s) Document(s ) Haptoglobin 486 mg/dL [facility] [[facility]volume] Hospital in Serum or Plasma ID Date Data Source [id number] 09/18/2019 08:05:00 AM [facility] NO MONOCLONAL PROTEIN DISCERNIBLE ON PRO TEIN ELECTROPHORESIS, HOWEVER A MONOCLONAL IS IDENTIFIED ON SERUM IMMUNOFIXATION.REVIE WED BY SALLIE MENDEZ MD Name Value Range Interpretation Code Description Data Supporting Source(s) Document(s ) SPE SEE NOTE [facility] INTP/ABN Hospital REFLEX TO SIF ID Date Data Source [id number] 09/18/2019 08:05:00 AM EDT [facility] Name Value Range Interpretation Description Data Sup porting Code Source(s) Document(s ) GAMMA 0.4 g/dL [facility] GLOBULIN Hospital ID Date Data Source [id number] 09/18/2019 [facility] Name Value Range Interpretation Description Data Sup porting Code Source(s) Document(s ) BETA 0.7 g/dL [facility] GLOBULIN Hospital ID Date Data Source [id number] 09/18/2019 [facility] Name Value Range Interpretation Description Data Sup porting Code Source(s) Document(s ) ALPHA-2 0.8 g/dL [facility] GLOBULIN Hospital ID Date Data Source [id number] 09/18/2019 08:05:00 AM EDT [facility] Name Value Range Interpretation Description Data Sup porting Code Source(s) Document(s ) ALPHA-1 0.4 g/dL [facility] GLOBULIN Hospital ID Date Data Source [id number] 09/18/2019 08:05:00 AM EDT [facility] Name Value Range Interpretation Description Data Sup porting Code Source(s) Document(s ) ALBUMIN 2.2 g/dL [facility] (GM/DL) Hospital ID Date Data Source [id number] 09/18/2019 08:05:00 AM EDT [facility] Value Range Interpretation Code Description Data Supporting Source(s) Document(s ) A:G RATIO 1.0 [place] (ELECTROPH {ratio} [facility]) ID Date Data Source [id number] 09/18/2019 08:05:00 AM EDT [facility] Value Range Interpretation Code Description Data Mary Ann rce(s) Supporting Document(s ) GAMMA 9.7 % [facility] GLOBULIN % Hospital ID Date Data Source [id number] 09/18/2019 08:05:00 AM EDT [facility] Value Range Interpretation Code Description Data Supporting Source(s) Document(s ) BETA GLOBULIN 16.1 % [facility] % Hospital ID Date Data Source [id number] 09/18/2019 08:05:00 AM EDT [facility] Value Range Interpretation Code Description Data Mary Ann rce(s) Supporting Document(s ) ALPHA-2 % 17.1 % [facility] ID Date Data Source [id number] 09/18/2019 08:05:00 AM EDT [facility] Value Range Interpretation Code Description Data [facility] Ann rce(s) Supporting Document(s ) ALPHA-1 % 8.0 % [facility] ID Date Data Source [id number] 09/18/2019 08:05:00 AM EDT [facility] Name Value Range Interpretation Code Description Data Mary Ann rce(s) Supporting Document(s ) ALBUMIN 49.1 % [place] (SPE) % Hospital ID Date Data Source [id number] 09/18/2019 08:05:00 AM EDT [facility] Name Value Range Interpretation Description Data Sup porting Code Source(s) Document(s ) Ferritin 281.0 [place] [Mass/volume ng/mL Hospital ] in Serum or Plasma ID Date Data Source [id number] 09/18/2019 08:05:00 AM EDT [facility] Name Value Range Interpretation Description Data Sup porting Code Source(s) Document(s ) Folate 7.3 ng/mL [place] [[facility] e] in Serum or Plasma ID Date Data Source [id number] 09/18/2019 08:05:00 AM EDT [facility] Name Value Range Interpretation Description Data Sup porting Code Source(s) Document(s ) Cobalamin 1136 [place] (Vitamin B12) pg/mL Hospital [Mass/volume] in Serum or Plasma ID Date Data Source [id number] 09/18/2019 08:05:00 AM EDT [facility] Name Value Range Interpretation Description Data Sup porting Code Source(s) Document(s ) Iron saturation 37 % [facility] [Mass Fraction] Hospital in Serum or Plasma ID Date Data Source [id number] 09/18/2019 08:05:00 AM EDT [facility] Name Value Range Interpretation Description Data Sup porting Code Source(s) Document(s ) UNSAT IRON 136 ug/dL [facility] BINDING Hospital CAPACITY ID Date Data Source [id number] 09/18/2019 08:05:00 AM EDT [facility] Name Value Range Interpretation Description Data Sup porting Code Source(s) Document(s ) Iron binding 218 ug/dL [facility] capacity [facility] [Mass/volume ] in Serum or Plasma ID Date Data Source [id number] 09/18/2019 08:05:00 AM EDT [facility] Value Range Interpretation Code Description Data Supporting Source(s) Document(s ) Iron 82 ug/dL [place] [[facility] e] in Serum or Plasma ID Date Data Source [id number] 09/18/2019 08:05:00 AM EDT [facility] Name Value Range Interpretation Description Data Sup porting Code Source(s) Document(s ) Lactate 268 U/L [facility] [Enzymatic activity/volume] in Serum or Plasma ID Date Data Source [id number] 09/18/2019 [facility] Name Value Range Interpretation Description Data Sup porting Code Source(s) Document(s ) Bacteria No growth [facility] identified in Hospital Blood by Culture ID Date Data Source [id number] 09/18/2019 08:03:00 AM EDT [facility] Value Range Interpretation Code Description Data Mary Ann rce(s) Supporting Document(s ) Immature 9.5 % [facility] reticulocytes Hospital /Reticulocyte s.total in Blood ID Date Data Source [id number] 09/18[facility] Description Data Sup porting Code Source(s) Document(s ) Reticulocytes 0.03 [place] [#/volume] in 10*6/uL [facility] Blood by Automated count ID Date Data Source [id number] 09/18/2019 08:03:00 AM [facility] Name Value Range Interpretation Description Data Sup porting Code Source(s) Document(s ) Reticulocytes/10 1.06 % [facility] 0 erythrocytes Hospital in Blood by Automated count ID Date Data Source [id number] 09/17/2019 06:27:00 AM [facility] Name Value Range Interpretation Description Data Sup porting Code Source(s) Document(s ) Hemoglobin.g NEGATIVE [facility] nal [Presence] in Stool --1st specimen ID Date Data Source [id number] 09/17/2019 03:18:00 AM [facility] THERE ARE NO REFERENCE RANGES FOR RANDOM VANCOMYCIN LEVELS. Name Value Range Interpretation Description Data Sup porting Code Source(s) Document(s ) Vancomycin 19.1 [facility] [Mass/volume] ug/mL Hospital in Serum or Plasma --trough ID Date Data Source [id number] 09/17/2019 03:18:00 AM [facility] Name Value Range Interpretation Description Data Sup porting Code Source(s) Document(s ) Natriuretic 227.6 [facility] peptide B pg/mL Hospital [Mass/volume] in Serum or Plasma ID Date Data Source [id number] 09/17/2019 03:18:00 AM [facility] Name Value Range Interpretation Description Data Sup porting Code Source(s) Document(s ) Phosphate 2.1 mg/dL [facility] [Mass/volume] Hospital in Serum or Plasma ID Date Data Source [id number] 09/17/2019 03:18:00 AM [facility] Name Value Range Interpretation Description Data Sup porting Code Source(s) Document(s ) Magnesium 2.0 mg/dL [facility] [Mass/volume] Hospital in Serum or Plasma ID Date Data Source [id number] 09/17/2019 03:18:00 AM EDT [facility] THERAPEUTIC RANGES:UNFRACTIONATED HEPARI N THERAPY: 60-90 SECONDSARGATROBAN THERAPY: 49-99 SECONDS Name Value Range Interpretation Description Data Sup porting Code Source(s) Document(s ) aPTT in 30.6 s [facility] Platelet poor [facility] plasma by Coagulation assay ID Date Data Source [id number] 09/17/2019 03:18:00 AM EDT [facility] THERAPEUTIC RANGE FOR STANDARD ORALANTIC OAGULANT THERAPY: 2.0-3.0THERAPEUTIC RANGE FOR HIGH DOSE ORALANTICOAGULANT THERAPY (MECHANICAL HEARTVALVE REPLACEMENT): 2.5-3.5 Name Value Range Interpretation Description Data Sup porting Code Source(s) Document(s ) INR in Platelet 1.5 [facility] poor plasma by Hospital Coagulation assay ID Date Data Source [id number] 09/17/2019 03:18:00 AM EDT [facility] Name Value Range Interpretation Description Data Sup porting Code Source(s) Document(s ) PT panel - 16.6 s [place] Platelet poor [facility] plasma by Coagulation assay ID Date Data Source [id number] 09/17/2019 12:31:00 AM [facility] Name Value Range Interpretation Description Data Sup porting Code Source(s) Document(s ) GLUCOSE RN Notified [facility] ID Date Data Source [id number] 09/16/2019 03:06:00 AM [facility] NOTIFICATION AND READ BACK OF CRITICAL R ESULTS TO SAUL VICTORIA RN AT 0443 ON 09/16/19 BY Fredobrooke Garcia.REPORTED CRITICAL VALUES SHOULD BE INTERPRETED WITHIN CLINICAL CONTEXT.TEST PERFORMED BY [facility] UL[facility] SENSITIVE [facility] CHEMILUMINESCENCE METHOD. Name Value Range Interpretation Description Data Sup porting Code Source(s) Document(s ) Troponin 1.14 [facility] I.cardiac ng/mL Hospital [Mass/volume ] in Serum or Plasma ID Date Data Source [id number] 09/16/2019 03:06:00 AM EST [facility] Name Value Range Interpretation Description Data Sup porting Code Source(s) Document(s ) Lactate 1.4 [place] [Moles/volum mmol/L Hospital e] in Serum or Plasma ID Date Data Source [id number] 09/15/2019 02:10:00 PM EST [facility] Name Value Range Interpretation Code Description Data Mary Ann rce(s) Supporting Document(s ) READ BACK Yes/PA [facility] ID Date Data Source [id number] 09/15/2019 02:10:00 PM [facility] Value Range Interpretation Code Description Data Mary Ann rce(s) Supporting Document(s ) NOTE CONRADO Stark [facility] ID Date Data Source [id number] 09/15/2019 02:10:00 PM [facility] Name Value Range Interpretation Description Data Sup porting Code Source(s) Document(s ) IONIZED 1.02 [facility] CALCIUM mmol/L Hospital ID Date Data Source [id number] 09/15/2019 02:10:00 PM [facility] Name Value Range Interpretation Description Data Sup porting Code Source(s) Document(s ) LACTIC ACID 3.6 mmol/L [facility] (ABG) Hospital ID Date Data Source [id number] 09/15/2019 02:10:00 PM [facility] Name Value Range Interpretation Code Description Data Supporting Source(s) Document(s ) METHEMOGLOBIN 0.2 % [facility] ID Date Data Source [id number] 09/15/2019 02:10:00 PM [facility] Name Value Range Interpretation Description Data Sup porting Code Source(s) Document(s ) CARBOXYHEMOGLOBIN 0.3 % [facility] ID Date Data Source [id number] 09/15/2019 02:10:00 PM EST [facility] Name Value Range Interpretation Code Description Data Mary Ann rce(s) Supporting Document(s ) ABG TEMP 97.9 [facility] ID Date Data Source [id number] 09/15/2019 02:10:00 PM EST [facility] Name Value Range Interpretation Code Description Data Mary Ann rce(s) Supporting Document(s ) FIO2 21 % [facility] ID Date Data Source [id number] 09/15/2019 02:10:00 PM [facility] Value Range Interpretation Code Description Data Mary Ann rce(s) Supporting Document(s ) ABG BE -9.7 mmol/L [facility] ID Date Data Source [id number] 09/15/2019 02:10:00 PM [facility] Value Range Interpretation Code Description Data Mary Ann rce(s) Supporting Document(s ) ABG O2SAT 96 % [facility] ID Date Data Source [id number] 09/15/2019 02:10:00 PM [facility] Value Range Interpretation Code Description Data Mary Ann rce(s) Supporting Document(s ) ABG HCO3 14 mmol/L [facility] ID Date Data Source [id number] 09/15/2019 02:10:00 PM [facility] Value Range Interpretation Code Description Data Mary Ann rce(s) Supporting Document(s ) ABG PO2 86 mm[Hg] [facility] ID Date Data Source [id number] 09/15/2019 02:10:00 PM EST [facility] Value Range Interpretation Code Description Data Mary Ann rce(s) Supporting Document(s ) ABG PCO2 24 mm[Hg] [facility] ID Date Data Source [id number] 09/15/2019 02:10:00 PM EST [facility] Name Value Range Interpretation Code Description Data Mary Ann rce(s) Supporting Document(s ) ABG PH 7.38 [facility] ID Date Data Source [id number] 09/15/2019 02:10:00 PM EST [facility] Name Value Range Interpretation Code Description Data Mary Ann rce(s) Supporting Document(s ) ABG MODE Room Air [facility] ID Date Data Source [id number] 09/15/2019 02:10:00 PM EST [facility] Name Value Range Interpretation Code Description Data Mary Ann rce(s) Supporting Document(s ) ABG SITE A-Line [facility] ID Date Data Source [id number] 09/15/2019 02:10:00 PM EST [facility] Name Value Range Interpretation Code Description Data Supporting Source(s) Document(s ) ABG SOURCE ARTERIAL [facility] ID Date Data Source [id number] 09/15/2019 02:10:00 PM [facility] Name Value Range Interpretation Code Description Data Mary Ann rce(s) Supporting Document(s ) COY TEST POSITIVE [facility] ID Date Data Source [id number] 09/15/2019 02:17:00 AM [facility] Name Value Range Interpretation Description Data Sup porting Code Source(s) Document(s ) Thyroxine 1.3 ng/dL [facility] (T4) free Hospital [Mass/volume] in Serum or Plasma ID Date Data Source [id number] 09/15/2019 02:17:00 AM EST [facility] Name Value Range Interpretation Description Data Sup porting Code Source(s) Document(s ) Thyrotropin 4.338 [facility] [Units/volume] u[IU]/mL Hospital in Serum or Plasma by Detection limit <= 0.005 mIU/L ID Date Data Source [id number] 09/15/2019 02:17:00 AM [facility] ADA RECOMMENDATIONS: NON-DIABETES: 4.0-6.0% CONTROLLED DIABETES: 6.0-8.0% UNCONTROLLED DIABETE S: UP TO 20%RECOMMENDED ADA RESULT FOR THERAPY: HEMOGLOBIN A1C RESULT LESS DEON N 7%.NOTE: METHOD CHANGE EFFECTIVE 02/08/15. Name Value Range Interpretation Description Data Sup porting Code Source(s) Document(s ) Hemoglobin 5.9 % [facility] A1c/Hemoglobin. Hospital total in Blood ID Date Data Source [id number] 09/15/2019 02:17:00 AM [facility] Name Value Range Interpretation Description Data Sup porting Code Source(s) Document(s ) Urate 4.5 mg/dL [place] [[facility] e] in Serum or Plasma ID Date Data Source [id number] 09/15/2019 01:39:00 AM [facility] THERE ARE NO REFERENCE RANGES FOR RANDOM URINES. Name Value Range Interpretation Description Data Sup porting Code Source(s) Document(s ) Creatinine 176.6 [facility] [Mass/volume] mg/dL Hospital in Urine ID Date Data Source [id number] 09/15/2019 01:39:00 AM [facility] THERE ARE NO REFERENCE RANGES FOR RANDOM URINES. Name Value Range Interpretation Description Data Sup porting Code Source(s) Document(s ) Sodium 19 mmol/L [facility] [Moles/volu Hospital me] in Urine ID Date Data Source [id number] 09/15/2019 01:39:00 AM [facility] Name Value Range Interpretation Description Data Sup porting Code Source(s) Document(s ) Osmolality of 332 [facility] Urine mosm/kg Hospital ID Date Data Source [id number] 09/14/2019 08:41:00 PM EST [facility] Name Value Range Interpretation Description Data Sup porting Code Source(s) Document(s ) Leukocytes 10-20 [facility] [#/area] in /[HPF] Hospital Urine sediment by Microscopy high power field ID Date Data Source [id number] 09/14/2019 08:41:00 PM EST [facility] Name Value Range Interpretation Code Description Data Supporting Source(s) Document(s ) Leukocyte 1+ [facility] esterase Hospital [Presence] in Urine by Test strip ID Date Data Source [id number] 09/14/2019 08:41:00 PM EST [facility] Name Value Range Interpretation Description Data Sup porting Code Source(s) Document(s ) URINE NEGATIVE [facility] NITRITES Hospital ID Date Data Source [id number] 09/14/2019 08:41:00 PM EST [facility] Name Value Range Interpretation Description Data Sup porting Code Source(s) Document(s ) Erythrocytes TRACE [facility] [#/volume] in Hospital Urine by Test strip ID Date Data Source [id number] 09/14/2019 08:41:00 PM EST [facility] Name Value Range Interpretation Code Description Data Mary Ann rce(s) Supporting Document(s ) Bilirubin. NEGATIVE [facility] total Hospital [Presence] in Urine by Test strip ID Date Data Source [id number] 09/14/2019 08:41:00 PM EST [facility] Name Value Range Interpretation Description Data Sup porting Code Source(s) Document(s ) Urobilinogen 0.2 [facility] [Units/volume] mg/dL Hospital in Urine by Test strip ID Date Data Source [id number] 09/14/2019 08:41:00 PM EST [facility] Name Value Range Interpretation Description Data Sup porting Code Source(s) Document(s ) Ketones NEGATIVE [facility] [Mass/volume Hospital ] in Urine by Test strip ID Date Data Source [id number] 09/14/2019 08:41:00 PM EST [facility] Name Value Range Interpretation Description Data Sup porting Code Source(s) Document(s ) Glucose NEGATIVE [facility] [Mass/volume Hospital ] in Urine by Test strip ID Date Data Source [id number] 09/14/2019 08:41:00 PM EST [facility] Name Value Range Interpretation Description Data Sup porting Code Source(s) Document(s ) Protein NEGATIVE [facility] [Presence] Hospital in Urine by Test strip ID Date Data Source [id number] 09/14/2019 08:41:00 PM EST [facility] Value Range Interpretation Code Description Data Mary Ann rce(s) Supporting Document(s ) pH of Urine 5.5 [facility] by Test Hospital strip ID Date Data Source [id number] 09/14/2019 08:41:00 PM EST [facility] Name Value Range Interpretation Code Description Data Supporting Source(s) Document(s ) Specific 1.014 [facility] gravity of Hospital Urine by Test strip ID Date Data Source [id number] 09/14/2019 08:41:00 PM EST [facility] Name Value Range Interpretation Description Data Sup porting Code Source(s) Document(s ) Clarity in Urine CLEAR [facility] automated ID Date Data Source [id number] 09/14/2019 08:41:00 PM EST [facility] Name Value Range Interpretation Code Description Data Mary Ann rce(s) Supporting Document(s ) Color of YELLOW [facility] ID Date Data Source [id number] 09/14/2019 08:41:00 PM EST [facility] Name Value Range Interpretation Description Data Sup porting Code Source(s) Document(s ) Bacteria No growth [place] identified in Hospital Urine by Culture ID Date Data Source [id number] 09/14/2019 08:41:00 PM [facility] Name Value Range Interpretation Description Data Sup porting Code Source(s) Document(s ) Epithelial 2+ [facility] cells.squamous [facility] [#/area] in Urine sediment by Microscopy high power field ID Date Data Source [id number] 09/14/2019 08:41:00 PM [facility] Name Value Range Interpretation Description Data Sup porting Code Source(s) Document(s ) Bacteria OCCASIONAL [place] [#/area] in Hospital Urine sediment by Microscopy high power field ID Date Data Source [id number] 09/14/2019 08:41:00 PM [facility] Name Value Range Interpretation Description Data Sup porting Code Source(s) Document(s ) Erythrocytes 3-5 [facility] [#/area] in /[HPF] Hospital Urine sediment by Microscopy high power field ID Date Data Source [id number] 09/14/2019 08:29:00 PM [facility] Name Value Range Interpretation Code Description Data Mary Ann rce(s) Supporting Document(s ) Lipase 29 U/L [facility] [Enzymatic Hospital activity/vo lume] in Serum or Plasma ID Date Data Source [id number] 09/14/2019 08:29:00 PM [facility] Name Value Range Interpretation Code Description Data Supporting Source(s) Document(s ) Creatine 40 U/L [facility] kinase Hospital [Enzymatic activity/volu me] in Serum or Plasma ID Date Data Source [id number] 09/14/2019 08:29:00 PM [facility] Value Range Interpretation Description Data Sup porting Code Source(s) Document(s ) Manual MANUAL [facility] differential Hospital performed [Presence] in Blood ID Date Data Source [id number] 09/14/2019 08:29:00 PM EST [facility] Name Value Range Interpretation Code Description Data Mary Ann rce(s) Supporting Document(s ) RBC COMMENT NORMAL [facility] ID Date Data Source [id number] 09/14/2019 08:29:00 PM EST [facility] Name Value Range Interpretation Description Data Sup porting Code Source(s) Document(s ) Basophils 0.11 [place] [#/volume] in 10*3/uL Hospital Blood by Manual count ID Date Data Source [id number] 09/14/2019 08:29:00 PM [facility] Name Value Range Interpretation Description Data Sup porting Code Source(s) Document(s ) Basophils/100 1 % [place] leukocytes in Hospital Blood by Manual count ID Date Data Source [id number] 09/14/2019 08:29:00 PM EST [facility] Name Value Range Interpretation Description Data Sup porting Code Source(s) Document(s ) Band form 4 % [facility] neutrophils/100 Hospital leukocytes in Blood Procedure Social History Code Duration Value Status Description Data Source(s ) Smoking 09/15/2019 Never smoked completed Never smoked [facility] 06:[facility]:00 AM EST tobacco tobacco (finding) Ho spital (finding) Vital Signs ID Date Data Source UNK Name Value Range Interpretation Code Description Data Source(s) Diastolic blood 61 mm[Hg] 61 mm[Hg] [facility] Systolic blood 123 mm[Hg] 123 mm[Hg] [facility] Respiratory rate 20 /min 20 /min [facility] Heart rate 80 /min 80 /min [facility] Body temperature 37.00721 37.28328 [facility] Body temperature 99.2 [degF] 99.2 [degF] [facility] Body mass index 36.0 kg/m2 36.0 kg/m2 [facility] (BMI) [Ratio] Hospital Body weight 228.40 228.40 [lb_av] [facility] [lb_av] [facility] Systolic blood 128 mm[Hg] 128 mm[Hg] [facility] Diastolic blood 77 mm[Hg] 77 mm[Hg] [facility] ins pressure Hospital Respiratory rate 26 /min 26 /min [facility] Heart rate 121 /min 121 /min [facility]
--- NOTE | 2020-04-16 17:36 | PATH ---
Cytology Non-Gynecological Report Patient Name: NITZA CHOW [facility]. Rec. #: [id number] /Age/Gender: 1935 (Age: 84) / M Account: [id number] Location: RADIOLOGY INTER Taken: 04/15/2020 Received: 04/15/2020 Reported: 04/16/2020 Physicians: Emilee Hernandes M.D. Specimen(s) Received THYROID, RIGHT LOBE, FINE NEEDLE ASPIRATION Clinical History Right lobe Final Diagnosis THYROID, RIGHT LOBE, FINE NEEDLE ASPIRATION: SATISFACTORY FOR EVALUATION. BETHESDA III: ATYPIA OF UNDERTERMINED SIGNIFICANCE/FOLLICULAR LESION OF UNDETERMINED SIGNIFICANCE. FEW FOLLICULAR CELLS WITH PREDOMINANTLY DISPERSED MICROFOLLICLES FOCALLY ASSOCIATED WITH INSPISSATED THICK COLLOID. Comment: Suggest clinical/radiologic correlation and repeat sampling after an appropriate interval (3-6 months) with material for molecular studies (Thyroseq), as clinically warranted. Electronically Signed Kayla Romero M.D. Gross Description Received are eight direct smears, four of which are air-dried and Diff-Quik stained, and four of which are alcohol fixed and Pap stained. Also received is 20 ml of bloody formalin from which one cellblock is prepared.
== END | disposition home or self-care (01) ==
LOC: JRADIR 10:00
PROVIDERS: ATTEND Internal Medicine Hematology & Oncology
PROC: 0G9K3ZX Drainage of Thyroid Gland, Percutaneous Approach, Diagnostic (ICD-10-PCS; principal; 2020-04-15)
DX: E04.1 Nontoxic single thyroid nodule (principal)
CPT/HCPCS: 76942; 88173; 88305-TC

== ENCOUNTER 2020-06-21 11:48 | Emergency (ER) | payer OTHER ==
[2020-06-21] MEDS ORDERED: ACETAMINOPHEN 1000 MG/100 ML VIAL (NON FORMULARY) IVPB ONE (12:38)
[2020-06-21] MEDS ORDERED: ACETAMINOPHEN INJECTION 100 ML IVPB ONE (13:19)
[2020-06-21 13:29] VITALS: BP 139/66; PULSE 66; TEMP 97.6; BMI 36.0
[2020-06-21 14:08] LABS: BASO % 0.3 % (0-2.0); EOS % 0.2 % (0-4.5); HEMATOCRIT 34.8 % (35.4-49); LYMPH % 12.5 % (8-40); MCH 29.9 pg (25.7-33.7); MCHC 31.6 g/dl (32.0-35.9); MEAN CELL VOLUME 94.4 fl (80-96); MEAN PLT VOLUME 7.8 fl (7.5-11.1); MONO % 6.4 % (3.8-10.2); NEUT % 80.6 % (42.8-82.8); PLATELET COUNT 333 K/MM3 (134-434); RBC 3.69 M/mm3 (4.00-5.60); RDW 13.4 % (11.9-15.9); WHITE BLOOD COUNT 12.6 K/mm3 (4.0-10.8)
[2020-06-21 14:16] LABS: ALBUMIN 3.4 g/dl (3.4-5.0); BILIRUBIN,TOTAL 0.9 mg/dl (0.2-1); CALCIUM 8.9 mg/dl (8.5-10); CREATININE 1.3 mg/dl (0.55-1.3); POTASSIUM 4.1 mmol/L (3.5-5.1); TOT PROT 6.8 g/dl (6.4-8.2)
[2020-06-21] MEDS ORDERED: LIDOCAINE VISCOUS 2% ORAL/TOP 20 ML UNIT-DOSE CUP MM ONE (15:56)
[2020-06-21] MEDS ORDERED: LIDOCAINE VISCOUS 2% ORAL/TOP 20 ML UNIT-DOSE CUP ONE (16:04)
== END 2020-06-21 17:35 | disposition home or self-care (01) ==
LOC: FER 11:48
PROC: 3E0333Z Introduction of Anti-inflammatory into Peripheral Vein, Percutaneous Approach (ICD-10-PCS; principal; 2020-06-21)
DX: E07.9 Disorder of thyroid, unspecified (principal); R13.10 Dysphagia, unspecified; R49.0 Dysphonia
CPT/HCPCS: 36415; 70491-TC; 80053; 85025; 99285-25; J0131

== ENCOUNTER 2020-06-22 12:49 | Emergency (ER) | payer OTHER ==
[2020-06-22 13:13] VITALS: BMI 29.7
[2020-06-22] MEDS ORDERED: SODIUM CHLORIDE 0.9% 1000 ML INFUS.BAG IV ONE (13:23)
[2020-06-22] MEDS ORDERED: ACETAMINOPHEN 1000 MG/100 ML VIAL (NON FORMULARY) IVPB ONE (13:23)
[2020-06-22] MEDS ORDERED: DEXAMETHASONE SOD PHOSPHATE 4 MG/1 ML VIAL IVPUSH ONE (13:24)
[2020-06-22] MEDS ORDERED: ACETAMINOPHEN INJECTION 100 ML IVPB ONE (13:35)
[2020-06-22] MEDS ORDERED: DEXAMETHASONE SOD PHOSPHATE 4 MG/1 ML VIAL ONE (13:35)
[2020-06-22 14:48] LABS: POTASSIUM 4.2 mmol/L (3.5-5.1)
[2020-06-22 14:50] LABS: ALBUMIN 3.3 g/dl (3.4-5.0); BLOOD UREA NITROGEN 27.2 mg/dL (7-18); CALCIUM 9.5 mg/dL (8.5-10.1)
[2020-06-22 14:53] LABS: CREATININE 1.6 mg/dL (0.55-1.3)
[2020-06-22 14:55] LABS: BILIRUBIN,TOTAL 0.8 mg/dL (0.2-1)
[2020-06-22 15:00] LABS: BASO % 0.3 % (0-2.0); EOS % 0.1 % (0-4.5); HEMATOCRIT 32.6 % (35.4-49); HEMOGLOBIN 10.8 GM/dL (11.7-16.9); LYMPH % 9.7 % (8-40); MCH 30.3 pg (25.7-33.7); MEAN CELL VOLUME 91.8 fl (80-96); MEAN PLT VOLUME 8.1 fl (7.5-11.1); NEUT % 81.9 % (42.8-82.8); PLATELET COUNT 282 K/MM3 (134-434); RBC 3.55 M/mm3 (4.00-5.60); RDW 13.9 % (11.9-15.9); WHITE BLOOD COUNT 14.3 K/mm3 (4.0-10.0)
[2020-06-22 17:38] VITALS: BP 138/75; PULSE 81; TEMP 98.2
== END 2020-06-22 16:58 | disposition short-term general hospital (02) ==
LOC: JER 12:49
PROC: 3E033NZ Introduction of Analgesics, Hypnotics, Sedatives into Peripheral Vein, Percutaneous Approach (ICD-10-PCS; principal; 2020-06-22)
PROC: 3E033GC Introduction of Other Therapeutic Substance into Peripheral Vein, Percutaneous Approach (ICD-10-PCS; 2020-06-22)
DX: R22.1 Localized swelling, mass and lump, neck (principal)
CPT/HCPCS: 36415; 71045-TC-FY; 80053; 85025; 93005; 93010; 99285-25; C9803; J0131; U0003